=== PATIENT | male | born 1950 | race Caucasian/White ===

== ENCOUNTER 2017-07-21 15:18 | Emergency (ER) | payer MEDICARE, MEDICAID ==
[2017-07-21] MEDS ORDERED: SILVER SULFADIAZINE CREAM 25 GM TUBE TOP STA (17:32)
[2017-07-21] MEDS ORDERED: oxyCODONE/ACET 5/325 Prepack 4 PO STA (17:32)
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
[2017-07-21 18:03] VITALS: BP 140/84
== END 2017-07-21 18:02 | disposition home or self-care (01) ==
LOC: ED 15:18
DX: T23.261A Burn of second degree of back of right hand, initial encounter (principal); T31.0 Burns involving less than 10% of body surface; X03.8XXA Other exposure to controlled fire, not in building or structure, initial encounter; W40.1XXA Explosion of explosive gases, initial encounter; Z96.649 Presence of unspecified artificial hip joint
CPT/HCPCS: 99282; 99283; A9270

== ENCOUNTER 2017-07-30 14:08 | Emergency (ER) | payer MEDICARE, MEDICAID ==
--- NOTE | 2017-07-30 14:41 | ED Physician Documentation ---
PD HPI MALE - Stated complaint Stated Complaint: MALE - Chief complaint Chief Complaint: General - History obtained from History obtained from: Patient - History of Present Illness Timing - onset: Today Timing - details: Abrupt onset, Still present, Waxing and waning Associated symptoms: No: Dysuria, Urinary frequency, Genital sore / lesion, Back pain Review of Systems Constitutional: denies: Fever, Chills Nose: denies: Rhinorrhea / runny nose, Congestion Throat: denies: Sore throat Cardiac: denies: Chest pain / pressure, Palpitations Respiratory: denies: Dyspnea, Cough GI: denies: Nausea, Vomiting Skin: denies: Rash, Lesions Musculoskeletal: denies: Neck pain, Back pain Neurologic: denies: Generalized weakness, Focal weakness, Numbness, Near syncope , Headache PD PAST MEDICAL HISTORY - Past Medical History Cardiovascular: None Respiratory: None Endocrine/Autoimmune: None GI: Colon polyps, Hepatitis : Nocturia HEENT: None Psych: None Musculoskeletal: Osteoarthritis Derm: None - Past Surgical History Past Surgical History: Yes General: Appendectomy, Colonoscopy Ortho: Hip replacement - Present Medications Home Medications: Ambulatory Orders Medication Instructions Recorded Confirmed Oxycodone HCl/Acetaminophen 1 each PO Q6HR PRN #12 tablet 07/21/17 [Percocet 7.5-325 mg Tablet] Tamsulosin [Flomax] 0.4 mg PO DAILY #20 capsule 07/30/17 - Allergies Allergies/Adverse Reactions: Allergies Allergy/AdvReac Type Severity Reaction Status Date / Time No Known Drug Allergies Allergy Verified 07/30/17 14:23 - Social History Does the pt smoke?: No Smoking Status: Never smoker Does the pt drink ETOH?: Yes Does the pt have substance abuse?: No - Immunizations Immunizations are current?: No Immunizations: TDAP >10years/unknown - POLST Patient has POLST: Yes PD ED PE NORMAL - Vitals Vital signs reviewed: Yes - General General: Alert and oriented X 3, No acute distress, Well developed/nourished - HEENT HEENT: Atraumatic, Ears normal - Neck Neck: Supple, no meningeal sign, No adenopathy - Cardiac Cardiac: RRR, No murmur - Respiratory Respiratory: Clear bilaterally - Abdomen Abdomen: Normal bowel sounds, Soft, Non tender, Non distended - Back Back: No CVA TTP - Derm Derm: Normal color, Warm and dry, No rash - Extremities Extremities: No deformity, No tenderness to palpate, Normal ROM s pain, No edema , No calf tenderness / cord - Neuro Neuro: Alert and oriented X 3, No motor deficit, Normal speech Results - Vitals Vitals: Oxygen O2 Source Room air - Labs Labs: Laboratory Tests 07/30/17 14:45 Urine Color YELLOW Urine Clarity CLEAR Urine pH 5.0 Ur Specific [place] 1.015 Urine Protein NEGATIVE Urine Glucose (UA) NEGATIVE Urine Ketones NEGATIVE Urine Occult Blood SMALL H Urine Nitrite NEGATIVE Urine Bilirubin NEGATIVE Urine Urobilinogen 0.2 (NORMAL) Ur Leukocyte Esterase NEGATIVE Urine RBC 0-5 Urine WBC 0-3 Ur Squamous Epith Cells NONE SEEN Urine Bacteria None Seen Ur Microscopic Review INDICATED Urine Culture Comments NOT INDICATED PD MEDICAL DECISION MAKING - ED course Complexity details: considered differential, d/w patient Departure - Departure Disposition: 01 Home, Self Care Clinical Impression: Acute urinary retention Condition: Stable Record reviewed to determine appropriate education?: Yes Instructions: ED Catheter Care Mcbride, ED Retention Urinary Male Follow-Up: Keyona Nova ARNP [Primary Care Provider] - Prescriptions: Tamsulosin [Flomax] 0.4 mg PO DAILY #20 capsule Comments: Leave the Mcbride catheter in for now. Start tamsulosin daily for the next 2-3 weeks. Recheck with your primary care or here in the ER in 3 or 4 days and we can try removing the catheter and see if you are able to urinate normally after that. No signs of infection in the urine. Discharge Date/Time: 07/30/17 15:41
[2017-07-30 15:00] LABS: BILIRUBIN,URINE NEGATIVE (NEGATIVE); GLUCOSE, URINE (UA) NEGATIVE (NEGATIVE); KETONES,URINE (UA) NEGATIVE (NEGATIVE); LEUKOCYTE ESTERASE, URINE NEGATIVE (NEGATIVE); NITRITE,URINE NEGATIVE (NEGATIVE); OCCULT BLOOD,URINE SMALL (NEGATIVE); PROTEIN,URINE NEGATIVE (NEGATIVE); UROBILINOGEN,URINE 0.2 (NORMAL) E.U./dL (NORMAL)
[2017-07-30 15:01] LABS: CLARITY,URINE CLEAR (CLEAR)
[2017-07-30] MEDS ORDERED: TAMSULOSIN 0.4 MG CAPSULE PO STA (15:16)
[2017-07-30 15:23] LABS: BACTERIA,URINE None Seen /HPF (None Seen); RBC,URINE 0-5 /HPF (0-5); SQUAMOUS EPITHELIAL CELL,UR NONE SEEN (<= Few)
[2017-07-30 15:27] VITALS: BP 156/85
[2017-07-30] MEDS ORDERED: LIDOCAINE JELLY 2% 5 ML TUBE TOP STA (15:37)
== END 2017-07-30 15:41 | disposition home or self-care (01) ==
LOC: ED 14:08
DX: R33.9 Retention of urine, unspecified (principal)
CPT/HCPCS: 51702; 81001; 99283; A9270; J3490; 81003; 87086

== ENCOUNTER 2017-08-02 15:06 | Emergency (ER) | payer MEDICARE, MEDICAID ==
[2017-08-02 15:14] VITALS: BP 171/77
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
== END 2017-08-02 16:03 | disposition home or self-care (01) ==
LOC: ED 15:06
DX: R33.9 Retention of urine, unspecified (principal)
CPT/HCPCS: 99282

== ENCOUNTER 2017-08-30 09:48 | Outpatient (CLI) | payer MEDICARE, MEDICAID ==
[2017-08-30 17:35] LABS: BASOPHILS % (AUTO) 0.6 %; EOSINOPHILS # (AUTO) 0.1 10^3/uL (0.0-0.7); EOSINOPHILS % (AUTO) 1.3 %; LYMPHOCYTES # (AUTO) 1.1 10^3/uL (1.5-3.5); LYMPHOCYTES % (AUTO) 14.8 %; MEAN CORPUSCULAR HEMOGLOBIN 33.1 pg (27.0-31.0); MEAN CORPUSCULAR HGB CONC 32.9 g/dL (32.0-36.0); MEAN CORPUSCULAR VOLUME 100.8 fL (80.0-94.0); MEAN PLATELET VOLUME 8.8 fL (7.4-11.4); MONOCYTES # (AUTO) 0.8 10^3/uL (0.0-1.0); MONOCYTES % (AUTO) 10.2 %; NEUTROPHILS # (AUTO) 5.5 10^3/uL (1.5-6.6); NEUTROPHILS % (AUTO) 73.1 %; PLT - PLATELET COUNT 292 10^3/uL (130-450); RED BLOOD COUNT 4.24 10^6/uL (4.70-6.10); RED CELL DISTRIBUTION WIDTH 13.5 % (12.0-15.0); WHITE BLOOD COUNT 7.5 x10^3/uL (4.8-10.8)
[2017-08-30 18:22] LABS: ALBUMIN 3.7 g/dL (3.2-5.5); ALBUMIN/GLOBULIN RATIO 0.8 (1.0-2.2); BILIRUBIN,TOTAL 0.9 mg/dL (0.2-1.0); CALCIUM 9.2 mg/dL (8.5-10.3); CREATININE 1.1 mg/dL (0.6-1.2); TOTAL PROTEIN 8.1 g/dL (6.7-8.2); URIC ACID 6.3 mg/dL (2.6-7.2)
== END 2017-08-30 09:49 | disposition home or self-care (01) ==
LOC: LAB.F 09:48
PROVIDERS: ATTEND Nurse Practitioner Family
DX: I10 Essential (primary) hypertension (principal); A49.9 Bacterial infection, unspecified; B19.20 Unspecified viral hepatitis C without hepatic coma; M10.9 Gout, unspecified
CPT/HCPCS: 36415; 80053; 84550; 85025; 85651; 86140

== ENCOUNTER 2017-09-09 10:47 | Outpatient (CLI) | END 2017-09-09 10:48 | disposition home or self-care (01) ==

== ENCOUNTER 2018-01-13 16:39 | Emergency (ER) | payer MEDICARE, MEDICAID ==
[2018-01-13] MEDS ORDERED: LORazepam 2 MG/ML VIAL IVP STA (17:24)
--- NOTE | 2018-01-13 17:28 | ED Physician Documentation ---
PD HPI FOCAL NEURO - Stated complaint Stated Complaint: CANT SWOLLOW/FACE PX - Chief complaint Chief Complaint: Neuro - History obtained from History obtained from: Patient - History of Present Illness Timing - onset: Other (The last 2 weeks he has had a progressive illness that he feel like started in the left ear and has had progressive pain with chewing on the left, facial swelling under the left mandible, difficulty with swallowing and feeling like liquids need to go down the right side of his esophagus.) Review of Systems Ten Systems: 10 systems reviewed and negative Constitutional: denies: Fever, Chills Ears: reports: Ear pain Nose: denies: Rhinorrhea / runny nose, Congestion Throat: denies: Sore throat GI: denies: Nausea, Vomiting PD PAST MEDICAL HISTORY - Past Medical History Cardiovascular: None Respiratory: None Neuro: None Endocrine/Autoimmune: None GI: Colon polyps, Hepatitis : Nocturia HEENT: None Psych: None Musculoskeletal: Osteoarthritis Derm: None - Past Surgical History Past Surgical History: Yes General: Appendectomy, Colonoscopy Ortho: Hip replacement - Present Medications Home Medications: Ambulatory Orders Medication Instructions Recorded Confirmed Tamsulosin [Flomax] 0.4 mg PO DAILY #20 capsule 07/30/17 Diazepam [Valium] 2 mg PO TID PRN #10 tablet 01/13/18 Oxycodone HCl/Acetaminophen 1 each PO Q6H PRN #20 tablet 01/13/18 [Percocet 10-325 mg Tablet] - Allergies Allergies/Adverse Reactions: Allergies Allergy/AdvReac Type Severity Reaction Status Date / Time No Known Drug Allergies Allergy Verified 08/02/17 15:14 - Social History Does the pt smoke?: No Smoking Status: Never smoker Does the pt drink ETOH?: Yes Does the pt have substance abuse?: Yes Substance Use and Type: Marijuana - Family History Family history: reports: Non contributory - Immunizations Immunizations are current?: No Immunizations: TDAP >10years/unknown - POLST Patient has POLST: Yes PD ED PE NORMAL - Vitals Vital signs reviewed: Yes - General General: Alert and oriented X 3, No acute distress - HEENT HEENT: PERRL, EOMI, Ears normal, Other (There is a palpable firm mass in the left submandibular region that is quite extensive, he has mild pain with opening of the jaw but no trismus. He is edentulous with dentures in place. 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, Normal speech Eye Opening: Spontaneous Motor: Obeys Commands Verbal: Oriented GCS Score: 15 Results - Vitals Vitals: Vital Signs - 24 hr 01/13/18 16:41 Temperature 36.6 C Heart Rate 78 Respiratory 18 Rate Blood Pressure 147/79 H O2 Saturation 94 Oxygen O2 Source Room air - Labs Labs: Laboratory Tests 01/13/18 01/13/18 17:35 17:35 WBC 4.7 L RBC 3.73 L Hgb 13.2 L Hct 38.7 L MCV 103.5 H MCH 35.4 H MCHC 34.2 RDW 14.9 Plt Count 224 MPV 8.0 Neut # (Auto) 3.5 Lymph # (Auto) 0.7 L [place] # (Auto) 0.4 Eos # (Auto) 0.1 Baso # (Auto) 0.0 Absolute Nucleated RBC 0.00 Nucleated RBC % 0.0 Sodium 137 Potassium 4.0 Chloride 101 Carbon Dioxide 25 Anion Gap 11.0 BUN 21 H Creatinine 1.4 H Estimated GFR (MDRD) 50 L Glucose 109 H Calcium 9.2 Total Bilirubin 0.6 AST 22 ALT 12 Alkaline Phosphatase 40 L Total Protein 7.5 Albumin 4.0 Globulin 3.5 Albumin/Globulin Ratio 1.1 Lipase 33 - Rads (name of study) CT Head/neck with IV contrast Radiology: EMP read contemporaneously (1. Centered in the region of the left tongue base is a locally infiltrative at least 4 cm mass consistent with primary head and neck cancer. 2. Pathologically enlarged cervical adenopathy bilaterally consistent with regional lymph node tumor metastasis. 3. Nonspecific subcentimeter nodule in the left upper lung zone, follow-up with contrast- enhanced CT of the chest for further evaluation is suggested.) PD MEDICAL DECISION MAKING - ED course ED course: 67-year-old gentleman with progressive symptoms likely related to head and neck malignancy found on imaging. Case discussed by phone with Dr. Nascimento on-call for his clinic who will talk with his primary care physician tomorrow to help him arrange for expedited referrals for ENT as he will likely need a radical neck dissection. Departure - Departure Disposition: 01 Home, Self Care Clinical Impression: Tongue malignant neoplasm Condition: Good Record reviewed to determine appropriate education?: Yes Follow-Up: Keyona Nova ARNP [Primary Care Provider] - Tomorrow Prescriptions: Diazepam [Valium] 2 mg PO TID PRN #10 tablet PRN Reason: Anxiety Oxycodone HCl/Acetaminophen [Percocet 10-325 mg Tablet] 1 each PO Q6H PRN #20 tablet PRN Reason: Pain Comments: I spoke with the physician on-call for Keyona Nova, call her tomorrow, as discussed they will need to put an expedited referrals for head and neck surgery for evaluation and likely surgical procedure.
[2018-01-13 17:51] LABS: BASOPHILS % (AUTO) 0.7 %; EOSINOPHILS # (AUTO) 0.1 10^3/uL (0.0-0.7); EOSINOPHILS % (AUTO) 2.2 %; HGB - HEMOGLOBIN 13.2 g/dL (14.0-18.0); LYMPHOCYTES # (AUTO) 0.7 10^3/uL (1.5-3.5); LYMPHOCYTES % (AUTO) 14.3 %; MEAN CORPUSCULAR HEMOGLOBIN 35.4 pg (27.0-31.0); MEAN CORPUSCULAR HGB CONC 34.2 g/dL (32.0-36.0); MEAN CORPUSCULAR VOLUME 103.5 fL (80.0-94.0); MONOCYTES # (AUTO) 0.4 10^3/uL (0.0-1.0); MONOCYTES % (AUTO) 8.5 %; NEUTROPHILS # (AUTO) 3.5 10^3/uL (1.5-6.6); NEUTROPHILS % (AUTO) 74.3 %; PLT - PLATELET COUNT 224 10^3/uL (130-450); RED BLOOD COUNT 3.73 10^6/uL (4.70-6.10); RED CELL DISTRIBUTION WIDTH 14.9 % (12.0-15.0); WHITE BLOOD COUNT 4.7 x10^3/uL (4.8-10.8)
[2018-01-13] MEDS ORDERED: IOPAMIDOL-300 100 ML VIAL ONE (17:52)
[2018-01-13 18:01] LABS: ALBUMIN/GLOBULIN RATIO 1.1 (1.0-2.2); BILIRUBIN,TOTAL 0.6 mg/dL (0.2-1.0); CALCIUM 9.2 mg/dL (8.5-10.3); CREATININE 1.4 mg/dL (0.6-1.2); TOTAL PROTEIN 7.5 g/dL (6.7-8.2)
[2018-01-13] MEDS ORDERED: MORPHINE 2 MG/ML CARPUJECT IVP STA ×2 (18:10→19:26)
[2018-01-13] MEDS ORDERED: IOPAMIDOL-300 100 ML VIAL IVP ONE (18:30)
--- NOTE | 2018-01-13 19:07 | CT Report ---
Reason: L neuro sx, L neck mass Procedure Date: 01/13/2018 Accession Number: [id number] / [id number] Procedure: CT - Neck Soft Tissue W/ CPT Code: FULL RESULT: EXAM: CT SOFT TISSUE NECK WITH CONTRAST. EXAM DATE: 01/13/2018 06:23 PM. HISTORY: Neck mass. COMPARISONS: None. TECHNIQUE: Routine soft tissue neck CT protocol. Reconstructions: Coronal and sagittal. IV contrast: ISOVUE 300 80mL. In accordance with CT protocol optimization, one or more of the following dose reduction techniques were utilized for this exam: automated exposure control, adjustment of mA and/or KV based on patient size, or use of iterative reconstructive technique. FINDINGS: Approximately 4 cm enhancing expansile space occupying mass centered in the region of the left lateral tongue base. This lesion extends anteriorly and likely involves the oral tongue, extending toward the root of the tongue. Posteriorly and laterally to the left this lesion may extend into the adjacent left palatine tonsil. At least mild associated airway narrowing with mass extension inferiorly with partial left vallecula effacement. Multiple pathologically enlarged cervical lymph nodes in the left neck most evident at lymph node levels 2 and 3. An upper left level 3 node is 18 x 25 mm. Dominant left level 2 nodes are 17 x 36 and 21 x 13 mm. Pathologically enlarged lymph nodes at level 2 in the right neck are also present, for example measuring 21 x 17 mm and 15 x 17 mm. Nonspecific nodule in the left posterior upper lung zone up to 6-7 mm. Reference image 121 of series 4. Unremarkable appearance of the major salivary glands and thyroid gland. Prominent chronic multilevel hypertrophic degenerative cervical spinal spondylosis. Atherosclerotic calcifications associated with an indeterminate degree of luminal stenosis at the cervical carotid bifurcations. IMPRESSION: 1. Centered in the region of the left tongue base is a locally infiltrative at least 4 cm mass consistent with primary head and neck cancer. 2. Pathologically enlarged cervical adenopathy bilaterally consistent with regional lymph node tumor metastasis. 3. Nonspecific subcentimeter nodule in the left upper lung zone, follow-up with contrast-enhanced CT of the chest for further evaluation is suggested. RADIA
--- NOTE | 2018-01-13 19:11 | CT Report ---
Reason: LEFT NEURO SYMPTOMS, LEFT NECK MASS Procedure Date: 01/13/2018 Accession Number: [id number] / [id number] Procedure: CT - Head W/WO CPT Code: FULL RESULT: EXAM: CT HEAD EXAM DATE: 01/13/2018 06:24 PM. CLINICAL HISTORY: Left neck mass. Neurologic symptoms are also reported. COMPARISON: No prior CT. Brain MRI correlation 05/10/2014. TECHNIQUE: Multiaxial CT images were obtained from the foramen magnum to the vertex. Reformats: Sagittal and coronal. IV contrast: Without and with 80 mL Isovue-300. In accordance with CT protocol optimization, one or more of the following dose reduction techniques were utilized for this exam: automated exposure control, adjustment of mA and/or KV based on patient size, or use of iterative reconstructive technique. FINDINGS: Mild generalized cerebral volume loss. No evidence for acute abnormality such as stroke, hemorrhage or hydrocephalus. Amorphous white matter hypoattenuation may be from chronic microangiopathy. No evidence for intracranial enhancing or space-occupying mass. No acute-appearing sinus or mastoid disease. Grossly intact calvarium. IMPRESSION: No CT evidence for acute intracranial abnormality or enhancing intracranial mass. These findings do not preclude the possibility of small or acute ischemic infarct for which a brain MRI would be more sensitive. RADIA
[2018-01-13 19:52] VITALS: BP 156/88
[2018-01-13] MEDS ORDERED: diazePAM 5 MG TABLET PO STA (19:56)
[2018-01-13] MEDS ORDERED: oxyCODONE/ACET 5/325 Prepack 4 PO STA (19:56)
== END 2018-01-13 20:07 | disposition home or self-care (01) ==
LOC: ED 16:39
DX: C01 Malignant neoplasm of base of tongue (principal); K75.9 Inflammatory liver disease, unspecified
CPT/HCPCS: 36415; 70470; 70491; 80053; 83690; 85025; 96374; 96375; 96376; 99283; 99284; A9270; J2060; Q9967

== ENCOUNTER 2018-01-14 09:55 | Outpatient (CLI) | payer MEDICARE, MEDICAID | END 2018-01-14 09:56 | disposition home or self-care (01) | LOC: RT.S 09:55 | PROVIDERS: ATTEND Nurse Practitioner Family | DX: I49.9 Cardiac arrhythmia, unspecified (principal) | CPT/HCPCS: 93005 ==

== ENCOUNTER 2018-02-10 20:40 | Outpatient (CLI) | payer MEDICARE | END 2018-02-10 20:41 | disposition EMS.NT | LOC: EMS 20:40 | PROVIDERS: ATTEND Surgery | DX: M79.672 Pain in left foot (principal); M79.671 Pain in right foot ==

== ENCOUNTER 2018-02-27 22:09 | Inpatient (IN) | payer MEDICARE ==
--- NOTE | 2018-02-27 22:37 | ED Physician Documentation ---
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 He went to [facility] and then [place] yesterday and was being prepared for chemotherapy but had urinary retention with 1100 mL in the bladder per the on bladder scan so he was deferred over to the emergency department at [place] yesterday for a Mcbride catheter. Today he has had very little output from the Mcbride catheter and has had some leakage from around the head of the penis. He is not really in any pain per se.) Review of Systems Ten Systems: 10 systems reviewed and negative Constitutional: denies: Fever, Chills Cardiac: denies: Chest pain / pressure, Palpitations Respiratory: denies: Dyspnea, Cough GI: denies: Abdominal Pain, Nausea, Vomiting PD PAST MEDICAL HISTORY - Past Medical History Cardiovascular: None Respiratory: None Neuro: None Endocrine/Autoimmune: None GI: Colon polyps, Hepatitis : Nocturia HEENT: None Psych: None Musculoskeletal: Osteoarthritis Derm: None - Past Surgical History Past Surgical History: Yes General: Appendectomy, Colonoscopy Ortho: Hip replacement - Present Medications Home Medications: Ambulatory Orders Medication Instructions Recorded Confirmed RX: Tamsulosin [Flomax] 0.4 mg PO DAILY #20 capsule 07/30/17 Diazepam [Valium] 2 mg PO TID PRN #20 tablet 01/13/18 Oxycodone HCl/Acetaminophen 1 each PO Q6H PRN #20 tablet 01/13/18 [Percocet 10-325 mg Tablet] - Allergies Allergies/Adverse Reactions: Allergies Allergy/AdvReac Type Severity Reaction Status Date / Time No Known Drug Allergies Allergy Verified 02/27/18 22:17 - Social History Does the pt smoke?: No Smoking Status: Never smoker Does the pt drink ETOH?: Yes Does the pt have substance abuse?: Yes - Family History Family history: reports: Non contributory - Immunizations Immunizations are current?: No Immunizations: TDAP >10years/unknown - POLST Patient has POLST: Yes PD ED PE NORMAL - Vitals Vital signs reviewed: Yes - General General: Alert and oriented X 3, No acute distress - HEENT HEENT: PERRL, EOMI - Neck Neck: Supple, no meningeal sign, No bony TTP - Cardiac Cardiac: RRR, No murmur - Respiratory Respiratory: No respiratory distress, Clear bilaterally - Abdomen Abdomen: Soft, Non tender - Male Male : Other (There is a Mcbride catheter in place, there is some inflammation around the head of the penis but it is not too bad. There is not much urine in the bag, minute may be 10-20 mL. The says that is pretty much all that has been and they are all day. During examination I flushed the catheter with sterile saline, the saline came back but there was not any more urine output. Bedside ultrasound demonstrates Mcbride catheter balloon in the bladder but an otherwise complete decompressed bladder.) - Extremities Extremities: No edema, No calf tenderness / cord - Neuro Neuro: Alert and oriented X 3, Normal speech Results - Vitals Vitals: Vital Signs - 24 hr 02/27/18 22:10 Temperature 36.6 C Heart Rate 112 H Respiratory 18 Rate Blood Pressure 93/61 O2 Saturation 94 Oxygen O2 Source Room air - Labs Labs: Laboratory Tests 02/27/18 02/27/18 22:45 22:45 WBC 9.2 RBC 3.76 L Hgb 13.0 L Hct 37.9 L MCV 100.8 H MCH 34.4 H MCHC 34.2 RDW 13.6 Plt Count 309 MPV 8.6 Neut # (Auto) 6.8 H Lymph # (Auto) 1.4 L [place] # (Auto) 0.7 Eos # (Auto) 0.2 Baso # (Auto) 0.1 Absolute Nucleated RBC 0.00 Nucleated RBC % 0.0 Sodium 133 L Potassium 4.2 Chloride 94 L Carbon Dioxide 28 Anion Gap 11.0 BUN 36 H Creatinine 2.3 H Estimated GFR (MDRD) 28 L Glucose 123 H Calcium 9.3 Total Bilirubin 0.2 AST 24 ALT 15 Alkaline Phosphatase 46 Total Protein 7.5 Albumin 3.7 Globulin 3.8 Albumin/Globulin Ratio 1.0 Lipase 29 PD MEDICAL DECISION MAKING - ED course ED course: This is a 67-year-old gentleman with recent diagnosis of head and neck primary cancer who presents with diminished Mcbride catheter output after having a Mcbride catheter placed yesterday. I irrigated at the bedside and that did not seem to change anything and bedside ultrasound demonstrates a decompressed bladder with the Mcbride catheter in it. At that point labs were drawn and shows acute renal injury, probably due to postobstructive uropathy. His port was accessed by the nurse to start double IV fluids and I spoke with Dr. Cunningham for admission at 11:15 PM who does plan to consult nephrology, Departure - Departure Disposition: 66 [facility] DC/Xfer Clinical Impression: Acute urinary retention, Acute renal failure Condition: Stable
[2018-02-27 22:52] LABS: BASOPHILS # (AUTO) 0.1 10^3/uL (0.0-0.1); BASOPHILS % (AUTO) 0.7 %; EOSINOPHILS # (AUTO) 0.2 10^3/uL (0.0-0.7); EOSINOPHILS % (AUTO) 1.8 %; LYMPHOCYTES # (AUTO) 1.4 10^3/uL (1.5-3.5); LYMPHOCYTES % (AUTO) 15.5 %; MEAN CORPUSCULAR HEMOGLOBIN 34.4 pg (27.0-31.0); MEAN CORPUSCULAR HGB CONC 34.2 g/dL (32.0-36.0); MEAN CORPUSCULAR VOLUME 100.8 fL (80.0-94.0); MEAN PLATELET VOLUME 8.6 fL (7.4-11.4); MONOCYTES # (AUTO) 0.7 10^3/uL (0.0-1.0); NEUTROPHILS # (AUTO) 6.8 10^3/uL (1.5-6.6); PLT - PLATELET COUNT 309 10^3/uL (130-450); RED BLOOD COUNT 3.76 10^6/uL (4.70-6.10); RED CELL DISTRIBUTION WIDTH 13.6 % (12.0-15.0); WHITE BLOOD COUNT 9.2 x10^3/uL (4.8-10.8)
[2018-02-27] MEDS ORDERED: oxyCODONE 5 MG TABLET PO STA (23:00)
[2018-02-27 23:04] LABS: ALBUMIN 3.7 g/dL (3.2-5.5); BILIRUBIN,TOTAL 0.2 mg/dL (0.2-1.0); CALCIUM 9.3 mg/dL (8.5-10.3); CREATININE 2.3 mg/dL (0.6-1.2); TOTAL PROTEIN 7.5 g/dL (6.7-8.2)
[2018-02-27] MEDS ORDERED: SODIUM CHLORIDE 0.9% 1,000 ML IV ONE (23:11)
[2018-02-28] MEDS ORDERED: ONDANSETRON 4 MG/2 ML VIAL IVP PRN (00:59)
[2018-02-28] MEDS: SODIUM CHLORIDE FLUSH 0.9% 10 ML SYRINGE IVP SCH ×3 (02:01→17:12)
[2018-02-28] MEDS: MORPHINE 2 MG/ML CARPUJECT IVP PRN (02:22)
[2018-02-28] MEDS: METOPROLOL TARTRATE 25 MG TABLET PO SCH ×3 (02:23→22:08)
[2018-02-28] MEDS: diazePAM 5 MG TABLET PO PRN (02:25)
--- NOTE | 2018-02-28 02:25 | HISTORY & PHYSICAL EXAMINATION ---
DATE OF SERVICE: 02/28/2018 Physician: Birgit Cunningham MD CHIEF COMPLAINT: No urine output. HISTORY OF PRESENT ILLNESS: Patient is a 67-year-old white male with multiple past medical problems. His history is pertinent for recent diagnosis of primary head and neck cancer. He was seen in our ER on 01/13/2018. He was evaluated by Dr. Parker. Underwent CT scan of the head and neck, which was a contrast study. It showed advanced head and neck malignancy starting at the base of the tongue with extensive cervical lymphadenopathy and also spread to the upper lobes of the lungs. Arrangements were made for outpatient ENT followup. Patient underwent biopsy and subsequently was followed in the [facility]. He was diagnosed with stage IV disease. I do not have further information regarding the histologic type. He was told that he would not be a candidate for surgery and chemotherapy was advised. He received a right upper chest port and was supposed to start chemotherapy on 02/26/2018. He went to [facility] to get chemotherapy treatment; however, he was noted with urinary retention. Reportedly, there was postvoid residual of about a liter in his bladder. Therefore, he received a Mcbride catheter and the chemotherapy was aborted. It was felt that he needed to have urine output and a stable situation prior to starting chemotherapy. He was sent home with a Mcbride catheter and I do not have information about scheduled followup. The patient and the returned to the ER on the evening of 02/27/2018 reporting that there was no urine in the Mcbride bag. Although he has dysphagia, he can take liquids without any problem, and reportedly he was drinking a reasonable amount. Regardless, there was no output. The patient and the were also concerned that there was some whitish sediment around his penis and there was some urine leak possibly. When he arrived to the ER, he had no urine in the leg bag. The ER physician, Dr. Parker, evaluated the catheter. Ultrasound showed placement of the catheter in the bladder, decompressed bladder, with no urine in it. It was felt that there was no problem with the catheter placement; rather, the patient was making no urine. On further interview, the patient reported that after he had contrast CT in our ER on 01/13/2018, he had a PET scan in the [facility], but no other imaging study. He denied taking nonsteroidal anti-inflammatories. Regarding his medications, he was on losartan up to December 2017. At that time, he was diagnosed with atrial fibrillation. Losartan was stopped and he was started on metoprolol. Together with the metoprolol, he also was started on Xarelto. He reported no bleeding complication. Regarding other medications, I refer the reader to the below listed outpatient medications. Regarding other symptoms, the patient reported history of benign prostatic hypertrophy, for which he takes Flomax; but in the past, he did not have trouble with his urine flow. Today his only problem was no urine output. Other than that, he denied all complaints including abdominal pain, shortness of breath, chest pain, lower extremity swelling. He did report history of dysphagia and odynophagia. For that, he takes dietary supplements and east soft diet. His mentioned that he lost about 15 pounds during the past month. He also had some kind of history of occasional foot swelling which was felt to be secondary to gout, but subsequently was ruled out for gout. During the past several years, his feet swell about four or five times. This is not an active problem. REVIEW OF SYMPTOMS: Please see pertinent positives and pertinent negatives listed above at history of present illness. I completed 12-system review, which was otherwise negative. All other systems were negative. PAST MEDICAL HISTORY 1. Hypertension. 2. Paroxysmal atrial fibrillation. 3. Benign prostatic hypertrophy. 4. History of arthritis, questionable cellulitis of the lower extremity. 5. Depression/anxiety. 6. Recently diagnosed head and neck malignancy. OUTPATIENT MEDICATIONS: Losartan was stopped in December 2017. Since then, the patient had been on: 1. Metoprolol. 2. Xarelto. 3. Trazodone. 4. Flomax. 5. Bupropion. 6. Valium. 7. Percocet. SOCIAL HISTORY and functional status: Patient smokes a few cigarettes per day. Occasionally, he uses a cane to ambulate, not all the time. He drinks beer, but not excessively. He lives with his ; he has been for 35 years. His is supportive and accompanied him to the ER. He can perform activities of daily living. His states that he is the "strong one in the family", he is a provider to her and has been in all their life. They both have difficulty coping with the advanced disease the patient is diagnosed for. FAMILY HISTORY: Positive for cerebrovascular accident in the father at age 70, in addition prostate cancer as well. However, regardless, the father lived up to age 100. CODE STATUS: FULL CODE. The patient would accept aggressive intervention and resuscitation in case of emergency. He is hopeful that he would survive cancer and he would have favorable response to chemotherapy. His oncologist told him that there was a chance for remission. PHYSICAL EXAMINATION VITAL SIGNS: Temperature 36.6 Celsius, heart rate between 80 and 110, blood pressure 110/93, respiratory rate 16, oxygen saturation 92% on room air. GENERAL: The patient is a well-developed, chronically ill-appearing male, who is not in acute distress. MUSCULOSKELETAL: With large head and neck mass, mostly involving the left side of the neck and the face. HEENT: Erythema of the oral mucosa, also dryness of the oral mucosa, but no ulcers. No thrush. CARDIOVASCULAR: S1, S2. Regular rate and rhythm. No pathologic murmur. Well perfused periphery, peripheral pulses on all four extremities palpable. RESPIRATORY: Clear to auscultation without wheezes or crackles. No airway obstruction. Reasonably good airway protection. ABDOMEN: Soft, benign, nontender. Bowel tones present. LYMPHATIC: No lymphedema. NEUROLOGIC: Alert, oriented, nonfocal. PSYCHIATRIC: Cooperative, pleasant to talk to. EMERGENCY ROOM WORKUP: White blood cell count normal, hemoglobin 13.0, platelet count 309. Sodium 133, potassium 4.2, carbon dioxide 28, anion gap 11, BUN 36, creatinine 2.3. Notably, creatinine on 01/13/2018 was 1.4; prior to that, creatinine baseline was 1. Albumin 3.7. Liver function tests unremarkable. Blood glucose 123. ASSESSMENT AND PLAN/ACTIVE ISSUES/DIAGNOSES 1. Acute renal failure. This could be postobstructive nephropathy. Patient had no urine output, had urinary retention, after which he received a Mcbride catheter, which drained about a liter; however, subsequently after the patient returned home, regardless of reasonably good fluid intake, he had no urine output. This would be somewhat unusual course for post-obstructive nephropathy considering that with postobstructive nephropathy after the obstruction resolves such as having a Mcbride catheter, we would expect increased urine output and renal failure from the increased urine output rather than having no urine output. Therefore, this is a somewhat unusual course and I suspect that other etiology might contribute, such as post-contrast nephropathy, possible complication with the patient's underlying malignancy, possibly spread in the abdomen or affecting other organs. The renal failure is most likely multifactorial. 2. History of benign prostatic hypertrophy, which could contribute to obstruction prior to Mcbride catheter placement. 3. Advanced stage IV head and neck malignancy, was supposed to start chemotherapy in the [facility] system just prior to current admission. 4. Dysphagia/odynophagia secondary to oropharyngeal malignancy. Taking soft diet, appears with open airway. 5. Malnutrition/weight loss secondary to dysphagia in the setting of advanced cancer. 6. Paroxysmal atrial fibrillation, rate controlled with metoprolol, anticoagulated on Xarelto. 7. Pain secondary to advanced malignancy, on chronic opiate. 8. FULL CODE. In summary, patient is a 67-year-old male who is getting admitted with acute renal failure. His recent history is significant for postobstructive nephropathy, for which he received a Mcbride catheter. His course was somewhat unusual, not having urine output. In the ER, he was started on IV fluid and had some urine output, but not much. After having a liter of fluid he had, perhaps, 100 out. His renal failure is likely multifactorial. Other issue here is that he should have close oncology followup as he is supposed to start chemotherapy as soon as possible. Considering all of this, I contacted [facility] and discussed the case with the covering development manager, Dr. Jaquan Soriano. Dr. Soriano stated that it would be appropriate to transfer this patient to [facility] if his renal function did not improve on overnight IV hydration. The case is open for transfer. Therefore, we are admitting this patient here to [facility], hydrating him overnight, monitoring his kidney function; and if he does not have improvement, then tomorrow Dr. Soriano would accept him for transfer. PLAN AND ORDERS 1. Patient is getting admitted as inpatient. He fulfills inpatient criteria by creatinine doubling, having acute renal failure. We are going to hydrate overnight, monitor urine output ,I's and O's. I also ordered retroperitoneal ultrasound, added PSA, INR and urine protein creatinine ratio to the workup. We will not do any further workup as further plan might depend on nephrology opinion. 2. We will add nutritional supplements, continue with dysphagia diet. Reconcile outpatient medications. We will continue Xarelto after we check INR. However, I would continue in lower dose considering renal failure. We will continue metoprolol for rate control of atrial fibrillation and we will continue psychoactive medications. We will continue opiate for pain control. 3. The plan was discussed with the patient and with his . Time spent in the care of this patient was 80 minutes, which included coordination of his care with [facility]. ATTESTATION: I certify that a reasonable expectation for this patient is to remain hospitalized for at least 48 hours and he does meet inpatient criteria. We expect that he gets discharged or transferred to another facility within 96 hours. TD: 02/28/2018 01:58 MTDEla
[2018-02-28] MEDS ORDERED: SODIUM CHLORIDE FLUSH 0.9% 10 ML SYRINGE IVP PRN (02:34)
[2018-02-28] MEDS: SODIUM CHLORIDE 0.9% 1,000 ML IV SCH ×2 (03:36→14:11)
[2018-02-28 06:44] LABS: CALCIUM 8.7 mg/dL (8.5-10.3); INR 1.3 (0.8-1.2); PT - PROTHROMBIN TIME 14.1 secs (9.9-12.6)
--- NOTE | 2018-02-28 06:46 | Ultrasound Report ---
Reason: acute renal failure Procedure Date: 02/28/2018 Accession Number: [id number] / [id number] Procedure: US - Retroperitoneal CPT Code: FULL RESULT: EXAM: RENAL ULTRASOUND EXAM DATE: 02/28/2018 06:04 AM. CLINICAL HISTORY: Acute renal failure. COMPARISON: None. TECHNIQUE: Real-time scanning was performed with static images obtained. FINDINGS: Right Kidney: 10.0 x 5.6 x 4.6 cm. Normal echotexture with no stones, contour-deforming masses, or katelyn hydronephrosis. Extrarenal pelvis noted. Lower pole cyst measuring 1.0 x 1.4 x 1.3 cm. Left Kidney: 11.4 x 5.0 x 5.8 cm. Normal echotexture with no stones, contour-deforming masses, or hydronephrosis. Lower pole cyst measuring 1.7 x 1.5 x 1.5 cm. Bladder: Bilateral jets not seen. The urinary bladder was empty with catheter in place. Other: None. IMPRESSION: 1. No hydronephrosis seen bilaterally. 2. Empty urinary bladder with catheter in place. Ureteral jets could not be assessed. [facility]
[2018-02-28 08:01] LABS: PSA FREE 1.14 ng/mL (0.16-2.81)
[2018-02-28 08:02] LABS: PSA TOTAL 7.69 ng/mL (0.000-2.000)
[2018-02-28] MEDS: buPROPion XL 150 MG TABLET PO SCH (08:37)
[2018-02-28] MEDS: POLYETHYLENE GLYCOL 3350 17 GM PACKET PO SCH (08:40)
[2018-02-28] MEDS: NICOTINE 14 MG PATCH TOP SCH (08:43)
[2018-02-28] MEDS ORDERED: FAMOTIDINE 20 MG/50 ML 50 ML IV SCH (09:00)
[2018-02-28 09:03] LABS: BILIRUBIN,URINE NEGATIVE (NEGATIVE); GLUCOSE, URINE (UA) NEGATIVE (NEGATIVE); KETONES,URINE (UA) NEGATIVE (NEGATIVE); LEUKOCYTE ESTERASE, URINE TRACE (NEGATIVE); NITRITE,URINE NEGATIVE (NEGATIVE); OCCULT BLOOD,URINE LARGE (NEGATIVE); PH,URINE 5.5 PH (5.0-7.5); PROTEIN,URINE NEGATIVE (NEGATIVE); UROBILINOGEN,URINE 0.2 (NORMAL) E.U./dL (NORMAL)
[2018-02-28 09:21] LABS: CLARITY,URINE CLEAR (CLEAR)
[2018-02-28 09:22] LABS: BACTERIA,URINE Rare /HPF (None Seen); SQUAMOUS EPITHELIAL CELL,UR RARE Squamous (<= Few)
[2018-02-28] MEDS: oxyCODONE 5 MG TABLET PO PRN ×2 (09:42→17:47)
[2018-02-28] MEDS ORDERED: SODIUM CHLORIDE 0.9% 500 ML IV ONE (13:14)
--- NOTE | 2018-02-28 15:36 | PROVIDER PROGRESS NOTE ---
Subjective - Prog Note Date Prog Note Date: 02/28/18 Prog Note Time: 15:35 - Subjective Subjective: He has been here a little over 12 hours now. He has gotten IV fluids and he has been making urine. However he is sleepy, lethargic. is getting more more anxious at his apparent deterioration. She is getting more anxious about the fact that he is not gotten chemo treatment yet. He was initially evaluated in December and has been steadily losing ground. He really is unable to swallow or eat very much because of the mass along the left side of his tongue. We think he is lost from 213 pounds down to his current weight. That would be about 20 pounds. She did ask if we could call [facility]. She really wanted him transferred to higher level of care on the basis of trying to push forward his chemotherapy treatment. She also was worried about his kidneys. Thought that may be a nephrology consult was in order. I did speak to Dr. ALEXANDER Soriano. He is in the [facility] clinic today. Dr. Soriano and I both feel that the patient is malnourished and deh ydrated. Also has urinary retention from prostate on top of it. We think that with hydration, keeping the Mcbride in, his creatinine function should return to normal. It is already improving today. Renal ultrasound shows no obstruction. Nevertheless, I did contact [facility] and explained that the family was requesting transfer on the basis of wanting chemotherapy pushed more quickly but [facility] has no beds. She then wanted us to transfer him to [facility] because all of their children live near that hospital. I called [facility], and they have declined to take the patient. I have explained that to the . Current Medications - Current Medications Current Medications: Active Medications Bupropion HCl (Wellbutrin Xl) 150 mg PO DAILY [facility] Last Admin: 02/28/18 08:37 Dose: 150 mg Diazepam (Valium) 5 mg PO DAILY PRN PRN Reason: Anxiety Last Admin: 02/28/18 02:25 Dose: 5 mg Heparin Sodium (Beef Lung) () 30 - 50 unit IVP PRN PRN PRN Reason: Port Protocol (<24 hours) Sodium Chloride (Normal Saline 0.9%) 1,000 mls @ 100 mls/hr IV .Q10H [facility] Last Admin: 02/28/18 14:11 Dose: 100 mls/hr Famotidine (Pepcid 20 Mg/50 Ml) 50 mls @ 100 mls/hr IV DAILY [facility] Metoprolol Tartrate (Lopressor) 25 mg PO BID [facility] Last Admin: 02/28/18 08:37 Dose: 25 mg Morphine Sulfate (Morphine (Carpuject)) 3 mg IVP Q2HR PRN PRN Reason: PAIN Last Admin: 02/28/18 02:22 Dose: 3 mg Nicotine (Nicoderm) 1 patch TOP DAILY [facility] Last Admin: 02/28/18 08:43 Dose: 1 patch Ondansetron HCl (Zofran Inj) 4 mg IVP Q6HR PRN PRN Reason: Nausea / Vomiting Oxycodone HCl (Roxicodone) 10 mg PO Q4HR PRN PRN Reason: Pain 8 to 10 Last Admin: 02/28/18 09:42 Dose: 10 mg Polyethylene Glycol (Miralax) 17 gm PO DAILY [facility] Last Admin: 02/28/18 08:40 Dose: 17 gm Sodium Chloride (Normal Saline Flush 0.9%) 10 ml IVP PRN PRN PRN Reason: NEEDED PER PROVIDER ORDERS Sodium Chloride (Normal Saline Flush 0.9%) 10 ml IVP 0100,0900,1700 [facility] Last Admin: 02/28/18 09:21 Dose: Not Given Sodium Chloride (Normal Saline Flush 0.9%) 20 ml IVP PRN PRN PRN Reason: After Blood Draw Trazodone HCl (Desyrel) 50 mg PO QPM [facility] Indomethacin 50 mg PO TID PRN 02/28/18 Metoprolol Tartrate 100 mg PO DAILY 02/28/18 Nicotine 14 mg Patch [Nicoderm] 14 mg TOP Q24H 02/28/18 Ondansetron HCl [Zofran] 8 mg PO Q8H PRN 02/28/18 Prochlorperazine Maleate [Compazine] 10 mg PO Q6H PRN 02/28/18 Rivaroxaban [Xarelto] 20 mg PO 1700 02/28/18 Trazodone HCl 200 mg PO QPM 02/28/18 buPROPion [Wellbutrin Sr] 150 mg PO DAILY 02/28/18 diazePAM [Diazepam] 10 mg PO Q6H PRN 02/28/18 oxyCODONE [Roxicodone] 60 mg PO Q4H PRN 02/28/18 Objective - Vital Signs/Intake & Output Reviewed Vital Signs: Yes Vital Signs: Vital Signs x48h Temp Pulse Resp BP BP Pulse Ox 02/28/18 08:37 107/78 02/28/18 07:57 36.2 C L 92 18 103/66 93 Intake & Output: Intake & Output 02/25/18 02/26/18 02/27/18 02/28/18 23:59 23:59 23:59 23:59 Intake Total 3630.000 Output Total 1100 Balance 2530.000 - Objective General Appearance: positive: No acute distress, Lethargic (He awakens to my voice, but he really has been sleeping most of the day.) Eyes Bilateral: positive: PERRL, EOMI ENT: positive: Dry mucous membranes Neck: positive: No JVD. negative: Stiff neck, Carotid bruit Respiratory: positive: Chest non-tender, Breath sounds nml. negative: Wheezes, Rales, Rhonchi Cardiovascular: positive: Irregularly irregular. negative: Gallop/S4, Friction rub Abdomen: positive: Non-tender, No organomegaly, Nml bowel sounds, No distention Skin: positive: Warm, Dry Extremities: positive: Full ROM, No pedal edema Neurologic/Psychiatric: positive: Oriented x3, CN's nml (2-12), Motor nml, Depressed mood/affect - Lab Results Fish Bones: 02/27/18 22:45 02/28/18 06:30 Other Labs: Lab Results x24hrs 02/28/18 02/28/18 02/28/18 Range/Units 08:35 08:35 06:30 WBC (4.8-10.8) x10^3/uL RBC (4.70-6.10) 10^6/uL Hgb (14.0-18.0) g/dL Hct (42.0-52.0) % MCV (80.0-94.0) fL MCH (27.0-31.0) pg MCHC (32.0-36.0) g/dL RDW (12.0-15.0) % Plt Count (130-450) 10^3/uL MPV (7.4-11.4) fL Neut # (Auto) (1.5-6.6) 10^3/uL Lymph # (Auto) (1.5-3.5) 10^3/uL Dale # (Auto) (0.0-1.0) 10^3/uL Eos # (Auto) (0.0-0.7) 10^3/uL Baso # (Auto) (0.0-0.1) 10^3/uL Absolute Nucleated RBC x10^3/uL Nucleated RBC % /100WBC PT (9.9-12.6) secs INR (0.8-1.2) Sodium (135-145) mmol/L Potassium (3.5-5.0) mmol/L Chloride (101-111) mmol/L Carbon Dioxide (21-32) mmol/L Anion Gap (6-13) BUN (6-20) mg/dL Creatinine (0.6-1.2) mg/dL Estimated GFR (MDRD) (>89) Glucose (70-100) mg/dL Calcium (8.5-10.3) mg/dL Total Bilirubin (0.2-1.0) mg/dL AST (10-42) IU/L ALT (10-60) IU/L Alkaline Phosphatase (42-121) IU/L Total Protein (6.7-8.2) g/dL Albumin (3.2-5.5) g/dL Globulin (2.1-4.2) g/dL Albumin/Globulin Ratio (1.0-2.2) Lipase (22-51) U/L Prostate Specific Ag 7.690 H (0.000-2.000) ng/mL Free PSA 1.140 (0.16-2.81) ng/mL % Free PSA Calc 15 L (25-100) % Urine Color YELLOW Urine Clarity CLEAR (CLEAR) Urine pH 5.5 (5.0-7.5) PH Ur Specific [place] 1.020 (1.002-1.030) Urine Protein NEGATIVE (NEGATIVE) mg/dL Urine Glucose (UA) NEGATIVE (NEGATIVE) mg/dL Urine Ketones NEGATIVE (NEGATIVE) mg/dL Urine Occult Blood LARGE H (NEGATIVE) Urine Nitrite NEGATIVE (NEGATIVE) Urine Bilirubin NEGATIVE (NEGATIVE) Urine Urobilinogen 0.2 (NORMAL) (NORMAL) E.U./dL Ur Leukocyte Esterase TRACE H (NEGATIVE) Urine RBC 11-25 H (0-5) /HPF Urine WBC 4-5 (0-3) /HPF Ur Squamous Epith Cells RARE Squamous (<= Few) Urine Bacteria Rare (None Seen) /HPF Urine Culture Comments INDICATED Urine Creatinine 84.0 mg/dL Urine Microalbumin 10.0 (0-300.0) mg/dL Microalb/Creat Ratio 119.0 H (<30.0) ug/mg 02/28/18 02/28/18 02/27/18 Range/Units 06:30 06:30 22:45 WBC (4.8-10.8) x10^3/uL RBC (4.70-6.10) 10^6/uL Hgb (14.0-18.0) g/dL Hct (42.0-52.0) % MCV (80.0-94.0) fL MCH (27.0-31.0) pg MCHC (32.0-36.0) g/dL RDW (12.0-15.0) % Plt Count (130-450) 10^3/uL MPV (7.4-11.4) fL Neut # (Auto) (1.5-6.6) 10^3/uL Lymph # (Auto) (1.5-3.5) 10^3/uL Dale # (Auto) (0.0-1.0) 10^3/uL Eos # (Auto) (0.0-0.7) 10^3/uL Baso # (Auto) (0.0-0.1) 10^3/uL Absolute Nucleated RBC x10^3/uL Nucleated RBC % /100WBC PT 14.1 H (9.9-12.6) secs INR 1.3 H (0.8-1.2) Sodium 133 L 133 L (135-145) mmol/L Potassium 4.2 4.2 (3.5-5.0) mmol/L Chloride 99 L 94 L (101-111) mmol/L Carbon Dioxide 29 28 (21-32) mmol/L Anion Gap 5.0 L 11.0 (6-13) BUN 33 H 36 H (6-20) mg/dL Creatinine 2.0 H 2.3 H (0.6-1.2) mg/dL Estimated GFR (MDRD) 33 L 28 L (>89) Glucose 111 H 123 H (70-100) mg/dL Calcium 8.7 9.3 (8.5-10.3) mg/dL Total Bilirubin 0.2 (0.2-1.0) mg/dL AST 24 (10-42) IU/L ALT 15 (10-60) IU/L Alkaline Phosphatase 46 (42-121) IU/L Total Protein 7.5 (6.7-8.2) g/dL Albumin 3.7 (3.2-5.5) g/dL Globulin 3.8 (2.1-4.2) g/dL Albumin/Globulin Ratio 1.0 (1.0-2.2) Lipase 29 (22-51) U/L Prostate Specific Ag (0.000-2.000) ng/mL Free PSA (0.16-2.81) ng/mL % Free PSA Calc (25-100) % Urine Color Urine Clarity (CLEAR) Urine pH (5.0-7.5) PH Ur Specific [place] (1.002-1.030) Urine Protein (NEGATIVE) mg/dL Urine Glucose (UA) (NEGATIVE) mg/dL Urine Ketones (NEGATIVE) mg/dL Urine Occult Blood (NEGATIVE) Urine Nitrite (NEGATIVE) Urine Bilirubin (NEGATIVE) Urine Urobilinogen (NORMAL) E.U./dL Ur Leukocyte Esterase (NEGATIVE) Urine RBC (0-5) /HPF Urine WBC (0-3) /HPF Ur Squamous Epith Cells (<= Few) Urine Bacteria (None Seen) /HPF Urine Culture Comments Urine Creatinine mg/dL Urine Microalbumin (0-300.0) mg/dL Microalb/Creat Ratio (<30.0) ug/mg 12/13/18 Range/Units 22:45 WBC 9.2 (4.8-10.8) x10^3/uL RBC 3.76 L (4.70-6.10) 10^6/uL Hgb 13.0 L (14.0-18.0) g/dL Hct 37.9 L (42.0-52.0) % MCV 100.8 H (80.0-94.0) fL MCH 34.4 H (27.0-31.0) pg MCHC 34.2 (32.0-36.0) g/dL RDW 13.6 (12.0-15.0) % Plt Count 309 (130-450) 10^3/uL MPV 8.6 (7.4-11.4) fL Neut # (Auto) 6.8 H (1.5-6.6) 10^3/uL Lymph # (Auto) 1.4 L (1.5-3.5) 10^3/uL Dale # (Auto) 0.7 (0.0-1.0) 10^3/uL Eos # (Auto) 0.2 (0.0-0.7) 10^3/uL Baso # (Auto) 0.1 (0.0-0.1) 10^3/uL Absolute Nucleated RBC 0.00 x10^3/uL Nucleated RBC % 0.0 /100WBC PT (9.9-12.6) secs INR (0.8-1.2) Sodium (135-145) mmol/L Potassium (3.5-5.0) mmol/L Chloride (101-111) mmol/L Carbon Dioxide (21-32) mmol/L Anion Gap (6-13) BUN (6-20) mg/dL Creatinine (0.6-1.2) mg/dL Estimated GFR (MDRD) (>89) Glucose (70-100) mg/dL Calcium (8.5-10.3) mg/dL Total Bilirubin (0.2-1.0) mg/dL AST (10-42) IU/L ALT (10-60) IU/L Alkaline Phosphatase (42-121) IU/L Total Protein (6.7-8.2) g/dL Albumin (3.2-5.5) g/dL Globulin (2.1-4.2) g/dL Albumin/Globulin Ratio (1.0-2.2) Lipase (22-51) U/L Prostate Specific Ag (0.000-2.000) ng/mL Free PSA (0.16-2.81) ng/mL % Free PSA Calc (25-100) % Urine Color Urine Clarity (CLEAR) Urine pH (5.0-7.5) PH Ur Specific [place] (1.002-1.030) Urine Protein (NEGATIVE) mg/dL Urine Glucose (UA) (NEGATIVE) mg/dL Urine Ketones (NEGATIVE) mg/dL Urine Occult Blood (NEGATIVE) Urine Nitrite (NEGATIVE) Urine Bilirubin (NEGATIVE) Urine Urobilinogen (NORMAL) E.U./dL Ur Leukocyte Esterase (NEGATIVE) Urine RBC (0-5) /HPF Urine WBC (0-3) /HPF Ur Squamous Epith Cells (<= Few) Urine Bacteria (None Seen) /HPF Urine Culture Comments Urine Creatinine mg/dL Urine Microalbumin (0-300.0) mg/dL Microalb/Creat Ratio (<30.0) ug/mg ABX Reporting Has patient been on IV antibiotics over the past 48 hours?: No Assessment/Plan - Problem List (1) Acute renal failure Impression: This patient's baseline renal function is been normal in the past. Abrupt rise to 2.3 over the last few weeks. I suspect that lack of eating and drinking plus urinary retention from problem #2 is the reason he has acute renal failure. Plan: Continue IV fluids. He may need to have increased rate since his urinary output is dropping this afternoon. Recheck BMP in the morning. is reassured by myself, after curbside consultation with nephrology, that his creatinine should respond to simple IV fluids. Once his creatinine is normal he should be able to start chemotherapy. Hopefully that will be in the next few days. Qualifiers: Acute renal failure type: unspecified Qualified Code(s): N17.9 - Acute kidney failure, unspecified (2) BPH w urinary obs/LUTS Impression: Mcbride in place. I am not can remove it for a few days to make sure her creatini ne comes down. He is not take taking his Flomax. That was prescribed back in July 2017. Will resume here. (3) Dysphagia, oral phase Impression: due to malignancy And accompanied by a 20 pound weight loss. says that he is really not eating very much. Nutrition services recommends a PEG. She is anticipating that his dysphasia and anorexia will get worse if she starts treatment. Plan: General surgery consult. I would like to hydrate this patient and get his creatinine back down to baseline. Then have gen surg put in the PEG tube (4) Chronic atrial fibrillation Impression: rate is controlled. off Xarelto on heparin prn. will make sure stays off in preparation for PEG
[2018-02-28] MEDS: traZODone 50 MG TABLET PO SCH (22:09)
[2018-03-01] MEDS: SODIUM CHLORIDE 0.9% 1,000 ML IV SCH ×3 (00:59→19:57)
[2018-03-01] MEDS: oxyCODONE 5 MG TABLET PO PRN ×5 (01:10→20:56)
[2018-03-01] MEDS: diazePAM 5 MG TABLET PO PRN ×2 (01:18→09:47)
[2018-03-01] MEDS: SODIUM CHLORIDE FLUSH 0.9% 10 ML SYRINGE IVP SCH ×3 (01:18→16:31)
[2018-03-01 07:11] LABS: CALCIUM 8.5 mg/dL (8.5-10.3); CREATININE 1.4 mg/dL (0.6-1.2)
[2018-03-01] MEDS ORDERED: ENOXAPARIN 80 MG/0.8 ML SYRINGE SUBQ ONE (09:00)
[2018-03-01] MEDS: buPROPion XL 150 MG TABLET PO SCH (09:03)
[2018-03-01] MEDS: DOCUSATE SODIUM 250 MG CAPSULE PO SCH (09:04)
[2018-03-01] MEDS: SENNA 8.6 MG TABLET PO SCH (09:04)
[2018-03-01] MEDS: TAMSULOSIN 0.4 MG CAPSULE PO SCH (09:05)
[2018-03-01] MEDS: METOPROLOL TARTRATE 25 MG TABLET PO SCH ×2 (09:05→20:56)
[2018-03-01] MEDS: FAMOTIDINE 20 MG/50 ML 50 ML IV SCH (09:08)
[2018-03-01] MEDS: NICOTINE 14 MG PATCH TOP SCH (09:13)
[2018-03-01] MEDS: POLYETHYLENE GLYCOL 3350 17 GM PACKET PO SCH (09:14)
[2018-03-01] MEDS: MORPHINE 2 MG/ML CARPUJECT IVP PRN ×2 (09:36→18:43)
--- NOTE | 2018-03-01 10:14 | PROVIDER PROGRESS NOTE ---
Subjective - Prog Note Date Prog Note Date: 03/01/18 - Subjective Pt reports feeling: Improved Subjective: pt report to eat some of his breakfast. pt also report what kind pain medications he took at home. He denies fever, chill, chest pain, SOB Current Medications - Current Medications Current Medications: Active Medications Bupropion HCl (Wellbutrin Xl) 150 mg PO DAILY [facility] Last Admin: 03/01/18 09:03 Dose: 150 mg Diazepam (Valium) 10 mg PO DAILY PRN PRN Reason: Anxiety Last Admin: 03/01/18 09:47 Dose: 10 mg Docusate Sodium (Colace 250mg Capsule) 250 - 500 mg PO DAILY [facility] Last Admin: 03/01/18 09:04 Dose: 250 mg Sodium Chloride (Normal Saline 0.9%) 1,000 mls @ 100 mls/hr IV .Q10H [facility] Last Admin: 03/01/18 10:06 Dose: 100 mls/hr Famotidine (Pepcid 20 Mg/50 Ml) 50 mls @ 100 mls/hr IV DAILY [facility] Last Infusion: 03/01/18 10:11 Dose: Infused Metoprolol Tartrate (Lopressor) 25 mg PO BID [facility] Last Admin: 03/01/18 09:05 Dose: 25 mg Morphine Sulfate (Morphine (Carpuject)) 3 mg IVP Q2HR PRN PRN Reason: PAIN Last Admin: 03/01/18 09:36 Dose: 3 mg Nicotine (Nicoderm) 1 patch TOP DAILY [facility] Last Admin: 03/01/18 09:13 Dose: 1 patch Ondansetron HCl (Zofran Inj) 4 mg IVP Q6HR PRN PRN Reason: Nausea / Vomiting Oxycodone HCl (Roxicodone) 30 mg PO Q4HR PRN PRN Reason: PAIN Last Admin: 03/01/18 09:45 Dose: 20 mg Polyethylene Glycol (Miralax) 17 gm PO DAILY [facility] Last Admin: 03/01/18 09:14 Dose: Not Given Senna (Senokot) 8.6 - 17.2 mg PO DAILY [facility] Last Admin: 03/01/18 09:04 Dose: 8.6 mg Sodium Chloride (Normal Saline Flush 0.9%) 10 ml IVP PRN PRN PRN Reason: NEEDED PER PROVIDER ORDERS Sodium Chloride (Normal Saline Flush 0.9%) 10 ml IVP 0100,0900,1700 [facility] Last Admin: 03/01/18 07:49 Dose: Not Given Sodium Chloride (Normal Saline Flush 0.9%) 20 ml IVP PRN PRN PRN Reason: After Blood Draw Tamsulosin HCl (Flomax) 0.4 mg PO DAILY [facility] Last Admin: 03/01/18 09:05 Dose: 0.4 mg Trazodone HCl (Desyrel) 50 mg PO QPM [facility] Last Admin: 02/28/18 22:09 Dose: 50 mg Indomethacin 50 mg PO TID PRN 02/28/18 Metoprolol Tartrate 100 mg PO DAILY 02/28/18 Nicotine 14 mg Patch [Nicoderm] 14 mg TOP Q24H 02/28/18 Ondansetron HCl [Zofran] 8 mg PO Q8H PRN 02/28/18 Prochlorperazine Maleate [Compazine] 10 mg PO Q6H PRN 02/28/18 Rivaroxaban [Xarelto] 20 mg PO 1700 02/28/18 Trazodone HCl 200 mg PO QPM 02/28/18 buPROPion [Wellbutrin Sr] 150 mg PO DAILY 02/28/18 diazePAM [Diazepam] 10 mg PO Q6H PRN 02/28/18 oxyCODONE [Roxicodone] 60 mg PO Q4H PRN 02/28/18 Objective - Vital Signs/Intake & Output Reviewed Vital Signs: Yes Vital Signs: Vital Signs x48h Temp Pulse Resp BP Pulse Ox 03/01/18 07:40 36.6 C 84 16 130/56 L 93 Intake & Output: Intake & Output 02/26/18 02/27/18 02/28/18 03/01/18 23:59 23:59 23:59 23:59 Intake Total 4330.000 2381.667 Output Total 1600 1175 Balance 2730.000 1206.667 - Objective General Appearance: positive: No acute distress, Alert. negative: Lethargic Eyes Bilateral: positive: Normal inspection, PERRL, No lid inflammation, Conjunctivae nml ENT: positive: No signs of dehydration. negative: Purulent nasal drainage, Pharyngeal erythema, Dry mucous membranes Neck: positive: No JVD. negative: Thyromegaly, Lymphadenopathy (L), Stiff neck, Swelling/bruising, Tracheal deviation Cardiovascular: positive: Regular rate & rhythm, No murmur, No gallop. negative: Irregularly irregular, Extrasystoles, Tachycardia, Bradycardia, JVD present, Systolic murmur, Diastolic murmur Peripheral Pulses: 2+ Radial (R), 2+ Radial (L), 2+ Dorsalis pedis (R), 2+ Dorsalis pedis (L) Abdomen: positive: Non-tender, No organomegaly, Nml bowel sounds, No distention. negative: Tenderness, Guarding, Rebound Back: positive: Nml inspection. negative: CVA tenderness (R), CVA tenderness (L) Skin: positive: Color nml, No rash, Warm, Dry. negative: Cyanosis, Diaphoresis, Pallor Extremities: positive: Non-tender, Full ROM, Nml appearance. negative: Calf tenderness, Joint swelling, Isra's sign/cords Neurologic/Psychiatric: positive: Sensation nml, Mood/affect nml. negative: Weakness, Sensory loss, Facial droop, Slurred/abnml speech, Depressed mood/affec t - Lab Results Fish Bones: 02/27/18 22:45 03/01/18 06:57 Other Labs: Lab Results x24hrs 03/01/18 Range/Units 06:57 Sodium 137 (135-145) mmol/L Potassium 4.5 (3.5-5.0) mmol/L Chloride 105 (101-111) mmol/L Carbon Dioxide 28 (21-32) mmol/L Anion Gap 4.0 L (6-13) BUN 22 H (6-20) mg/dL Creatinine 1.4 H (0.6-1.2) mg/dL Estimated GFR (MDRD) 50 L (>89) Glucose 96 (70-100) mg/dL Calcium 8.5 (8.5-10.3) mg/dL ABX Reporting Has patient been on IV antibiotics over the past 48 hours?: No Sepsis Event Note (H) - Evaluation Current Stage of Sepsis: Ruled out Assessment/Plan - Problem List (1) Acute renal failure Impression: 03/01, improved. today his creatinine is 1.4, from 2.3 at admission. continue hydration, with IVF continue lab monitor (2) BPH w urinary obs/LUTS Impression: 03/01 Mcbride is still on, start Flomax continue I&O monitor. Pt had a good urine output 1600ml on yesterday. Mcbride in place. I am not can remove it for a few days to make sure her creatinine comes down. He is not take taking his Flomax. That was prescribed back in July 2017. Will resume here. (3) Dysphagia, oral phase Impression: 03/01 says that he is really not eating very much. due to malignancy on compression. report pt had a 20 pound weight loss, and dehydration consult with surgeon, plan to have PEG/EGD on tomorrow continue IVF, pain control, and support. (4) Chronic atrial fibrillation Impression: HR is controlled Dr. Jin gave one dosage of Lovenox 80mg once resume Xarelto soon after PEG, will discuss with surgeon for prevention of bleeding (5) advanced head and neck malignancy to upper lobes of the lung discuss with pt and his . will continue support. advise pt followup his oncologist as out-pt discuss with pt and his for pain control, continue pain control medication for pt Qualifiers: Acute renal failure type: unspecified Qualified Code(s): N17.9 - Acute kidney failure, unspecified
--- NOTE | 2018-03-01 17:36 | CONSULTATION NOTE ---
Referring Provider Name of Referring Provider:: Dr. Isamar Jin Consult Date: 02/28/18 Chief Complaint - Chief Complaint Chief Complaint: Malnutrition, poor po intake, Stage IV H&N cancer with chemotx planned History of Present Illness - Admitted From Admitted From:: [facility] - History Obtained From Records Reviewed: Yes History obtained from: Chart, Dr. Jin, patient Exam Limitations: None - History of Present Illness HPI Comment/Other: 67 year old male, still smoker, with newly diagnosed head & neck cancer (tongue, Stage IV) with palliative chemotherapy planned. With the tumor present on his tongue the patient has had some po intake but has lost a significant amount of weight. A concern has been voiced as to how he is going to be able to maintain his po intake when chemotherapy is instituted and I have been asked to place a feeding tube. There is no history of abdominal surgery that would preclude the placement of a PEG or open G-tube for that matter. The patient and his have indicated that they thought a gastrostomy tube would be a good idea. History - Past Medical History Cardiovascular: reports: None Respiratory: reports: None Neuro: reports: None Endocrine/Autoimmune: reports: None GI: reports: Colon polyps, Hepatitis : reports: Nocturia HEENT: reports: Other Psych: reports: Depression Musculoskeletal: reports: Osteoarthritis Derm: reports: None MRSA Hx?: No Other Past Medical History: Throat/ear Ca. - Past Surgical History General: reports: Appendectomy, Colonoscopy Ortho: reports: Hip replacement - POLST Patient has POLST: Yes Meds/Allgy - Home Medications Home Medications: Ambulatory Orders Medication Instructions Recorded Confirmed RX: Tamsulosin [Flomax] 0.4 mg PO DAILY #20 capsule 07/30/17 02/28/18 Indomethacin 50 mg PO TID PRN 02/28/18 02/28/18 Metoprolol Tartrate 100 mg PO DAILY 02/28/18 02/28/18 Nicotine 14 mg Patch [Nicoderm] 14 mg TOP Q24H 02/28/18 02/28/18 Ondansetron HCl [Zofran] 8 mg PO Q8H PRN 02/28/18 02/28/18 Prochlorperazine Maleate 10 mg PO Q6H PRN 02/28/18 02/28/18 [Compazine] RX: Trazodone HCl 200 mg PO QPM 02/28/18 02/28/18 RX: buPROPion [Wellbutrin Sr] 150 mg PO DAILY 02/28/18 02/28/18 RX: oxyCODONE [Roxicodone] 60 mg PO Q4H PRN 02/28/18 02/28/18 Rivaroxaban [Xarelto] 20 mg PO 1700 02/28/18 02/28/18 diazePAM [Diazepam] 10 mg PO Q6H PRN 02/28/18 02/28/18 - Allergies Allergies/Adverse Reactions: Allergies Allergy/AdvReac Type Severity Reaction Status Date / Time No Known Drug Allergies Allergy Verified 02/27/18 22:17 Review of Systems - Constitutional Constitutional: reports: Poor appetite, Weight loss - Eyes Eyes: denies: Pain - Ears, Nose & Throat Ears, Nose & Throat: denies: Ear pain - Cardiovascular Cariovascular: reports: Irregular heart rate. denies: Chest pain - Gastrointestinal Gastrointestinal: denies: Abdominal pain, Abdominal distention - Genitourinary Genitourinary: reports: Frequency - Integumentary Integumentary: denies: Rash Exam - Vital Signs Reviewed Vital Signs: Yes Vital Signs: Vital Signs x48h Temp Pulse Resp BP Pulse Ox 03/01/18 15:35 36.9 C 77 18 101/71 94 Conclusion/Plan - Diagnosis Diagnosis: Poor po intake. Weight loss. Stage IV H&N cancer. Planned chemotherapy - Plan Plan: Esophagogastroduodenoscopy and placement of percutaneous endoscopic gastrostomy tube with possible biopsies and/or polypectomies, possible open gastrostomy tube placement. Indications, procedure, alternatives (such as barium studies and even no procedure at all) and risks including but not limited to perforation requiring operative repair, bleeding with its risks, and were fully explained to the patient and his . Conscious sedation was discussed at length with the patient and his as were its risks including but not limited to loss of airway, aspiration, respiratory depression, and not enough relief of pain and anxiety and he indicated that he wished to have conscious sedation for his procedure. I explained that his posterior oropharynx would also be anesthetized for the procedure. I explained that MAC anesthesia is associated with a higher incidence of intestinal perforation. Review of his history does not reveal any significant systemic disease that would contraindicate use of conscious sedation or MAC anesthesia. I explained that if he had to transition to an open gastrostomy tube placement that general anesthesia would be required. All questions were fully answered. Verbal and written consent was obtained. The patient in preparation for his esophagogastroduodenoscopy will be n.p.o. 45 minutes of [id number] time spent with the patient, the majority of which was spent in discussion, coordination of care, and completion of the requisite paperwork Dragon disclaimer: This document was created in part using voice recognition technology. Because of the inherent limitations of the system ([employer]'s [employer] user manual states that the licensee understands that speech recognition is a statistical process and that recognition errors are inherent in the process), occasional same sounding word substitutions and grammatical errors do occur and persist despite proofreading. Please read this document for context. - Lab Results Lab results reviewed: Yes Good Bones: 03/02/18 04:40 03/02/18 04:40
[2018-03-01] MEDS: traZODone 50 MG TABLET PO SCH (20:56)
[2018-03-02] MEDS: SODIUM CHLORIDE FLUSH 0.9% 10 ML SYRINGE IVP SCH ×3 (00:05→17:55)
[2018-03-02 05:06] LABS: BASOPHILS % (AUTO) 0.7 %; EOSINOPHILS # (AUTO) 0.6 10^3/uL (0.0-0.7); EOSINOPHILS % (AUTO) 10.6 %; HGB - HEMOGLOBIN 11.9 g/dL (14.0-18.0); LYMPHOCYTES # (AUTO) 1.2 10^3/uL (1.5-3.5); MEAN CORPUSCULAR HEMOGLOBIN 33.5 pg (27.0-31.0); MEAN CORPUSCULAR HGB CONC 32.6 g/dL (32.0-36.0); MEAN CORPUSCULAR VOLUME 102.6 fL (80.0-94.0); MEAN PLATELET VOLUME 8.7 fL (7.4-11.4); MONOCYTES # (AUTO) 0.6 10^3/uL (0.0-1.0); MONOCYTES % (AUTO) 10.5 %; NEUTROPHILS # (AUTO) 3.2 10^3/uL (1.5-6.6); NEUTROPHILS % (AUTO) 57.2 %; PLT - PLATELET COUNT 259 10^3/uL (130-450); RED BLOOD COUNT 3.57 10^6/uL (4.70-6.10); RED CELL DISTRIBUTION WIDTH 13.7 % (12.0-15.0); WHITE BLOOD COUNT 5.7 x10^3/uL (4.8-10.8)
[2018-03-02 05:13] LABS: ALBUMIN 2.8 g/dL (3.2-5.5); ALBUMIN/GLOBULIN RATIO 0.9 (1.0-2.2); BILIRUBIN,TOTAL 0.4 mg/dL (0.2-1.0); CALCIUM 8.6 mg/dL (8.5-10.3); CREATININE 1.1 mg/dL (0.6-1.2); MAGNESIUM 1.7 mg/dL (1.7-2.8); TOTAL PROTEIN 5.8 g/dL (6.7-8.2)
[2018-03-02] MEDS: oxyCODONE 5 MG TABLET PO PRN ×3 (05:48→20:12)
[2018-03-02] MEDS: SODIUM CHLORIDE 0.9% 1,000 ML IV SCH ×3 (05:52→23:34)
[2018-03-02] MEDS ORDERED: SODIUM CHLORIDE 0.9% MINIBAG 100 ML IV ONE (08:07)
[2018-03-02] MEDS: buPROPion XL 150 MG TABLET PO SCH (08:21)
[2018-03-02] MEDS: TAMSULOSIN 0.4 MG CAPSULE PO SCH (08:22)
[2018-03-02] MEDS: METOPROLOL TARTRATE 25 MG TABLET PO SCH ×2 (08:22→20:56)
[2018-03-02] MEDS: MORPHINE 2 MG/ML CARPUJECT IVP PRN ×3 (08:29→13:41)
[2018-03-02] MEDS ORDERED: LIDO GARGLE 30 ML BOTTLE ONE (08:42)
--- NOTE | 2018-03-02 08:43 | ANESTHESIA ---
Pre-Anesthesia VS, & Labs - Diagnosis Diagnosis Poor po intake Weight loss Stage IV H&N cancer Planned chemotherapy - Procedure EGD, peg tube placement Vital Signs: Temp Pulse Resp BP Pulse Ox 36.9 C 90 18 133/90 H 92 03/02/18 07:42 03/02/18 07:42 03/02/18 07:42 03/02/18 07:42 03/02/18 07:42 Height 6 ft 1 in Weight (kg) 86 kg Body Mass Index 25.0 - NPO >8 hours - Lab Results Current Lab Results: Laboratory Tests 03/02/18 04:40: Sodium 139, Potassium 4.5, Chloride 106, Carbon Dioxide 29, Anion Gap 4.0 L, BUN 16, Creatinine 1.1, Estimated GFR (MDRD) 66 L, Glucose 103 H, Calcium 8.6, Magnesium 1.7, Total Bilirubin 0.4, AST 17, ALT 12, Alkaline Phosphatase 34 L, Total Protein 5.8 L, Albumin 2.8 L, Globulin 3.0, Albumin/Globulin Ratio 0.9 L 03/02/18 04:40: WBC 5.7, RBC 3.57 L, Hgb 11.9 L, Hct 36.6 L, MCV 102.6 H, MCH 33.5 H, MCHC 32.6, RDW 13.7, Plt Count 259, MPV 8.7, Neut # (Auto) 3.2, Lymph # (Auto) 1.[address] L, [place] # (Auto) 0.6, Eos # (Auto) 0.6, Baso # (Auto) 0.0, Absolute Nucleated RBC 0.00, Nucleated RBC % 0.0 03/01/18 06:57: Sodium 137, Potassium 4.5, Chloride 105, Carbon Dioxide 28, Anion Gap 4.0 L, BUN 22 H, Creatinine 1.4 H, Estimated GFR (MDRD) 50 L, Glucose 96, Calcium 8.5 02/28/18 06:30: Prostate Specific Ag 7.690 H, Free PSA 1.140, % Free PSA Calc 15 L 02/28/18 06:30: Sodium 133 L, Potassium 4.2, Chloride 99 L, Carbon Dioxide 29, Anion Gap 5.0 L, BUN 33 H, Creatinine 2.0 H, Estimated GFR (MDRD) 33 L, Glucose 111 H, Calcium 8.7 02/28/18 06:30: PT 14.1 H, INR 1.3 H 02/27/18 22:45: Sodium 133 L, Potassium 4.2, Chloride 94 L, Carbon Dioxide 28, Anion Gap 11.0, BUN 36 H, Creatinine 2.3 H, Estimated GFR (MDRD) 28 L, Glucose 123 H, Calcium 9.3, Total Bilirubin 0.2, AST 24, ALT 15, Alkaline Phosphatase 46, Total Protein 7.5, Albumin 3.7, Globulin 3.8, Albumin/Globulin Ratio 1.0, Lipase 29 02/27/18 22:45: WBC 9.2, RBC 3.76 L, Hgb 13.0 L, Hct 37.9 L, MCV 100.8 H, MCH 34.4 H, MCHC 34.2, RDW 13.6, Plt Count 309, MPV 8.6, Neut # (Auto) 6.8 H, Lymph # (Auto) 1.[address] L, [place] # (Auto) 0.7, Eos # (Auto) 0.2, Baso # (Auto) 0.1, Absolute Nucleated RBC 0.00, Nucleated RBC % 0.0 Fish Bones: 03/02/18 04:40 03/02/18 04:40 Home Medications and Allergies Home Medications: Ambulatory Orders Indomethacin 50 mg PO TID PRN 02/28/18 Metoprolol Tartrate 100 mg PO DAILY 02/28/18 Nicotine 14 mg Patch [Nicoderm] 14 mg TOP Q24H 02/28/18 Ondansetron HCl [Zofran] 8 mg PO Q8H PRN 02/28/18 Prochlorperazine Maleate [Compazine] 10 mg PO Q6H PRN 02/28/18 Rivaroxaban [Xarelto] 20 mg PO 1700 02/28/18 Trazodone HCl 200 mg PO QPM 02/28/18 buPROPion [Wellbutrin Sr] 150 mg PO DAILY 02/28/18 diazePAM [Diazepam] 10 mg PO Q6H PRN 02/28/18 oxyCODONE [Roxicodone] 60 mg PO Q4H PRN 02/28/18 Active Medications Bupropion HCl (Wellbutrin Xl) 150 mg PO DAILY [facility] Last Admin: 03/01/18 09:03 Dose: 150 mg Diazepam (Valium) 10 mg PO DAILY PRN PRN Reason: Anxiety Last Admin: 03/01/18 09:47 Dose: 10 mg Docusate Sodium (Colace 250mg Capsule) 250 - 500 mg PO DAILY [facility] Last Admin: 03/01/18 09:04 Dose: 250 mg Famotidine (Pepcid 20 Mg/50 Ml) 50 mls @ 100 mls/hr IV DAILY [facility] Last Infusion: 03/01/18 10:11 Dose: Infused Cefazolin Sodium 2 gm/ Sodium (Chloride) 100 mls @ 200 mls/hr IV ONCE [facility] Stop: 03/02/18 09:14 Sodium Chloride (Normal Saline 0.9%) 1,000 mls @ 83.3 mls/hr IV .Q12H1M [facility] Metoprolol Tartrate (Lopressor) 25 mg PO BID [facility] Last Admin: 03/01/18 20:56 Dose: 25 mg Morphine Sulfate (Morphine (Carpuject)) 3 mg IVP Q2HR PRN PRN Reason: PAIN Last Admin: 03/01/18 18:43 Dose: 3 mg Nicotine (Nicoderm) 1 patch TOP DAILY [facility] Last Admin: 03/01/18 09:13 Dose: 1 patch Ondansetron HCl (Zofran Inj) 4 mg IVP Q6HR PRN PRN Reason: Nausea / Vomiting Oxycodone HCl (Roxicodone) 30 mg PO Q4HR PRN PRN Reason: PAIN Last Admin: 03/02/18 05:48 Dose: 30 mg Polyethylene Glycol (Miralax) 17 gm PO DAILY [facility] Last Admin: 03/01/18 09:14 Dose: Not Given Senna (Senokot) 8.6 - 17.2 mg PO DAILY [facility] Last Admin: 03/01/18 09:04 Dose: 8.6 mg Sodium Chloride (Normal Saline Flush 0.9%) 10 ml IVP PRN PRN PRN Reason: NEEDED PER PROVIDER ORDERS Sodium Chloride (Normal Saline Flush 0.9%) 10 ml IVP 0100,0900,1700 [facility] Last Admin: 03/02/18 00:05 Dose: Not Given Sodium Chloride (Normal Saline Flush 0.9%) 20 ml IVP PRN PRN PRN Reason: After Blood Draw Tamsulosin HCl (Flomax) 0.4 mg PO DAILY [facility] Last Admin: 03/01/18 09:05 Dose: 0.4 mg Trazodone HCl (Desyrel) 50 mg PO QPM [facility] Last Admin: 03/01/18 20:56 Dose: 50 mg Indomethacin 50 mg PO TID PRN 02/28/18 Metoprolol Tartrate 100 mg PO DAILY 02/28/18 Nicotine 14 mg Patch [Nicoderm] 14 mg TOP Q24H 02/28/18 Ondansetron HCl [Zofran] 8 mg PO Q8H PRN 02/28/18 Prochlorperazine Maleate [Compazine] 10 mg PO Q6H PRN 02/28/18 Rivaroxaban [Xarelto] 20 mg PO 1700 02/28/18 Trazodone HCl 200 mg PO QPM 02/28/18 buPROPion [Wellbutrin Sr] 150 mg PO DAILY 02/28/18 diazePAM [Diazepam] 10 mg PO Q6H PRN 02/28/18 oxyCODONE [Roxicodone] 60 mg PO Q4H PRN 02/28/18 Allergies/Adverse Reactions: Allergies Allergy/AdvReac Type Severity Reaction Status Date / Time No Known Drug Allergies Allergy Verified 02/27/18 22:17 Anes History & Medical History - Anesthetic History Anesthesia Complications: reports: No previous complications - Medical History Cardiovascular: reports: None, Hypertension, Atrial fibrillation Pulmonary: reports: None Gastrointestinal: reports: Colon polyps, Hepatitis Urinary: reports: Nocturia Neuro: reports: None Musculoskeletal: reports: Osteoarthritis Endocrine/Autoimmune: reports: None Blood Disorders: reports: None Skin: reports: None Smoking Status: Current every day smoker Other Past Medical History: Throat/ear Ca. - Surgical History General: Appendectomy, Colonoscopy Orthopedic: Hip replacement Exam General: Alert Dental: Dentures full Upper, Dentures full Lower Mouth Opening: Greater than 4 Fingerbreadths Neck Mobility: Normal Mallampati classification: II Thyromental Distance: greater than 6 cm Respiratory: Lungs clear, Normal breath sounds Cardiovascular: Regular rate, Normal S1, Normal S2, No murmurs Mental/Cognitive Status: Alert/Oriented X3 Plan Anesthesia Type: MAC Consent for Procedure(s) Verified and Reviewed: Yes Code Status: Attempt Resuscitation ASA classification: 3-Severe systemic disease Is this case an emergency?: Yes (urgent as no means of nutrition)
[2018-03-02] MEDS ORDERED: ceFAZolin 2 GM in SODIUM CHLORIDE 0.9% MINIBAG 100 ML IV SCH (08:45)
[2018-03-02] MEDS ORDERED: LIDO GARGLE 30 ML BOTTLE PO ONE (09:37)
[2018-03-02] MEDS ORDERED: SODIUM CHLORIDE 0.9% 1,000 ML IV ONE (09:38)
[2018-03-02] MEDS ORDERED: ACETAMINOPHEN 1,000 MG/100 ML 100 ML IV ONE (10:20)
[2018-03-02] MEDS ORDERED: fentaNYL 100 MCG/2 ML VIAL ONE (10:20)
[2018-03-02] MEDS: FAMOTIDINE 20 MG/50 ML 50 ML IV SCH (11:03)
[2018-03-02] MEDS: DOCUSATE SODIUM 250 MG CAPSULE PO SCH ×2 (11:05→21:24)
[2018-03-02] MEDS: POLYETHYLENE GLYCOL 3350 17 GM PACKET PO SCH (11:05)
[2018-03-02] MEDS: NICOTINE 14 MG PATCH TOP SCH (11:05)
[2018-03-02] MEDS: SENNA 8.6 MG TABLET PO SCH ×2 (11:05→21:24)
--- NOTE | 2018-03-02 11:18 | MISCELLANEOUS PROVIDER NOTE ---
Miscellaneous Provider Note - - Note: Due to a hospital regulation I must update the H&P prior to the procedure - despite the fact that the patient was seen less than 24 hours ago. There are NO substantive changes to the history or examination.
[2018-03-02] MEDS: diazePAM 5 MG TABLET PO PRN (13:44)
--- NOTE | 2018-03-02 14:38 | PROVIDER PROGRESS NOTE ---
Subjective - Prog Note Date Prog Note Date: 03/02/18 - Subjective Pt reports feeling: No change Subjective: pt report no good sleep on last night, but his pain is better controlled. he recognize he will have feeding tube today. Current Medications - Current Medications Current Medications: Active Medications Bupropion HCl (Wellbutrin Xl) 150 mg PO DAILY [facility] Last Admin: 03/02/18 08:21 Dose: 150 mg Diazepam (Valium) 10 mg PO DAILY PRN PRN Reason: Anxiety Last Admin: 03/02/18 13:44 Dose: 10 mg Docusate Sodium (Colace 250mg Capsule) 250 - 500 mg PO DAILY [facility] Last Admin: 03/02/18 11:05 Dose: Not Given Famotidine (Pepcid 20 Mg/50 Ml) 50 mls @ 100 mls/hr IV DAILY [facility] Last Infusion: 03/02/18 11:36 Dose: Infused Sodium Chloride (Normal Saline 0.9%) 1,000 mls @ 83.3 mls/hr IV .Q12H1M [facility] Last Admin: 03/02/18 08:38 Dose: 83.3 mls/hr Metoprolol Tartrate (Lopressor) 25 mg PO BID [facility] Last Admin: 03/02/18 08:22 Dose: 25 mg Morphine Sulfate (Morphine (Carpuject)) 3 mg IVP Q2HR PRN PRN Reason: PAIN Last Admin: 03/02/18 13:41 Dose: 3 mg Nicotine (Nicoderm) 1 patch TOP DAILY [facility] Last Admin: 03/02/18 11:05 Dose: 1 patch Ondansetron HCl (Zofran Inj) 4 mg IVP Q6HR PRN PRN Reason: Nausea / Vomiting Oxycodone HCl (Roxicodone) 30 mg PO Q4HR PRN PRN Reason: PAIN Last Admin: 03/02/18 10:51 Dose: 30 mg Polyethylene Glycol (Miralax) 17 gm PO DAILY [facility] Last Admin: 03/02/18 11:05 Dose: Not Given Senna (Senokot) 8.6 - 17.2 mg PO DAILY [facility] Last Admin: 03/02/18 11:05 Dose: Not Given Sodium Chloride (Normal Saline Flush 0.9%) 10 ml IVP PRN PRN PRN Reason: NEEDED PER PROVIDER ORDERS Sodium Chloride (Normal Saline Flush 0.9%) 10 ml IVP 0100,0900,1700 [facility] Last Admin: 03/02/18 14:29 Dose: Not Given Sodium Chloride (Normal Saline Flush 0.9%) 20 ml IVP PRN PRN PRN Reason: After Blood Draw Tamsulosin HCl (Flomax) 0.4 mg PO DAILY [facility] Last Admin: 03/02/18 08:22 Dose: 0.4 mg Trazodone HCl (Desyrel) 50 mg PO QPM [facility] Last Admin: 03/01/18 20:56 Dose: 50 mg Indomethacin 50 mg PO TID PRN 02/28/18 Metoprolol Tartrate 100 mg PO DAILY 02/28/18 Nicotine 14 mg Patch [Nicoderm] 14 mg TOP Q24H 02/28/18 Ondansetron HCl [Zofran] 8 mg PO Q8H PRN 02/28/18 Prochlorperazine Maleate [Compazine] 10 mg PO Q6H PRN 02/28/18 Rivaroxaban [Xarelto] 20 mg PO 1700 02/28/18 Trazodone HCl 200 mg PO QPM 02/28/18 buPROPion [Wellbutrin Sr] 150 mg PO DAILY 02/28/18 diazePAM [Diazepam] 10 mg PO Q6H PRN 02/28/18 oxyCODONE [Roxicodone] 60 mg PO Q4H PRN 02/28/18 Objective - Vital Signs/Intake & Output Reviewed Vital Signs: Yes Vital Signs: Vital Signs x48h Temp Pulse Pulse Resp BP BP Pulse Ox 03/02/18 11:11 37.0 C 78 19 134/78 H 94 03/02/18 10:40 66 16 132/76 H 94 03/02/18 10:32 36.4 C L 50 L 16 1258/69 H 94 03/02/18 10:21 36.4 C L 95 14 124/87 H 95 03/02/18 10:16 36.4 C L 79 14 127/80 96 03/02/18 10:11 36.4 C L 94 14 113/88 H 91 L 03/02/18 10:06 36.4 C L 79 14 119/69 96 03/02/18 10:01 36.5 C 83 12 124/71 94 03/02/18 09:56 36.5 C 81 12 124/71 95 12/16/18 08:22 133/90 H 03/02/18 07:42 36.9 C 90 18 133/90 H 92 Intake & Output: Intake & Output 02/27/18 02/28/18 03/01/18 03/02/18 23:59 23:59 23:59 23:59 Intake Total 4330.000 3952.667 1641.667 Output Total 1600 2100 1800 Balance 2730.000 1852.667 -158.333 - Objective General Appearance: positive: No acute distress, Alert. negative: Lethargic Eyes Bilateral: positive: Normal inspection, PERRL, No lid inflammation, Conjunctivae nml ENT: positive: No signs of dehydration. negative: Purulent nasal drainage, Pharyngeal erythema, Dry mucous membranes Neck: positive: Trachea midline, Lymphadenopathy (L). negative: Nml inspection, Stiff neck, Tracheal deviation Respiratory: positive: Chest non-tender, No respiratory distress, Breath sounds nml. negative: Wheezes, Rales, Rhonchi Cardiovascular: positive: Regular rate & rhythm, No murmur, No gallop. negative: Irregularly irregular, Extrasystoles, Tachycardia, Bradycardia, JVD present, Systolic murmur, Diastolic murmur Peripheral Pulses: 2+ Radial (R), 2+ Radial (L), 2+ Dorsalis pedis (R), 2+ Dorsalis pedis (L) Abdomen: positive: Non-tender, No organomegaly, Nml bowel sounds, No distention. negative: Tenderness, Guarding, Rebound Back: positive: Nml inspection. negative: CVA tenderness (R), CVA tenderness ( L) Skin: positive: Color nml, No rash, Warm, Dry. negative: Cyanosis, Diaphoresis, Pallor Extremities: positive: Non-tender, Nml appearance. negative: Calf tenderness, Isra's sign/cords Neurologic/Psychiatric: positive: Sensation nml. negative: Weakness, Sensory loss, Facial droop, Slurred/abnml speech, Depressed mood/affect - Lab Results Fish Bones: 03/02/18 04:40 03/02/18 04:40 Other Labs: Lab Results x24hrs 03/02/18 03/02/18 Range/Units 04:40 04:40 WBC 5.7 (4.8-10.8) x10^3/uL RBC 3.57 L (4.70-6.10) 10^6/uL Hgb 11.9 L (14.0-18.0) g/dL Hct 36.6 L (42.0-52.0) % MCV 102.6 H (80.0-94.0) fL MCH 33.5 H (27.0-31.0) pg MCHC 32.6 (32.0-36.0) g/dL RDW 13.7 (12.0-15.0) % Plt Count 259 (130-450) 10^3/uL MPV 8.7 (7.4-11.4) fL Neut # (Auto) 3.2 (1.5-6.6) 10^3/uL Lymph # (Auto) 1.2 L (1.5-3.5) 10^3/uL [place] # (Auto) 0.6 (0.0-1.0) 10^3/uL Eos # (Auto) 0.6 (0.0-0.7) 10^3/uL Baso # (Auto) 0.0 (0.0-0.1) 10^3/uL Absolute Nucleated RBC 0.00 x10^3/uL Nucleated RBC % 0.0 /100WBC Sodium 139 (135-145) mmol/L Potassium 4.5 (3.5-5.0) mmol/L Chloride 106 (101-111) mmol/L Carbon Dioxide 29 (21-32) mmol/L Anion Gap 4.0 L (6-13) BUN 16 (6-20) mg/dL Creatinine 1.1 (0.6-1.2) mg/dL Estimated GFR (MDRD) 66 L (>89) Glucose 103 H (70-100) mg/dL Calcium 8.6 (8.5-10.3) mg/dL Magnesium 1.7 (1.7-2.8) mg/dL Total Bilirubin 0.4 (0.2-1.0) mg/dL AST 17 (10-42) IU/L ALT 12 (10-60) IU/L Alkaline Phosphatase 34 L (42-121) IU/L Total Protein 5.8 L (6.7-8.2) g/dL Albumin 2.8 L (3.2-5.5) g/dL Globulin 3.0 (2.1-4.2) g/dL Albumin/Globulin Ratio 0.9 L (1.0-2.2) ABX Reporting Has patient been on IV antibiotics over the past 48 hours?: No Sepsis Event Note (H) - Evaluation Current Stage of Sepsis: Ruled out Assessment/Plan - Problem List (1) Acute renal failure Impression: 03/02 resolved, as pt's baseline reduced his IVF to 83.3cc/h, precaution fluid overload 03/01, improved. today his creatinine is 1.4, from 2.3 at admission. continue hydration, with IVF continue lab monitor (2) BPH w urinary obs/LUTS Impression: 03/02 pt had Mcbride for his urinary retention which was done by his oncologist, discussed with pt and pt's , will keep his Mcbride until pt will be seen his oncologist on 03/05/18. continue Flomax 03/01 Mcbried is still on, start Flomax continue I&O monitor. Pt had a good urine output 1600ml on yesterday. Mcbride in place. I am not can remove it for a few days to make sure her creatinine comes down. He is not take taking his Flomax. That was prescribed back in July 2017. Will resume here. (3) Dysphagia, oral phase Impression: 03/02, pt will have feed tube today, will followup surgeon's recommendation to start tube feeding consult with insurance agency owner. 03/01 says that he is really not eating very much. due to malignancy on compression. report pt had a 20 pound weight loss, and dehydration consult with surgeon, plan to have PEG/EGD on tomorrow continue IVF, pain control, and support. (4) Chronic atrial fibrillation Impression: 03/02 HR is controlled Xarelto will resume on tomorrow morning HR is controlled Dr. 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 will continue support. advise pt followup his oncologist as out-pt discuss with pt and his for pain control, continue pain control medication for pt Qualifiers: Acute renal failure type: unspecified Qualified Code(s): N17.9 - Acute kidney failure, unspecified
[2018-03-02] MEDS: RIVAROXABAN 10 MG TABLET PO SCH (17:55)
[2018-03-02] MEDS ORDERED: levoFLOXacin 500 MG/100 ML 500 MG/100 ML BAG IV SCH (19:00)
[2018-03-02] MEDS: ACETAMINOPHEN 1,000 MG/100 ML 100 ML IV SCH (19:08)
--- NOTE | 2018-03-02 20:27 | XRAY Report ---
Reason: 39 temp, post op peg Procedure Date: 03/02/2018 Accession Number: [id number] / [id number] Procedure: XR - Chest 1 View X-Ray CPT Code: 93664 FULL RESULT: EXAM: CHEST RADIOGRAPHY EXAM DATE: 03/02/2018 06:58 PM. CLINICAL HISTORY: Fever, patient status post gastrostomy tube placement COMPARISON: Chest x-ray 08/27/2012. TECHNIQUE: 1 view. FINDINGS: Lungs/Pleura: Trace left pleural effusion with bilateral interstitial and minimal alveolar opacities. Mediastinum: Normal heart size with right internal jugular line extending to the cavoatrial junction. Other: None. IMPRESSION: 1. Bilateral interstitial and minimal alveolar opacities suspicious for pneumonia in this clinical setting. Differential diagnosis would include pulmonary edema. 2. Trace left pleural effusion. RADIA
[2018-03-02] MEDS: traZODone 50 MG TABLET PO SCH (20:57)
[2018-03-02 22:48] LABS: BILIRUBIN,URINE NEGATIVE (NEGATIVE); GLUCOSE, URINE (UA) NEGATIVE (NEGATIVE); KETONES,URINE (UA) NEGATIVE (NEGATIVE); LEUKOCYTE ESTERASE, URINE TRACE (NEGATIVE); NITRITE,URINE NEGATIVE (NEGATIVE); OCCULT BLOOD,URINE SMALL (NEGATIVE); PROTEIN,URINE NEGATIVE (NEGATIVE); UROBILINOGEN,URINE 0.2 (NORMAL) E.U./dL (NORMAL)
[2018-03-02 22:59] LABS: BACTERIA,URINE None Seen /HPF (None Seen); CLARITY,URINE CLEAR (CLEAR); RBC,URINE 0-5 /HPF (0-5); SQUAMOUS EPITHELIAL CELL,UR NONE SEEN (<= Few)
[2018-03-03] MEDS: SODIUM CHLORIDE FLUSH 0.9% 10 ML SYRINGE IVP SCH ×3 (04:31→13:42)
[2018-03-03 05:10] LABS: BASOPHILS % (AUTO) 0.5 %; EOSINOPHILS # (AUTO) 0.5 10^3/uL (0.0-0.7); EOSINOPHILS % (AUTO) 8.1 %; LYMPHOCYTES # (AUTO) 0.9 10^3/uL (1.5-3.5); LYMPHOCYTES % (AUTO) 14.5 %; MEAN CORPUSCULAR HEMOGLOBIN 33.3 pg (27.0-31.0); MEAN CORPUSCULAR HGB CONC 32.4 g/dL (32.0-36.0); MEAN CORPUSCULAR VOLUME 102.5 fL (80.0-94.0); MEAN PLATELET VOLUME 8.7 fL (7.4-11.4); MONOCYTES # (AUTO) 0.6 10^3/uL (0.0-1.0); MONOCYTES % (AUTO) 10.1 %; NEUTROPHILS % (AUTO) 66.8 %; PLT - PLATELET COUNT 261 10^3/uL (130-450); RED BLOOD COUNT 3.61 10^6/uL (4.70-6.10); RED CELL DISTRIBUTION WIDTH 13.3 % (12.0-15.0)
[2018-03-03 05:21] LABS: ALBUMIN 2.5 g/dL (3.2-5.5); ALBUMIN/GLOBULIN RATIO 0.7 (1.0-2.2); BILIRUBIN,TOTAL 0.5 mg/dL (0.2-1.0); CALCIUM 8.3 mg/dL (8.5-10.3); CREATININE 1.2 mg/dL (0.6-1.2); TOTAL PROTEIN 5.9 g/dL (6.7-8.2)
[2018-03-03] MEDS: ACETAMINOPHEN 1,000 MG/100 ML 100 ML IV SCH ×2 (05:47→06:49)
[2018-03-03] MEDS: POLYETHYLENE GLYCOL 3350 17 GM PACKET PO SCH (08:32)
[2018-03-03] MEDS: oxyCODONE 5 MG TABLET PO PRN ×3 (08:33→19:22)
[2018-03-03] MEDS: DOCUSATE SODIUM 250 MG CAPSULE PO SCH (08:34)
[2018-03-03] MEDS: TAMSULOSIN 0.4 MG CAPSULE PO SCH (08:34)
[2018-03-03] MEDS: METOPROLOL TARTRATE 25 MG TABLET PO SCH ×2 (08:35→21:34)
[2018-03-03] MEDS: NICOTINE 14 MG PATCH TOP SCH (08:35)
[2018-03-03] MEDS: buPROPion XL 150 MG TABLET PO SCH (08:45)
[2018-03-03] MEDS: SODIUM CHLORIDE FLUSH 0.9% 10 ML SYRINGE IVP PRN (11:12)
[2018-03-03] MEDS ORDERED: levoFLOXacin 500 MG/100 ML 500 MG/100 ML BAG IV SCH (13:30)
--- NOTE | 2018-03-03 13:50 | PROVIDER PROGRESS NOTE ---
Subjective - Prog Note Date Prog Note Date: 03/03/18 - Subjective Pt reports feeling: Improved Subjective: pt report he did not have fever today morning. He denies chest pain, shortness of breath. pt had twice spikes of fever on last night. Blood culture is pending. pt can not be d/c today until at least we have pt's blood culture preliminary result. I tried twice to talk with pt's , but she was on sleep and did not response to my questions. Current Medications - Current Medications Current Medications: Active Medications Bupropion HCl (Wellbutrin Xl) 150 mg PO DAILY [facility] Last Admin: 03/03/18 08:45 Dose: 150 mg Diazepam (Valium) 10 mg PO DAILY PRN PRN Reason: Anxiety Last Admin: 03/02/18 13:44 Dose: 10 mg Docusate Sodium (Colace 250mg Capsule) 250 - 500 mg PO DAILY [facility] Last Admin: 03/03/18 08:34 Dose: 250 mg Heparin Sodium (Beef Lung) () 30 - 50 unit IVP PRN PRN PRN Reason: Central Line Protocol (<24 hr) Levofloxacin (Levaquin 500 Mg/100 Ml) 500 mg in 100 mls @ 100 mls/hr IV Q24H [facility] Last Admin: 03/03/18 13:42 Dose: 100 mls/hr Metoprolol Tartrate (Lopressor) 25 mg PO BID [facility] Last Admin: 03/03/18 08:35 Dose: 25 mg Morphine Sulfate (Morphine (Carpuject)) 3 mg IVP Q2HR PRN PRN Reason: PAIN Last Admin: 03/02/18 13:41 Dose: 3 mg Nicotine (Nicoderm) 1 patch TOP DAILY [facility] Last Admin: 03/03/18 08:35 Dose: 1 patch Ondansetron HCl (Zofran Inj) 4 mg IVP Q6HR PRN PRN Reason: Nausea / Vomiting Oxycodone HCl (Roxicodone) 30 mg PO Q4HR PRN PRN Reason: PAIN Last Admin: 03/03/18 12:55 Dose: 30 mg Polyethylene Glycol (Miralax) 17 gm PO DAILY [facility] Last Admin: 03/03/18 08:32 Dose: 17 gm Rivaroxaban (Xarelto) 20 mg PO 1700 [facility] Last Admin: 03/02/18 17:55 Dose: 20 mg Senna (Senokot) 8.6 - 17.2 mg PO DAILY [facility] Last Admin: 03/02/18 21:24 Dose: 17.2 mg Sodium Chloride (Normal Saline Flush 0.9%) 10 ml IVP PRN PRN PRN Reason: NEEDED PER PROVIDER ORDERS Last Admin: 03/03/18 11:12 Dose: 10 ml Sodium Chloride (Normal Saline Flush 0.9%) 10 ml IVP 0100,0900,1700 [facility] Last Admin: 03/03/18 13:42 Dose: 10 ml Sodium Chloride (Normal Saline Flush 0.9%) 20 ml IVP PRN PRN PRN Reason: After Blood Draw Tamsulosin HCl (Flomax) 0.4 mg PO DAILY [facility] Last Admin: 03/03/18 08:34 Dose: 0.4 mg Trazodone HCl (Desyrel) 50 mg PO QPM [facility] Last Admin: 03/02/18 20:57 Dose: 50 mg Indomethacin 50 mg PO TID PRN 02/28/18 Metoprolol Tartrate 100 mg PO DAILY 02/28/18 Nicotine 14 mg Patch [Nicoderm] 14 mg TOP Q24H 02/28/18 Ondansetron HCl [Zofran] 8 mg PO Q8H PRN 02/28/18 Prochlorperazine Maleate [Compazine] 10 mg PO Q6H PRN 02/28/18 Rivaroxaban [Xarelto] 20 mg PO 1700 02/28/18 Trazodone HCl 200 mg PO QPM 02/28/18 buPROPion [Wellbutrin Sr] 150 mg PO DAILY 02/28/18 diazePAM [Diazepam] 10 mg PO Q6H PRN 02/28/18 oxyCODONE [Roxicodone] 60 mg PO Q4H PRN 02/28/18 Objective - Vital Signs/Intake & Output Reviewed Vital Signs: Yes Vital Signs: Vital Signs x48h Temp Pulse Resp BP Pulse Ox 03/03/18 07:01 36.8 C 91 18 151/95 H 92 Intake & Output: Intake & Output 02/28/18 03/01/18 03/02/18 03/03/18 23:59 23:59 23:59 23:59 Intake Total 4330.000 3952.667 3061.667 1940 Output Total 1600 2100 2950 2075 Balance 2730.000 1852.667 111.667 -135 - Objective General Appearance: positive: No acute distress, Alert. negative: Lethargic Eyes Bilateral: positive: Normal inspection, PERRL, No lid inflammation, Conjunctivae nml ENT: positive: No signs of dehydration. negative: Purulent nasal drainage, Dry mucous membranes Neck: positive: No JVD, Trachea midline, Thyromegaly, Lymphadenopathy (L). negative: Lymphadenopathy (R), Stiff neck, Swelling/bruising, Tracheal deviation Respiratory: positive: Chest non-tender, No respiratory distress, Breath sounds nml. negative: Wheezes, Rales, Rhonchi Cardiovascular: positive: Regular rate & rhythm, No murmur, No gallop. negative: Irregularly irregular, Extrasystoles, Tachycardia, Bradycardia, JVD present, Systolic murmur, Diastolic murmur Peripheral Pulses: 2+ Radial (R), 2+ Radial (L), 2+ Dorsalis pedis (R), 2+ Dorsalis pedis (L) Abdomen: positive: Non-tender, No organomegaly, Nml bowel sounds, No distention. negative: Tenderness, Guarding, Rebound Back: positive: Nml inspection. negative: CVA tenderness (R), CVA tenderness (L) Skin: positive: Color nml, No rash, Warm, Dry. negative: Cyanosis, Diaphoresis, Pallor Extremities: positive: Non-tender, Full ROM, Nml appearance. negative: Calf tenderness, Joint swelling, Isra's sign/cords Neurologic/Psychiatric: positive: Sensation nml, Mood/affect nml. negative: Sensory loss, Facial droop, Slurred/abnml speech, Depressed mood/affect - Lab Results Fish Bones: 03/03/18 04:40 03/03/18 04:40 Other Labs: Lab Results x24hrs 03/03/18 03/03/18 03/02/18 Range/Units 04:40 04:40 22:35 WBC 6.0 (4.8-10.8) x10^3/uL RBC 3.61 L (4.70-6.10) 10^6/uL Hgb 12.0 L (14.0-18.0) g/dL Hct 37.0 L (42.0-52.0) % MCV 102.5 H (80.0-94.0) fL MCH 33.3 H (27.0-31.0) pg MCHC 32.4 (32.0-36.0) g/dL RDW 13.3 (12.0-15.0) % Plt Count 261 (130-450) 10^3/uL MPV 8.7 (7.4-11.4) fL Neut # (Auto) 4.0 (1.5-6.6) 10^3/uL Lymph # (Auto) 0.9 L (1.5-3.5) 10^3/uL [place] # (Auto) 0.6 (0.0-1.0) 10^3/uL Eos # (Auto) 0.5 (0.0-0.7) 10^3/uL Baso # (Auto) 0.0 (0.0-0.1) 10^3/uL Absolute Nucleated RBC 0.00 x10^3/uL Nucleated RBC % 0.0 /100WBC Sodium 138 (135-145) mmol/L Potassium 4.4 (3.5-5.0) mmol/L Chloride 104 (101-111) mmol/L Carbon Dioxide 29 (21-32) mmol/L Anion Gap 5.0 L (6-13) BUN 15 (6-20) mg/dL Creatinine 1.2 (0.6-1.2) mg/dL Estimated GFR (MDRD) 60 L (>89) Glucose 107 H (70-100) mg/dL Calcium 8.3 L (8.5-10.3) mg/dL Total Bilirubin 0.5 (0.2-1.0) mg/dL AST 22 (10-42) IU/L ALT 13 (10-60) IU/L Alkaline Phosphatase 42 (42-121) IU/L Total Protein 5.9 L (6.7-8.2) g/dL Albumin 2.5 L (3.2-5.5) g/dL Globulin 3.4 (2.1-4.2) g/dL Albumin/Globulin Ratio 0.7 L (1.0-2.2) Urine Color YELLOW Urine Clarity CLEAR (CLEAR) Urine pH 5.0 (5.0-7.5) PH Ur Specific [place] <=1.005 (1.002-1.030) Urine Protein NEGATIVE (NEGATIVE) mg/dL Urine Glucose (UA) NEGATIVE (NEGATIVE) mg/dL Urine Ketones NEGATIVE (NEGATIVE) mg/dL Urine Occult Blood SMALL H (NEGATIVE) Urine Nitrite NEGATIVE (NEGATIVE) Urine Bilirubin NEGATIVE (NEGATIVE) Urine Urobilinogen 0.2 (NORMAL) (NORMAL) E.U./dL Ur Leukocyte Esterase TRACE H (NEGATIVE) Urine RBC 0-5 (0-5) /HPF Urine WBC 0-3 (0-3) /HPF Ur Squamous Epith Cells NONE SEEN (<= Few) Urine Bacteria None Seen (None Seen) /HPF Urine Culture Comments INDICATED ABX Reporting Has patient been on IV antibiotics over the past 48 hours?: Yes Sepsis Event Note (H) - Evaluation Current Stage of Sepsis: Sepsis Possible source of Sepsis: positive: Pulmonary, Genitourinary - Sepsis Criteria Sepsis Criteria: Recorded Temperature greater than 38.3C or Less than 36C, Recorded Respiratory Rate greater than 20 Assessment/Plan - Problem List (1) Acute renal failure Impression: (1) Acute renal failure Impression: 03/03 stable, continue gently hydration with IVF of NS at 75cc/h 03/02 resolved, as pt's baseline reduced his IVF to 83.3cc/h, precaution fluid overload 03/01, improved. today his creatinine is 1.4, from 2.3 at admission. continue hydration, with IVF continue lab monitor (2) BPH w urinary obs/LUTS Impression: stable, continue Mcbride, and Mcbride care 03/02 pt had Mcbride for his urinary retention which was done by his oncologist, discussed with pt and pt's , will keep his Mcbride until pt will be seen his oncologist on 03/05/18. continue Flomax 03/01 Mcbride is still on, start Flomax continue I&O monitor. Pt had a good urine output 1600ml on yesterday. Mcbride in place. I am not can remove it for a few days to make sure her creatinine comes down. He is not take taking his Flomax. That was prescribed back in July 2017. Will resume here. (3) Dysphagia, oral phase Impression: 03/03. consult with salon supervisor, will followup Since pt still can eat, PEG tube can be PRN, and compensate for his nutrition deficiency, special when pt is on his palliative chemotherapy or radiotherapy. I tried twice to discuss with pt's but she could not response to my questions. It seems she is not on sleeping. I do not know there is any reasons why she did not response to my questions, I just do not know. 03/02, pt will have feed tube today, will followup surgeon's recommendation to start tube feeding consult with salon supervisor. 03/01 says that he is really not eating very much. due to malignancy on compression. report pt had a 20 pound weight loss, and dehydration consult with surgeon, plan to have PEG/EGD on tomorrow continue IVF, pain control, and support. (4) Chronic atrial fibrillation Impression: 03/03 HR is stable, continue home Xarelto 03/02 HR is controlled Xarelto will resume on tomorrow morning HR is controlled Dr. 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 03/02 pt's report pt will have oncologist appointment on 03/05/18, continue support discuss with pt and his . will continue support. advise pt followup his oncologist as out-pt discuss with pt and his for pain control, continue pain control medication for pt (6) fever pt presented twice spike of fever. No fever today. continue antibiotics blood culture is pending continue gently IVF, precaution of fluid overload, pulmonary edema Qualifiers: Acute renal failure type: unspecified Qualified Code(s): N17.9 - Acute kidney failure, unspecified
[2018-03-03] MEDS: SODIUM CHLORIDE 0.9% 1,000 ML IV SCH (14:28)
--- NOTE | 2018-03-03 15:49 | PROVIDER PROGRESS NOTE ---
Subjective - General Admit Date: 02/28/18 Procedure Date: 03/02/18 Post Op Days: 1 Procedure Performed: PEG - Review of Systems Wound/Incisions: positive: Healing well General: positive: No symptoms HEENT: positive: No symptoms Pulmonary: positive: No symptoms Cardiovascular: positive: No symptoms Gastrointestinal: positive: No symptoms Genitourinary: positive: No symptoms Musculoskeletal: positive: No symptoms Skin: positive: No symptoms Psychiatric: positive: No symptoms (Forgetful.) Objective - Patient Data Reviewed Vital Signs: Yes Vital Signs: Vital Signs x48h Temp Pulse Resp BP Pulse Ox 03/03/18 15:27 36.8 C 57 L 18 128/65 92 Weight: Weight 03/01/18 03/02/18 03/03/18 23:59 23:59 23:59 Weight (kg) 95.5 kg Intake & Output: Intake and Output Totals x24h 03/01/18 03/02/18 03/03/18 23:59 23:59 23:59 Intake Total 3952.667 3061.667 2350 Output Total 2100 2950 2260 Balance 1852.667 111.667 90 - Lab Results Lab Results: 03/03/18 04:40 03/03/18 04:40 Other Lab Results: Lab Results x24hrs 03/03/18 03/03/18 03/02/18 Range/Units 04:40 04:40 22:35 WBC 6.0 (4.8-10.8) x10^3/uL RBC 3.61 L (4.70-6.10) 10^6/uL Hgb 12.0 L (14.0-18.0) g/dL Hct 37.0 L (42.0-52.0) % MCV 102.5 H (80.0-94.0) fL MCH 33.3 H (27.0-31.0) pg MCHC 32.4 (32.0-36.0) g/dL RDW 13.3 (12.0-15.0) % Plt Count 261 (130-450) 10^3/uL MPV 8.7 (7.4-11.4) fL Neut # (Auto) 4.0 (1.5-6.6) 10^3/uL Lymph # (Auto) 0.9 L (1.5-3.5) 10^3/uL [place] # (Auto) 0.6 (0.0-1.0) 10^3/uL Eos # (Auto) 0.5 (0.0-0.7) 10^3/uL Baso # (Auto) 0.0 (0.0-0.1) 10^3/uL Absolute Nucleated RBC 0.00 x10^3/uL Nucleated RBC % 0.0 /100WBC Sodium 138 (135-145) mmol/L Potassium 4.4 (3.5-5.0) mmol/L Chloride 104 (101-111) mmol/L Carbon Dioxide 29 (21-32) mmol/L Anion Gap 5.0 L (6-13) BUN 15 (6-20) mg/dL Creatinine 1.2 (0.6-1.2) mg/dL Estimated GFR (MDRD) 60 L (>89) Glucose 107 H (70-100) mg/dL Calcium 8.3 L (8.5-10.3) mg/dL Total Bilirubin 0.5 (0.2-1.0) mg/dL AST 22 (10-42) IU/L ALT 13 (10-60) IU/L Alkaline Phosphatase 42 (42-121) IU/L Total Protein 5.9 L (6.7-8.2) g/dL Albumin 2.5 L (3.2-5.5) g/dL Globulin 3.4 (2.1-4.2) g/dL Albumin/Globulin Ratio 0.7 L (1.0-2.2) Urine Color YELLOW Urine Clarity CLEAR (CLEAR) Urine pH 5.0 (5.0-7.5) PH Ur Specific [place] <=1.005 (1.002-1.030) Urine Protein NEGATIVE (NEGATIVE) mg/dL Urine Glucose (UA) NEGATIVE (NEGATIVE) mg/dL Urine Ketones NEGATIVE (NEGATIVE) mg/dL Urine Occult Blood SMALL H (NEGATIVE) Urine Nitrite NEGATIVE (NEGATIVE) Urine Bilirubin NEGATIVE (NEGATIVE) Urine Urobilinogen 0.2 (NORMAL) (NORMAL) E.U./dL Ur Leukocyte Esterase TRACE H (NEGATIVE) Urine RBC 0-5 (0-5) /HPF Urine WBC 0-3 (0-3) /HPF Ur Squamous Epith Cells NONE SEEN (<= Few) Urine Bacteria None Seen (None Seen) /HPF Urine Culture Comments INDICATED - Current Medications Current Medications: Current Medications Generic Name Dose Route Start Last Admin Trade Name Freq PRN Reason Stop Dose Admin Bupropion HCl 150 mg 02/28/18 09:00 03/03/18 08:45 Wellbutrin Xl PO 150 mg DAILY [facility] Administration Diazepam 10 mg 03/01/18 09:16 03/02/18 13:44 Valium PO 10 mg DAILY PRN Administration Anxiety Docusate Sodium 250 - 500 mg 03/01/18 09:00 03/03/18 08:34 Colace 250mg Capsule PO 250 mg DAILY [facility] Administration Levofloxacin 500 mg in 100 mls @ 100 mls/hr 03/03/18 13:30 03/03/18 14:45 Levaquin 500 Mg/100 Ml IV Infused Q24H [facility] Infusion Sodium Chloride 1,000 mls @ 75 mls/hr 03/03/18 15:00 03/03/18 14:28 Normal Saline 0.9% IV 75 mls/hr .[id number] [facility] Administration Metoprolol Tartrate 25 mg 02/28/18 02:00 03/03/18 08:35 Lopressor PO 25 mg BID [facility] Administration Morphine Sulfate 3 mg 02/28/18 00:59 03/02/18 13:41 Morphine (Carpuject) IVP 3 mg Q2HR PRN Administration PAIN Nicotine 1 patch 02/28/18 08:00 03/03/18 08:35 Nicoderm TOP 1 patch DAILY [facility] Administration Oxycodone HCl 30 mg 03/01/18 09:15 03/03/18 12:55 Roxicodone PO 30 mg Q4HR PRN Administration PAIN Polyethylene Glycol 17 gm 02/28/18 09:00 03/03/18 08:32 Miralax PO 17 gm DAILY [facility] Administration Rivaroxaban 20 mg 03/02/18 17:00 03/02/18 17:55 Xarelto PO 20 mg 1700 [facility] Administration Senna 8.6 - 17.2 mg 03/01/18 09:00 03/02/18 21:24 Senokot PO 17.2 mg DAILY [facility] Administration Sodium Chloride 10 ml 02/28/18 00:59 03/03/18 11:12 Normal Saline Flush 0.9% IVP 10 ml PRN PRN Administration NEEDED PER PROVIDER ORDERS Sodium Chloride 10 ml 02/28/18 01:00 03/03/18 13:42 Normal Saline Flush 0.9% IVP 10 ml 0100,0900,1700 [facility] Administration Tamsulosin HCl 0.4 mg 03/01/18 09:00 03/03/18 08:34 Flomax PO 0.4 mg DAILY [facility] Administration Trazodone HCl 50 mg 02/28/18 21:00 03/02/18 20:57 Desyrel PO 50 mg QPM [facility] Administration - Physical Exam Wound/Incisions: positive: Healing well General Appearance: positive: No acute distress Eyes Bilateral: positive: Normal inspection ENT: positive: No signs of dehydration Neck: positive: Nml inspection Respiratory: positive: Chest non-tender Cardiovascular: positive: Regular rate & rhythm Abdomen: positive: Non-tender, Nml bowel sounds Impression/Plan - Problem List Problem List: D1 s/p PEG placement - okay to use as needed. Teaching to be continued to ensure family/ are facile. MAKE SURE to flush each time with warm water to prevent occlusion. Will sign off care. Please contact me with any further questions or concerns.
[2018-03-03] MEDS: RIVAROXABAN 10 MG TABLET PO SCH (17:51)
[2018-03-03] MEDS: MORPHINE 2 MG/ML CARPUJECT IVP PRN (18:09)
[2018-03-03] MEDS: traZODone 50 MG TABLET PO SCH (21:34)
[2018-03-04] MEDS: MORPHINE 2 MG/ML CARPUJECT IVP PRN (01:35)
[2018-03-04] MEDS: SODIUM CHLORIDE 0.9% 1,000 ML IV SCH (03:49)
[2018-03-04] MEDS: SODIUM CHLORIDE FLUSH 0.9% 10 ML SYRINGE IVP SCH ×2 (05:47→07:38)
[2018-03-04] MEDS: oxyCODONE 5 MG TABLET PO PRN (05:58)
[2018-03-04 06:11] LABS: BASOPHILS # (AUTO) 0.2 10^3/uL (0.0-0.1); BASOPHILS % (AUTO) 3.3 %; EOSINOPHILS # (AUTO) 0.6 10^3/uL (0.0-0.7); EOSINOPHILS % (AUTO) 12.4 %; HGB - HEMOGLOBIN 10.4 g/dL (14.0-18.0); LYMPHOCYTES # (AUTO) 0.9 10^3/uL (1.5-3.5); LYMPHOCYTES % (AUTO) 19.4 %; MEAN CORPUSCULAR HEMOGLOBIN 33.8 pg (27.0-31.0); MEAN CORPUSCULAR HGB CONC 33.6 g/dL (32.0-36.0); MEAN CORPUSCULAR VOLUME 100.5 fL (80.0-94.0); MEAN PLATELET VOLUME 8.5 fL (7.4-11.4); MONOCYTES # (AUTO) 0.6 10^3/uL (0.0-1.0); MONOCYTES % (AUTO) 12.4 %; NEUTROPHILS # (AUTO) 2.5 10^3/uL (1.5-6.6); NEUTROPHILS % (AUTO) 52.5 %; PLT - PLATELET COUNT 241 10^3/uL (130-450); RED BLOOD COUNT 3.09 10^6/uL (4.70-6.10); RED CELL DISTRIBUTION WIDTH 13.7 % (12.0-15.0); WHITE BLOOD COUNT 4.8 x10^3/uL (4.8-10.8)
[2018-03-04 06:24] LABS: ALBUMIN 2.8 g/dL (3.2-5.5); ALBUMIN/GLOBULIN RATIO 0.9 (1.0-2.2); BILIRUBIN,TOTAL 0.4 mg/dL (0.2-1.0); CALCIUM 8.5 mg/dL (8.5-10.3)
[2018-03-04 06:25] LABS: MAGNESIUM 1.6 mg/dL (1.7-2.8); PHOSPHORUS 3.5 mg/dL (2.5-4.6)
[2018-03-04 07:49] VITALS: BP 126/65
[2018-03-04] MEDS: SENNA 8.6 MG TABLET PO SCH (08:18)
[2018-03-04] MEDS: METOPROLOL TARTRATE 25 MG TABLET PO SCH (08:18)
[2018-03-04] MEDS: DOCUSATE SODIUM 250 MG CAPSULE PO SCH (08:18)
[2018-03-04] MEDS: TAMSULOSIN 0.4 MG CAPSULE PO SCH (08:19)
[2018-03-04] MEDS: buPROPion XL 150 MG TABLET PO SCH (08:19)
[2018-03-04] MEDS: NICOTINE 14 MG PATCH TOP SCH (08:19)
[2018-03-04] MEDS: POLYETHYLENE GLYCOL 3350 17 GM PACKET PO SCH (08:19)
--- NOTE | 2018-03-04 09:07 | DISCHARGE SUMMARY ---
"Discharge Summary Admit Date: 02/28/18 Discharge Date: 03/04/18 Discharging Provider: TATE Tamez Primary Care Provider: Corie Esparza Code Status: Attempt Resuscitation Condition at Discharge: Good Discharge Disposition: [facility] Service - DIAGNOSES Admission Diagnoses: Acute kidney failure, unspecified (N17.9) Anuria and oliguria (R34) Malignant neoplasm of head, face and neck (C76.0) Abnormal weight loss (R63.4) Discharge Diagnoses with Status of Each Condition: ARF (acute renal failure) (N17.9) resolved. Weight loss (R63.4) chronic, appetite slowly improved during this stay. S/P percutaneous endoscopic gastrostomy (PEG) tube placement (Z93.1) new on this admission placed by general surgery, no signs of infection. Nursing provided tube teaching. Anuresis (R34) stable. Head and neck malignancy (C76.0) chronic, upcoming chemo/radiation plans. Afib (I48.91) chronic, metoprolol reduced and changed to long acting. Dysphagia (R13.10) chronic, new PEG placed. Fever (R50.9) improved, continue oral antibiotics at home. - HPI History of Present Illness: Vinny Sadler is an 67-year old male with a past medical history of hypertension, atrial fibrillation on Xarelto, BPH on Flomax, arthritis, gout, cellulitis, depression, anxiety, recent head and neck malignancy, dysphagia, odynophagia, recent weight loss, and tobacco dependence. He and his ciro conrad to the ED on 02/27/18 with reports of no urine output in his richardson that was placed on 02/26/18 for acute urinary retention. He reported that he felt as thought he was drinking an adequate amount of fluids, despite his underlying dysphagia caused by his cancer. He was noted to have a whitish colored discharge that has been collecting around where the richardson tube goes into the meatus with possible urine leakage. An ultrasound showed a decompressed bladder with proper richardson placement. On 01/13/18 the patient underwent a contrast CT and a recent PET scan through [place]. On exam the patient denied all complaints including abdominal pain, shortness of breath, chest pain, or lower extremity swelling. He will be admitted for inpatient care to treat NÉSTOR with concerns for no urine output, and this renal failure is likely multi-factorial. Also of note that is worrisome is the patient's recent weight loss and nutritional status. - CONSULTS | PROCEDURES Consultations: General surgery-Dr. Murphy - HOSPITAL COURSE Hospital Course: The patient was found to be dehydrated and after recieveing adequate IV fluids, he began making urine and his labs improved. His NÉSTOR was resolved upon discharge. He was somewhat debilitated physically, so home PT/OT and intermediate services were ordered for returning home. After a nutritional consult and a swallowing evaluation, it was decided that given the known upcoming treatment for his head and neck cancer, a PEG tube would be most beneficial to supplement his diet during this time. A general surgery consult was made and Dr. Murphy placed a PEG with no known post-op complications at the time of discharge. He was medically stable at the time of discharge and returned home with his . - ALLERGIES Allergies/Adverse Reactions: Allergies Allergy/AdvReac Type Severity Reaction Status Date / Time No Known Drug Allergies Allergy Verified 02/27/18 22:17 - MEDICATIONS Home Medications: Ambulatory Orders Medication Instructions Recorded Confirmed Tamsulosin [Flomax] 0.4 mg PO DAILY #20 capsule 07/30/17 02/28/18 Indomethacin 50 mg PO TID PRN 02/28/18 02/28/18 Ondansetron HCl [Zofran] 8 mg PO Q8H PRN 02/28/18 02/28/18 Prochlorperazine Maleate 10 mg PO Q6H PRN 02/28/18 02/28/18 [Compazine] Rivaroxaban [Xarelto] 20 mg PO 1700 02/28/18 02/28/18 Trazodone HCl 200 mg PO QPM 02/28/18 02/28/18 buPROPion [Wellbutrin Sr] 150 mg PO DAILY 02/28/18 02/28/18 diazePAM [Diazepam] 10 mg PO Q6H PRN 02/28/18 02/28/18 oxyCODONE [Roxicodone] 60 mg PO Q4H PRN 02/28/18 02/28/18 Metoprolol Succinate 12.5 mg PO BID #15 tab.er.24h 03/04/18 Nicotine 7 mg Patch [Nicoderm] 1 each TOP Q24H #7 patch 03/04/18 Saccharomyces Boulardii [Florastor] 250 mg PO BID #60 capsule 03/04/18 levoFLOXacin [Levaquin] 250 mg PO DAILY #6 tablet 03/04/18 - PHYSICAL EXAM AT DISCHARGE General Appearance: positive: No acute distress, Alert Eyes Bilateral: positive: PERRL ENT: positive: Pharynx nml, No signs of dehydration Neck: positive: Thyroid nml, No JVD, Trachea midline Respiratory: positive: Chest non-tender, No respiratory distress, Breath sounds nml Cardiovascular: positive: Regular rate & rhythm, No gallop, Bradycardia Peripheral Pulses: positive: 2+ Abdomen: positive: Non-tender, Nml bowel sounds, Other (PEG site is CDI with a dressing.) Skin: positive: No rash, Warm, Dry, Pallor Extremities: positive: Non-tender, Full ROM, Pedal edema Neurologic/Psychiatric: positive: Oriented x3, CN's nml (2-12), Motor nml, Sensation nml, Weakness, Sensory loss, Depressed mood/affect Reflexes: Bicep (R): 2+, Bicep (L): 2+ - LABS Result Diagrams: 03/04/18 05:45 03/04/18 05:45 - DIAGNOSTIC IMAGING Diagnostic Imaging Results: Final report reviewed Diagnostic Imaging Results Comments: EXAM: RENAL ULTRASOUND EXAM DATE: 02/28/2018 06:04 AM. IMPRESSION: 1. No hydronephrosis seen bilaterally. 2. Empty urinary bladder with catheter in place. Ureteral jets could not be assessed. EXAM: CHEST RADIOGRAPHY EXAM DATE: 03/02/2018 06:58 PM. IMPRESSION: 1. Bilateral interstitial and minimal alveolar opacities suspicious for pneumonia in this clinical setting. Differential diagnosis would include pulmonary edema. 2. Trace left pleural effusion. - SEPSIS Current Stage of Sepsis: Ruled out Possible source of Sepsis: Pulmonary, Genitourinary - FOLLOW UP Follow Up: Disposition: Home with Home health services; PT/OT/intermediate for new PEG. Prescriptions: levoFLOXacin [Levaquin] 250 mg PO DAILY #6 tablet Metoprolol Succinate 12.5 mg PO BID #15 tab.er.24h Nicotine 7 mg Patch [Nicoderm] 1 each TOP Q24H #7 patch Saccharomyces Boulardii [Florastor] 250 mg PO BID #60 capsule Diet: Regular Instruction Topics: Feeding Tube PEG Additional Instructions or Follow Up instructions: You were admitted with a fever and impaired kidney function, which has gradually improved and is now resolved. General surgery- Dr. Murphy placed a PEG tube for the upcoming future in [place] for you to prepare for further treatment of your cancer. Information on your new tube has been provided and the nurse will show you how to use your new tube for canned feedings and water flushes that you will perform at home. You had a fever so we started antibiotics, which you should continue for the next 6 days. All cultures have been negative so far. Please take a yogurt pill (probiotic) for the next month to keep your GI tract healthy. During your stay with us, your heart rate was very low, so the dose and type of metoprolol was changed to take just 12.5mg twice daily, which has been sent to the pharmacy. Please continue as planned with your oncology plans. Please leave your richardson catheter in place and your PCP may suggest a urology follow up. You are also taking Flomax for this. Please see your PCP within on week. - TIME SPENT Time Spent in Discharge (Minutes): 60"
[2018-03-04] MEDS: SODIUM CHLORIDE FLUSH 0.9% 10 ML SYRINGE IVP PRN (11:38)
[2018-03-04] MEDS ORDERED: PROCHLORPERAZINE MALEATE 10 MG PO PRN (14:14)
[2018-03-04] MEDS ORDERED: INDOMETHACIN 50 MG PO PRN (14:14)
[2018-03-04] MEDS ORDERED: DIAZEPAM 10 MG PO PRN (14:14)
[2018-03-04] MEDS ORDERED: ONDANSETRON HCL 8 MG PO PRN (14:14)
[2018-03-04] MEDS ORDERED: oxyCODONE 30 MG TABLET PO PRN (14:14)
[2018-03-04] MEDS ORDERED: TRAZODONE HCL 200 MG PO SCH (21:00)
[2018-03-05] MEDS ORDERED: buPROPion SR 150 MG TABLET PO SCH (09:00)
[2018-03-05] MEDS ORDERED: TAMSULOSIN 0.4 MG CAPSULE PO SCH (09:00)
[2020-02-29] MEDS ORDERED: PROPOFOL 200 MG/20 ML VIAL IVP ONE (10:00)
[2020-02-29] MEDS ORDERED: LIDOCAINE-MPF 2% 5 ML VIAL IM ONE (10:00)
[2020-02-29] MEDS ORDERED: ETOMIDATE 20 MG/10ML VIAL IV ONE (10:00)
== END 2018-03-04 11:51 | disposition home health service (06) | DRG 683 ==
LOC: ED 22:09 → MS2 02-28 01:00
PROVIDERS: ADMIT Nurse Practitioner; ATTEND Internal Medicine
PROC: 0DH63UZ Insertion of Feeding Device into Stomach, Percutaneous Approach (ICD-10-PCS; principal; 2018-03-02 09:00)
DX: R33.9 Retention of urine, unspecified (principal); N17.9 Acute kidney failure, unspecified; C10.9 Malignant neoplasm of oropharynx, unspecified; N13.8 Other obstructive and reflux uropathy; N40.1 Benign prostatic hyperplasia with lower urinary tract symptoms; R33.8 Other retention of urine; I48.2 Chronic atrial fibrillation; Z79.01 Long term (current) use of anticoagulants; F17.210 Nicotine dependence, cigarettes, uncomplicated; R13.10 Dysphagia, unspecified; G89.3 Neoplasm related pain (acute) (chronic); C76.0 Malignant neoplasm of head, face and neck; Z79.891 Long term (current) use of opiate analgesic; E86.0 Dehydration; R34 Anuria and oliguria; R63.4 Abnormal weight loss; R50.9 Fever, unspecified
CPT/HCPCS: 36415; 71045; 76770; 80048; 80053; 81001; 82043; 82570; 83690; 83735; 84100; 84134; 84153; 84154; 85025; 85610; 87040; 87086; 99283; 99284

== ENCOUNTER 2018-03-12 13:16 | Outpatient (CLI) | payer MEDICARE, MEDICAID ==
[2018-03-12 17:43] LABS: BASOPHILS % (AUTO) 1.3 %; EOSINOPHILS # (AUTO) 0.4 10^3/uL (0.0-0.7); EOSINOPHILS % (AUTO) 11.9 %; HGB - HEMOGLOBIN 12.1 g/dL (14.0-18.0); LYMPHOCYTES # (AUTO) 0.7 10^3/uL (1.5-3.5); LYMPHOCYTES % (AUTO) 21.1 %; MEAN CORPUSCULAR HGB CONC 33.2 g/dL (32.0-36.0); MEAN CORPUSCULAR VOLUME 99.5 fL (80.0-94.0); MONOCYTES # (AUTO) 0.1 10^3/uL (0.0-1.0); MONOCYTES % (AUTO) 2.6 %; NEUTROPHILS # (AUTO) 2.2 10^3/uL (1.5-6.6); NEUTROPHILS % (AUTO) 63.1 %; PLT - PLATELET COUNT 317 10^3/uL (130-450); RED BLOOD COUNT 3.66 10^6/uL (4.70-6.10); RED CELL DISTRIBUTION WIDTH 13.6 % (12.0-15.0); WHITE BLOOD COUNT 3.5 x10^3/uL (4.8-10.8)
== END 2018-03-12 13:17 | disposition home or self-care (01) ==
LOC: LAB.F 13:16
PROVIDERS: ATTEND Internal Medicine Medical Oncology
DX: C01 Malignant neoplasm of base of tongue (principal)
CPT/HCPCS: 36415; 85025

== ENCOUNTER 2018-03-17 09:47 | Outpatient (CLI) | payer MEDICARE, MEDICAID | END 2018-03-17 09:48 | disposition short-term general hospital (02) | LOC: EMS 09:47 | PROVIDERS: ATTEND Surgery | DX: K92.0 Hematemesis (principal) | CPT/HCPCS: A0425; A0427 ==

== ENCOUNTER 2018-03-25 11:10 | Outpatient (CLI) | payer MEDICARE, MEDICAID ==
[2018-03-25 18:02] LABS: ALBUMIN 3.3 g/dL (3.2-5.5); ALBUMIN/GLOBULIN RATIO 1.1 (1.0-2.2); BILIRUBIN,TOTAL 0.4 mg/dL (0.2-1.0); CALCIUM 8.4 mg/dL (8.5-10.3); TOTAL PROTEIN 6.4 g/dL (6.7-8.2)
[2018-03-25 18:11] LABS: BASOPHILS % (AUTO) 0.3 %; EOSINOPHILS % (AUTO) 0.6 %; HGB - HEMOGLOBIN 9.5 g/dL (14.0-18.0); LYMPHOCYTES % (AUTO) 10.9 %; MEAN CORPUSCULAR HEMOGLOBIN 32.2 pg (27.0-31.0); MEAN CORPUSCULAR HGB CONC 33.7 g/dL (32.0-36.0); MEAN CORPUSCULAR VOLUME 95.4 fL (80.0-94.0); MEAN PLATELET VOLUME 8.3 fL (7.4-11.4); MONOCYTES % (AUTO) 4.7 %; NEUTROPHILS % (AUTO) 83.5 %; PLT - PLATELET COUNT 162 10^3/uL (130-450); RED BLOOD COUNT 2.96 10^6/uL (4.70-6.10); RED CELL DISTRIBUTION WIDTH 17.2 % (12.0-15.0); WHITE BLOOD COUNT 9.3 x10^3/uL (4.8-10.8)
[2018-03-25 18:13] LABS: ABNORMAL LYMPHS % (MANUAL) 0 %
[2018-03-25 18:35] LABS: BAND NEUTROPHILS % (MANUAL) 16 %; DIFFERENTIAL COMMENT MANUAL DIFFERENTIAL; LYMPHOCYTES # (MANUAL) 0.8 10^3/uL (1.5-3.5); LYMPHOCYTES % (MANUAL) 9 %; NEUTROPHILS # (MANUAL) 7.4 10^3/uL (1.5-6.6); NEUTROPHILS % (MANUAL) 64 %; PLATELET ESTIMATE, MANUAL NORMAL (130-450,000) (NORMAL); PLATELET MORPHOLOGY NORMAL APPEARANCE (NORMAL); RBC MORPHOLOGY (MULTIPLE) 2+ ANISOCYTOSIS (NORMAL)
== END 2018-03-25 11:11 | disposition home or self-care (01) ==
LOC: LAB.F 11:10
PROVIDERS: ATTEND Nurse Practitioner
DX: C01 Malignant neoplasm of base of tongue (principal)
CPT/HCPCS: 36415; 80053; 85025

== ENCOUNTER 2018-04-05 06:35 | Outpatient (CLI) | payer MEDICARE, MEDICAID | END 2018-04-05 06:36 | disposition short-term general hospital (02) | LOC: EMS 06:35 | PROVIDERS: ATTEND Surgery | DX: R53.1 Weakness (principal) | CPT/HCPCS: A0425; A0427 ==

== ENCOUNTER 2018-04-23 11:42 | Outpatient (CLI) | payer MEDICARE, MEDICAID ==
[2018-04-23 18:01] LABS: BASOPHILS # (AUTO) 0.1 10^3/uL (0.0-0.1); BASOPHILS % (AUTO) 1.3 %; EOSINOPHILS # (AUTO) 0.1 10^3/uL (0.0-0.7); EOSINOPHILS % (AUTO) 2.5 %; HGB - HEMOGLOBIN 9.3 g/dL (14.0-18.0); LYMPHOCYTES # (AUTO) 0.9 10^3/uL (1.5-3.5); LYMPHOCYTES % (AUTO) 22.1 %; MEAN CORPUSCULAR HEMOGLOBIN 30.8 pg (27.0-31.0); MEAN CORPUSCULAR HGB CONC 32.6 g/dL (32.0-36.0); MEAN CORPUSCULAR VOLUME 94.7 fL (80.0-94.0); MEAN PLATELET VOLUME 8.2 fL (7.4-11.4); MONOCYTES # (AUTO) 0.5 10^3/uL (0.0-1.0); MONOCYTES % (AUTO) 13.1 %; NEUTROPHILS # (AUTO) 2.4 10^3/uL (1.5-6.6); PLT - PLATELET COUNT 406 10^3/uL (130-450); RED BLOOD COUNT 3.02 10^6/uL (4.70-6.10); RED CELL DISTRIBUTION WIDTH 18.2 % (12.0-15.0); WHITE BLOOD COUNT 3.9 x10^3/uL (4.8-10.8)
[2018-04-23 18:02] LABS: ALBUMIN 3.4 g/dL (3.2-5.5); ALBUMIN/GLOBULIN RATIO 0.7 (1.0-2.2); BILIRUBIN,TOTAL 0.7 mg/dL (0.2-1.0); CALCIUM 9.2 mg/dL (8.5-10.3); CREATININE 1.7 mg/dL (0.6-1.2)
== END 2018-04-23 11:43 | disposition home or self-care (01) ==
LOC: LAB.F 11:42
PROVIDERS: ATTEND Nurse Practitioner
DX: C01 Malignant neoplasm of base of tongue (principal)
CPT/HCPCS: 36415; 80053; 85025

== ENCOUNTER 2018-05-05 11:37 | Outpatient (CLI) | payer MEDICARE, MEDICAID ==
[2018-05-05] MEDS ORDERED: IOVERSOL 320 50 ML VIAL ONE (11:53)
[2018-05-05] MEDS ORDERED: IOVERSOL 320 100 ML VIAL IVP ONE ×2 (11:53→15:21)
--- NOTE | 2018-05-05 15:52 | CT Report ---
Reason: MALIGNANT NEOPLASM IOF BASE OF TONGUE Procedure Date: 05/05/2018 Accession Number: [id number] / [id number] Procedure: CT - SOFT TISSUE NECK W CPT Code: FULL RESULT: EXAM: CT SOFT TISSUE NECK WITH CONTRAST. EXAM DATE: 05/05/2018 01:12 PM. HISTORY: History of malignant neoplasm of the tongue. COMPARISONS: 01/13/2018. TECHNIQUE: Routine soft tissue neck CT protocol. Reconstructions: Coronal and sagittal. IV contrast: Optiray 90 mL. In accordance with CT protocol optimization, one or more of the following dose reduction techniques were utilized for this exam: automated exposure control, adjustment of mA and/or KV based on patient size, or use of iterative reconstructive technique. FINDINGS: Marked interval regression of large expansile mass of the left tongue. There is some residual distortion of tongue anatomy with effacement of normal fat planes, and some residual soft tissue fullness that may represent tumor treatment change, residual disease or both. A residual discretely marginated enhancing tumor mass which can be accurately measured is not currently evident. Improved bilateral cervical lymphadenopathy. A pair of adjacent right level-2 nodes that were previously 17 and 15 mm are now 9 and 12 mm respectively using the same method of measurement. Dominant node in the left neck at the level of the carotid bifurcation, previously 16 mm is now 13 mm. One of the largest nodes in the left suprahyoid neck is now 19 x 28 mm on image 56 of series 2, previously 18 x 25 mm at a similar level, using a similar method of measurement, stable to slightly larger. Stable appearance of the thyroid gland and major salivary glands. No acute sinus or mastoid opacity. No evidence for acute infection or abscess. IMPRESSION: 1. Marked interval regression of expansile mass of the left tongue, consistent with favorable tumor treatment response. 2. Persistent but mostly improved bilateral cervical lymphadenopathy. 3. Persistent and stable to slightly larger lymph node or lymph node confluence on the left at level 2. RADIA
--- NOTE | 2018-05-06 11:18 | CT Report ---
Reason: MALIGNANT NEOPLASM IOF BASE OF TONGUE Procedure Date: 05/05/2018 Accession Number: [id number] / [id number] Procedure: CT - Abdomen/Pelvis W CPT Code: FULL RESULT: EXAM: CT CHEST, ABDOMEN AND PELVIS EXAM DATE: 05/05/2018 01:12 PM. CLINICAL HISTORY: MALIGNANT NEOPLASM OF BASE OF TONGUE. COMPARISONS: None. TECHNIQUE: Routine helical CT imaging was performed through the chest, abdomen, and pelvis. IV contrast: 90 cc Optiray 320. Enteric contrast: Yes. Reconstructions: Coronal and sagittal. In accordance with CT protocol optimization, one or more of the following dose reduction techniques were utilized for this exam: automated exposure control, adjustment of mA and/or KV based on patient size, or use of iterative reconstructive technique. FINDINGS: Examination is performed in conjunction with CT of the neck, which is reported separately. Lungs/Pleura: There is patchy opacity in the posterior basilar segment of the left lower lobe (series 3, image 58). The appearance is suggestive of either atelectasis or mild infiltrate. A small 11 mm focus of groundglass opacity is present in the right middle lobe (series 3, image 47). This may also be infectious or inflammatory in nature. A 6 mm nodule along the left major fissure (series 3, image 40) may represent intrapulmonary lymph node. A 2 mm nodule in the posterior basilar segment of the right lower lobe (series 3, image 43) and a 7 mm nodule also in the posterior basilar segment of the right lower lobe (series 3, image 51) are indeterminate. There is suggestion of mild pleural thickening or small effusion along the medial base of the right hemithorax (series 5, image 49). No left pleural effusion demonstrated. Mediastinum: Heart size is within normal limits. There is multivessel coronary artery calcification. No pericardial effusion. There is an enlarged right paratracheal lymph node measuring 1.6 x 1.4 cm (series 2, image 31). Right hilar node is also enlarged, measuring 2.0 x 1.5 cm (series 2, image 36). History of mediastinal node is also enlarged, measuring 1.6 x 1.4 cm (series 2, image 57). The thoracic aorta demonstrates mild atherosclerotic calcification but is normal in caliber. No filling defects are demonstrated in the opacified central pulmonary arteries. Chest Wall: There are subcentimeter hypoattenuating nodules in the thyroid, which are probably too small to follow. A right chest wall port is present. No axillary or supraclavicular adenopathy. Liver: There are subcentimeter hypoattenuating foci in segments 4A, 2, and 5 (series 3, images 11, 14, and 38), which are too small to characterize. Gallbladder/Bile Ducts: Unremarkable. Spleen: Within normal limits. Pancreas: Main pancreatic duct is mildly dilated in the head and body measuring approximately 5 mm (series 5, images 21 and 26). Pancreas is otherwise unremarkable. Adrenal Glands: There is slight thickening of the right adrenal gland (series 3, image 16). Indeterminate left adrenal nodule present measuring 1.7 x 1.3 cm (series 3, image 21). Kidneys: A fluid attenuation structure in the lower pole of the left kidney is most suggestive of a cyst (series 3, image 38). A 1.6 cm lesion with low-intermediate attenuation in the lower pole of the right kidney (series 3, image 36) is indeterminate. No hydronephrosis. Peritoneal Cavity/Bowel: Gastrostomy tube is present and appears appropriately positioned. Appendix is surgically absent. There is diverticulosis of the sigmoid colon without evidence for acute diverticulitis. No evidence of bowel obstruction or inflammation. Pelvic Organs: Views are partially obscured by beam hardening artifact from left hip prosthesis. Urinary bladder demonstrates mild concentric wall thickening. No pelvic adenopathy or free fluid. There are bilateral fat-containing inguinal hernias. Prostate is enlarged measuring approximately 5.3 x 4.4 cm in the axial plane (series 3, image 77). Vasculature: There is moderate atherosclerotic calcification of the abdominal aorta and iliac arteries. No abdominal aortic aneurysm. Bones: No suspicious osseous lesion. Multilevel degenerative changes are present in the spine. Left hip prosthesis is partially visualized. Other: No retroperitoneal adenopathy. IMPRESSION: 1. Mediastinal and right hilar adenopathy, concerning for cathy metastases given adenopathy in the neck. 2. Subcentimeter right lower lobe pulmonary nodules are indeterminate. Attention is recommended on follow-up examinations. PET/CT could be considered; however, these nodules may be below the resolution of PET. 3. Small focus of groundglass opacity in the right middle lobe may be infectious or inflammatory in nature. Appearance is not typical for metastasis. However, attention is recommended on follow-up examinations. 4. Left adrenal nodule and slight thickening of the right adrenal gland are indeterminate for metastases. Consider adrenal CT or PET/CT for further evaluation. 5. Right renal lesion may represent a cyst but cannot be definitively characterized as such. Metastasis from head and neck cancer is unlikely. However, further characterization with renal ultrasound is suggested. 6. Mild dilation of the main pancreatic duct in the head and body without focal pancreatic lesion. This is suspected to represent senescent change. However, attention is recommended on follow-up examinations. 7. Mild concentric wall thickening of the urinary bladder, greater than expected for the degree of distention. Consider correlation with urinalysis to exclude cystitis. RADIA
== END 2018-05-05 11:38 | disposition home or self-care (01) ==
LOC: DI 11:37
PROVIDERS: ATTEND Internal Medicine Medical Oncology
DX: C01 Malignant neoplasm of base of tongue (principal); R59.0 Localized enlarged lymph nodes; R91.8 Other nonspecific abnormal finding of lung field; E27.9 Disorder of adrenal gland, unspecified; N28.9 Disorder of kidney and ureter, unspecified; K86.89 Other specified diseases of pancreas; N32.89 Other specified disorders of bladder
CPT/HCPCS: 70491; 71260; 74177; Q9967

== ENCOUNTER 2018-05-21 09:52 | Outpatient (CLI) | payer MEDICARE, MEDICAID ==
[2018-05-21 17:53] LABS: BASOPHILS % (AUTO) 0.9 %; EOSINOPHILS # (AUTO) 0.1 10^3/uL (0.0-0.7); EOSINOPHILS % (AUTO) 2.5 %; HGB - HEMOGLOBIN 8.3 g/dL (14.0-18.0); LYMPHOCYTES # (AUTO) 0.6 10^3/uL (1.5-3.5); LYMPHOCYTES % (AUTO) 23.9 %; MEAN CORPUSCULAR HEMOGLOBIN 32.2 pg (27.0-31.0); MEAN CORPUSCULAR HGB CONC 33.5 g/dL (32.0-36.0); MEAN CORPUSCULAR VOLUME 96.3 fL (80.0-94.0); MONOCYTES # (AUTO) 0.2 10^3/uL (0.0-1.0); NEUTROPHILS # (AUTO) 1.6 10^3/uL (1.5-6.6); NEUTROPHILS % (AUTO) 65.7 %; PLT - PLATELET COUNT 154 10^3/uL (130-450); RED BLOOD COUNT 2.57 10^6/uL (4.70-6.10); RED CELL DISTRIBUTION WIDTH 21.3 % (12.0-15.0); WHITE BLOOD COUNT 2.5 x10^3/uL (4.8-10.8)
[2018-05-21 18:38] LABS: ALBUMIN 3.7 g/dL (3.2-5.5); ALBUMIN/GLOBULIN RATIO 0.8 (1.0-2.2); BILIRUBIN,TOTAL 0.5 mg/dL (0.2-1.0); CALCIUM 9.4 mg/dL (8.5-10.3); CREATININE 1.3 mg/dL (0.6-1.2); TOTAL PROTEIN 8.4 g/dL (6.7-8.2)
== END 2018-05-21 09:53 | disposition home or self-care (01) ==
LOC: LAB.F 09:52
PROVIDERS: ATTEND Internal Medicine Hematology & Oncology
DX: C01 Malignant neoplasm of base of tongue (principal)
CPT/HCPCS: 36415; 80053; 85025

== ENCOUNTER 2018-05-29 00:50 | Outpatient (CLI) | payer MEDICARE, MEDICAID | END 2018-05-29 00:51 | disposition short-term general hospital (02) | LOC: EMS 00:50 | PROVIDERS: ATTEND Surgery | DX: R41.82 Altered mental status, unspecified (principal); R50.9 Fever, unspecified; R53.1 Weakness; R32 Unspecified urinary incontinence; W19.XXXA Unspecified fall, initial encounter; Y92.008 Other place in unspecified non-institutional (private) residence as the place of occurrence of the external cause | CPT/HCPCS: A0425; A0427 ==

== ENCOUNTER 2018-06-16 12:08 | Outpatient (CLI) | payer MEDICARE, MEDICAID ==
[2018-06-16 18:42] LABS: ALBUMIN 3.5 g/dL (3.2-5.5); ALBUMIN/GLOBULIN RATIO 0.7 (1.0-2.2); BILIRUBIN,TOTAL 0.3 mg/dL (0.2-1.0); CALCIUM 9.5 mg/dL (8.5-10.3); CREATININE 1.7 mg/dL (0.6-1.2); TOTAL PROTEIN 8.2 g/dL (6.7-8.2)
[2018-06-16 19:23] LABS: BASOPHILS # (AUTO) 0.1 10^3/uL (0.0-0.1); BASOPHILS % (AUTO) 1.2 %; EOSINOPHILS # (AUTO) 0.2 10^3/uL (0.0-0.7); EOSINOPHILS % (AUTO) 3.2 %; HGB - HEMOGLOBIN 9.1 g/dL (14.0-18.0); LYMPHOCYTES # (AUTO) 0.8 10^3/uL (1.5-3.5); MEAN CORPUSCULAR HEMOGLOBIN 32.5 pg (27.0-31.0); MEAN CORPUSCULAR HGB CONC 33.1 g/dL (32.0-36.0); MEAN CORPUSCULAR VOLUME 98.1 fL (80.0-94.0); MEAN PLATELET VOLUME 8.9 fL (7.4-11.4); MONOCYTES # (AUTO) 0.7 10^3/uL (0.0-1.0); MONOCYTES % (AUTO) 12.4 %; NEUTROPHILS # (AUTO) 3.7 10^3/uL (1.5-6.6); NEUTROPHILS % (AUTO) 69.2 %; PLT - PLATELET COUNT 336 10^3/uL (130-450); RED CELL DISTRIBUTION WIDTH 20.3 % (12.0-15.0); WHITE BLOOD COUNT 5.4 x10^3/uL (4.8-10.8)
[2018-06-16 20:39] LABS: PLATELET ESTIMATE, MANUAL NORMAL (130-450,000) (NORMAL)
[2018-06-16 21:04] LABS: PLATELET MORPHOLOGY NORMAL APP (NORMAL)
== END 2018-06-16 12:09 | disposition home or self-care (01) ==
LOC: LAB.F 12:08
PROVIDERS: ATTEND Internal Medicine Medical Oncology
DX: C01 Malignant neoplasm of base of tongue (principal)
CPT/HCPCS: 36415; 80053; 85025

== ENCOUNTER 2018-06-26 14:46 | Outpatient (CLI) | payer MEDICARE, MEDICAID | END 2018-06-26 14:47 | disposition critical access hospital (66) | LOC: EMS 14:46 | PROVIDERS: ATTEND Surgery | DX: R50.9 Fever, unspecified (principal); C44.90 Unspecified malignant neoplasm of skin, unspecified; C78.00 Secondary malignant neoplasm of unspecified lung; C79.00 Secondary malignant neoplasm of unspecified kidney and renal pelvis; Z79.899 Other long term (current) drug therapy | CPT/HCPCS: A0425; A0429 ==

== ENCOUNTER 2018-06-26 15:09 | Inpatient (IN) | payer MEDICARE, MEDICAID ==
--- NOTE | 2018-06-26 15:21 | ED Physician Documentation ---
PD HPI FEVER - Stated complaint Stated Complaint: FEVER - History obtained from History obtained from: Patient, EMS - History of Present Illness Timing - onset: Today (Patient is somewhat altered so much of the history is from the paramedics. The is coming but she is not here on arrival. 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 He has had a fever up to 102. He denies cough or discomfort but feels dizzy.) Review of Systems Unable to obtain: Confused PD PAST MEDICAL HISTORY - Past Medical History Cardiovascular: Hypertension, Atrial fibrillation Respiratory: None Neuro: None Endocrine/Autoimmune: None GI: Colon polyps, Hepatitis : Nocturia HEENT: Other Psych: Depression, Anxiety Musculoskeletal: Osteoarthritis Derm: None - Past Surgical History Past Surgical History: Yes General: Appendectomy, Colonoscopy Ortho: Hip replacement - Present Medications Home Medications: Ambulatory Orders Medication Instructions Recorded Confirmed Trazodone HCl 100 mg PO QPM 02/28/18 06/23/18 buPROPion [Wellbutrin Sr] 150 mg PO DAILY 02/28/18 06/23/18 oxyCODONE [Roxicodone] 30 mg PO Q4H PRN 02/28/18 06/23/18 Doxazosin [Cardura] 1 mg GT DAILY 06/23/18 06/23/18 Finasteride 5 mg GT DAILY 06/23/18 06/23/18 Metoprolol Tartrate 12.5 mg GT BID 06/23/18 06/23/18 Diazepam [Valium] 10 mg 06/26/18 Nystatin Diphenhydramine Antac 0 mg 06/26/18 - Allergies Allergies/Adverse Reactions: Allergies Allergy/AdvReac Type Severity Reaction Status Date / Time No Known Drug Allergies Allergy Verified 06/23/18 13:44 - Social History Does the pt smoke?: No Smoking Status: Current every day smoker Does the pt drink ETOH?: Yes Does the pt have substance abuse?: Yes - Immunizations Immunizations are current?: No Immunizations: TDAP >10years/unknown - POLST Patient has POLST: Yes PD ED PE NORMAL - Vitals Vital signs reviewed: Yes (Tachycardic and hypoxic) - General General: Other (He is alert and cooperative but confused.) - HEENT HEENT: Other (Dry mucous membranes with slight thrush) - Neck Neck: Supple, no meningeal sign, No bony TTP - Cardiac Cardiac: Other (Tachycardic but regular without murmur) - Respiratory Respiratory: Other (Nonlabored with loud rhonchi at the right base) - Abdomen Abdomen: Soft, Non tender - Back Back: No CVA TTP, No spinal TTP - Derm Derm: Normal color, Warm and dry - Extremities Extremities: No edema, No calf tenderness / cord - Neuro Neuro: code clerk 2-12 intact Eye Opening: Spontaneous Motor: Obeys Commands Verbal: Confused GCS Score: 14 Results - Vitals Vitals: Vital Signs - 24 hr 06/26/18 15:08 Temperature 37.8 C H Heart Rate 110 H Respiratory 20 Rate Blood Pressure 111/62 O2 Saturation 78 L Oxygen O2 Source Room air Oxygen Flow Rate 6 - EKG (time done) 1606 Rate: Rate (enter#) (93) Rhythm: NSR [place]: Normal Intervals: Normal [place] QRS: Normal, Low voltage Ischemia: Normal ST segments Computer interpretation: Agree with computer - Labs Labs: Laboratory Tests 06/26/18 06/26/18 06/26/18 15:35 15:35 15:35 WBC 7.0 RBC 2.67 L Hgb 8.7 L Hct 25.5 L MCV 95.5 H MCH 32.4 H MCHC 33.9 RDW 18.3 H Plt Count 306 MPV 7.6 Neut # (Auto) 6.6 Lymph # (Auto) 0.2 L [place] # (Auto) 0.1 Eos # (Auto) 0.1 Baso # (Auto) 0.0 Absolute Nucleated RBC 0.00 Nucleated RBC % 0.0 Sodium 133 L Potassium 4.9 Chloride 96 L Carbon Dioxide 29 Anion Gap 8.0 BUN 49 H Creatinine 1.5 H Estimated GFR (MDRD) 46 L Glucose 109 H Lactic Acid 1.4 Calcium 8.8 Total Bilirubin 0.2 AST 24 ALT 16 Alkaline Phosphatase 46 Total Protein 7.8 Albumin 3.4 Globulin 4.4 H Albumin/Globulin Ratio 0.8 L Lipase 22 - Rads (name of study) 1v chest Radiology: EMP read contemporaneously (Bibasilar infiltrates) PD MEDICAL DECISION MAKING - ED course Complexity details: d/w family ( arrived shortly thereafter. He started having Rigors this morning and then a fever of 102.5. He was hospitalized and released about 3 weeks ago for pneumonia at [facility].) ED course: 68-year-old gentleman with history of head neck cancer undergoing chemotherapy presents with acute alteration in mental status, fever and hypoxemia. His x-ray and exam are consistent with pneumonia which is treated as a hospital-acquired pneumonia given recent admission with cefepime, Levaquin and vancomycin after blood cultures. Spoke with Dr. Mendoza for admission at 4:50 PM. Departure - Departure Disposition: 66 [facility] DC/Xfer Clinical Impression: Pneumonia Condition: Serious
[2018-06-26 15:53] LABS: BASOPHILS % (AUTO) 0.3 %; EOSINOPHILS # (AUTO) 0.1 10^3/uL (0.0-0.7); HGB - HEMOGLOBIN 8.7 g/dL (14.0-18.0); LYMPHOCYTES # (AUTO) 0.2 10^3/uL (1.5-3.5); LYMPHOCYTES % (AUTO) 2.5 %; MEAN CORPUSCULAR HEMOGLOBIN 32.4 pg (27.0-31.0); MEAN CORPUSCULAR HGB CONC 33.9 g/dL (32.0-36.0); MEAN CORPUSCULAR VOLUME 95.5 fL (80.0-94.0); MEAN PLATELET VOLUME 7.6 fL (7.4-11.4); MONOCYTES # (AUTO) 0.1 10^3/uL (0.0-1.0); MONOCYTES % (AUTO) 2.1 %; NEUTROPHILS # (AUTO) 6.6 10^3/uL (1.5-6.6); NEUTROPHILS % (AUTO) 94.1 %; PLT - PLATELET COUNT 306 10^3/uL (130-450); RED BLOOD COUNT 2.67 10^6/uL (4.70-6.10); RED CELL DISTRIBUTION WIDTH 18.3 % (12.0-15.0)
[2018-06-26 16:03] LABS: ALBUMIN 3.4 g/dL (3.2-5.5); ALBUMIN/GLOBULIN RATIO 0.8 (1.0-2.2); BILIRUBIN,TOTAL 0.2 mg/dL (0.2-1.0); CALCIUM 8.8 mg/dL (8.5-10.3); CREATININE 1.5 mg/dL (0.6-1.2); TOTAL PROTEIN 7.8 g/dL (6.7-8.2)
--- NOTE | 2018-06-26 16:40 | XRAY Report ---
Reason: fever, clinical R basilar PNA Procedure Date: 06/26/2018 Accession Number: [id number] / [id number] Procedure: XR - Chest 1 View X-Ray CPT Code: 43473 FULL RESULT: EXAM: CHEST RADIOGRAPHY EXAM DATE: 06/26/2018 04:20 PM. CLINICAL HISTORY: Fever, clinical R basilar PNA. COMPARISON: CHEST 1 VIEW 03/02/2018 6:47 PM. TECHNIQUE: 1 view. FINDINGS: Lungs/Pleura: There is new bilateral basilar airspace disease obscuring contour of right and left hemidiaphragm. Lung volumes are stable. Negative for pneumothorax. Mediastinum: Heart size is normal. There is a right-sided Port-A-Cath with tip at the low SVC level. Other: None. IMPRESSION: New bibasilar alveolar airspace disease consistent with bibasilar pneumonia, dependent edema, and/or aspiration. RADIA
[2018-06-26] MEDS ORDERED: VANCOMYCIN INJ 2 GM in SODIUM CHLORIDE 0.9% 500 ML IV STA (16:43)
[2018-06-26] MEDS ORDERED: CEFEPIME 2 GM in SODIUM CHLORIDE 0.9% MINIBAG 100 ML IV STA (16:43)
[2018-06-26] MEDS ORDERED: levoFLOXacin 750 MG/150 ML 750 MG/150 ML BAG IV STA (16:43)
[2018-06-26] MEDS ORDERED: MORPHINE 10 MG/ML VIAL IVP STA (17:00)
[2018-06-26] MEDS ORDERED: ACETAMINOPHEN 160 MG/5 ML SUSP UDC GT STA (17:13)
[2018-06-26] MEDS ORDERED: ACETAMINOPHEN 325 MG TABLET PO PRN (17:15)
--- NOTE | 2018-06-26 17:56 | HISTORY & PHYSICAL EXAMINATION ---
Chief Complaint - Chief Complaint Chief Complaint: fever, chills, increased confusion Respiratory Admission HPI - Admitted From Admitted from: ED - History Obtained From Records Reviewed: RN notes reviewed, Old records reviewed History obtained from: Patient, Family Exam limitations: Clinical condition - History of Present Illness Severity at the worst: reports: Severe Context of Onset: reports: Exertion Worsened by: reports: Exertion Associated symptoms: reports: Nausea, Feeling faint / dizzy, General weakness HPI Comment/Other: Vinny Sadler is an ill appearing 68-year old cachetic male with a past medical history of hypertension, atrial fibrillation, BPH, nocturia, osteoarthritis, gout, cellulitis, depression, anxiety, oropharyngeal cancer, current chemotherapy patient, colon polyps, dysphagia, odynophagia, status post PEG placement in February 2018, protein calorie malnutrition, medical noncompliance, hepatitis, alcohol use, and tobacco dependence. The patient arrived to the ED via EMS for altered mental status, fevers, rigors and weakness. The patient was reported to have just had a round of chemo yesterday, then developed a fever today of 102.5 F orally and rigors per . Oxygen saturation was only 78% on room air upon arrival, so the patient was placed on O2 NC @ 3l- O2 sat 82%, increased to 5L NC- 91-92%. He was just hospitalized and released about 3 weeks ago for pneumonia at [facility] in [place]. A chest x-ray showed bibasilar infiltrates, likely aspiration. His admits that re cently his oncologist encouraged him to try "eggs and toast", so he has been drinking hard Rarden lemonade and other thin liquids. She did not notice him coughing excessively afterwards. Labs showed a normal WBC count of 7, anemia with an H/H of 8.7/25.5, a normal platelet count of 306, a low sodium of 133, a K+ of 4.9, chloride of 96, a BUN of 49, a creatinine of 1.5, GFR of 46, glucose of 109, lactic acid of 1.4, bilirubin of 0.2, with no other abnormalities. He was initially given cefepime, Levaquin and vancomycin and blood cultures are pending. On my exam the patient is disorientated, minimally responsive, wearing 6L nasal cannula (does not wear home oxygen), and appears slightly unco mfortable. He will be admitted for treatment of pneumonia. PMH/PSH - Past Medical History Cardiovascular: positive: Hypertension, High cholesterol, Coronary artery disease, Atrial fibrillation, Murmur, Arrhythmia Respiratory: positive: COPD, Emphysema, Pneumonia, Shortness of breath Neuro: positive: Dementia, Headaches, Peripheral neuropathy, Tremors Endocrine/Autoimmune: positive: None GI: positive: GERD, Colon polyps, Hepatitis (hep c- treated), Other (status post PEG placement) : positive: Benign prostate hypertrophy, Retention, Nocturia HEENT: positive: Chronic vision loss, Chronic sinusitis, Chronic hearing loss, Other Psych: positive: Depression, Anxiety Musculoskeletal: positive: Osteoarthritis, Fatigue Derm: positive: None MRSA Hx?: No - Past Surgical History General: positive: Appendectomy, Gastric surgery, Colonoscopy, Other (PEG placement 02/2018) Ortho: positive: Hip replacement Derm: positive: Skin cancer surgery Social & Family Hx - Living Situation Living Arrangement: At home Living Situation: With spouse/s.o. - Social History Does the pt smoke?: Yes Smoking Status: Current every day smoker Does the pt drink ETOH?: Yes ETOH Use: Other (wine coolers, Rarden hard lemonade) Does the pt have substance abuse?: Yes Substance Use and Type: Marijuana - POLST Patient has POLST: Yes POLST Status: Full Code - Family History Family History: Mother: , Father: Family History Comment/Other: Patient did not know his parents Meds/Allgy - Home Medications Home Medications: Ambulatory Orders Medication Instructions Recorded Confirmed Trazodone HCl 300 mg GT QPM 02/28/18 06/27/18 buPROPion [Wellbutrin Sr] 150 mg PO DAILY 02/28/18 06/27/18 oxyCODONE [Roxicodone] 60 mg GT Q4H PRN 02/28/18 06/27/18 Doxazosin [Cardura] 1 mg GT QPM 06/23/18 06/27/18 Finasteride 5 mg GT DAILY 06/23/18 06/27/18 Diazepam [Valium] 10 mg GT Q6H PRN 06/26/18 06/27/18 Nystatin Diphenhydramine Antac 0 mg 06/26/18 [id number] [Fentanyl 50mcg patch] 1 patch TD Q3D 06/27/18 06/27/18 - Allergies Allergies/Adverse Reactions: Allergies Allergy/AdvReac Type Severity Reaction Status Date / Time No Known Drug Allergies Allergy Verified 06/23/18 13:44 Review of Systems - Constitutional Constitutional: reports: Fatigue, Fever, Chills, Weakness, Weight loss - Eyes Eyes: reports: Vision loss, Corrective lenses - Ears, Nose & Throat Ears, Nose & Throat: reports: Hearing loss, Postnasal drainage, Hoarseness - Cardiovascular Cariovascular: reports: Lightheadedness, Exertional dyspnea, Decr. exercise tolerance - Respiratory Respiratory: reports: Cough, Sputum production, SOB at rest, SOB with exertion - Gastrointestinal Gastrointestinal: reports: Nausea, Reflux/heartburn - Genitourinary Genitourinary: reports: Dysuria, Urgency, Nocturia - Musculoskeletal Musculoskeletal: reports: Back pain, Stiffness, Limited range of motion, Muscle weakness, Joint swelling - Integumentary Integumentary: reports: Dryness, Pigment changes - Neurological Neurological: reports: General weakness, Focal weakness, Dizziness, Numbness, Memory problems, Pre-existing deficit, Abnormal gait, Incoordination, Slurred speech - Psychiatric Psychiatric: reports: Depression, Anxiety - Hematologic/Lymphatic Hematologic/Lymphatic: reports: Anemia, Recurrent infections - All Other Systems All Other Systems: reports: Reviewed and negative Prior Level of Functionality: Uses a walker at home, no recent falls Exam - Vital Signs Reviewed Vital Signs: Yes Vital Signs: Vital Signs x48h Temp Pulse Resp BP Pulse Ox 06/26/18 15:08 37.8 C H 110 H 20 111/62 78 L - Physical Exam General Appearance: positive: Alert, Moderate distress Eyes Bilateral: positive: No lid inflammation ENT: positive: Pharyngeal erythema, Oral lesions, Dry mucous membranes Neck: positive: No JVD, Lymphadenopathy (R), Lymphadenopathy (L), Stiff neck Respiratory: positive: Chest non-tender, Rhonchi Cardiovascular: positive: No gallop, Irregularly irregular, Systolic murmur, Decreased pulse(s) Peripheral Pulses: positive: 1+ Abdomen: positive: Nml bowel sounds, Guarding, Other (PEG in place mid-line, no drainage noted) Back: positive: Nml inspection Skin: positive: No rash, Warm, Dry, Cyanosis, Pallor Extremities: positive: No pedal edema, Joint swelling Neurologic/Psychiatric: positive: Disoriented to place, Disoriented to time, Weakness, Sensory loss, Slurred/abnml speech, Depressed mood/affect, Other (baseline dementia) Reflexes: Bicep (R): 3+, Bicep (L): 3+ Results - Lab Results Lab results reviewed: Yes Fish Bones: 06/28/18 05:50 06/28/18 05:50 Other Lab Results: Lab Results x24hrs 06/26/18 06/26/18 06/26/18 Range/Units 15:35 15:35 15:35 WBC 7.0 (4.8-10.8) x10^3/uL RBC 2.67 L (4.70-6.10) 10^6/uL Hgb 8.7 L (14.0-18.0) g/dL Hct 25.5 L (42.0-52.0) % MCV 95.5 H (80.0-94.0) fL MCH 32.4 H (27.0-31.0) pg MCHC 33.9 (32.0-36.0) g/dL RDW 18.3 H (12.0-15.0) % Plt Count 306 (130-450) 10^3/uL MPV 7.6 (7.4-11.4) fL Neut # (Auto) 6.6 (1.5-6.6) 10^3/uL Lymph # (Auto) 0.2 L (1.5-3.5) 10^3/uL [place] # (Auto) 0.1 (0.0-1.0) 10^3/uL Eos # (Auto) 0.1 (0.0-0.7) 10^3/uL Baso # (Auto) 0.0 (0.0-0.1) 10^3/uL Absolute Nucleated RBC 0.00 x10^3/uL Nucleated RBC % 0.0 /100WBC Sodium 133 L (135-145) mmol/L Potassium 4.9 (3.5-5.0) mmol/L Chloride 96 L (101-111) mmol/L Carbon Dioxide 29 (21-32) mmol/L Anion Gap 8.0 (6-13) BUN 49 H (6-20) mg/dL Creatinine 1.5 H (0.6-1.2) mg/dL Estimated GFR (MDRD) 46 L (>89) Glucose 109 H (70-100) mg/dL Lactic Acid 1.4 (0.5-2.2) mmol/L Calcium 8.8 (8.5-10.3) mg/dL Total Bilirubin 0.2 (0.2-1.0) mg/dL AST 24 (10-42) IU/L ALT 16 (10-60) IU/L Alkaline Phosphatase 46 (42-121) IU/L Total Protein 7.8 (6.7-8.2) g/dL Albumin 3.4 (3.2-5.5) g/dL Globulin 4.4 H (2.1-4.2) g/dL Albumin/Globulin Ratio 0.8 L (1.0-2.2) Lipase 22 (22-51) U/L - Diagnostic Imaging Results Diagnostic Imaging Results: positive: Final report reviewed Diagnostic Imaging Results Comments: bilateral aspiration PNA Sepsis Event Note (H) - Evaluation Current Stage of Sepsis: Sepsis Possible source of Sepsis: positive: Pulmonary - Sepsis Criteria Sepsis Criteria: Recorded Heart Rate greater than 90 bpm, Respiratory: Increasing oxygen requirements, SOCK LINING STITCHER: altered consciousness (unrelated to primary neuro pathology), SBP drop more than 40mHg Impression/Plan - Problem List Problem List: Aspiration pneumonia Oropharengeal cancer Acute metabolic encephalopathy Hypoxia Tobacco dependence BPH Protein calorie malnutrition Plan: Start Unasyn, continue vanco - treat pain - Respiratory cares with nebulizers, oxygen - monitor on telemetry - monitor mental status - Await medication reconciliation for oxycodone doses as they are very high - Consider swallowing evaluation after acute illness - Tube feedings via PEG/nutritional consult - Low dose nicotine patch - Bladder scans Core Measures - Anticipated LOS I expect patient to be DC'd or transferred within 96 hours.: Yes - DVT/VTE - Prophylaxis VTE/DVT Device ordered at admit?: Yes VTE/DVT Prophylaxis med ordered at admit?: Yes - Stroke - Rehab Assessment Rehab services assessment to be ordered?: Yes - AMI - Statin at Admit Aspirin Prescribed on Admit: Yes
[2018-06-26] MEDS ORDERED: VANCOMYCIN PER PHARMACY 100 GM in SODIUM CHLORIDE 0.9% 250 ML IV SCH (18:00)
[2018-06-26] MEDS: SODIUM CHLORIDE 0.9% 1,000 ML IV SCH (19:55)
[2018-06-26] MEDS: oxyCODONE 5 MG TABLET PO PRN (20:04)
[2018-06-26] MEDS: MORPHINE 2 MG/ML SYRINGE IVP PRN (20:04)
[2018-06-26] MEDS: NICOTINE 7 MG PATCH TOP SCH (20:28)
[2018-06-26] MEDS ORDERED: IPRATROPIUM/ALBUTEROL 3 ML NEB INH PRN (23:11)
[2018-06-26] MEDS: AMPICILLIN/SULBACTAM 3 GM in SODIUM CHLORIDE 0.9% MINIBAG 100 ML IV SCH (23:28)
[2018-06-27] MEDS: SODIUM CHLORIDE FLUSH 0.9% 10 ML SYRINGE IVP SCH ×3 (00:22→17:25)
[2018-06-27] MEDS: oxyCODONE 5 MG TABLET PO PRN ×2 (00:50→05:24)
[2018-06-27] MEDS: MORPHINE 2 MG/ML SYRINGE IVP PRN ×4 (00:53→08:24)
[2018-06-27] MEDS: AMPICILLIN/SULBACTAM 3 GM in SODIUM CHLORIDE 0.9% MINIBAG 100 ML IV SCH ×4 (01:21→19:30)
[2018-06-27] MEDS: SODIUM CHLORIDE 0.9% 1,000 ML IV SCH ×3 (05:26→18:23)
[2018-06-27] MEDS: VANCOMYCIN INJ 0.75 GM in SODIUM CHLORIDE 0.9% 250 ML IV SCH ×2 (05:28→18:23)
[2018-06-27 06:15] LABS: HGB - HEMOGLOBIN 7.4 g/dL (14.0-18.0); MEAN CORPUSCULAR HEMOGLOBIN 32.4 pg (27.0-31.0); MEAN CORPUSCULAR HGB CONC 32.7 g/dL (32.0-36.0); MEAN PLATELET VOLUME 8.1 fL (7.4-11.4); RED BLOOD COUNT 2.3 10^6/uL (4.70-6.10); RED CELL DISTRIBUTION WIDTH 19.2 % (12.0-15.0); WHITE BLOOD COUNT 7.7 x10^3/uL (4.8-10.8)
[2018-06-27] MEDS: PANTOPRAZOLE 40 MG VIAL IVP SCH (06:23)
[2018-06-27 06:31] LABS: ALBUMIN 2.7 g/dL (3.2-5.5); ALBUMIN/GLOBULIN RATIO 0.7 (1.0-2.2); BILIRUBIN,TOTAL 0.6 mg/dL (0.2-1.0); CALCIUM 8.3 mg/dL (8.5-10.3); CREATININE 1.4 mg/dL (0.6-1.2); PHOSPHORUS 3.4 mg/dL (2.5-4.6); TOTAL PROTEIN 6.5 g/dL (6.7-8.2)
[2018-06-27] MEDS: NICOTINE 7 MG PATCH TOP SCH (08:05)
[2018-06-27] MEDS ORDERED: SODIUM CHLORIDE 0.9% MINIBAG 100 ML IV ONE (08:05)
[2018-06-27] MEDS: ENOXAPARIN 40 MG/0.4 ML SYRINGE SUBQ SCH (08:05)
[2018-06-27] MEDS: POLYETHYLENE GLYCOL 3350 17 GM PACKET PO SCH (08:11)
[2018-06-27] MEDS: SODIUM CHLORIDE FLUSH 0.9% 10 ML SYRINGE IVP PRN (08:24)
[2018-06-27] MEDS ORDERED: oxyCODONE 5 MG TABLET PO PRN (09:07)
[2018-06-27] MEDS: IPRATROPIUM/ALBUTEROL 3 ML NEB INH SCH ×3 (11:22→20:17)
[2018-06-27] MEDS ORDERED: oxyCODONE 30 MG TABLET GT PRN (12:28)
[2018-06-27] MEDS: diazePAM 5 MG TABLET PO PRN (12:50)
[2018-06-27] MEDS: buPROPion SR 150 MG TABLET PO SCH (12:51)
[2018-06-27] MEDS: oxyCODONE 30 MG TABLET GT PRN ×3 (16:08→22:42)
[2018-06-27] MEDS: MORPHINE 4 MG/ML VIAL IVP PRN ×2 (17:24→21:25)
--- NOTE | 2018-06-27 22:18 | PROVIDER PROGRESS NOTE ---
Subjective - Prog Note Date Prog Note Date: 06/27/18 Prog Note Time: 12:00 - Subjective Pt reports feeling: Improved Subjective: Vinny complains about his usual doses of narcotics are not enough. His is also in the room and has several questions. He denies chest pain, nausea, vomiting, a rash, or worsening cough. Current Medications - Current Medications Current Medications: Active Medications: Acetaminophen (Tylenol) 650 mg PO Q4HR PRN Albuterol/Ipratropium (Duoneb) 3 ml INH Q4HR PRN Albuterol/Ipratropium (Duoneb) 3 ml INH RTTID [facility] Bupropion HCl (Wellbutrin Sr) 150 mg PO DAILY [facility] Diazepam (Valium) 10 mg PO Q6H PRN Doxazosin Mesylate (Cardura) 1 mg PO QPM [facility] Enoxaparin Sodium (Lovenox) 40 mg SUBQ DAILY [facility] Fentanyl (Duragesic) 1 patch TOP Q3D [facility] Finasteride (Proscar) 5 mg GT DAILY [facility] Sodium Chloride (Normal Saline 0.9%) 1,000 mls @ 125 mls/hr IV .Q8H [facility] Vancomycin HCl 0.75 gm/ Sodium (Chloride) 250 mls @ 250 mls/hr IV Q12H [facility] Ampicillin Sodium/Sulbactam (Sodium 3 gm/ Sodium Chloride) 100 mls @ 200 mls/hr IV Q6H [facility] Morphine Sulfate (Morphine) 4 mg IVP Q2H PRN Nicotine (Nicoderm) 1 patch TOP DAILY [facility] Oxycodone HCl (Roxicodone) 30 mg GT Q3H PRN Pantoprazole Sodium (Protonix) 40 mg IVP QDAC [facility] Polyethylene Glycol (Miralax) 17 gm PO DAILY [facility] Temazepam (Restoril) 15 mg PO QPM PRN Trazodone HCl (Desyrel) 300 mg PO QPM [facility] HOME meds: Trazodone HCl 300 mg GT QPM 02/28/18 buPROPion [Wellbutrin Sr] 150 mg PO DAILY 02/28/18 oxyCODONE [Roxicodone] 60 mg GT Q4H PRN 02/28/18 Doxazosin [Cardura] 1 mg GT QPM 06/23/18 Finasteride 5 mg GT DAILY 06/23/18 Diazepam [Valium] 10 mg GT Q6H PRN 06/26/18 Nystatin Diphenhydramine Antac 0 mg 06/26/18 fentaNYL [Fentanyl 50mcg patch] 1 patch TD Q3D 06/27/18 Objective - Vital Signs/Intake & Output Reviewed Vital Signs: Yes Vital Signs: Vital Signs x48h Temp Pulse Pulse Resp BP Pulse Ox 06/27/18 20:18 69 18 06/27/18 20:07 36.4 C L 71 16 117/62 93 06/27/18 16:18 80 20 06/27/18 15:46 36.6 C 72 16 125/49 L 92 Intake & Output: Intake & Output 06/24/18 06/25/18 06/26/18 06/27/18 23:59 23:59 23:59 23:59 Intake Total 2962.495 5853.333 Output Total 350 2645 Balance 8928.090 9300.333 - Objective General Appearance: positive: No acute distress, Alert, Lethargic Eyes Bilateral: positive: PERRL Eyes: OU Conjunctivae pale ENT: positive: ENT inspection nml, Oral lesions (poor general oral health), Dry mucous membranes Neck: positive: No JVD, Trachea midline, Lymphadenopathy (R), Lymphadenopathy (L), Stiff neck Respiratory: positive: Chest non-tender, Wheezes, Rhonchi Cardiovascular: positive: Irregularly irregular, Tachycardia, Systolic murmur, Decreased pulse(s) Peripheral Pulses: 1+ Radial (R), 1+ Radial (L) Abdomen: positive: Non-tender, Nml bowel sounds, Other ( PEG tube in place) Back: positive: Nml inspection Skin: positive: No rash, Warm, Dry, Pallor Extremities: positive: Non-tender, No pedal edema, Joint swelling Neurologic/Psychiatric: positive: Disoriented to time, Weakness, Sensory loss, Slurred/abnml speech, Depressed mood/affect Reflexes: Bicep (R): 2+, Bicep (L): 2+ - Lab Results Fish Bones: 06/28/18 05:50 06/28/18 05:50 Other Labs: Lab Results x24hrs 06/27/18 06/27/18 Range/Units 05:05 05:05 WBC 7.7 (4.8-10.8) x10^3/uL RBC 2.30 L (4.70-6.10) 10^6/uL Hgb 7.4 L (14.0-18.0) g/dL Hct 22.8 L (42.0-52.0) % MCV 99.0 H (80.0-94.0) fL MCH 32.4 H (27.0-31.0) pg MCHC 32.7 (32.0-36.0) g/dL RDW 19.2 H (12.0-15.0) % Plt Count 256 (130-450) 10^3/uL MPV 8.1 (7.4-11.4) fL Sodium 134 L (135-145) mmol/L Potassium 5.3 H (3.5-5.0) mmol/L Chloride 100 L (101-111) mmol/L Carbon Dioxide 28 (21-32) mmol/L Anion Gap 6.0 (6-13) BUN 46 H (6-20) mg/dL Creatinine 1.4 H (0.6-1.2) mg/dL Estimated GFR (MDRD) 50 L (>89) Glucose 99 (70-100) mg/dL Calcium 8.3 L (8.5-10.3) mg/dL Phosphorus 3.4 (2.5-4.6) mg/dL Magnesium 2.0 (1.7-2.8) mg/dL Total Bilirubin 0.6 (0.2-1.0) mg/dL AST 18 (10-42) IU/L ALT 12 (10-60) IU/L Alkaline Phosphatase 36 L (42-121) IU/L Total Protein 6.5 L (6.7-8.2) g/dL Albumin 2.7 L (3.2-5.5) g/dL Globulin 3.8 (2.1-4.2) g/dL Albumin/Globulin Ratio 0.7 L (1.0-2.2) Prealbumin 18 (18-45) mg/dL ABX Reporting Has patient been on IV antibiotics over the past 48 hours?: Yes Sepsis Event Note (H) - Evaluation Current Stage of Sepsis: Sepsis Possible source of Sepsis: positive: Pulmonary - Sepsis Criteria Sepsis Criteria: Recorded Heart Rate greater than 90 bpm, Respiratory: Increasing oxygen requirements, [employer] ADDED ASSESSOR: altered consciousness (unrelated to primary neuro pathology) Assessment/Plan - Problem List (1) Aspiration pneumonia Impression: - Imaging confirms this as bibasilar infiltrates are noted - Continue Unasyn/vanco - IV fluids - Respiratory care - Stills requires high flow nasal cannula 4-5Ls - speaks of her drinking thin liquids lately Plan: Swallow evaluation has been ordered, NPO, continue IV antibiotics (2) Acute respiratory failure with hypoxemia Impression: - No home oxygen use - Still requires 4-5L per nasal cannula - Aspiration pneumonia is the most likely cause Plan: Continue to treat illness, continue respiratory care (3) COPD with emphysema Impression: - Life long smoking - Chart review shows mets to the lungs - No home oxygen - Ventolin HFA is his only home inhaler, I suspect due to continued inhalant use (tobacco and marijuana) Plan: Continue respiratory cares, oxygen, nebulizers and steroids if no improvement by tomorrow (4) Oropharyngeal cancer Impression: - PEG was placed in February 2018 for upcoming cancer treatments - impaired swallowing as a consequence - The requests a DME home suction machine Plan: NPO, frequent oral cares, suction at the bedside (5) Acute renal failure Impression: - Baseline creatine of 1.2 - 1.4 Plan: Avoid nephrotoxins, IV fluids, monitor I/Os Qualifiers: Acute renal failure type: unspecified Qualified Code(s): N17.9 - Acute kidney failure, unspecified (6) Chronic atrial fibrillation Impression: - Not on anticoagulation, rate controlled with metoprolol Plan: Telemetry, continue meds, treat acute illness (7) Chronic pain syndrome Impression: - High dose oxycodone 60 Q4H at home - requests a lower dose while in the hospital due to oversedation - Also gets a fentanyl patch 50 mcg Plan: Oxy 30mg Q3H, fentanyl patch and IV morphine for breakthrough pain
[2018-06-27] MEDS: traZODone 50 MG TABLET PO SCH (22:41)
[2018-06-27] MEDS: DOXAZOSIN 1 MG TABLET PO SCH (22:42)
[2018-06-27] MEDS: TEMAZEPAM 15 MG CAPSULE PO PRN (22:42)
[2018-06-28] MEDS: diazePAM 5 MG TABLET PO PRN ×3 (00:07→14:39)
[2018-06-28] MEDS: MORPHINE 4 MG/ML VIAL IVP PRN ×2 (00:15→14:37)
[2018-06-28] MEDS: SODIUM CHLORIDE 0.9% 1,000 ML IV SCH ×2 (00:23→12:24)
[2018-06-28] MEDS: SODIUM CHLORIDE FLUSH 0.9% 10 ML SYRINGE IVP SCH ×3 (01:08→16:57)
[2018-06-28] MEDS: oxyCODONE 30 MG TABLET GT PRN ×6 (02:05→20:14)
[2018-06-28] MEDS: AMPICILLIN/SULBACTAM 3 GM in SODIUM CHLORIDE 0.9% MINIBAG 100 ML IV SCH ×4 (02:05→19:59)
[2018-06-28] MEDS ORDERED: SODIUM CHLORIDE 0.9% MINIBAG 100 ML IV ONE (02:06)
[2018-06-28] MEDS: PANTOPRAZOLE 40 MG VIAL IVP SCH (06:10)
[2018-06-28] MEDS: VANCOMYCIN INJ 0.75 GM in SODIUM CHLORIDE 0.9% 250 ML IV SCH ×2 (06:10→18:04)
[2018-06-28] MEDS: SODIUM CHLORIDE FLUSH 0.9% 10 ML SYRINGE IVP PRN (06:13)
[2018-06-28 06:52] LABS: HGB - HEMOGLOBIN 8.4 g/dL (14.0-18.0); MEAN CORPUSCULAR HEMOGLOBIN 32.7 pg (27.0-31.0); MEAN CORPUSCULAR HGB CONC 33.1 g/dL (32.0-36.0); MEAN CORPUSCULAR VOLUME 98.6 fL (80.0-94.0); RED BLOOD COUNT 2.56 10^6/uL (4.70-6.10); RED CELL DISTRIBUTION WIDTH 18.8 % (12.0-15.0); WHITE BLOOD COUNT 3.3 x10^3/uL (4.8-10.8)
[2018-06-28 07:06] LABS: ALBUMIN 2.9 g/dL (3.2-5.5); ALBUMIN/GLOBULIN RATIO 0.7 (1.0-2.2); BILIRUBIN,TOTAL 0.6 mg/dL (0.2-1.0); CALCIUM 8.7 mg/dL (8.5-10.3); CREATININE 1.1 mg/dL (0.6-1.2); MAGNESIUM 1.8 mg/dL (1.7-2.8); PHOSPHORUS 3.3 mg/dL (2.5-4.6); TOTAL PROTEIN 7.3 g/dL (6.7-8.2)
--- NOTE | 2018-06-28 08:27 | PROVIDER PROGRESS NOTE ---
Subjective - Prog Note Date Prog Note Date: 06/28/18 Prog Note Time: 08:24 - Subjective Pt reports feeling: Improved Subjective: Vinny questions why he is not taking his usual oxycodone of 60mg like at home and states that his pain is not quite controlled. He denies chest pain, nausea, vomiting, rashes, dizziness, and worsening shortness of breath. Current Medications - Current Medications Current Medications: Active Medications: Acetaminophen (Tylenol) 650 mg PO Q4HR PRN Albuterol/Ipratropium (Duoneb) 3 ml INH Q4HR PRN Albuterol/Ipratropium (Duoneb) 3 ml INH RTTID [facility] Bupropion HCl (Wellbutrin Sr) 150 mg PO DAILY [facility] Diazepam (Valium) 10 mg PO Q6H PRN Doxazosin Mesylate (Cardura) 1 mg PO QPM [facility] Enoxaparin Sodium (Lovenox) 40 mg SUBQ DAILY [facility] Fentanyl (Duragesic) 1 patch TOP Q3D [facility] Finasteride (Proscar) 5 mg GT DAILY [facility] Sodium Chloride (Normal Saline 0.9%) 1,000 mls @ 50 mls/hr IV .Q8H [facility] Vancomycin HCl 0.75 gm/ Sodium (Chloride) 250 mls @ 250 mls/hr IV Q12H [facility] Ampicillin Sodium/Sulbactam (Sodium 3 gm/ Sodium Chloride) 100 mls @ 200 mls/hr IV Q6H [facility] Dilaudid IV 1mg Q2H, PRN Nicotine (Nicoderm) 1 patch TOP DAILY [facility] Oxycodone HCl (Roxicodone) 30 mg GT Q3H PRN Pantoprazole Sodium (Protonix) 40 mg IVP QDAC [facility] Polyethylene Glycol (Miralax) 17 gm PO DAILY [facility] Temazepam (Restoril) 15 mg PO QPM PRN Trazodone HCl (Desyrel) 300 mg PO QPM [facility] HOME meds: Trazodone HCl 300 mg GT QPM 02/28/18 buPROPion [Wellbutrin Sr] 150 mg PO DAILY 02/28/18 oxyCODONE [Roxicodone] 60 mg GT Q4H PRN 02/28/18 Doxazosin [Cardura] 1 mg GT QPM 06/23/18 Finasteride 5 mg GT DAILY 06/23/18 Diazepam [Valium] 10 mg GT Q6H PRN 06/26/18 Nystatin Diphenhydramine Antac 0 mg 06/26/18 fentaNYL [Fentanyl 50mcg patch] 1 patch TD Q3D 06/27/18 Objective - Vital Signs/Intake & Output Reviewed Vital Signs: Yes Vital Signs: Vital Signs x48h Temp Pulse Resp BP Pulse Ox 06/28/18 06:45 36.6 C 114 H 19 115/83 H 95 Intake & Output: Intake & Output 06/25/18 06/26/18 06/27/18 06/28/18 23:59 23:59 23:59 23:59 Intake Total 3631.121 3903.333 1989.584 Output Total 350 3245 725 Balance 3751.713 8777.333 1264.584 - Objective General Appearance: positive: No acute distress, Alert, Lethargic Eyes Bilateral: positive: Normal inspection Eyes: OU Conjunctivae pale ENT: positive: ENT inspection nml, Pharynx nml, No signs of dehydration Neck: positive: Nml inspection, Stiff neck Respiratory: positive: Chest non-tender, Rhonchi Cardiovascular: positive: No gallop, Irregularly irregular, Systolic murmur, Decreased pulse(s) Peripheral Pulses: 1+ Radial (R), 1+ Radial (L) Abdomen: positive: Non-tender, Nml bowel sounds, Other (PEG in place) Back: positive: Nml inspection Skin: positive: No rash, Warm, Dry, Pallor Extremities: positive: Non-tender, No pedal edema Neurologic/Psychiatric: positive: CN's nml (2-12), Motor nml, Sensation nml, Disoriented to time, Weakness, Depressed mood/affect Reflexes: Bicep (R): 3+, Bicep (L): 3+ - Lab Results Fish Bones: 06/29/18 05:28 06/29/18 05:28 Other Labs: Lab Results x24hrs 06/28/18 06/28/18 Range/Units 05:50 05:50 WBC 3.3 L (4.8-10.8) x10^3/uL RBC 2.56 L (4.70-6.10) 10^6/uL Hgb 8.4 L (14.0-18.0) g/dL Hct 25.3 L (42.0-52.0) % MCV 98.6 H (80.0-94.0) fL MCH 32.7 H (27.0-31.0) pg MCHC 33.1 (32.0-36.0) g/dL RDW 18.8 H (12.0-15.0) % Plt Count 248 (130-450) 10^3/uL MPV 8.0 (7.4-11.4) fL Sodium 136 (135-145) mmol/L Potassium 4.6 (3.5-5.0) mmol/L Chloride 104 (101-111) mmol/L Carbon Dioxide 25 (21-32) mmol/L Anion Gap 7.0 (6-13) BUN 30 H (6-20) mg/dL Creatinine 1.1 (0.6-1.2) mg/dL Estimated GFR (MDRD) 66 L (>89) Glucose 102 H (70-100) mg/dL Calcium 8.7 (8.5-10.3) mg/dL Phosphorus 3.3 (2.5-4.6) mg/dL Magnesium 1.8 (1.7-2.8) mg/dL Total Bilirubin 0.6 (0.2-1.0) mg/dL AST 23 (10-42) IU/L ALT 14 (10-60) IU/L Alkaline Phosphatase 38 L (42-121) IU/L Total Protein 7.3 (6.7-8.2) g/dL Albumin 2.9 L (3.2-5.5) g/dL Globulin 4.4 H (2.1-4.2) g/dL Albumin/Globulin Ratio 0.7 L (1.0-2.2) Prealbumin 19 (18-45) mg/dL ABX Reporting Has patient been on IV antibiotics over the past 48 hours?: Yes Sepsis Event Note (H) - Evaluation Current Stage of Sepsis: Ruled out Possible source of Sepsis: positive: Pulmonary - Sepsis Criteria Sepsis Criteria: Respiratory: Increasing oxygen requirements Assessment/Plan - Problem List (1) Aspiration pneumonia Impression: - Imaging confirms this as bibasilar infiltrates are noted - Continue Unasyn/vanco - IV fluids- reduced rate - Respiratory care - Stills requires nasal cannula 2-3Ls - speaks of her drinking thin liquids lately Plan: Swallow evaluation has been ordered, NPO, continue IV antibiotics (2) Acute respiratory failure with hypoxemia Impression: - No home oxygen use - Still requires 2-3L per nasal cannula - Failed walking oxygen study today with PT with becoming more hypoxic- O2 was down to 80% with ambulation on 2L - Denies coughing - Aspiration pneumonia is the most likely cause Plan: Continue to treat illness, continue respiratory care (3) COPD with emphysema Impression: - Life long smoking - Chart review shows mets to the lungs - No home oxygen - Ventolin HFA is his only home inhaler, I suspect due to continued inhalant use (tobacco and marijuana) - Adding IV solu-medrol today as he is still requiring oxygen Plan: Continue respiratory cares, oxygen, nebulizers and steroids if no improvement by tomorrow (4) Oropharyngeal cancer Impression: PEG was placed in February 2018 for upcoming cancer treatments - impaired swallowing as a consequence - Despite medical advice against oral intake, the patient continues to eat and drink at home - The requests a DME home suction machine, so this was attempted to be ordered, but case management was unsure how this would be ordered Plan: NPO, frequent oral cares, suction at the bedside (5) Acute renal failure Impression: - Baseline creatine of 1.2 - 1.1 today with a GFR of 66 - IV fluids reduced - Continues with scheduled water flushes of 400 QID per PEG Plan: Avoid nephrotoxins, IV fluids, monitor I/Os Qualifiers: Acute renal failure type: unspecified Qualified Code(s): N17.9 - Acute kidney failure, unspecified (6) Chronic atrial fibrillation Impression: - Not on anticoagulation, since acute bleeding around his throat cancer sites - Status post Xarelto, now stopped - rate controlled with metoprolol per PEG Plan: Continue meds, treat acute illness (7) Chronic pain syndrome Impression: - High dose oxycodone 60 Q4H at home - requests a lower dose while in the hospital due to oversedation and the medical is in agreement with this given his acute respiratory failure from aspiration pneumonia - Continues on oxy per PEG 30mg Q3H, and IV morphine was changed to IV dilaudid today - Also gets a fentanyl patch 50 mcg, but refused an increased as he enjoys the "high feeling" that he gets from the oxy Plan: Oxy 30mg Q3H, fentanyl patch and IV dilaudid for breakthrough pain (8) Staphylococcus epidermidis bacteremia Impression: - Notes reviewed from [facility] on 05/15/2018 - 06/19 bottles positive for staph epidermidis blood culture results from 03/26 - Urine cx grew staph epidermidis as well - TTE was negative for endocarditis - Status post 2 weeks of home infusions (vancomycin & Cefepime) per ID - No growth from this set of BC upon this admission - Afebrile Plan: Continue treatment for suspected aspiration pneumonia (9) Macrocytic anemia Impression: - Status post blood transfusions at [facility] after bleeding from cancer sites - No longer an anticoagulation candidate - H/H today is stable at 8.4/25.3 - MCV high at 98.6 Plan: Transfuse if hemoglobin becomes less than 7, monitor for acute bleeding (10) BPH (benign prostatic hyperplasia) Impression: - Long history of urinary retention - No catheter required on this admission Plan: Bladder scans ordered, may need straight cath if he has high residuals
[2018-06-28] MEDS ORDERED: fentaNYL 50 MCG PATCH TOP SCH (09:00)
[2018-06-28] MEDS: FINASTERIDE 5 MG TABLET GT SCH (09:14)
[2018-06-28] MEDS: ENOXAPARIN 40 MG/0.4 ML SYRINGE SUBQ SCH (09:14)
[2018-06-28] MEDS: buPROPion SR 150 MG TABLET PO SCH (09:14)
[2018-06-28] MEDS: NICOTINE 7 MG PATCH TOP SCH (09:14)
[2018-06-28] MEDS: POLYETHYLENE GLYCOL 3350 17 GM PACKET PO SCH (09:14)
[2018-06-28] MEDS: IPRATROPIUM/ALBUTEROL 3 ML NEB INH SCH ×3 (10:14→19:07)
[2018-06-28] MEDS ORDERED: LACTULOSE 10 GM /15 ML UDC PO ONE (14:06)
[2018-06-28] MEDS ORDERED: LACTULOSE 10 GM /15 ML UDC PO SCH ×2 (16:00→17:00)
[2018-06-28] MEDS: HYDROmorphone 1 MG/ML CARPUJECT IVP PRN (17:37)
[2018-06-28 17:54] LABS: VANCOMYCIN,TROUGH 21.4 ug/mL (10.0-20.0)
[2018-06-28] MEDS: DOXAZOSIN 1 MG TABLET PO SCH (21:17)
[2018-06-28] MEDS: TEMAZEPAM 15 MG CAPSULE PO PRN (21:19)
[2018-06-28] MEDS: traZODone 50 MG TABLET PO SCH (21:19)
[2018-06-29] MEDS ORDERED: VANCOMYCIN INJ 1 GM in SODIUM CHLORIDE 0.9% 250 ML IV SCH ×2
[2018-06-29] MEDS: HYDROmorphone 1 MG/ML CARPUJECT IVP PRN ×4 (01:34→18:49)
[2018-06-29] MEDS: SODIUM CHLORIDE FLUSH 0.9% 10 ML SYRINGE IVP PRN ×5 (01:35→18:50)
[2018-06-29] MEDS: SODIUM CHLORIDE FLUSH 0.9% 10 ML SYRINGE IVP SCH ×6 (01:35→23:58)
[2018-06-29] MEDS: AMPICILLIN/SULBACTAM 3 GM in SODIUM CHLORIDE 0.9% MINIBAG 100 ML IV SCH ×4 (02:32→20:15)
[2018-06-29 05:52] LABS: HGB - HEMOGLOBIN 7.6 g/dL (14.0-18.0); MEAN CORPUSCULAR HEMOGLOBIN 33.4 pg (27.0-31.0); MEAN CORPUSCULAR HGB CONC 34.1 g/dL (32.0-36.0); MEAN CORPUSCULAR VOLUME 98.1 fL (80.0-94.0); MEAN PLATELET VOLUME 7.9 fL (7.4-11.4); RED BLOOD COUNT 2.26 10^6/uL (4.70-6.10); RED CELL DISTRIBUTION WIDTH 18.6 % (12.0-15.0); WHITE BLOOD COUNT 2.2 x10^3/uL (4.8-10.8)
[2018-06-29 06:11] LABS: ALBUMIN 2.7 g/dL (3.2-5.5); ALBUMIN/GLOBULIN RATIO 0.7 (1.0-2.2); BILIRUBIN,TOTAL 0.5 mg/dL (0.2-1.0); CALCIUM 8.6 mg/dL (8.5-10.3); CREATININE 0.9 mg/dL (0.6-1.2); MAGNESIUM 1.7 mg/dL (1.7-2.8); PHOSPHORUS 3.3 mg/dL (2.5-4.6); TOTAL PROTEIN 6.6 g/dL (6.7-8.2)
[2018-06-29] MEDS: PANTOPRAZOLE 40 MG VIAL IVP SCH (07:03)
[2018-06-29] MEDS: FINASTERIDE 5 MG TABLET GT SCH (08:48)
[2018-06-29] MEDS: buPROPion SR 150 MG TABLET PO SCH (08:48)
[2018-06-29] MEDS: POLYETHYLENE GLYCOL 3350 17 GM PACKET PO SCH (08:48)
[2018-06-29] MEDS: ENOXAPARIN 40 MG/0.4 ML SYRINGE SUBQ SCH (08:49)
[2018-06-29] MEDS: SODIUM CHLORIDE 0.9% 1,000 ML IV SCH (08:52)
[2018-06-29] MEDS: NICOTINE 7 MG PATCH TOP SCH (09:09)
[2018-06-29] MEDS: IPRATROPIUM/ALBUTEROL 3 ML NEB INH SCH ×3 (09:36→20:52)
[2018-06-29] MEDS ORDERED: POLYETHYLENE GLYCOL 3350 17 GM PACKET FT SCH (10:59)
[2018-06-29] MEDS ORDERED: DOXAZOSIN 1 MG TABLET FT SCH (11:04)
[2018-06-29] MEDS: oxyCODONE 30 MG TABLET GT PRN ×2 (11:21→16:34)
[2018-06-29] MEDS: LACTULOSE 10 GM /15 ML UDC FT SCH (14:44)
[2018-06-29] MEDS: traZODone 50 MG TABLET PO SCH (20:40)
--- NOTE | 2018-06-29 21:40 | PROVIDER PROGRESS NOTE ---
Subjective - Prog Note Date Prog Note Date: 06/29/18 Prog Note Time: 08:30 - Subjective Pt reports feeling: Improved Subjective: Vinny complains of ongoing pain although thinks that the dilaudid was a favorable change to his morphine which is being used to make up for his lower dosed oxy while in the hospital. He denies chest pain, nausea, vomiting, a rash, diarrhea, or new shortness of breath. Current Medications - Current Medications Current Medications: Active Medications: Acetaminophen (Tylenol) 650 mg PO Q4HR PRN PRN Reason: Pain 1 to 4 Albuterol/Ipratropium (Duoneb) 3 ml INH Q4HR PRN PRN Reason: Wheezing Albuterol/Ipratropium (Duoneb) 3 ml INH RTTID [facility] Last Admin: 06/29/18 20:52 Dose: 3 ml Bupropion HCl (Wellbutrin Sr) 150 mg PO DAILY [facility] Last Admin: 06/29/18 08:48 Dose: 150 mg Diazepam (Valium) 10 mg PO Q6H PRN PRN Reason: Anxiety Last Admin: 06/28/18 14:39 Dose: 10 mg Doxazosin Mesylate (Cardura) 1 mg FT QPM [facility] Last Admin: 06/29/18 20:40 Dose: 1 mg Enoxaparin Sodium (Lovenox) 40 mg SUBQ DAILY [facility] Last Admin: 06/29/18 08:49 Dose: 40 mg Fentanyl (Duragesic) 1 patch TOP Q3D [facility] Last Admin: 06/28/18 09:12 Dose: 1 patch Finasteride (Proscar) 5 mg GT DAILY [facility] Last Admin: 06/29/18 08:48 Dose: 5 mg Hydromorphone HCl (Dilaudid Inj Carp) 1 mg IVP Q2HR PRN PRN Reason: PAIN Last Admin: 06/29/18 18:49 Dose: 1 mg Ampicillin Sodium/Sulbactam (Sodium 3 gm/ Sodium Chloride) 100 mls @ 200 mls/hr IV Q6H [facility] Last Infusion: 06/29/18 20:45 Dose: Infused Lactulose (Enulose) 20 gm FT DAILY [facility] Last Admin: 06/29/18 14:44 Dose: 20 gm Nicotine (Nicoderm) 1 patch TOP DAILY [facility] Last Admin: 06/29/18 09:09 Dose: 1 patch Oxycodone HCl (Roxicodone) 30 mg GT Q3H PRN PRN Reason: Throat Cancer Pain Last Admin: 06/29/18 16:34 Dose: 30 mg Pantoprazole Sodium (Protonix) 40 mg IVP QDAC [facility] Last Admin: 06/29/18 07:03 Dose: 40 mg Polyethylene Glycol (Miralax) 17 gm FT DAILY [facility] Sodium Chloride (Normal Saline Flush 0.9%) 10 ml IVP PRN PRN PRN Reason: NEEDED PER PROVIDER ORDERS Last Admin: 06/29/18 18:50 Dose: 10 ml Sodium Chloride (Normal Saline Flush 0.9%) 10 ml IVP 0100,0900,1700 [facility] Last Admin: 06/29/18 16:34 Dose: 10 ml Temazepam (Restoril) 15 mg PO QPM PRN PRN Reason: Insomnia Last Admin: 06/28/18 21:19 Dose: 15 mg Trazodone HCl (Desyrel) 300 mg PO QPM [facility] Last Admin: 06/29/18 20:40 Dose: 300 mg HOME meds: Trazodone HCl 300 mg GT QPM 02/28/18 buPROPion [Wellbutrin Sr] 150 mg PO DAILY 02/28/18 oxyCODONE [Roxicodone] 60 mg GT Q4H PRN 02/28/18 Doxazosin [Cardura] 1 mg GT QPM 06/23/18 Finasteride 5 mg GT DAILY 06/23/18 Diazepam [Valium] 10 mg GT Q6H PRN 06/26/18 Nystatin Diphenhydramine Antac 0 mg 06/26/18 fentaNYL [Fentanyl 50mcg patch] 1 patch TD Q3D 06/27/18 Objective - Vital Signs/Intake & Output Reviewed Vital Signs: Yes Vital Signs: Vital Signs x48h Temp Pulse Pulse Resp BP Pulse Ox 06/29/18 20:50 78 18 06/29/18 15:42 36.7 C 76 18 144/72 H 95 06/29/18 14:54 77 22 Intake & Output: Intake & Output 06/26/18 06/27/18 06/28/18 06/29/18 23:59 23:59 23:59 23:59 Intake Total 1194.510 6124.333 4942.087 6436.5 Output Total 350 3245 3705 3150 Balance 7839.797 9477.333 0277.087 3286.5 - Objective General Appearance: positive: No acute distress, Lethargic Eyes Bilateral: positive: PERRL Eyes: OU Conjunctivae pale ENT: positive: Pharynx nml, Dry mucous membranes Neck: positive: Thyroid nml, No JVD, Lymphadenopathy (R), Lymphadenopathy (L), Stiff neck Respiratory: positive: Chest non-tender, No respiratory distress, Rhonchi Cardiovascular: positive: No gallop, Irregularly irregular, Systolic murmur, Decreased pulse(s) Peripheral Pulses: 1+ Radial (R), 1+ Radial (L) Abdomen: positive: Non-tender, Nml bowel sounds, Other (PEG in place) Back: positive: Nml inspection Skin: positive: No rash, Warm, Dry, Pallor Extremities: positive: Non-tender, Full ROM, Nml appearance, No pedal edema Neurologic/Psychiatric: positive: Oriented x3, CN's nml (2-12), Motor nml, Sensation nml, Slurred/abnml speech (related to being NPO), Depressed mood/affect Reflexes: Bicep (R): 3+, Bicep (L): 3+ - Lab Results Fish Bones: 06/29/18 05:28 06/29/18 05:28 Other Labs: Lab Results x24hrs 06/29/18 06/29/18 Range/Units 05:28 05:28 WBC 2.2 L (4.8-10.8) x10^3/uL RBC 2.26 L (4.70-6.10) 10^6/uL Hgb 7.6 L (14.0-18.0) g/dL Hct 22.2 L (42.0-52.0) % MCV 98.1 H (80.0-94.0) fL MCH 33.4 H (27.0-31.0) pg MCHC 34.1 (32.0-36.0) g/dL RDW 18.6 H (12.0-15.0) % Plt Count 235 (130-450) 10^3/uL MPV 7.9 (7.4-11.4) fL Sodium 134 L (135-145) mmol/L Potassium 4.5 (3.5-5.0) mmol/L Chloride 101 (101-111) mmol/L Carbon Dioxide 26 (21-32) mmol/L Anion Gap 7.0 (6-13) BUN 20 (6-20) mg/dL Creatinine 0.9 (0.6-1.2) mg/dL Estimated GFR (MDRD) 83 L (>89) Glucose 105 H (70-100) mg/dL Calcium 8.6 (8.5-10.3) mg/dL Phosphorus 3.3 (2.5-4.6) mg/dL Magnesium 1.7 (1.7-2.8) mg/dL Total Bilirubin 0.5 (0.2-1.0) mg/dL AST 19 (10-42) IU/L ALT 13 (10-60) IU/L Alkaline Phosphatase 33 L (42-121) IU/L Total Protein 6.6 L (6.7-8.2) g/dL Albumin 2.7 L (3.2-5.5) g/dL Globulin 3.9 (2.1-4.2) g/dL Albumin/Globulin Ratio 0.7 L (1.0-2.2) Prealbumin 18 (18-45) mg/dL ABX Reporting Has patient been on IV antibiotics over the past 48 hours?: Yes Sepsis Event Note (H) - Evaluation Current Stage of Sepsis: Ruled out Possible source of Sepsis: positive: Pulmonary - Sepsis Criteria Sepsis Criteria: Respiratory: Increasing oxygen requirements Assessment/Plan - Problem List (1) Aspiration pneumonia Impression: - Imaging confirms this as bibasilar infiltrates are noted - Continue Unasyn - IV fluids- reduced rate - Respiratory care - Stills requires nasal cannula 2-3Ls - speaks of her drinking thin liquids lately Plan: Swallow evaluation has been ordered, NPO, continue IV antibiotics (2) Acute respiratory failure with hypoxemia Impression: - No home oxygen use - Still requires 2-3L per nasal cannula - Failed walking oxygen study today with PT with becoming more hypoxic- O2 was down to 80% with ambulation on 2L - Denies coughing - Aspiration pneumonia is the most likely cause Plan: Continue to treat illness, continue respiratory care (3) COPD with emphysema Impression: - Life long smoking, who continues to smoke both cigarettes and marijuana at home - Chart review shows mets to the lungs - No home oxygen - Ventolin HFA is his only home inhaler, I suspect due to continued inhalant use (tobacco and marijuana) - Added IV solu-medrol as he was still requiring oxygen Plan: Continue respiratory cares, oxygen, nebulizers and steroids, home walking oxygen test prior to discharge (4) Oropharyngeal cancer Impression: - PEG was placed in February 2018 for upcoming cancer treatments - impaired swallowing as a consequence - Despite medical advice against oral intake, the patient continues to eat and drink at home - The requests a DME home suction machine, so this was attempted to be orde red, but case management was unsure how this would be ordered Plan: NPO, frequent oral cares, suction at the bedside and swallow test on Saturday (5) Acute renal failure Impression: - Baseline creatine of 1.2 - 1.1 today with a GFR of 66 - IV fluids reduced - Continues with scheduled water flushes of 400 QID per PEG - Vanco stopped today Plan: Avoid nephrotoxins, IV fluids, monitor I/Os Qualifiers: Acute renal failure type: unspecified Qualified Code(s): N17.9 - Acute kidney failure, unspecified (6) Chronic atrial fibrillation Impression: - Not on anticoagulation, since acute bleeding around his throat cancer sites - Status post Xarelto, now stopped - rate controlled with metoprolol per PEG Plan: Continue meds, treat acute illness (7) Chronic pain syndrome Impression: - High dose oxycodone 60 Q4H at home - requests a lower dose while in the hospital due to oversedation and the medical is in agreement with this given his acute respiratory failure from aspiration pneumonia - Continues on oxy per PEG 30mg Q3H, and IV morphine was changed to IV dilaudid - Also gets a fentanyl patch 50 mcg, but refused an increased as he enjoys the "high feeling" that he gets from the oxy Plan: Oxy 30mg Q3H, fentanyl patch and IV dilaudid for breakthrough pain (8) Staphylococcus epidermidis bacteremia Impression: - Notes reviewed from [facility] on 05/15/2018 - 06/19 bottles positive for staph epidermidis blood culture results from 03/26 - Urine cx grew staph epidermidis as well - TTE was negative for endocarditis - Status post 2 weeks of home infusions (vancomycin & Cefepime) per ID - No growth from this set of BC upon this admission - Afebrile Plan: Continue treatment for suspected aspiration pneumonia (9) Macrocytic anemia Impression: - Status post blood transfusions at [facility] after bleeding from cancer sites - No longer an anticoagulation candidate - H/H today is stable at 7.6/22.2 - MCV high at 98.6 Plan: Transfuse if hemoglobin becomes less than 7, monitor for acute bleeding (10) BPH (benign prostatic hyperplasia) Impression: - Long history of urinary retention - No catheter required on this admission - No documented amounts despite provider order Plan: Bladder scans ordered, may need straight cath if he has high residuals
[2018-06-29] MEDS: diazePAM 5 MG TABLET PO PRN (22:28)
[2018-06-30] MEDS: AMPICILLIN/SULBACTAM 3 GM in SODIUM CHLORIDE 0.9% MINIBAG 100 ML IV SCH ×3 (01:59→13:29)
[2018-06-30] MEDS: SODIUM CHLORIDE FLUSH 0.9% 10 ML SYRINGE IVP PRN ×5 (02:02→13:21)
[2018-06-30] MEDS: oxyCODONE 30 MG TABLET GT PRN ×4 (05:17→16:51)
[2018-06-30 06:32] LABS: ALBUMIN 2.7 g/dL (3.2-5.5); ALBUMIN/GLOBULIN RATIO 0.8 (1.0-2.2); BILIRUBIN,TOTAL 0.5 mg/dL (0.2-1.0); CALCIUM 8.7 mg/dL (8.5-10.3); CREATININE 0.9 mg/dL (0.6-1.2); MAGNESIUM 1.6 mg/dL (1.7-2.8); PHOSPHORUS 3.6 mg/dL (2.5-4.6); TOTAL PROTEIN 6.3 g/dL (6.7-8.2)
[2018-06-30] MEDS: PANTOPRAZOLE 40 MG VIAL IVP SCH (06:48)
[2018-06-30] MEDS: FINASTERIDE 5 MG TABLET GT SCH (08:21)
[2018-06-30] MEDS: NICOTINE 7 MG PATCH TOP SCH (08:21)
[2018-06-30] MEDS: buPROPion SR 150 MG TABLET PO SCH (08:21)
[2018-06-30] MEDS: ENOXAPARIN 40 MG/0.4 ML SYRINGE SUBQ SCH (08:23)
[2018-06-30] MEDS: LACTULOSE 10 GM /15 ML UDC FT SCH (08:23)
[2018-06-30] MEDS: HYDROmorphone 1 MG/ML CARPUJECT IVP PRN ×2 (08:24→11:46)
[2018-06-30] MEDS: SODIUM CHLORIDE FLUSH 0.9% 10 ML SYRINGE IVP SCH ×3 (08:24→17:36)
[2018-06-30] MEDS: IPRATROPIUM/ALBUTEROL 3 ML NEB INH SCH ×2 (08:58→14:02)
[2018-06-30 09:16] VITALS: BP 108/64
[2018-06-30] MEDS ORDERED: MAGNESIUM OXIDE 400 MG TABLET PO SCH (16:00)
--- NOTE | 2018-06-30 16:51 | Discharge Plan ---
Discharge Plan Disposition: Home Health Service Condition: Good Prescriptions: Clindamycin HCl [Clindamycin 300MG CAP] 300 mg PO QID #40 capsule Saccharomyces Boulardii [Florastor] 250 mg PO BID #60 capsule Activity Restrictions: Activity as Tolerated Shower Restrictions: No Instruction Topics: Clindamycin capsules, Saccharomyces boulardii Florastor oral dosage forms Additional Instructions or Follow Up instructions: You were admitted and treated for aspiration pneumonia. A sputum culture was obtained but inconclusive for any certain pathogen. Please continue all of your antibiotics for the next 10 days and a probiotic. A walking oxygen test was performed and it is not recommended that you have home oxygen. I have ordered home speech therapies, since your swallow is very weak today according to our speech therapist. I have ordered a home suction machine through our oxygen supply company, but this is still being arranged. I have not changed any of your usual home pain mediations. Please see your PCP within one week and Oncology is planning on you to keep your original appointment for this week. Follow-Up Care: Home Health - No Smoking: If you smoke, Please STOP! Call for help.
[2018-06-30 17:36] LABS: HGB - HEMOGLOBIN 7.7 g/dL (14.0-18.0); MEAN CORPUSCULAR HEMOGLOBIN 32.2 pg (27.0-31.0); MEAN CORPUSCULAR HGB CONC 32.8 g/dL (32.0-36.0); MEAN CORPUSCULAR VOLUME 98.2 fL (80.0-94.0); MEAN PLATELET VOLUME 7.3 fL (7.4-11.4); RED BLOOD COUNT 2.41 10^6/uL (4.70-6.10); RED CELL DISTRIBUTION WIDTH 18.5 % (12.0-15.0)
[2018-06-30 17:38] LABS: WHITE BLOOD COUNT 1.9 x10^3/uL (4.8-10.8)
--- NOTE | 2018-06-30 17:42 | DISCHARGE SUMMARY ---
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) Metabolic encephalopathy (G93.41) Hypoxemia (R09.02) Nicotine dependence, unspecified, uncomplicated (F17.200) BPH (benign prostatic hyperplasia) (N40.0) Unspecified protein-calorie malnutrition (E46) Discharge Diagnoses with Status of Each Condition: Aspiration pneumonia (J69.0) new on this admission, needs ongoing ST with home health, continue on PO antibiotics sent to the pharmacy 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) chronic, has a PEG, stable Acute respiratory failure with hypoxemia (J96.01) Resolved, passed a walking oxygen test 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, patient continues to smoke at home Acute renal failure (N17.9) resolved Chronic atrial fibrillation (I48.2) chronic, stable Chronic pain syndrome (G89.4) chronic, stable Staphylococcus epidermidis bacteremia (R78.81) chronic, stable Macrocytic anemia (D53.9) chronic, stable BPH (benign prostatic hyperplasia) (N40.0) chronic, stable Dysphagia (R13.10) chronic, stable - HPI History of Present Illness: Vinny Sadler is an ill appearing 68-year old cachetic male with a past medical history of hypertension, atrial fibrillation, BPH, nocturia, osteoarthritis, gout, cellulitis, depression, anxiety, oropharyngeal cancer, current chemotherapy patient, colon polyps, dysphagia, odynophagia, status post PEG placement in February 2018, protein calorie malnutrition, medical noncompliance, hepatitis, alcohol use, and tobacco dependence. The patient arrived to the ED via EMS for altered mental status, fevers, rigors and weakness. The patient was reported to have just had a round of chemo yesterday, then developed a fever today of 102.5 F orally and rigors per . Oxygen saturation was only 78% on room air upon arrival, so the patient was placed on O2 NC @ 3l- O2 sat 82%, increased to 5L NC- 91-92%. He was just hospitalized and released about 3 weeks ago for pneumonia at [facility] in [place]. A chest x-ray showed bibasilar infiltrates, likely aspiration. His admits that recently his oncologist encouraged him to try "eggs and toast", so he has been drinking hard [place] lemonade and other thin liquids. She did not notice him coughing excessively afterwards. Labs showed a normal WBC count of 7, anemia with an H/H of 8.7/25.5, a normal platelet count of 306, a low sodium of 133, a K+ of 4.9, chloride of 96, a BUN of 49, a creatinine of 1.5, GFR of 46, glucose of 109, lactic acid of 1.4, bilirubin of 0.2, with no other abnormalities. He was initially given cefepime, Levaquin and vancomycin and blood cultures are pending. On my exam the patient is disorientated, minimally responsive, wearing 6L nasal cannula (does not wear home oxygen), and appears slightly uncomfortable. He will be admitted for treatment of pneumonia. - HOSPITAL COURSE Hospital Course: The patient was treated for his aspiration pneumonia of which he confessed to drinking and eating prior to admission; using IV unasyn/vanco. A sputum sample showed no pathogens. He was kept NPO and underwent a swallow study who recommended to stay NPO until seen at home by outpatient ST. The patient passed a walking oxygen test, so oxygen was needed for home use. There were no medication changes made and only the antibiotic and a probiotic sent to the pharmacy. The patient was ambulatory and medically stable to for discharge. His PEG tube was in good condition and used for meds and ongoing tube feedings. - ALLERGIES Allergies/Adverse Reactions: Allergies Allergy/AdvReac Type Severity Reaction Status Date / Time No Known Drug Allergies Allergy Verified 06/23/18 13:44 - MEDICATIONS Home Medications: Ambulatory Orders Medication Instructions Recorded Confirmed Trazodone HCl 300 mg GT QPM 02/28/18 06/27/18 buPROPion [Wellbutrin Sr] 150 mg PO DAILY 02/28/18 06/27/18 oxyCODONE [Roxicodone] 60 mg GT Q4H PRN 02/28/18 06/27/18 Doxazosin [Cardura] 1 mg GT QPM 06/23/18 06/27/18 Finasteride 5 mg GT DAILY 06/23/18 06/27/18 Diazepam [Valium] 10 mg GT Q6H PRN 06/26/18 06/27/18 Nystatin Diphenhydramine Antac 0 mg 06/26/18 fentaNYL [Fentanyl 50mcg patch] 1 patch TD Q3D 06/27/18 06/27/18 Clindamycin HCl [Clindamycin 300MG 300 mg PO QID #40 capsule 06/30/18 CAP] Saccharomyces Boulardii [Florastor] 250 mg PO BID #60 capsule 06/30/18 - PHYSICAL EXAM AT DISCHARGE General Appearance: positive: No acute distress, Alert Eyes Bilateral: positive: Normal inspection, PERRL ENT: positive: ENT inspection nml, Pharynx nml, No signs of dehydration Neck: positive: Nml inspection, Thyroid nml, No JVD, Trachea midline Respiratory: positive: Chest non-tender, No respiratory distress, Other (bilateral ) Cardiovascular: positive: No gallop, Irregularly irregular, Systolic murmur, Decreased pulse(s) Peripheral Pulses: positive: 1+ Abdomen: positive: Non-tender, Nml bowel sounds, Other (PEG in place) Back: positive: Nml inspection Skin: positive: No rash, Warm, Dry, Pallor Extremities: positive: Non-tender, Full ROM, Nml appearance, No pedal edema Neurologic/Psychiatric: positive: Oriented x3, CN's nml (2-12), Motor nml, Sensation nml, Depressed mood/affect, Other (chronic short term memory loss) Reflexes: Bicep (R): 3+, Bicep (L): 3+ - LABS Result Diagrams: 06/30/18 17:15 06/30/18 05:38 - DIAGNOSTIC IMAGING Diagnostic Imaging Results: Final report reviewed Diagnostic Imaging Results Comments: EXAM: CHEST RADIOGRAPHY EXAM DATE: 06/26/2018 04:20 PM IMPRESSION: New bibasilar alveolar airspace disease consistent with bibasilar pneumonia, dependent edema, and/or aspiration. - SEPSIS Current Stage of Sepsis: Ruled out Possible source of Sepsis: Pulmonary Sepsis Criteria: Respiratory: Increasing oxygen requirements - FOLLOW UP Follow Up: Disposition: 06 Home Health Service Condition: Good Prescriptions: Clindamycin HCl [Clindamycin 300MG CAP] 300 mg PO QID #40 capsule Saccharomyces Boulardii [Florastor] 250 mg PO BID #60 capsule Activity Restrictions: Activity as Tolerated Shower Restrictions: No Instruction Topics: Clindamycin capsules, Saccharomyces boulardii Florastor oral dosage forms Additional Instructions or Follow Up instructions: You were admitted and treated for aspiration pneumonia. A sputum culture was obtained but inconclusive for any certain pathogen. Please continue all of your antibiotics for the next 10 days and a probiotic. A walking oxygen test was performed and it is not recommended that you have home oxygen. I have ordered home speech therapies, since your swallow is very weak today according to our speech therapist. I have ordered a home suction machine through our oxygen supply company, but this is still being arranged. I have not changed any of your usual home pain mediations. Please see your PCP within one week and Oncology is planning on you to keep your original appointment for this week. - TIME SPENT Time Spent in Discharge (Minutes): 45
== END 2018-06-30 17:45 | disposition home health service (06) | DRG 177 ==
LOC: EDUNIT# → ED 15:09 → MS2 17:15
PROVIDERS: ADMIT Nurse Practitioner; ATTEND Nurse Practitioner
DX: J18.9 Pneumonia, unspecified organism (principal); Y95 Nosocomial condition; R09.02 Hypoxemia; J69.0 Pneumonitis due to inhalation of food and vomit; J96.01 Acute respiratory failure with hypoxia; G93.41 Metabolic encephalopathy; I48.91 Unspecified atrial fibrillation; N17.9 Acute kidney failure, unspecified; K75.9 Inflammatory liver disease, unspecified; R78.81 Bacteremia; E46 Unspecified protein-calorie malnutrition; R64 Cachexia; C10.9 Malignant neoplasm of oropharynx, unspecified; Z90.49 Acquired absence of other specified parts of digestive tract; Z96.649 Presence of unspecified artificial hip joint; Z92.21 Personal history of antineoplastic chemotherapy; R41.82 Altered mental status, unspecified; I10 Essential (primary) hypertension; Z86.010 Personal history of colon polyps; F32.9 Major depressive disorder, single episode, unspecified; F41.9 Anxiety disorder, unspecified; M19.90 Unspecified osteoarthritis, unspecified site; F17.200 Nicotine dependence, unspecified, uncomplicated; Z93.1 Gastrostomy status; J43.9 Emphysema, unspecified; I48.2 Chronic atrial fibrillation; G89.4 Chronic pain syndrome; N40.1 Benign prostatic hyperplasia with lower urinary tract symptoms; R33.8 Other retention of urine; R35.1 Nocturia; R13.10 Dysphagia, unspecified; M10.9 Gout, unspecified; Z68.28 Body mass index [BMI] 28.0-28.9, adult; G62.9 Polyneuropathy, unspecified; R25.1 Tremor, unspecified; K21.9 Gastro-esophageal reflux disease without esophagitis; H54.7 Unspecified visual loss; H91.90 Unspecified hearing loss, unspecified ear; J32.9 Chronic sinusitis, unspecified; I25.10 Atherosclerotic heart disease of native coronary artery without angina pectoris; R01.1 Cardiac murmur, unspecified; E78.00 Pure hypercholesterolemia, unspecified; F12.10 Cannabis abuse, uncomplicated; D53.9 Nutritional anemia, unspecified
CPT/HCPCS: 36415; 71045; 80053; 80202; 83605; 83690; 83735; 84100; 84134; 85025; 85027; 87040; 87070; 87205; 92610; 93005; 94640; 94761; 97161; 97530; 99284; A9270; J1170; J1650; J2270; J3370

== ENCOUNTER 2018-07-15 22:45 | Outpatient (CLI) | payer MEDICARE, MEDICAID | END 2018-07-15 22:46 | disposition EMS.NT | LOC: EMS 22:45 | PROVIDERS: ATTEND Surgery | DX: Z03.89 Encounter for observation for other suspected diseases and conditions ruled out (principal) ==

== ENCOUNTER 2018-07-19 08:15 | Outpatient (CLI) | payer MEDICARE, MEDICAID | END 2018-07-19 08:16 | disposition short-term general hospital (02) | LOC: EMS 08:15 | PROVIDERS: ATTEND Surgery | DX: R53.1 Weakness (principal); R41.82 Altered mental status, unspecified; R32 Unspecified urinary incontinence; R50.9 Fever, unspecified | CPT/HCPCS: A0425; A0427 ==

== ENCOUNTER 2018-07-23 10:45 | Outpatient (CLI) | payer MEDICARE, MEDICAID ==
--- NOTE | 2018-07-23 19:27 | CONSULTATION NOTE ---
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 Patient was initially diagnosed in 01/2018, his original PET CT scan staging showed a large mass on the left side of the oral cavity 5.8 x 4.6 cm. Patient was receiving pal liative carboplatinum/Taxol every 3 weeks initiated on 02/2018, with last on . Because of the complexity of his care, he is moving his therapy up to the [facility] clinic, to be followed by Dr. Yang. He is to initiate weekly Taxol 3 weeks on 1 week off and continued carboplatinum. He will be restaged after 2 cycles.Unfortunately patient has had significant hospitalizations for chemo- induced infections due to pancytopenia, including his most recent from 07/19 to 07/22 with UTI, dehydration, and sepsis. Patient as a result of his tumor, does have dysphagia, odynophagia, recurrent aspiration pneumonia, and receives PEG tube feedings. His care needs have been increasing significantly with complex medication regimen, tube feedings, has significant BPH and needing intermittent catheterizations, and high symptom burden. is feeling quite overwhelmed, this is also complicated by patient's inappropriate use of his opiates and benzodiazepines. Patient is also being supported by home health, patient with fluctuating mental status, declining functional status, increasing care needs, and high symptom burden. Palliative care has been trying to initiate consult for several weeks now, today's visit is to evaluate current situation and develop rapport. It is somewhat chaotic as patient has just returned home from hospitalization, there is been discussion as far as placement of patient, given his poor participation in his care and overuse of medications. is feeling overwhelmed and unable to continue at the level of an intensity required if he does not "step it up". Medical/Surgical History - Past Medical History Cardiovascular: reports: Hypertension, High cholesterol, Coronary artery disease, Atrial fibrillation, Murmur, Arrhythmia Respiratory: reports: COPD, Emphysema, Pneumonia, Shortness of breath Neuro: Dementia, Headaches, Peripheral neuropathy, Tremors Endocrine/Autoimmune: reports: None GI: reports: GERD, Colon polyps, Hepatitis, Other : reports: Benign prostate hypertrophy, Retention, Renal insuffiency, Nocturia HEENT: reports: Chronic vision loss, Chronic sinusitis, Chronic hearing loss, Other Psych: reports: Depression, Anxiety Musculoskeletal: reports: Osteoarthritis, Fatigue Derm: reports: None MRSA Hx?: No - Past Surgical History General: reports: Appendectomy, Gastric surgery, Colonoscopy, Other Ortho: reports: Hip replacement Derm: reports: Skin cancer surgery - Substance History Use: Uses substance without health or social issues: Tobacco (reports has quit about 4 months ago), Alcohol (still drinking small amounts; his ETOH Abused), Cannabis (using), Cocaine (hx of use over 9 years ago) Social History - Living Situation Living arrangement: At home Living Situation: With spouse/s.o. Support System: He and have been 35 years, they do have 4 children, unfortunately do live on the other side and are not available to assist with care. They have been on [facility] for about 9 years. 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 Multiple financial stressors, is getting overwhelmed with patient's increased care needs, she is trying to still continue to work intermittently. Family History - Family History Family History: Mother: Alive and Well (she is 90), Father: , Cancer (at age 100) Medications/Allergies - Medications Home Medications: Ambulatory Orders Medication Instructions Recorded Confirmed Trazodone HCl 100 mg GT QPM 02/28/18 07/24/18 buPROPion [Wellbutrin Sr] 150 mg PO DAILY 02/28/18 07/24/18 Doxazosin [Cardura] 1 mg GT QPM 06/23/18 07/24/18 Finasteride 5 mg GT DAILY 06/23/18 07/24/18 fentaNYL [Fentanyl 50mcg patch] 50 mcg TD Q3D 06/27/18 07/24/18 Saccharomyces Boulardii [Florastor] 250 mg PO BID #60 capsule 06/30/18 07/24/18 Albuterol Sulfate [Proair 1 - 2 puffs INH Q4HR PRN 07/24/18 07/24/18 Respiclick] Cefdinir 300 mg PO BID MDD 3 days 07/24/18 07/24/18 Lidocaine/Prilocaine 1 applic TOP PRN PRN 07/24/18 07/24/18 [Lidocaine-Prilocaine Cream] Metoprolol Succinate 25 mg PO BID 07/24/18 07/24/18 Naloxone HCl [Narcan] 1 spray JESSICA DAILY PRN 07/24/18 07/24/18 Nystatin 5 ml PO QID 07/24/18 07/24/18 Ondansetron Odt [Zofran Odt] 1 - 2 tab PO Q8HR PRN 07/24/18 07/24/18 hydrOXYzine PAMOATE [Vistaril] 25 mg GT Q6HR PRN 07/24/18 07/24/18 - Allergies Allergies/Adverse Reactions: Allergies Allergy/AdvReac Type Severity Reaction Status Date / Time No Known Drug Allergies Allergy Verified 06/23/18 13:44 Review of Systems - Constitutional Constitutional: reports: Fatigue, Weight loss. denies: Fever, Chills - Ears, Nose & Throat Ears, Nose & Throat: reports: Hearing loss, Dry mouth, Other (oral candidiasis) - Cardiovascular Cardiovascular: reports: Exertional dyspnea, Decr. exercise tolerance - Respiratory Respiratory: reports: Cough, SOB with exertion. denies: SOB at rest - Gastrointestinal Gastrointestinal: reports: Other (on PEG feedings; new formula; Patient being seen by speech therapy as he has severe changes to his pharyngeal structure and function, he is currently mostly n.p.o. other than ice water/ice chips. He needs a suction machine for management of secretions to decrease his aspiration risk.). denies: Constipation, Diarrhea, Nausea, Reflux/heartburn - Genitourinary Genitourinary: reports: Frequency, Urgency, Other (retention r/t BPH; opioid use) - Musculoskeletal Musculoskeletal: reports: Back pain, Stiffness, Limited range of motion, Muscle weakness - Integumentary Integumentary: reports: Dryness, Other (PEG exit site) - Neurological Neurological: reports: General weakness, Memory problems - Psychiatric Psychiatric: reports: Depression, Anxiety - Hematologic/Lymphatic Hematologic/Lymphatic: reports: Anemia, Recurrent infections (hospitalizations for pneumonia/UTI) - All Other Systems All Other Systems: reports: Other (patient poor historian with recall; supplemented by ) Physical Exam - Vital Signs Temperature: 97.2 C Pulse Rate: 68 Respiratory Rate: 18 O2 Saturation: 95 (ra @ rest) Blood Pressure: 122/62 - Physical Exam General Appearance: positive: No acute distress, Alert Eyes Bilateral: positive: Normal inspection ENT: positive: Other (significant amount of white coating on tongue;) Neck: positive: Other (fullness on neck) Cardiovascular: positive: Regular rate & rhythm Respiratory: positive: No respiratory distress, Diminished in bases, Other (Has been initiated on nebulizers, this was over a week ago post last hospitalization secondary pneumonia, underlying emphysema, and long-standing COPD. Given patient's structure and baseline lung function, this would be appropriate to help maximize management of his cough and secretions.). negative: Wheezes, Rales, Rhonchi Abdomen: positive: Non-tender, Soft, Nml bowel sounds, Hepatomegaly Skin: positive: Other (exit site of PEG) Extremities: positive: No pedal edema Neurologic/Psychiatric: positive: Mood/affect nml, Disoriented to time, Weakness, Slurred/abnml speech, Flat affect Palliative Care - POLST Patient has POLST: No POLST Status: Full Code Pain: Comment (Patient rates his pain is severe, and back left oral pharyngeal area, has been on base fentanyl 50 mcg patch, has been using 60 mg of oxycodone. Concern regarding patient's and appropriate use, patient has a long history of substance abuse issues, does admit using for coping. Because of his encephalopathy on last admit, has been instructed to use 5 to 15 mg, no more often than 3 hours. He reports his last about 2 hours, but is much more clear, alert, and coherent which pleases his . He is also been instructed to stop all benzodiazepines, he has no longer any alprazolam in his "stash", instructed to DC the Valium, does have a new prescription for hydroxyzine, suspect this is going to be somewhat ineffective. Instructed again not to use unless escalating.) Tiredness/Fatigue: Moderate (4-6) Drowsiness/Sedation: Moderate (4-6) Nausea: None Depression: Moderate (4-6) Anxiety: Moderate (4-6) Dyspnea: Moderate (4-6) Sleep: Variable sleep pattern Constipation: No Performance Status: Patient has had fluctuating functional status, often dependent on patient's level of awareness. Patient does tend to be quite sedentary, though is ambulatory in the home, today is chosen to participate in his care. Does have poor activity tolerance, has had muscle wasting and loss as well as inactivity. - Palliative Care Discussion: This is my first meeting with Lizet and Horace, with his last hospitalization, Lizet has essentially told him he she can no longer take care of him. That she wants to be his , not his nurse and is feeling quite overwhelmed. They did speak with staff at [facility], starting to explore placement options and completing paperwork for [place] application. The children are supporting Lizet, but patient is quite resistant. In the context of this, his goal is to be independent in his care, participate more and actively managing his tube feeding, medications, and cathing. This is unclear if this is going to be a realistic plan, but we did discuss in the context of advanced care planning. If patient continues with inappropriate use of opioids/benzodiazepines, more likely to continue to aspirate, have more complications if not awake and aware, and though he is fearful of dying of his cancer, the things that are within his control are more likely to impact his prognosis. Lizet at this point in time, verbalizes she is willing to give him a chance, but admits patient has long-term addictive personality, and this is how he has coped. He has been up to this point in time communicated to caregiver/institutions he wants to be "a full code". Provided forms and conversation tools, requested they initiate conversation, and we will complete and explore at her next visit. Impression and Recommendations - Palliative Care Impression: This is a 68-year-old gentleman with stage IV squamous cell carcinoma of the left tongue, with extensive metastatic cathy mets, and currently with dysphagia and odynophagia. Patient is tube feeding dependent, has significant pain related to tumor invasion, is complicated by patient's underlying substance abuse disorder. Patient recently with hospitalization due to sepsis attributed to UTI. Patient continues have difficulty with recurrent hospitalizations has a result of his multiple health problems, including side effects of chemotherapy and pancytopenia. Palliative care initiating consult today, to evaluate for pain and symptom management and ongoing support. Recommendations/Counseling Done: 1. Pain of neoplastic origin. Currently on fentanyl 50 mcg patch, has been on this for an extended period time with no titration. Patient has been using 60 mg of oxycodone through G-tube every 3 hours, with concern for inappropriate use. Was decreased at hospitalization to 5 to 15 mg, has been using 15 mg reports it only last for about 2 hours, is scheduled at most for 3. We discussed in the context of titrating up her fentanyl to 75 mcg,. Patient is just transition to this new plan, we discussed the need to balance sedation with pain relief, patient's goals are to participate in care, will need to be more alert and engaged, patient's been instructed to not use his benzodiazepines, if pain management and adequate at the 15 mg, will titrate up the fentanyl versus increase the oxycodone. Both and patient verbalized understanding, and agreement with current plan. Patient wanted to wait before increasing fentanyl and see how he does over the next few days. 2. Anxiety. Patient was discharged with hydroxyzine, would suggest this is not going to be of much benefit, requested only use for rescue if needed. To not use Valium as sedating. Patient on bupropion, will continue to assess. Patient admits to feeling overwhelmed with cancer diagnosis, poor coping in the past, and willing to explore other options of support at future visits. 3. 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 Patient to see oncologist this , will await treatment plan to initiate second visit. We will plan to see at [facility] on a regular basis to manage symptoms. Patient does seem to be aware this is palliative in intent, but will further explore patient's understanding and future. 4. Advanced care planning. Initiated setting of rapport with palliative care provider, introduction of advanced care planning documents and initiate conversation regarding goals. At this point in time patient's goals are to participate more care, remain more alert take the burden off of Lizet, is quite motivated to not be placed but aware this would mean his participation more fully. Patient is all supported by home health, did follow-up with Loretta regarding nebulizer, information provided back to PCP for diagnosis to finish prescription. Also Rx sent to [facility] for suction machine. [id number] for patient requiring suction machine secondary to Cancer of the tongue; unable to manage or swallow secretions safely and consistently. Face To face for nebulizer. Patient does require nebulizer for initiation nebulized medication of albuterol to manage post pneumonia, emphysema, and COPD. Time Spent: 75 minutes for greater than 50% of this done in counseling, regarding pain and symptom management, opioid safety, appropriate titration of pain meds, anticipatory guidance, and initiation of advanced care planning conversation. Palliative care providing support for pain and symptom management and establish of rapport. Will see patient next week depending on when we starts chemotherapy.
== END 2018-07-23 10:46 | disposition home or self-care (01) ==
LOC: PC 10:45
PROVIDERS: ATTEND Nurse Practitioner Adult Health
DX: Z51.5 Encounter for palliative care (principal); G89.3 Neoplasm related pain (acute) (chronic); C02.9 Malignant neoplasm of tongue, unspecified; C77.8 Secondary and unspecified malignant neoplasm of lymph nodes of multiple regions; C78.02 Secondary malignant neoplasm of left lung; C78.01 Secondary malignant neoplasm of right lung; F41.9 Anxiety disorder, unspecified; D61.810 Antineoplastic chemotherapy induced pancytopenia; T45.1X5A Adverse effect of antineoplastic and immunosuppressive drugs, initial encounter; N40.1 Benign prostatic hyperplasia with lower urinary tract symptoms; R33.8 Other retention of urine; R35.1 Nocturia; I10 Essential (primary) hypertension; F10.10 Alcohol abuse, uncomplicated; B37.0 Candidal stomatitis; J43.9 Emphysema, unspecified; Z93.1 Gastrostomy status; Z79.899 Other long term (current) drug therapy; Z87.891 Personal history of nicotine dependence; Z87.01 Personal history of pneumonia (recurrent)
CPT/HCPCS: 99345

== ENCOUNTER 2018-07-25 08:00 | Outpatient (CLI) | payer MEDICARE, MEDICAID ==
[2018-07-25 17:32] LABS: ALBUMIN 3.6 g/dL (3.2-5.5); ALBUMIN/GLOBULIN RATIO 0.8 (1.0-2.2); BILIRUBIN,TOTAL 0.3 mg/dL (0.2-1.0); CALCIUM 9.3 mg/dL (8.5-10.3); CREATININE 1.3 mg/dL (0.6-1.2); TOTAL PROTEIN 8.1 g/dL (6.7-8.2)
[2018-07-25 17:53] LABS: BASOPHILS % (AUTO) 1.1 %; EOSINOPHILS % (AUTO) 1.4 %; HGB - HEMOGLOBIN 7.7 g/dL (14.0-18.0); MEAN CORPUSCULAR HEMOGLOBIN 32.3 pg (27.0-31.0); MEAN CORPUSCULAR HGB CONC 33.7 g/dL (32.0-36.0); MEAN CORPUSCULAR VOLUME 95.6 fL (80.0-94.0); MEAN PLATELET VOLUME 7.2 fL (7.4-11.4); MONOCYTES % (AUTO) 15.3 %; NEUTROPHILS % (AUTO) 44.2 %; PLT - PLATELET COUNT 366 10^3/uL (130-450); RED BLOOD COUNT 2.37 10^6/uL (4.70-6.10); RED CELL DISTRIBUTION WIDTH 19.1 % (12.0-15.0); WHITE BLOOD COUNT 2.2 x10^3/uL (4.8-10.8)
[2018-07-25 18:21] LABS: ABNORMAL LYMPHS % (MANUAL) 0 %; BAND NEUTROPHILS % (MANUAL) 0 %
[2018-07-25 19:29] LABS: BASOPHILS % (MANUAL) 2 %; LYMPHOCYTES # (MANUAL) 0.7 10^3/uL (1.5-3.5); LYMPHOCYTES % (MANUAL) 31 %; MONOCYTES # (MANUAL) 0.4 10^3/uL (0.0-1.0); NEUTROPHILS % (MANUAL) 47 %
[2018-07-25 19:30] LABS: RBC MORPHOLOGY (MULTIPLE) 2+ ANISOCYTOSIS (NORMAL)
[2018-07-25 19:31] LABS: DIFFERENTIAL COMMENT MANUAL DIFFERENTIAL; PLATELET ESTIMATE, MANUAL NORMAL (130-450,000) (NORMAL); PLATELET MORPHOLOGY NORMAL APPEARANCE (NORMAL)
== END 2018-07-25 23:59 | disposition home or self-care (01) ==
LOC: LAB.F 08:00
PROVIDERS: ATTEND Internal Medicine Medical Oncology
DX: C01 Malignant neoplasm of base of tongue (principal)
CPT/HCPCS: 36415; 80053; 85025

== ENCOUNTER 2018-08-04 12:18 | Outpatient (CLI) | payer MEDICARE, MEDICAID ==
--- NOTE | 2018-08-04 16:45 | CONSULTATION NOTE ---
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 Patient was initially diagnosed in 01/2018. Has been receiving palliative carboplatinum/Taxol every 3 weeks, initiated on 02/2018. Because of the complexity of his care, he is [place] [facility] [place], followed by Dr. Yang. Patient is currently started on weekly Taxol 06/18/2018 secondary to ongoing bone marrow suppression and frequent hospitalizations. He has had 2 aspiration pneumonias with hospitalizations with most recent one resulting in overmedication, UTI, dehydration, and sepsis. Patient does as a result of his tumor have dysphagia, odynophagia, continued high risk for recurrent aspiration, and receives ongoing G-tube feedings. Today presents with ongoing feelings of fullness in his left neck, palpable tumor, increased swelling and pressure, and increased symptoms related to his ability to speak or swallow. He does report the suction machine has been of help, this finally was obtained and he is using it on a regular basis. He is doing his own tube feedings independently, this is assisted as far as the stress on his . His understanding is he is to have a restaging scan the beginning of August. His labs are improved today, though he still remains anemic and with decreased WBCs. Patient does have significant pain, reports pressure and increased discomfort in the right of his neck, is most significant severity of pain is 6-7 out of 10, describes it as actually radiating through his head and to the top. Describes this as a pounding sensation, is only slightly mitigated by PRN dosing of his oxycodone. He was instructed to use only 15 mg of oxycodone every 3 hours for breakthrough pain, he reports sometimes this lasts and other times it runs out at 2 hours. He is on fentanyl 50 mcg patch baseline, the agreement was if his pain was poorly controlled we would increase his fentanyl not his oxycodone. He was also to stop all benzodiazepines, in review of prescription monitoring system, he did bead picker 120 tabs of diazepam 10 mg tablets. And follow-up with the pharmacy this is picked up by his . Patient swears he has not received any of this. Patient is clear, is making good eye contact today, does not seem to be altered and is able to participate in the conversation. His is not here, his transportation was his friend. Patient reports he continues to have anxiety, he is "coping". Has agreed to meet with the social media content manager regarding his anxiety, discussed his bupropion, he is crushing sustained release. In response to his question, this is not recommended. Ordered short acting bupropion 75 mg twice daily to [facility]. Social History - Living Situation Living arrangement: At home Living Situation: With spouse/s.o. Support System: His continues to be overwhelmed by his care needs. She is not here today. He reports she is doing somewhat better and he is trying to be more independent. When asked how his kids are doing, reports are quite supportive, everyone is hoping for the best. He does have friends, who are helping with transportation. Medications/Allergies - Medications Home Medications: Ambulatory Orders Medication Instructions Recorded Confirmed Trazodone HCl 100 mg GT QPM 02/28/18 08/04/18 Doxazosin [Cardura] 1 mg GT QPM 06/23/18 08/04/18 Finasteride 5 mg GT DAILY 06/23/18 08/04/18 fentaNYL [Fentanyl 50mcg patch] 75 mcg TD Q3D 06/27/18 08/04/18 Saccharomyces Boulardii [Florastor] 250 mg PO BID #60 capsule 06/30/18 08/04/18 Albuterol Sulfate [Proair 1 - 2 puffs INH Q4HR PRN 07/24/18 08/04/18 Respiclick] Metoprolol Succinate 25 mg PO BID 07/24/18 08/04/18 Naloxone HCl [Narcan] 1 spray JESSICA DAILY PRN 07/24/18 08/04/18 Nystatin 5 ml PO QID 07/24/18 08/04/18 Ipratropium/Albuterol [Duoneb] 1 amp INH Q4HR PRN 08/04/18 08/04/18 Oxycodone HCl 10 - 20 mg GT Q3HR PRN MDD 120 mg 08/04/18 08/04/18 buPROPion HCl [Bupropion HCl] 75 mg GT BID 08/04/18 08/04/18 - Allergies Allergies/Adverse Reactions: Allergies Allergy/AdvReac Type Severity Reaction Status Date / Time No Known Drug Allergies Allergy Verified 07/28/18 15:44 Review of Systems - Constitutional Constitutional: reports: Fatigue. denies: Fever, Chills, Malaise - Ears, Nose & Throat Ears, Nose & Throat: reports: Dry mouth - Cardiovascular Cardiovascular: reports: Decr. exercise tolerance - Respiratory Respiratory: reports: Wheezing (has used neb intermittently with good relief), SOB with exertion. denies: SOB at rest - Gastrointestinal Gastrointestinal: reports: Other (using suction for oral secretions; much easier to manage; on feedings using ice chips; getting at least 2 liters water per report; as well as 4 boxes feeding and "smoothies"). denies: Constipation, Nausea - Genitourinary Genitourinary: reports: Other (reports has not needed to catheterized) - Musculoskeletal Musculoskeletal: reports: Stiffness, Muscle weakness, Other (poor activity tolerance) - Integumentary Integumentary: reports: Dryness - Neurological Neurological: reports: General weakness, Slurred speech (mechanical related to tongue) - Psychiatric Psychiatric: reports: Anxiety (understands not going to get benzo's; feels working with attitude and to meet with IT BUSINESS ANALYST) - Endocrine Endocrine: reports: Intolerance to cold - Hematologic/Lymphatic Hematologic/Lymphatic: reports: Anemia, Recurrent infections - All Other Systems All Other Systems: reports: Reviewed and negative Physical Exam - Physical Exam General Appearance: positive: No acute distress Eyes Bilateral: positive: Normal inspection ENT: positive: Other (Patient with yellow-tinged coating on tongue, no buccal lesions, is using nystatin.; Patient does complain of more fullness and difficulty managing his tongue.) Neck: positive: Trachea midline, Other (palpable swelling and lympadema right side; moveable tender size of almond node under right mandiable;) Cardiovascular: positive: Regular rate & rhythm Respiratory: positive: Diminished in bases (right greater than left). negative: Wheezes, Rales, Rhonchi Abdomen: positive: Soft, Nml bowel sounds Skin: positive: Other (GTube with some drainage at exit site) Extremities: positive: No pedal edema Neurologic/Psychiatric: positive: Oriented x3, Mood/affect nml, Slurred/abnml speech (difficult related to tongue cancer) Palliative Care - POLST Patient has POLST: No POLST Status: Full Code Pain: Pain worsening, Location (see HPI) Tiredness/Fatigue: Moderate (4-6) Drowsiness/Sedation: Mild (1-3) Nausea: None Depression: None Anxiety: None Dyspnea: Mild (1-3) Anorexia: Severe (7-10) Sleep: Variable sleep pattern (does awaken with head pain) Constipation: Yes, Opoid induced, Managed Feelings of wellbeing/Perceived Quality of Life: Good, Worsening Performance Status: Patient is trying be more active, ambulating short distances does have poor activity tolerance related to his anemia. Is able to attend to his own ADLs. Does miss driving, but has been instructed given his current use of opioids and declining health not to - Palliative Care Discussion: Patient is somewhat anxious regarding increased swelling and nodule on the right, related to his disease. He wants to keep a positive attitude, wants to last at least another 2 to 3 years until they have new treatments that can "cure him". Patient quite distrustful of palliative care given his experience at [place]. Agreed with let him leave the conversation regarding goals of care, his current goals are to continue with treatment, improve his quality of life, and "beat this thing". We will continue to build rapport as well as manage his symptoms, his wanted to discuss advanced directives, she is not here at this visit will wait until can do concurrent visit at least for D POA. Encouraged patient to express concerns. 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 Patient is tube feeding dependent, is able to take ice chips and water. Patient has escalating pain, has had his meds recently decreased related to concerns with his most recent hospitalization. Patient has had recurrent hospitalization as a result of multiple health problems including pancytopenia of his chemotherapy. Palliative care to provide support for pain and symptom management and anticipatory guidance Recommendations/Counseling Done: 1. Pain of neoplastic origin. Patient is using 105 to 120 mg total in 24 hours of oxycodone for breakthrough pain. Pain is still fairly moderate to severe, is aware we are not going to increase his oxycodone, did increase his fentanyl from 50 mcg to 75 mcg patch. Counseling provided regarding rationale, safety issues, and goal to decrease his oxycodone use. He recently received a prescription for 10 mg tabs, it is difficult to split. Did agree as long as he stayed within the 120 mg in 24 hours he could use 10 to 20 mg depending on how uncomfortable he was but not to go over the allotted maximum. He verbalized understanding. Rx provided for fentanyl 75 mcg patch. Telephone call to primary care provider who is out ill, fax sent regarding need to stay with him parameters of prescribing, patient is not to be using any benzodiazepines. Prescription monitoring system does show diazepam 120 mg tabs picked up, patient swears he has not been taking any, verified did pick it up on 07/31 notified PCP no further prescriptions. Patient has been instructed to dispose of prescription. Consult with Dr. Yang related to head pain, patient had a CT scan done at [place] that did not show any mass-effect. Discussed whether concern for metastatic disease to the brain, MRI of the brain indicated, did not think so just more aggressive pain management. Did discuss with him concerns regarding pain medication use. 2. Dysphagia. Patient having increased difficulty with secretions, reports feeling tongue is worse. Telephone call to [facility], has not done a follow-up yet as far as home visit. He would like an update on his program, she will do a re-eval, suction machine is finally showed up. He is finding it much more helpful, and is clearing his secretions with it several times a day. 3.Anxiety. Patient currently Wellbutrin, will order short acting, as it is not to be crushed. 75 mg twice daily sent to pharmacy after consult with pharmacy. Patient reports he is coping better, but has been overwhelmed with his cancer diagnosis, does have a history of substance abuse and poor coping in the past. Will be meeting with palliative care social media content manager. Can titrate up Wellbutrin in the future if needed. 4. Advanced care planning. Agreement have been to review this with his Lizet, she is not a visit today. Continue to discuss goals of care with patient, patient determined to focus on the positive. Did allow himself to voice some concerns, and hopes for the future. Palliative care continue to develop rapport, will follow-up at next week. Time Spent: 50 minutes with greater than 50% of this done in counseling and coordination of care with oncologist home health and clinical staff. Prescriptions written for fentanyl 75 mcg patch #10 patches and Rx faxed for bupropion 75 mg twice daily. Medication list reconciled.Education provided on opioid safety,. Use and principles for long-acting and short acting.
== END 2018-08-04 12:19 | disposition home or self-care (01) ==
LOC: PC 12:18
PROVIDERS: ATTEND Nurse Practitioner Adult Health
DX: Z51.5 Encounter for palliative care (principal); G89.3 Neoplasm related pain (acute) (chronic); R13.10 Dysphagia, unspecified; F41.9 Anxiety disorder, unspecified; C02.9 Malignant neoplasm of tongue, unspecified; C78.02 Secondary malignant neoplasm of left lung; C78.01 Secondary malignant neoplasm of right lung; C77.0 Secondary and unspecified malignant neoplasm of lymph nodes of head, face and neck; K59.03 Drug induced constipation; T40.2X5A Adverse effect of other opioids, initial encounter; Z79.891 Long term (current) use of opiate analgesic; Z79.899 Other long term (current) drug therapy; Z93.1 Gastrostomy status
CPT/HCPCS: 99215

== ENCOUNTER 2018-08-25 12:20 | Outpatient (CLI) | payer MEDICARE, MEDICAID ==
--- NOTE | 2018-08-25 18:11 | CONSULTATION NOTE ---
Palliative Care Follow Up - Referral Referring Provider: Corie YBARRA Time of Visit: [id number] Referral setting: [facility] [place] Referral Reason: Pain of neoplastic origin/Tongue Cancer - Information Sources Records reviewed: Previous records reviewed History/Review of Systems obtained from: Patient Exam limitations: No limitations - History of Present Illness Update Brief HPI Update: This is a 68-year-old gentleman with a metastatic squamous cell carcinoma of the tongue, with extensive mets to bilateral neck nodes, bilateral lungs, and right paratracheal and bilateral hilar adenopathy. Patient had restaging scans, which shows progression of disease. He will be starting nivolumab, next week. Patient does have severe dysphagia, odynophagia, remains at high risk for aspiration. Is increased swelling in his mouth and left side of neck, is causing increased pressure and pain as well as diminishing his ability to speak. He does use the oral suction at home, to manage his secretions. He is swallowing some fluids such as water, and beer. He is supported by his tube feedings, he is managing these independently. Patient presents with challenges regarding his pain management. Patient has a long history of substance abuse disorder, and continues to maximize his use of oxycodone 15 mg every 3 hours. His does monitor and distribute this, patient feels his pain is poorly controlled on his current fentanyl 75 mcg patch, in the 120 mg of oxycodone/24 hours. He describes it as persistent, though does fluctuate some through the day with activity, speaking, is less at night. His goal, despite multiple conversations, is to be totally pain-free. He also presents quite tearful, and distressed with the recent news of his progression of disease. His and son, are not present for visit. Social History - Living Situation Living arrangement: At home Living Situation: With spouse/s.o., With family Support System: Patient lives at home with his Lizet, continues to be overwhelmed by patient's care needs. His son is moved in, and hopes to provide increased support. He has many friends and family are constantly visiting. Patient's is due to leave for out of town. Medications/Allergies - Medications Home Medications: Ambulatory Orders Medication Instructions Recorded Confirmed Trazodone HCl 100 mg GT QPM 02/28/08/25/18 Doxazosin [Cardura] 1 mg GT QPM 06/23/18 08/25/18 Finasteride 5 mg GT DAILY 06/23/18 08/25/18 fentaNYL [Fentanyl 50mcg patch] 100 mcg TD Q3D 06/27/18 08/25/18 Saccharomyces Boulardii [Florastor] 250 mg PO BID #60 capsule 06/30/18 08/25/18 Albuterol Sulfate [Proair 1 - 2 puffs INH Q4HR PRN 07/24/18 08/25/18 Respiclick] Metoprolol Succinate 25 mg PO BID 07/24/18 08/25/18 Naloxone HCl [Narcan] 1 spray JESSICA DAILY PRN 07/24/18 08/25/18 Nystatin 5 ml PO QID 07/24/18 08/25/18 Ipratropium/Albuterol [Duoneb] 1 amp INH Q4HR PRN 08/04/18 08/25/18 Oxycodone HCl 10 - 20 mg GT Q3HR PRN MDD 160 mg 08/04/18 08/25/18 buPROPion HCl [Bupropion HCl] 75 mg GT BID 08/04/18 08/25/18 - Allergies Allergies/Adverse Reactions: Allergies Allergy/AdvReac Type Severity Reaction Status Date / Time No Known Drug Allergies Allergy Verified 08/25/18 11:42 Review of Systems - Constitutional Constitutional: reports: Fatigue, Weight stable (182.6). denies: Fever, Chills - Ears, Nose & Throat Ears, Nose & Throat: reports: Hearing loss, Hearing aids, Other (persistant oral candidiasis) - Cardiovascular Cardiovascular: reports: Decr. exercise tolerance - Respiratory Respiratory: reports: SOB with exertion. denies: Cough, SOB at rest - Gastrointestinal Gastrointestinal: denies: Constipation, Nausea, Reflux/heartburn - Genitourinary Genitourinary: reports: Other (report voiding without difficulty; has not been straight cathing) - Musculoskeletal Musculoskeletal: reports: Stiffness, Muscle weakness, Joint pain - Integumentary Integumentary: reports: Dryness - Neurological Neurological: reports: General weakness, Headache (persistant) - Psychiatric Psychiatric: reports: Depression, Anxiety - Hematologic/Lymphatic Hematologic/Lymphatic: reports: Anemia - All Other Systems All Other Systems: reports: Reviewed and negative Physical Exam - Vital Signs Temperature: 36.6 C Pulse Rate: 55 Respiratory Rate: 18 O2 Saturation: 99 Blood Pressure: 136/67 - Physical Exam General Appearance: positive: Mild distress Eyes Bilateral: positive: Normal inspection ENT: positive: Other (white coating persists on tongue; increase difficulaty with opening mouth; no noted choking with secretions; increased difficulty with talking) Neck: positive: Other (increased swelling and nodes note in left neck; tender to palpation) Cardiovascular: positive: Regular rate & rhythm Respiratory: positive: No respiratory distress, Diminished in bases. negative: Wheezes, Rales, Rhonchi Skin: positive: Other (G tube exit site without s/s infection) Extremities: positive: No pedal edema Neurologic/Psychiatric: positive: Oriented x3, Weakness, Slurred/abnml speech, Depressed mood/affect Palliative Care - POLST Patient has POLST: No POLST Status: Full Code Pain: Pain worsening, Location (Patient reports persistent pain in the neck and tongue area; does get some relief with intermittent oxycodone dosing, does feel its across the back and front of his head. Is persistent. He continues on the fentanyl 75 mcg patch, did not notice much improvement with increase of baseline dosing, continues to use oxycodone as allowed, he does not have access to the medication. He does admit to being to use intermittent cannabis, as well as continue to drink beer on a daily basis. Patient is not using Valium, this is not been resolved suspect diversion but unable to verify.) Tiredness/Fatigue: Moderate (4-6) Drowsiness/Sedation: None Nausea: None Depression: Moderate (4-6) Anxiety: Severe (7-10) Dyspnea: Mild (1-3) Sleep: Variable sleep pattern Constipation: No Performance Status: Patient has had some functional decline, his gait is less steady, he is having some progressive weakness. Is still able to manage his own ADLs, and on tube feedings. - Palliative Care Discussion: She is somewhat devastated by the news of progressive disease, though of course he was prepared given the increased swelling in his neck, increased pain and difficulty talking. He is trying to remain hopeful, is moving on to the immunotherapy, he reports "Dr. Tadeo did not think it was that bad". Patient is very tearful through visit, does feel like he has support to be able to talk to. He is also being seen by the palliative care social worker psychiatric. Results - Lab Results Lab results reviewed: Yes Impression and Recommendations - Palliative Care Impression: This is a 68-year-old gentleman with metastatic tongue cancer stage IV, 2 nodes and lung. He has progressive disease, with increasing symptoms of dysphagia, odynophagia, and dysarthria. Patient presents with escalating pain, finding balance between appropriate medication and within his balance of substance abuse disorder. Palliative care to continue provide pain and symptom management, and anticipatory guidance. Recommendations/Counseling Done: 1. Pain of neoplastic origin. Patient continued reports his pain is moderate to severe, despite increase of fentanyl 50 mcg to 75 mcg patch. He is maximizing his use of 120 mg total of oxycodone for breakthrough pain. Patient continues with progressive disease, will go ahead and increase pain management by 25%. Patient given new prescription for fentanyl 100 mcg patch, with 20 mg of oxycodone every 3 hours for breakthrough pain, for maximum dosing of 16 tabs in 24 hours. Patient has been counseled about concurrent use of other substances, including alcohol. Patient is instructed not to be using benzodiazepines. Patient not a candidate for methadone at this point in time, as he is going to initiate immunotherapy. Prior authorization needed through his insurance, will be available in 24 to 72 hours. Patient verbalizes understanding, counseling provided regarding realistic parameters for expectation of pain management, given the extensive disease, will not be able to get a 0/over 10. Patient admits to poor tolerance of both anxiety and pain emotionally. 2. Dysphagia. Patient currently managing secretions with intermittent oral suctioning, he is still seeing speech therapy at home. He has not had any episodes of aspiration or choking per his report. 3. Anxiety. Patient currently continuing on wellbutrin on 75 mg twice daily. Patient continues to be overwhelmed, and now with progression of disease quite tearful through visit. Will meet with patient next week, may need to titrate up medication. Patient continues to meet with palliative care social worker psychiatric, patient able to identify persons of support, is feeling quite overwhelmed with his appointment. Will follow-up next week, after news is settled. 4. Advanced care plan planning. Given patient's high anxiety, and recent news, not appropriate to pursue. The agreement was though, to meet with his Lizet and complete documents. We will continue to work on this as patient's anxiety allows. Patient has continued to be consistent in his goals, which is aggressive therapy to manage disease, though aware treatment is palliative in nature, is hoping for extended period of life, has consistently wanted to be a FULL CODE. Time Spent: 45 minutes with greater than 50% of this done in counseling regarding pain management, safety regarding opioid use, psychosocial support given related to progressive disease and anxiety. Plan to follow-up at next week's appointment. CC: Home Health
== END 2018-08-25 12:21 | disposition home or self-care (01) ==
LOC: PC 12:20
PROVIDERS: ATTEND Nurse Practitioner Adult Health
DX: Z51.5 Encounter for palliative care (principal); G89.3 Neoplasm related pain (acute) (chronic); C02.9 Malignant neoplasm of tongue, unspecified; C78.00 Secondary malignant neoplasm of unspecified lung; C77.1 Secondary and unspecified malignant neoplasm of intrathoracic lymph nodes; R13.10 Dysphagia, unspecified; R47.1 Dysarthria and anarthria; F19.10 Other psychoactive substance abuse, uncomplicated; F32.9 Major depressive disorder, single episode, unspecified; F41.9 Anxiety disorder, unspecified; D64.9 Anemia, unspecified; R51 Headache; H91.90 Unspecified hearing loss, unspecified ear; Z93.1 Gastrostomy status; Z79.51 Long term (current) use of inhaled steroids
CPT/HCPCS: 99215

== ENCOUNTER 2018-09-15 | Outpatient (CLI) | payer MEDICARE, MEDICAID | END 2018-09-15 12:28 | disposition home or self-care (01) | DX: Z51.5 Encounter for palliative care (principal); C09.9 Malignant neoplasm of tonsil, unspecified; C77.0 Secondary and unspecified malignant neoplasm of lymph nodes of head, face and neck; C78.02 Secondary malignant neoplasm of left lung; C78.01 Secondary malignant neoplasm of right lung; R13.10 Dysphagia, unspecified; F41.9 Anxiety disorder, unspecified; F32.9 Major depressive disorder, single episode, unspecified; R63.4 Abnormal weight loss; R47.1 Dysarthria and anarthria; Z87.898 Personal history of other specified conditions; Z93.1 Gastrostomy status; Z79.899 Other long term (current) drug therapy; Z79.891 Long term (current) use of opiate analgesic | CPT/HCPCS: 99214 ==

== ENCOUNTER 2018-09-24 18:51 | Outpatient (CLI) | payer MEDICARE, MEDICAID | END 2018-09-24 18:52 | disposition critical access hospital (66) | LOC: EMS 18:51 | PROVIDERS: ATTEND Surgery | DX: R53.83 Other fatigue (principal); R46.89 Other symptoms and signs involving appearance and behavior; R50.9 Fever, unspecified | CPT/HCPCS: A0425; A0429 ==

== ENCOUNTER 2018-09-24 19:17 | Inpatient (IN) | payer MEDICARE, MEDICAID ==
[2018-09-24 19:49] LABS: BASOPHILS % (AUTO) 0.4 %; EOSINOPHILS % (AUTO) 0.4 %; HGB - HEMOGLOBIN 10.5 g/dL (14.0-18.0); LYMPHOCYTES # (AUTO) 0.5 10^3/uL (1.5-3.5); LYMPHOCYTES % (AUTO) 6.2 %; MEAN CORPUSCULAR HEMOGLOBIN 33.3 pg (27.0-31.0); MEAN PLATELET VOLUME 9.2 fL (7.4-11.4); MONOCYTES # (AUTO) 0.6 10^3/uL (0.0-1.0); MONOCYTES % (AUTO) 8.6 %; NEUTROPHILS # (AUTO) 6.2 10^3/uL (1.5-6.6); NEUTROPHILS % (AUTO) 84.1 %; PLT - PLATELET COUNT 208 10^3/uL (130-450); RED BLOOD COUNT 3.15 10^6/uL (4.70-6.10); RED CELL DISTRIBUTION WIDTH 15.2 % (12.0-15.0); WHITE BLOOD COUNT 7.4 x10^3/uL (4.8-10.8)
[2018-09-24 20:00] LABS: ALBUMIN 4.2 g/dL (3.2-5.5); ALBUMIN/GLOBULIN RATIO 0.9 (1.0-2.2); BILIRUBIN,TOTAL 0.3 mg/dL (0.2-1.0); CALCIUM 9.6 mg/dL (8.5-10.3); CREATININE 1.4 mg/dL (0.6-1.2); TOTAL PROTEIN 8.9 g/dL (6.7-8.2)
[2018-09-24 20:25] LABS: BILIRUBIN,URINE NEGATIVE (NEGATIVE); GLUCOSE, URINE (UA) NEGATIVE (NEGATIVE); KETONES,URINE (UA) NEGATIVE (NEGATIVE); LEUKOCYTE ESTERASE, URINE SMALL (NEGATIVE); NITRITE,URINE NEGATIVE (NEGATIVE); OCCULT BLOOD,URINE MODERATE (NEGATIVE); PH,URINE 7.5 PH (5.0-7.5); PROTEIN,URINE 100 mg/dL (NEGATIVE); UROBILINOGEN,URINE 0.2 (NORMAL) E.U./dL (NORMAL)
[2018-09-24 20:30] LABS: CLARITY,URINE HAZY (CLEAR)
[2018-09-24 20:36] LABS: WBC CLUMPS,URINE PRESENT
[2018-09-24 20:37] LABS: BACTERIA,URINE Few /HPF (None Seen); SQUAMOUS EPITHELIAL CELL,UR NONE SEEN (<= Few)
[2018-09-24 20:38] LABS: CASTS, URINE 0-2 Hyaline Casts /LPF
[2018-09-24] MEDS ORDERED: SODIUM CHLORIDE 0.9% 1,000 ML IV ONE (21:10)
[2018-09-24] MEDS ORDERED: ACETAMINOPHEN 160 MG/5 ML SUSP UDC PEG STA (21:11)
[2018-09-24] MEDS ORDERED: cefTRIAXone 2 GM in SODIUM CHLORIDE 0.9% MINIBAG 100 ML IV STA (21:12)
--- NOTE | 2018-09-24 21:15 | ED Physician Documentation ---
History of Present Illness - Stated complaint Stated Complaint: AMS - Chief complaint Chief Complaint: Fever - History of Present Illness Timing: Prior to arrival - Additonal information Additional information: His complains that he was just "not feeling well". She said he is been very weak and "not cognizant". She is been having difficulty urinating and they do occasionally cath him. Is just been dribbling over the past 2 days without the catheter and then noticed some blood in the urine when he urinated in the toilet tonight around 7 PM. 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 Patient has a G-tube due to aspiration pneumonia. He has been sleeping all day. He was admitted to [facility] with sepsis 2 months ago and developed renal failure. They did not check his temperature at home but he had a fever of 102 degrees in the ambulance. He said been mildly short of breath but no coughing. Denies dizziness or loss of consciousness. Review of Systems Unable to obtain: Confused (Patient is oriented to self and knows he is at a hospital but does not know the location of the hospital or the date.) Constitutional: reports: Fever Throat: reports: Other (Existing mass in the left neck that is from his throat cancer is very tender.) Cardiac: denies: Palpitations, Pedal edema Respiratory: reports: Cough GI: denies: Nausea, Vomiting, Diarrhea : reports: Unable to Void, Hematuria Musculoskeletal: reports: Neck pain Neurologic: reports: Generalized weakness. denies: Focal weakness PD PAST MEDICAL HISTORY - Past Medical History Cardiovascular: Hypertension, High cholesterol, Coronary artery disease, Atrial fibrillation, Murmur, Arrhythmia Respiratory: COPD, Emphysema, Pneumonia, Shortness of breath Neuro: Dementia, Headaches, Peripheral neuropathy, Tremors Endocrine/Autoimmune: None GI: GERD, Colon polyps, Hepatitis, Other : Benign prostate hypertrophy, Retention, Renal insuffiency, Nocturia HEENT: Chronic vision loss, Chronic sinusitis, Chronic hearing loss, Other Psych: Depression, Anxiety Musculoskeletal: Osteoarthritis, Fatigue Derm: None - Past Surgical History Past Surgical History: Yes General: Appendectomy, Gastric surgery, Colonoscopy, Other Ortho: Hip replacement Derm: Skin cancer surgery - Present Medications Home Medications: Ambulatory Orders Medication Instructions Recorded Confirmed RX: Trazodone HCl 100 mg GT QPM 02/28/18 09/15/18 RX: Doxazosin [Cardura] 1 mg GT QPM 06/23/18 09/15/18 RX: Finasteride 5 mg GT DAILY 06/23/18 09/15/18 RX: fentaNYL [Fentanyl 50mcg patch] 125 mcg TD Q3D 06/27/18 09/15/18 Naloxone HCl [Narcan] 1 spray JESSICA DAILY PRN 07/24/18 09/15/18 RX: Albuterol Sulfate [Proair 1 - 2 puffs INH Q4HR PRN 07/24/18 09/15/18 Respiclick] RX: Metoprolol Succinate 25 mg PO BID 07/24/18 09/15/18 RX: Nystatin 5 ml PO QID 07/24/18 09/15/18 Ipratropium/Albuterol [Duoneb] 1 amp INH Q4HR PRN 08/04/18 09/15/18 RX: Oxycodone HCl 20 mg GT Q3HR PRN MDD 160 mg 08/04/18 09/15/18 buPROPion HCl [Bupropion HCl] 75 mg GT BID 08/04/18 09/15/18 Polyethylene Glycol 3350 [Miralax] 17 mg GT BID 09/15/18 09/15/18 - Allergies Allergies/Adverse Reactions: Allergies Allergy/AdvReac Type Severity Reaction Status Date / Time No Known Drug Allergies Allergy Verified 09/24/18 19:29 - Social History Does the pt smoke?: No Smoking Status: Former smoker Does the pt drink ETOH?: Yes Does the pt have substance abuse?: Yes - Immunizations Immunizations are current?: No Immunizations: TDAP >10years/unknown - POLST Patient has POLST: No POLST Status: Full Code PD ED PE NORMAL - General General: Other (Alert only to his name But does not know the hospital he is at or the day. He is thin.) - HEENT HEENT: Atraumatic, Other (Mucous membranes are very dry.) - Neck Neck: Other (Large mass under the left submandibular region that is very tender. There is no erythema.) - Cardiac Cardiac: RRR - Respiratory Respiratory: No respiratory distress, Clear bilaterally - Abdomen Abdomen: Normal bowel sounds, Soft, Non tender, Non distended, Other (G-tube in the epigastric area. The site is clean and not draining.) - Rectal Rectal: Deferred - Derm Derm: Normal color, Warm and dry, No rash - Extremities Extremities: No deformity, No edema - Neuro Neuro: No motor deficit, No sensory deficit Eye Opening: Spontaneous Motor: Obeys Commands Verbal: Confused GCS Score: 14 - Psych Psych: Normal affect Results - Vitals Vitals: Vital Signs - 24 hr 09/24/18 09/24/18 09/24/18 19:24 19:44 21:33 Temperature 38.3 C H 101 C H 37.2 C Heart Rate 104 H 101 H 74 Respiratory 22 22 16 Rate Blood Pressure 102/75 114/84 H 104/69 O2 Saturation 95 92 95 Oxygen O2 Source Nasal cannula Oxygen Flow Rate 2 - Labs Labs: Laboratory Tests 09/24/18 09/24/18 09/24/18 19:39 19:39 19:39 WBC 7.4 RBC 3.15 L Hgb 10.5 L Hct 31.8 L MCV 101.0 H MCH 33.3 H MCHC 33.0 RDW 15.2 H Plt Count 208 MPV 9.2 Neut # (Auto) 6.2 Lymph # (Auto) 0.5 L [place] # (Auto) 0.6 Eos # (Auto) 0.0 Baso # (Auto) 0.0 Absolute Nucleated RBC 0.00 Nucleated RBC % 0.0 Sodium 134 L Potassium 5.4 H Chloride 97 L Carbon Dioxide 28 Anion Gap 9.0 BUN 44 H Creatinine 1.4 H Estimated GFR (MDRD) 50 L Glucose 139 H Lactic Acid 1.0 Calcium 9.6 Total Bilirubin 0.3 AST 19 ALT 14 Alkaline Phosphatase 58 Total Protein 8.9 H Albumin 4.2 Globulin 4.7 H Albumin/Globulin Ratio 0.9 L Lipase 27 Urine Color Urine Clarity Urine pH Ur Specific [place] Urine Protein Urine Glucose (UA) Urine Ketones Urine Occult Blood Urine Nitrite Urine Bilirubin Urine Urobilinogen Ur Leukocyte Esterase Urine RBC Urine WBC Urine WBC Clumps Ur Squamous Epith Cells Urine Bacteria Urine Casts Ur Microscopic Review Urine Culture Comments 09/24/18 20:10 WBC RBC Hgb Hct MCV MCH MCHC RDW Plt Count MPV Neut # (Auto) Lymph # (Auto) [place] # (Auto) Eos # (Auto) Baso # (Auto) Absolute Nucleated RBC Nucleated RBC % Sodium Potassium Chloride Carbon Dioxide Anion Gap BUN Creatinine Estimated GFR (MDRD) Glucose Lactic Acid Calcium Total Bilirubin AST ALT Alkaline Phosphatase Total Protein Albumin Globulin Albumin/Globulin Ratio Lipase Urine Color YELLOW Urine Clarity HAZY Urine pH 7.5 Ur Specific [place] 1.010 Urine Protein 100 H Urine Glucose (UA) NEGATIVE Urine Ketones NEGATIVE Urine Occult Blood MODERATE H Urine Nitrite NEGATIVE Urine Bilirubin NEGATIVE Urine Urobilinogen 0.2 (NORMAL) Ur Leukocyte Esterase SMALL H Urine RBC 6-10 H Urine WBC >25 H Urine WBC Clumps PRESENT Ur Squamous Epith Cells NONE SEEN Urine Bacteria Few Urine Casts 0-2 Hyaline Casts Ur Microscopic Review INDICATED Urine Culture Comments INDICATED PD MEDICAL DECISION MAKING - ED course Complexity details: d/w patient, d/w family, d/w store consultant ED course: This is an immunocompromise 68-year-old man with a urinary tract infection. His initial lactate is negative. His BUN and creatinine are elevated with mild elevation of his potassium at 5.4. Chest x-ray is clear. He was given a liter of fluids 1 g of Rocephin IV. Discussed with the hospitalist and he is going to be admitted. Departure - Departure Disposition: [facility] DC/Xfer Clinical Impression: Fever, Urinary tract infection, Weakness Condition: Good Discharge Date/Time: 09/24/18 23:34
--- NOTE | 2018-09-24 21:47 | XRAY Report ---
Reason: chest pain Procedure Date: 09/24/2018 Accession Number: [id number] / [id number] Procedure: XR - Chest 1 View X-Ray CPT Code: 09395 FULL RESULT: EXAM: CHEST RADIOGRAPHY EXAM DATE: 09/24/2018 09:23 PM. CLINICAL HISTORY: Chest pain. COMPARISON: CHEST 1 VIEW 06/26/2018 4:02 PM. TECHNIQUE: 1 view. FINDINGS: Lungs/Pleura: No focal opacities evident. No pleural effusion. No pneumothorax. Mediastinum: Within exam limitations, the cardiomediastinal contour is normal. Other: Right chest port again noted. IMPRESSION: Unremarkable single view chest. RADIA
[2018-09-24] MEDS ORDERED: SODIUM CHLORIDE FLUSH 0.9% 10 ML SYRINGE IVP PRN (22:39)
[2018-09-24] MEDS ORDERED: MORPHINE 2 MG/ML CARPUJECT IVP STA (23:09)
[2018-09-24] MEDS ORDERED: LACTATED RINGERS 1,000 ML IV ONE (23:23)
[2018-09-24] MEDS ORDERED: fentaNYL 25 MCG PATCH TOP SCH (23:45)
[2018-09-24] MEDS ORDERED: fentaNYL 100 MCG PATCH TOP SCH (23:45)
[2018-09-25] MEDS: SODIUM CHLORIDE FLUSH 0.9% 10 ML SYRINGE IVP SCH ×3 (00:18→17:43)
[2018-09-25] MEDS: oxyCODONE 5 MG TABLET GT PRN ×5 (00:39→18:25)
[2018-09-25] MEDS: LACTATED RINGERS 1,000 ML IV SCH ×3 (01:54→20:59)
--- NOTE | 2018-09-25 02:17 | HISTORY & PHYSICAL EXAMINATION ---
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 Most of the history is obtain from the spouse as the patient is altered. She reports the patient was in his usual state of health when he started to be come more confused and was not feeling well. She noticed his urine output was decreasing as well. She straight catheterized the patient and noticed his urine was dark. Today she noticed he became even more altered along with spiking a fever and so she called EMS. She tells me that he was started on Opdivo about month ago after he failed chemotherapy treatment for his malignancy. She tells me that he has improved since coming to the ER from a confusion point of view. He is now oriented to self, location, date. He tells me that he recalls being confused over the last day or so and that he had decreased urine output. In the emergency department, he was found to be febrile, tachycardic and borderline hypotensive. His urinalysis had pyuria and so he was given Ceftriaxone and a IV fluids. History - Past Medical History Cardiovascular: reports: Hypertension, High cholesterol, Coronary artery disease, Atrial fibrillation, Murmur, Arrhythmia Respiratory: reports: COPD, Emphysema, Pneumonia, Shortness of breath Neuro: reports: Dementia, Headaches, Peripheral neuropathy, Tremors Endocrine/Autoimmune: reports: None GI: reports: GERD, Colon polyps, Hepatitis, Other : reports: Benign prostate hypertrophy, Retention, Renal insuffiency, Nocturia HEENT: reports: Chronic vision loss, Chronic sinusitis, Chronic hearing loss, Other (Squamous cell cancer of the left tonsil) Psych: reports: Depression, Anxiety Musculoskeletal: reports: Osteoarthritis, Fatigue Derm: reports: None MRSA Hx?: No - Past Surgical History General: reports: Appendectomy, Colonoscopy, Other (PEG tube placement) Ortho: reports: Hip replacement Derm: reports: Skin cancer surgery - Family & Social History Family History: Mother: Alive and Well, Father: , Cancer Living arrangement: At home Living Situation: With spouse/s.o. - Substance History Use: Uses substance without health or social issues: Tobacco, Cannabis - POLST Patient has POLST: No POLST Status: Full Code Meds/Allgy - Home Medications Home Medications: Ambulatory Orders Medication Instructions Recorded Confirmed Trazodone HCl 100 mg GT QPM 02/28/18 09/15/18 Doxazosin [Cardura] 1 mg GT QPM 06/23/18 09/15/18 Finasteride 5 mg GT DAILY 06/23/18 09/15/18 fentaNYL [Fentanyl 50mcg patch] 125 mcg TD Q3D 06/27/18 09/15/18 Albuterol Sulfate [Proair 1 - 2 puffs INH Q4HR PRN 07/24/18 09/15/18 Respiclick] Metoprolol Succinate 25 mg PO BID 07/24/18 09/15/18 Naloxone HCl [Narcan] 1 spray JESSICA DAILY PRN 07/24/18 09/15/18 Nystatin 5 ml PO QID 07/24/18 09/15/18 Ipratropium/Albuterol [Duoneb] 1 amp INH Q4HR PRN 08/04/18 09/15/18 Oxycodone HCl 20 mg GT Q3HR PRN MDD 160 mg 08/04/18 09/15/18 buPROPion HCl [Bupropion HCl] 75 mg GT BID 08/04/18 09/15/18 Polyethylene Glycol 3350 [Miralax] 17 mg GT BID 09/15/18 09/15/18 - Allergies Allergies/Adverse Reactions: Allergies Allergy/AdvReac Type Severity Reaction Status Date / Time No Known Drug Allergies Allergy Verified 09/24/18 19:29 Review of Systems - Constitutional Constitutional: reports: Fatigue, Fever, Chills, Weakness, Poor appetite - Ears, Nose & Throat Ears, Nose & Throat: reports: Hearing loss, Sore throat, Other (Throat swelling) - Cardiovascular Cariovascular: denies: Chest pain, Edema - Respiratory Respiratory: denies: SOB at rest, SOB with exertion - Gastrointestinal Gastrointestinal: denies: Abdominal pain - Genitourinary Genitourinary: reports: Other (Urinary retention, decreased urine output). denies: Dysuria, Frequency, Incontinence - Neurological Neurological: reports: General weakness, Other (Confusion) - All Other Systems All Other Systems: reports: Reviewed and negative Exam - Vital Signs Reviewed Vital Signs: Yes Vital Signs: Vital Signs x48h Temp Pulse Pulse Resp BP BP Pulse Ox 09/24/18 23:45 36.9 C 62 107/53 L 96 09/24/18 23:35 36.7 C 62 16 110/54 L 96 09/24/18 23:16 74 18 104/60 95 09/24/18 22:43 71 16 98/64 98 09/24/18 21:33 37.2 C 74 16 104/69 95 09/24/18 19:44 101 C H 101 H 22 114/84 H 92 09/24/18 19:24 38.3 C H 104 H 22 102/75 95 - Physical Exam General Appearance: positive: No acute distress, Lethargic Eyes Bilateral: positive: Normal inspection ENT: positive: Dry mucous membranes, Other (Mass palpated overthe left side of the throat and mandible) Neck: positive: Lymphadenopathy (L). negative: Nml inspection Respiratory: positive: No respiratory distress, Breath sounds nml. negative: Wheezes, Rales, Rhonchi Cardiovascular: positive: Regular rate & rhythm, No murmur Abdomen: positive: Non-tender, No distention, Other (PEG tube in place) Skin: positive: Warm, Dry Extremities: positive: No pedal edema Neurologic/Psychiatric: positive: Disoriented to time. negative: Disoriented to person, Disoriented to place Sepsis Event Note (H) - Evaluation Current Stage of Sepsis: Sepsis Possible source of Sepsis: positive: Genitourinary - Sepsis Criteria Sepsis Criteria: Recorded Temperature greater than 38.3C or Less than 36C, [employer]: altered consciousness (unrelated to primary neuro pathology) Conclusion/Plan - Problem List (1) Encephalopathy Conclusion/Plan: This is likely secondary to his sepsis and urinary tract infection. Appears to be improving and is now oriented to self and location. Per spouse, he is not back to his baseline but has definitely improved. - Continue antibiotics to treat underlying sepsis - As he is improving from an encephalopathy point of view, I will continue his home pain regimen for his oropharyngeal cancer (2) Sepsis secondary to UTI Conclusion/Plan: He presented with encephalopathy, fevers and his urinalysis is significant for pyuria, small leukocyte esterase and few bacteria. I suspect this is the source of his infection as his x-ray is unremarkable and there are no other obvious sources of infection. He has also been receiving Opdivo for his malignancy - Will continue Ceftriaxone IV - IV hydration - Follow up blood and urine culture (3) Oropharyngeal cancer Conclusion/Plan: He has history of stave IV squamous cell carcinoma of the left tonsil with metastasis to the lung. He failed chemotherapy in the past with Carboplatin and Taxol. He is now Opdivo which was initiated one month ago and he follows with Dr. Yang. - Continue home pain regimen of Fentanyl patch 125mcg and Oxycodone 20mg every 3 hours PRN - I did discuss with the patient and his spouse regarding code status. As he was still altered, she told me that they have discussed this in the past and that he would want heroic measures. They continue to follow with Palliative on an outpatient basis. (4) Renal insufficiency Conclusion/Plan: He is at his baseline renal function with a creatinine of 1.4. There is mild hyperkalemia on his labs so there may possibly be a component of acute kidney injury although his creatinine is not elevated. - Continue IV hydration - Will recheck BMP, if potassium continues to rise then we will medically treat the hyperkalemia (5) BPH (benign prostatic hyperplasia) Conclusion/Plan: He is on doxazosin at home and has require intermittent self catheterization at times per the spouse - Will hold doxazosin in the setting of sepsis - Monitor urine ouput, will consider bladder scan and catheterization if oliguric (6) Atrial fibrillation Conclusion/Plan: He has a history of atrial fibrillation but is not on anticoagulation. He is on Metoprolol at home but is rate controlled at this time. - Hold Metoprolol in setting of sepsis - Monitor on telemetry (7) Essential hypertension Conclusion/Plan: He is on Metoprolol and Doxazosin at home. He is currently borderline hypotensive with systolics in the low 100's. - Hold home antihypertensives (8) Dysphagia Conclusion/Plan: He has dysphagia secondary to his oropharyngeal cancer. PEG tube has been in [facility] since late last year. - Nutrition consult for TF recs - Chloraseptic spray for sore throat - Lab Results Fish Bones: 09/24/18 19:39 09/24/18 19:39 Core Measures - Anticipated LOS I expect patient to be DC'd or transferred within 96 hours.: Yes - Issues Hospital Issues and Management Plan: Sepsis secondary to UTI requiring IV Abx and hydration in an immunocompromised patient - DVT/VTE - Prophylaxis VTE/DVT Device ordered at admit?: Yes VTE/DVT Prophylaxis med ordered at admit?: Yes
[2018-09-25] MEDS: PHENOL THROAT SPRAY 177 ML MM PRN (03:53)
[2018-09-25] MEDS: ACETAMINOPHEN 160 MG/5 ML SUSP UDC PEG PRN (03:54)
[2018-09-25 05:06] LABS: BASOPHILS % (AUTO) 0.1 %; EOSINOPHILS % (AUTO) 0.4 %; LYMPHOCYTES # (AUTO) 0.9 10^3/uL (1.5-3.5); LYMPHOCYTES % (AUTO) 10.4 %; MEAN CORPUSCULAR HEMOGLOBIN 33.5 pg (27.0-31.0); MEAN CORPUSCULAR HGB CONC 32.5 g/dL (32.0-36.0); MEAN PLATELET VOLUME 10.1 fL (7.4-11.4); MONOCYTES # (AUTO) 1.2 10^3/uL (0.0-1.0); MONOCYTES % (AUTO) 14.1 %; NEUTROPHILS # (AUTO) 6.3 10^3/uL (1.5-6.6); NEUTROPHILS % (AUTO) 74.5 %; PLT - PLATELET COUNT 189 10^3/uL (130-450); RED BLOOD COUNT 2.69 10^6/uL (4.70-6.10); RED CELL DISTRIBUTION WIDTH 15.2 % (12.0-15.0); WHITE BLOOD COUNT 8.4 x10^3/uL (4.8-10.8)
[2018-09-25 05:08] LABS: CALCIUM 9.1 mg/dL (8.5-10.3); CREATININE 1.3 mg/dL (0.6-1.2); MAGNESIUM 2.2 mg/dL (1.7-2.8); PHOSPHORUS 3.4 mg/dL (2.5-4.6)
--- NOTE | 2018-09-25 07:47 | PROVIDER PROGRESS NOTE ---
Subjective - Prog Note Date Prog Note Date: 09/25/18 Prog Note Time: 17:47 - Subjective Subjective: He feels better but he is just so tired, emotionally overwhelmed. Very anxious. He is in asking "am I get a make it". Hurts all over. Denies any abdominal pain, has urgency, frequency but no dysuria. Denies hematuria currently. No chest pain, no palpitations, mildly short of breath when he has to walk more than 6 or 7 steps to the bathroom. He is asking if he could just use a bedside urinal. Current Medications - Current Medications Current Medications: Active Medications Acetaminophen (Tylenol) 650 mg PEG Q6HR PRN PRN Reason: Pain or Fever > 38C (100.4F) Last Admin: 09/25/18 03:54 Dose: 650 mg Enoxaparin Sodium (Lovenox) 40 mg SUBQ DAILY [facility] Fentanyl (Duragesic) 1 patch TOP Q3D [facility] Last Admin: 09/25/18 00:27 Dose: Not Given Fentanyl (Duragesic) 1 patch TOP Q3D [facility] Last Admin: 09/25/18 00:27 Dose: Not Given Lactated Ringer's (Lr) 1,000 mls @ 100 mls/hr IV .Q10H [facility] Last Admin: 09/25/18 01:54 Dose: 100 mls/hr Ceftriaxone Sodium 1 gm/ (Sodium Chloride) 100 mls @ 200 mls/hr IV Q24H [facility] Oxycodone HCl (Roxicodone) 20 mg GT Q3HR PRN PRN Reason: PAIN Last Admin: 09/25/18 03:53 Dose: 20 mg Phenol/Menthol (Chloraseptic) 2 sprays MM Q4HR PRN PRN Reason: Mouth Sore Pain Last Admin: 09/25/18 03:53 Dose: 2 sprays Sodium Chloride (Normal Saline Flush 0.9%) 10 ml IVP PRN PRN PRN Reason: NEEDED PER PROVIDER ORDERS Sodium Chloride (Normal Saline Flush 0.9%) 10 ml IVP 0100,0900,1700 [facility] Last Admin: 09/25/18 00:18 Dose: 10 ml Trazodone HCl 100 mg GT QPM 02/28/18 Doxazosin [Cardura] 1 mg GT QPM 06/23/18 Finasteride 5 mg GT DAILY 06/23/18 fentaNYL [Fentanyl 50mcg patch] 125 mcg TD Q3D 06/27/18 Albuterol Sulfate [Proair Respiclick] 1 - 2 puffs INH Q4HR PRN 07/24/18 Metoprolol Succinate 25 mg PO BID 07/24/18 Naloxone HCl [Narcan] 1 spray JESSICA DAILY PRN 07/24/18 Nystatin 5 ml PO QID 07/24/18 Ipratropium/Albuterol [Duoneb] 1 amp INH Q4HR PRN 08/04/18 Oxycodone HCl 20 mg GT Q3HR PRN MDD 160 mg 08/04/18 buPROPion HCl [Bupropion HCl] 75 mg GT BID 08/04/18 Polyethylene Glycol 3350 [Miralax] 17 mg GT BID 09/15/18 Objective - Vital Signs/Intake & Output Reviewed Vital Signs: Yes Vital Signs: Vital Signs x48h Temp Pulse Resp BP Pulse Ox 09/25/18 07:38 36.9 C 63 16 140/63 H 94 09/25/18 06:15 37.3 C 09/25/18 05:05 38.3 C H 74 18 130/51 L 94 09/25/18 03:50 38.3 C H Intake & Output: Intake & Output 09/22/18 09/23/18 09/24/18 09/25/18 23:59 23:59 23:59 23:59 Intake Total 1100 2310 Output Total 525 Balance 1100 1785 - Objective General Appearance: positive: Alert, Mild distress, Anxious, Other (Looks like a very tired fatigued tall, lanky elderly man, unshaven, slightly slurred dysarthric speech and slightly deformed head and neck exam from his cancer surgery) Eyes Bilateral: positive: PERRL, EOMI ENT: positive: Dry mucous membranes Neck: positive: No JVD. negative: Stiff neck Respiratory: positive: No respiratory distress, Other (Tubular breath sounds loudest in the upper lung kee, probably radiated from his neck). negative: Chest non-tender, Wheezes, Rales, Rhonchi Cardiovascular: positive: Regular rate & rhythm, Systolic murmur. negative: Gallop/S4, Friction rub Abdomen: positive: Non-tender, No organomegaly, Nml bowel sounds, No distention Skin: positive: Warm, Dry, Pallor Extremities: positive: Non-tender, No pedal edema Neurologic/Psychiatric: positive: Oriented x3, CN's nml (2-12), Motor nml, Weakness, Slurred/abnml speech - Lab Results Fish Bones: 09/25/18 04:25 09/25/18 04:25 Other Labs: Lab Results x24hrs 09/25/18 09/25/18 09/24/18 Range/Units 04:25 04:25 20:10 WBC 8.4 (4.8-10.8) x10^3/uL RBC 2.69 L (4.70-6.10) 10^6/uL Hgb 9.0 L (14.0-18.0) g/dL Hct 27.7 L (42.0-52.0) % MCV 103.0 H (80.0-94.0) fL MCH 33.5 H (27.0-31.0) pg MCHC 32.5 (32.0-36.0) g/dL RDW 15.2 H (12.0-15.0) % Plt Count 189 (130-450) 10^3/uL MPV 10.1 (7.4-11.4) fL Neut # (Auto) 6.3 (1.5-6.6) 10^3/uL Lymph # (Auto) 0.9 L (1.5-3.5) 10^3/uL [place] # (Auto) 1.2 H (0.0-1.0) 10^3/uL Eos # (Auto) 0.0 (0.0-0.7) 10^3/uL Baso # (Auto) 0.0 (0.0-0.1) 10^3/uL Absolute Nucleated RBC 0.00 x10^3/uL Nucleated RBC % 0.0 /100WBC Sodium 138 (135-145) mmol/L Potassium 4.9 (3.5-5.0) mmol/L Chloride 98 L (101-111) mmol/L Carbon Dioxide 28 (21-32) mmol/L Anion Gap 12.0 (6-13) BUN 42 H (6-20) mg/dL Creatinine 1.3 H (0.6-1.2) mg/dL Estimated GFR (MDRD) 55 L (>89) Glucose 125 H (70-100) mg/dL Lactic Acid (0.5-2.2) mmol/L Calcium 9.1 (8.5-10.3) mg/dL Phosphorus 3.4 (2.5-4.6) mg/dL Magnesium 2.2 (1.7-2.8) mg/dL Total Bilirubin (0.2-1.0) mg/dL AST (10-42) IU/L ALT (10-60) IU/L Alkaline Phosphatase (42-121) IU/L Total Protein (6.7-8.2) g/dL Albumin (3.2-5.5) g/dL Globulin (2.1-4.2) g/dL Albumin/Globulin Ratio (1.0-2.2) Lipase (22-51) U/L Urine Color YELLOW Urine Clarity HAZY (CLEAR) Urine pH 7.5 (5.0-7.5) PH Ur Specific [place] 1.010 (1.002-1.030) Urine Protein 100 H (NEGATIVE) mg/dL Urine Glucose (UA) NEGATIVE (NEGATIVE) mg/dL Urine Ketones NEGATIVE (NEGATIVE) mg/dL Urine Occult Blood MODERATE H (NEGATIVE) Urine Nitrite NEGATIVE (NEGATIVE) Urine Bilirubin NEGATIVE (NEGATIVE) Urine Urobilinogen 0.2 (NORMAL) (NORMAL) E.U./dL Ur Leukocyte Esterase SMALL H (NEGATIVE) Urine RBC 6-10 H (0-5) /HPF Urine WBC >25 H (0-3) /HPF Urine WBC Clumps PRESENT Ur Squamous Epith Cells NONE SEEN (<= Few) Urine Bacteria Few (None Seen) /HPF Urine Casts 0-2 Hyaline Casts /LPF Ur Microscopic Review INDICATED Urine Culture Comments INDICATED 09/24/18 09/24/18 09/24/18 Range/Units 19:39 19:39 19:39 WBC 7.4 (4.8-10.8) x10^3/uL RBC 3.15 L (4.70-6.10) 10^6/uL Hgb 10.5 L (14.0-18.0) g/dL Hct 31.8 L (42.0-52.0) % MCV 101.0 H (80.0-94.0) fL MCH 33.3 H (27.0-31.0) pg MCHC 33.0 (32.0-36.0) g/dL RDW 15.2 H (12.0-15.0) % Plt Count 208 (130-450) 10^3/uL MPV 9.2 (7.4-11.4) fL Neut # (Auto) 6.2 (1.5-6.6) 10^3/uL Lymph # (Auto) 0.5 L (1.5-3.5) 10^3/uL [place] # (Auto) 0.6 (0.0-1.0) 10^3/uL Eos # (Auto) 0.0 (0.0-0.7) 10^3/uL Baso # (Auto) 0.0 (0.0-0.1) 10^3/uL Absolute Nucleated RBC 0.00 x10^3/uL Nucleated RBC % 0.0 /100WBC Sodium 134 L (135-145) mmol/L Potassium 5.4 H (3.5-5.0) mmol/L Chloride 97 L (101-111) mmol/L Carbon Dioxide 28 (21-32) mmol/L Anion Gap 9.0 (6-13) BUN 44 H (6-20) mg/dL Creatinine 1.4 H (0.6-1.2) mg/dL Estimated GFR (MDRD) 50 L (>89) Glucose 139 H (70-100) mg/dL Lactic Acid 1.0 (0.5-2.2) mmol/L Calcium 9.6 (8.5-10.3) mg/dL Phosphorus (2.5-4.6) mg/dL Magnesium (1.7-2.8) mg/dL Total Bilirubin 0.3 (0.2-1.0) mg/dL AST 19 (10-42) IU/L ALT 14 (10-60) IU/L Alkaline Phosphatase 58 (42-121) IU/L Total Protein 8.9 H (6.7-8.2) g/dL Albumin 4.2 (3.2-5.5) g/dL Globulin 4.7 H (2.1-4.2) g/dL Albumin/Globulin Ratio 0.9 L (1.0-2.2) Lipase 27 (22-51) U/L Urine Color Urine Clarity (CLEAR) Urine pH (5.0-7.5) PH Ur Specific [place] (1.002-1.030) Urine Protein (NEGATIVE) mg/dL Urine Glucose (UA) (NEGATIVE) mg/dL Urine Ketones (NEGATIVE) mg/dL Urine Occult Blood (NEGATIVE) Urine Nitrite (NEGATIVE) Urine Bilirubin (NEGATIVE) Urine Urobilinogen (NORMAL) E.U./dL Ur Leukocyte Esterase (NEGATIVE) Urine RBC (0-5) /HPF Urine WBC (0-3) /HPF Urine WBC Clumps Ur Squamous Epith Cells (<= Few) Urine Bacteria (None Seen) /HPF Urine Casts /LPF Ur Microscopic Review Urine Culture Comments ABX Reporting Has patient been on IV antibiotics over the past 48 hours?: Yes Sepsis Event Note (H) - Evaluation Current Stage of Sepsis: Sepsis Possible source of Sepsis: positive: Genitourinary - Sepsis Criteria Sepsis Criteria: Recorded Temperature greater than 38.3C or Less than 36C, CASTING CARRIER: altered consciousness (unrelated to primary neuro pathology) Assessment/Plan - Problem List (1) Encephalopathy Impression: This is likely secondary to his sepsis and urinary tract infection. Is improving and is now oriented to self and location by last night and why he is here today. Spouse has been here off and on all day. - Continue antibiotics to treat underlying sepsis - As he is improving from an encephalopathy point of view, I will continue his home pain regimen for his oropharyngeal cancer (2) Sepsis secondary to UTI Conclusion/Plan: He presented with encephalopathy, fevers and his urinalysis is significant for pyuria, small leukocyte esterase and few bacteria. I suspect this is the source of his infection as his x-ray is unremarkable and there are no other obvious sources of infection. 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 He failed chemotherapy in the past with Carboplatin and Taxol. He is now Opdivo which was initiated one month ago and he follows with Dr. Yang. - Continue home pain regimen of Fentanyl patch 125mcg and Oxycodone 20mg every 3 hours PRN - I did discuss with the patient and his spouse regarding code status. As he was still altered, she told me that they have discussed this in the past and that he would want heroic measures. They continue to follow with Palliative on an outpatient basis. MEENAKSHI Freier was by this am to check in with he and . (4) Renal insufficiency Conclusion/Plan: He is at his baseline renal function with a creatinine of 1.3-1.4. There was mild hyperkalemia on his labs adn gone by today so there may possibly be a component of acute kidney injury although his creatinine is not elevated. - Continue IV hydration - Check BMP daily (5) BPH (benign prostatic hyperplasia) Conclusion/Plan: He is on doxazosin at home and has require intermittent self catheterization at times per the spouse - Will hold doxazosin in the setting of sepsis - Monitor urine ouput, will consider bladder scan and catheterization if oliguric (6) Atrial fibrillation Conclusion/Plan: He has a history of atrial fibrillation but is not on anticoagulation. He is on Metoprolol at home but is rate controlled at this time. - Hold Metoprolol in setting of sepsis - Monitor on telemetry (7) Essential hypertension Conclusion/Plan: He is on Metoprolol and Doxazosin at home. He was borderline hypotensive with systolics in the low 100's on admission bc of sepsis but today he is 117=641 systolic. -Resume home antihypertensives tomorrow if BP continues to hold. (8) Dysphagia Conclusion/Plan: He has dysphagia secondary to his oropharyngeal cancer. PEG tube has been in place since late last year. - Nutrition consult for TF recs - Chloraseptic spray for sore throat
[2018-09-25] MEDS: ENOXAPARIN 40 MG/0.4 ML SYRINGE SUBQ SCH (09:07)
[2018-09-25] MEDS: CALCIUM CARBONATE CHEW 500 MG TABLET PO PRN (11:14)
[2018-09-25] MEDS: cefTRIAXone 1 GM in SODIUM CHLORIDE 0.9% MINIBAG 100 ML IV SCH (20:59)
[2018-09-25] MEDS ORDERED: IPRATROPIUM/ALBUTEROL 3 ML NEB INH PRN (22:51)
[2018-09-26] MEDS: SODIUM CHLORIDE FLUSH 0.9% 10 ML SYRINGE IVP SCH ×4 (01:27→23:47)
[2018-09-26] MEDS: oxyCODONE 5 MG TABLET GT PRN ×7 (01:49→22:39)
[2018-09-26 05:44] LABS: BASOPHILS % (AUTO) 0.4 %; EOSINOPHILS % (AUTO) 0.8 %; HGB - HEMOGLOBIN 8.6 g/dL (14.0-18.0); LYMPHOCYTES # (AUTO) 0.9 10^3/uL (1.5-3.5); LYMPHOCYTES % (AUTO) 18.7 %; MEAN CORPUSCULAR HEMOGLOBIN 33.3 pg (27.0-31.0); MEAN CORPUSCULAR VOLUME 104.3 fL (80.0-94.0); MEAN PLATELET VOLUME 10.4 fL (7.4-11.4); MONOCYTES # (AUTO) 0.7 10^3/uL (0.0-1.0); MONOCYTES % (AUTO) 14.7 %; NEUTROPHILS # (AUTO) 3.3 10^3/uL (1.5-6.6); NEUTROPHILS % (AUTO) 65.2 %; PLT - PLATELET COUNT 174 10^3/uL (130-450); RED BLOOD COUNT 2.58 10^6/uL (4.70-6.10)
[2018-09-26 05:55] LABS: CALCIUM 9.3 mg/dL (8.5-10.3); CREATININE 1.1 mg/dL (0.6-1.2); MAGNESIUM 1.9 mg/dL (1.7-2.8); PHOSPHORUS 3.1 mg/dL (2.5-4.6)
[2018-09-26] MEDS: ENOXAPARIN 40 MG/0.4 ML SYRINGE SUBQ SCH ×2 (07:43→09:24)
[2018-09-26] MEDS: LACTATED RINGERS 1,000 ML IV SCH (07:44)
[2018-09-26] MEDS: TAMSULOSIN 0.4 MG CAPSULE PO SCH ×2 (09:24→20:58)
[2018-09-26] MEDS ORDERED: fentaNYL 100 MCG PATCH TOP SCH (11:00)
[2018-09-26] MEDS ORDERED: fentaNYL 25 MCG PATCH TOP SCH (11:00)
--- NOTE | 2018-09-26 11:28 | PROVIDER PROGRESS NOTE ---
Subjective - Prog Note Date Prog Note Date: 09/26/18 Prog Note Time: 14:39 - Subjective Subjective: Complains of weakness, fatigue. Poor appetite. Anxious. Keeps and asking for reassurance that he is not dying. This afternoon he became suddenly clammy, rowley in color, diaphoretic, short of breath. Denied chest pain. He is not tachycardic, and his O2 sats are stable for him. Stat EKG shows him to have sinus rhythm with PACs. No acute ST-T wave changes. Minimally change from his EKG June 26, 2018 at 16.06 There is an additional problem of home life situation. His has been here at his bedside off and on. She spent the night the 10th. She did call me yesterday evening but came back at 3 in the morning. Speech was slurred, she was ataxic, smell of alcohol on her breath and body. She woke the patient up, was asking him if he was in pain, demanding that the nurses give her pain medicine even though she woke him up from a sound sleep. This morning, she did not realize nursing was in the room, and she approached her and asked him for 1 of his fentanyl patches. She then realized that the nurse was in the room and stated "that was a joke you know". In speaking to Deanne Davis, the patient gets benzodiazepines that he been scheduled for him in the past. He stoutly maintains that he does not take benzodiazepines but the prescriptions have been picked up by his . Current Medications - Current Medications Current Medications: Active Medications Acetaminophen (Tylenol) 650 mg PEG Q6HR PRN PRN Reason: Pain or Fever > 38C (100.4F) Last Admin: 09/25/18 03:54 Dose: 650 mg Albuterol/Ipratropium (Duoneb) 3 ml INH RTQID PRN PRN Reason: Shortness of Air/Wheezing Calcium Carbonate/Glycine (Tums) 500 mg PO TID PRN PRN Reason: INDIGESTION Last Admin: 09/25/18 11:14 Dose: 500 mg Enoxaparin Sodium (Lovenox) 40 mg SUBQ DAILY [facility] Last Admin: 09/26/18 09:24 Dose: 40 mg Fentanyl (Duragesic) 1 patch TOP Q72H [facility] Last Admin: 09/26/18 10:30 Dose: 1 patch Fentanyl (Duragesic) 1 patch TOP Q72H [facility] Last Admin: 09/26/18 10:29 Dose: 1 patch Lactated Ringer's (Lr) 1,000 mls @ 100 mls/hr IV .Q10H [facility] Last Admin: 09/26/18 07:44 Dose: 100 mls/hr Ceftriaxone Sodium 1 gm/ (Sodium Chloride) 100 mls @ 200 mls/hr IV Q24H [facility] Last Infusion: 09/25/18 21:30 Dose: Infused Oxycodone HCl (Roxicodone) 20 mg GT Q3HR PRN PRN Reason: PAIN Last Admin: 09/26/18 09:24 Dose: 20 mg Phenol/Menthol (Chloraseptic) 2 sprays MM Q4HR PRN PRN Reason: Mouth Sore Pain Last Admin: 09/25/18 03:53 Dose: 2 sprays Sodium Chloride (Normal Saline Flush 0.9%) 10 ml IVP PRN PRN PRN Reason: NEEDED PER PROVIDER ORDERS Sodium Chloride (Normal Saline Flush 0.9%) 10 ml IVP 0100,0900,1700 [facility] Last Admin: 09/26/18 07:44 Dose: Not Given Tamsulosin HCl (Flomax) 0.4 mg PO BID [facility] Last Admin: 09/26/18 09:24 Dose: 0.4 mg Trazodone HCl 300 mg GT QPM 02/28/18 Doxazosin [Cardura] 1 mg GT QPM 06/23/18 Finasteride 5 mg GT DAILY 06/23/18 fentaNYL [Fentanyl 50mcg patch] 125 mcg TD Q3D 06/27/18 Albuterol Sulfate [Proair Respiclick] 1 - 2 puffs INH Q4HR PRN 07/24/18 Naloxone HCl [Narcan] 1 spray JESSICA DAILY PRN 07/24/18 Nystatin 5 ml PO QID PRN 07/24/18 Ipratropium/Albuterol [Duoneb] 1 amp INH Q4HR PRN 08/04/18 Oxycodone HCl 60 mg GT Q4H PRN MDD 160 mg 08/04/18 buPROPion HCl [Bupropion HCl] 75 mg GT BID 08/04/18 Polyethylene Glycol 3350 [Miralax] 17 mg GT BID 09/15/18 Indomethacin 50 mg PO TID PRN 09/25/18 Metoprolol Succinate [Toprol Xl] 12.5 mg PO BID 09/25/18 Ondansetron [Ondansetron Odt] 4 - 8 mg PO Q8H PRN 09/25/18 Prochlorperazine [Compazine] 5 - 10 mg PO Q8H PRN 09/25/18 Saccharomyces Boulardii [Florastor] 250 mg PO DAILY 09/25/18 Tamsulosin [Flomax] 0.4 mg PO BID 09/25/18 Objective - Vital Signs/Intake & Output Reviewed Vital Signs: Yes Vital Signs: Vital Signs x48h Temp Pulse Resp BP Pulse Ox 09/26/18 08:30 36.4 C L 70 18 157/77 H 93 09/26/18 05:00 37.1 C 67 18 152/72 H 93 Intake & Output: Intake & Output 09/23/18 09/24/18 09/25/18 09/26/18 23:59 23:59 23:59 23:59 Intake Total 1100 5883.333 1596 Output Total 3375 2050 Balance 1100 2508.333 -454 - Objective General Appearance: positive: Alert, Mild distress, Anxious Eyes Bilateral: positive: PERRL ENT: positive: Pharynx nml Neck: positive: No JVD. negative: Stiff neck, Carotid bruit Respiratory: positive: Chest non-tender, Other (Increased respiratory rate but not tachypneic or struggling). negative: Wheezes, Rales, Rhonchi Cardiovascular: positive: Regular rate & rhythm, Systolic murmur. negative: Gallop/S4, Friction rub Abdomen: positive: Non-tender, No organomegaly, Nml bowel sounds, No distention Skin: positive: Warm, Dry, Other (he says he feels clammy but I don't feel the diaphoresis after exam of face, trunk, arms, legs) Extremities: positive: Non-tender Neurologic/Psychiatric: positive: Oriented x3, CN's nml (2-12), Motor nml, Weakness, Slurred/abnml speech (bc of distorted tongue anatomy) - Lab Results Fish Bones: 09/26/18 04:45 09/26/18 04:45 Other Labs: Lab Results x24hrs 09/26/18 09/26/18 Range/Units 04:45 04:45 WBC 5.0 (4.8-10.8) x10^3/uL RBC 2.58 L (4.70-6.10) 10^6/uL Hgb 8.6 L (14.0-18.0) g/dL Hct 26.9 L (42.0-52.0) % MCV 104.3 H (80.0-94.0) fL MCH 33.3 H (27.0-31.0) pg MCHC 32.0 (32.0-36.0) g/dL RDW 15.0 (12.0-15.0) % Plt Count 174 (130-450) 10^3/uL MPV 10.4 (7.4-11.4) fL Neut # (Auto) 3.3 (1.5-6.6) 10^3/uL Lymph # (Auto) 0.9 L (1.5-3.5) 10^3/uL [place] # (Auto) 0.7 (0.0-1.0) 10^3/uL Eos # (Auto) 0.0 (0.0-0.7) 10^3/uL Baso # (Auto) 0.0 (0.0-0.1) 10^3/uL Absolute Nucleated RBC 0.00 x10^3/uL Nucleated RBC % 0.0 /100WBC Sodium 140 (135-145) mmol/L Potassium 4.4 (3.5-5.0) mmol/L Chloride 102 (101-111) mmol/L Carbon Dioxide 26 (21-32) mmol/L Anion Gap 12.0 (6-13) BUN 31 H (6-20) mg/dL Creatinine 1.1 (0.6-1.2) mg/dL Estimated GFR (MDRD) 66 L (>89) Glucose 123 H (70-100) mg/dL Calcium 9.3 (8.5-10.3) mg/dL Phosphorus 3.1 (2.5-4.6) mg/dL Magnesium 1.9 (1.7-2.8) mg/dL ABX Reporting Has patient been on IV antibiotics over the past 48 hours?: Yes Sepsis Event Note (H) - Evaluation Current Stage of Sepsis: Ruled out Possible source of Sepsis: positive: Genitourinary - Sepsis Criteria Sepsis Criteria: Recorded Temperature greater than 38.3C or Less than 36C, DECKHAND ENGINEER: altered consciousness (unrelated to primary neuro pathology) Assessment/Plan - Problem List (1) Encephalopathy Impression: This is likely secondary to his sepsis and urinary tract infection. Is improving and is now oriented to self and location by last night and why he is here tod ay. He has become more and more aware since treatment for sepsis. I would say he is back to baseline. Just very weak and fatigued. - Continue antibiotics to treat underlying sepsis - As he is improving from an encephalopathy point of view, I will continue his home pain regimen for his oropharyngeal cancer (2) Sepsis secondary to UTI Conclusion/Plan: He presented with encephalopathy, fevers and his urinalysis is significant for pyuria, small leukocyte esterase and few bacteria. I suspect this is the source of his infection as his x-ray is unremarkable and there are no other obvious sources of infection. He has also been receiving Opdivo for his malignancy. Urine culture was positive for diphtheroids, probably skin kiel. Blood cultures are negative. No further work-up is going to be done on the urine specimen.He had a sudden change in status with subjective diaphoresis, not feeling well, and an EKG shows no acute ST-T wave changes. Troponins are negative. And a CT pulmonary angiogram looking for pulmonary embolism is negative. With this change in status, that was sudden, 20 minutes was spent at the bedside for direct patient care. 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 He failed chemotherapy in the past with Carboplatin and Taxol. He is now Opdivo which was initiated one month ago and he follows with Dr. Yang. - Continue home pain regimen of Fentanyl patch 125mcg and Oxycodone 20mg every 3 hours PRN - Admitting provider did discuss with the patient and his spouse regarding code status. As he was still altered, she told me that they have discussed this in the past and that he would want heroic measures. They continue to follow with Palliative on an outpatient basis. MEENAKSHI Freire was by 7/11 am to check in with he and . (4) Renal insufficiency Conclusion/Plan: He is at his baseline renal function with a creatinine of 1.3-1.4. There was mild hyperkalemia on his labs and gone by today so there may possibly be a component of acute kidney injury although his creatinine is not elevated. - Check BMP daily (5) BPH (benign prostatic hyperplasia) Conclusion/Plan: He is on doxazosin at home and has require intermittent self catheterization at times per the spouse - Will hold doxazosin in the setting of sepsis - Monitor urine ouput, will consider bladder scan and catheterization if oliguric (6) Atrial fibrillation Conclusion/Plan: He has a history of atrial fibrillation but is not on anticoagulation. He is on Metoprolol at home but is rate controlled at this time. - Hold Metoprolol in setting of sepsis - Monitor on telemetry (7) Essential hypertension Conclusion/Plan: He is on Metoprolol and Doxazosin at home. He was borderline hypotensive with systolics in the low 100's on admission bc of sepsis but today he is 130-140 systolic. -Resume home antihypertensives (8) Dysphagia Conclusion/Plan: He has dysphagia secondary to his oropharyngeal cancer. PEG tube has been in place since late last year. - Nutrition consult for TF recs - Chloraseptic spray for sore throat -Deanne Davis, palliative care, requested a swallow evaluation with modified barium. He failed his last trial in May of this year. Nevertheless the patient is continued to eat and drink at his discretion, specifically alcohol. He stoutly maintains that he is only drinking 1 beer a day. Nevertheless, we did order a modified barium swallow, and it cannot be done since radiology is not on the premises. (9) Mild malnutrition. Food intake of <50-75% of normal in the preceding week. weight loss less that 2% in last 3 months. Plan: continue tube feeds here and monitor fluid intake. (10) Home situation that puts him at risk Unfortunately, both he and his seem to be abusing alcohol. And his may be using his benzodiazepines and now there is possibility of her requesting his fentanyl patch. I discussed the case with Deanne Davis, palliative overnight caregiver. And I will let social work note.
[2018-09-26] MEDS: MORPHINE SOL 10 MG/0.5 ML SYRINGE PO PRN ×3 (11:35→21:30)
[2018-09-26] MEDS: ACETAMINOPHEN 160 MG/5 ML SUSP UDC PEG PRN (12:41)
[2018-09-26] MEDS ORDERED: IOVERSOL 320 100 ML VIAL IVP ONE ×2 (15:04→15:38)
--- NOTE | 2018-09-26 16:23 | CT Report ---
Reason: sudden short ness of breath Procedure Date: 09/26/2018 Accession Number: [id number] / [id number] Procedure: CT - ANGIO CHEST W/WO CPT Code: FULL RESULT: EXAM: CT ANGIOGRAM CHEST EXAM DATE: 09/26/2018 03:37 PM. CLINICAL HISTORY: Dyspnea. COMPARISON: CHEST W/O 08/18/2018 11:53 AM. TECHNIQUE: Routine helical imaging was performed through the chest in the pulmonary arterial phase. IV Contrast: OPTI 320 80ML. Reconstructions: Coronal 3-D MIP reconstructions.Sagittal and coronal. In accordance with CT protocol optimization, one or more of the following dose reduction techniques were utilized for this exam: automated exposure control, adjustment of mA and/or KV based on patient size, or use of iterative reconstructive technique. FINDINGS: Pulmonary Arteries: Diagnostic quality: Adequate through the segmental arteries. No evidence for acute or chronic pulmonary emboli. RV/LV is within normal limits. There is no interventricular septal bowing. There is no reflux of contrast material in the IVC. Lungs/Pleura: Previously characterized right base nodules are obscured on this study. There is bibasilar reticular density which may represent atelectasis. Interval decrease in thickening of the right pleural nodularity (image 56 series 5). No clearly new nodules are seen. There is no evidence of pleural effusion. No pneumothorax. Mediastinum: There is borderline cardiomegaly. There are no enlarged axillary or supraclavicular lymph nodes. No enlarged mediastinal lymph nodes. There are mildly enlarged hilar lymph nodes. Index examples include right hilar 1.8 x 1.0 cm image 75 and left anterior hilar 2.1 x 1.2 cm image 73. Thoracic Aorta: No clearly acute aortic abnormalities are seen. Upper Abdomen: Unremarkable. Other: None. IMPRESSION: 1. No evidence of acute pulmonary embolism. 2. There is no evidence of aortic dissection or aneurysm. 3. There is borderline cardiomegaly. There are coronary artery calcifications. 4. There is bibasilar reticular density. Differential considerations include atelectasis or possibly infiltrates. 5. There are mildly enlarged bilateral hilar lymph nodes. RADIA
[2018-09-26] MEDS: PHENOL THROAT SPRAY 177 ML MM PRN (16:45)
[2018-09-26] MEDS: NYSTATIN 500000 UNITS/5 ML UDC PO SCH (20:58)
[2018-09-26] MEDS: cefTRIAXone 1 GM in SODIUM CHLORIDE 0.9% MINIBAG 100 ML IV SCH (21:39)
[2018-09-27] MEDS: oxyCODONE 5 MG TABLET GT PRN ×3 (01:53→09:03)
[2018-09-27] MEDS: MORPHINE SOL 10 MG/0.5 ML SYRINGE PO PRN (03:08)
[2018-09-27 04:55] LABS: BASOPHILS % (AUTO) 0.2 %; EOSINOPHILS # (AUTO) 0.1 10^3/uL (0.0-0.7); EOSINOPHILS % (AUTO) 2.9 %; HGB - HEMOGLOBIN 8.6 g/dL (14.0-18.0); LYMPHOCYTES # (AUTO) 0.6 10^3/uL (1.5-3.5); MEAN CORPUSCULAR HEMOGLOBIN 32.1 pg (27.0-31.0); MEAN CORPUSCULAR HGB CONC 31.3 g/dL (32.0-36.0); MEAN CORPUSCULAR VOLUME 102.6 fL (80.0-94.0); MEAN PLATELET VOLUME 9.7 fL (7.4-11.4); MONOCYTES # (AUTO) 0.6 10^3/uL (0.0-1.0); MONOCYTES % (AUTO) 13.3 %; NEUTROPHILS # (AUTO) 2.9 10^3/uL (1.5-6.6); NEUTROPHILS % (AUTO) 68.4 %; PLT - PLATELET COUNT 173 10^3/uL (130-450); RED BLOOD COUNT 2.68 10^6/uL (4.70-6.10); RED CELL DISTRIBUTION WIDTH 14.7 % (12.0-15.0); WHITE BLOOD COUNT 4.2 x10^3/uL (4.8-10.8)
[2018-09-27 05:05] LABS: MAGNESIUM 1.8 mg/dL (1.7-2.8); PHOSPHORUS 4.5 mg/dL (2.5-4.6)
--- NOTE | 2018-09-27 08:12 | Discharge Plan ---
Discharge Plan Problem Reviewed?: Yes Disposition: Home, Self Care Condition: Good Prescriptions: Levofloxacin [Levaquin] 500 mg PO DAILY #4 tablet Tamsulosin [Flomax] 0.4 mg PO BID #60 capsule Activity Restrictions: Activity as Tolerated Shower Restrictions: No Driving Restrictions: Yes Assistance Devices: [facility] Concerns: You were brought to the hospital by your because you were "not feeling well" and were having less and less alertness. You are having more difficulty urinating and she was having to occasionally catheterize you. You had been dribbling urine, and then started develop bloody urine. Once you are brought to the emergency room found her to have a severe infection with a urinary tract infection. You have responded to IV antibiotics. Plan of Treatment: You have completed 4 days of IV antibiotics, and I will send you home with 4 more days of an antibiotic pill once a day. You also needed a Mcbride catheter while you were in the hospital because of multiple straight catheter as needed to empty your bladder. Please see your primary care provider in the next few days so that you can be referred to urology. You will need to keep the catheter in until then. Care Goals: 1. Finish antibiotics 2. Follow-up with urology regarding your prostate 3. See your primary care provider in the next week so that you can get scheduled regular Mcbride care Assessment: Patient and expressed understanding and agreed to follow-up measures No Smoking: If you smoke, Please STOP! Call for help. Follow-up with: Corie Esparza DNP [Primary Care Provider] -
[2018-09-27 08:18] VITALS: BP 149/76
[2018-09-27] MEDS: TAMSULOSIN 0.4 MG CAPSULE PO SCH (09:03)
[2018-09-27] MEDS: ENOXAPARIN 40 MG/0.4 ML SYRINGE SUBQ SCH (09:03)
[2018-09-27] MEDS: CALCIUM CARBONATE CHEW 500 MG TABLET PO PRN (09:03)
[2018-09-27] MEDS: ACETAMINOPHEN 160 MG/5 ML SUSP UDC PEG PRN (09:03)
[2018-09-27] MEDS: NYSTATIN 500000 UNITS/5 ML UDC PO SCH (09:03)
[2018-09-27] MEDS: SODIUM CHLORIDE FLUSH 0.9% 10 ML SYRINGE IVP SCH (09:04)
--- NOTE | 2018-09-27 23:47 | DISCHARGE SUMMARY ---
Physician: Isamar Jin MD DATE OF ADMISSION: 09/24/2018 DATE OF DISCHARGE: 09/27/2018 DISCHARGE DIAGNOSES 1. Metabolic encephalopathy secondary to #2. 2. Sepsis with urinary tract infection. 3. Oropharyngeal cancer, stage IV. 4. Acute kidney insufficiency, superimposed on chronic kidney disease, stage II. 5. Benign prostatic hypertrophy with lower urinary tract symptoms of obstruction and retention. 6. Chronic atrial fibrillation. 7. Essential hypertension. 8. Dysphagia, chronic. 9. Mild protein calorie malnutrition. 10. Home situation that puts him at risk. DISCHARGE MEDICATIONS 1. ProAir RespiClick 1-2 puffs every 6 hours as needed. 2. DuoNeb via nebulizer every 4 hours as needed. 3. Bupropion hydrochloride 75 mg b.i.d. 4. Doxazosin 1 mg q.p.m. 5. Fentanyl patch 125 mcg every 3 days. 6. Finasteride 5 mg daily. 7. Metoprolol XL 12.5 mg b.i.d. 8. Narcan spray sublingual to be used as needed. 9. Nystatin topical swish and spit 4 times a day. 10. Zofran ODT 4-8 mg every 8 hours as needed. 11. Oxycodone 60 mg every 4 hours as needed. 12. MiraLax 17 mg b.i.d. as needed. 13. Compazine 5-10 mg every 8 hours as needed. 14. Florastor 250 mg daily. 15. Trazodone 300 mg daily. 16. Levaquin 500 mg daily, #4. 17. Tamsulosin 0.4 mg p.o. b.i.d. PRINCIPAL PROCEDURES 1. Chest x-ray with unremarkable single view chest. 2. Chest thorax CT angiogram for PE without any evidence of PE, no aortic dissection or aneurysm, aram rderline cardiomegaly, basilar reticular density, mildly enlarged bilateral hilar lymph nodes. 3. Blood cultures negative after two days. 4. Urinary culture with gram positive diphtheroids, probable normal skin kiel. 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 His tory is obtained from his spouse, as the patient is altered. She states that he was in his usual sta te of health when he became more confused, not feeling well. Urine output was decreasing. She strai ght cath the patient and noticed that his urine was dark. They have had to straight cath him with in creasing frequency over the last few days because he has been unable to urinate on his own. That was the day before admission. On the day of admission, he became even more altered along with a spiking fever, so she called EMS. He is currently on Opdivo for his stage IV cancer. Since coming to the e mergency room, he has improved. He received Tylenol, morphine, wide open normal saline, and cefepime in the emergency room. On physical examination in the emergency room, he was alert to only his nam e, but did not know the hospital or what day it was. Very dry mucous membranes. A large mass under the left submandibular region that is tender without erythema. No respiratory distress, normal bowel sounds, and normal skin color that is warm and dry. No motor deficit or sensory deficit. He was ob eying commands. White cell count was 7.4, hemoglobin 10.5, hematocrit 31.8 and he is macrocytic at 101. BUN was 44, creatinine 1.4. Mildly hyponatremic at 134 and mildly hyperkalemic at 5.4. Chest x-ray without infi ltrate and urinalysis showed hematuria, pyuria, greater than 25 white cells. He did not have squamou s epithelial cells. Few bacteria. Because of his previous history of urinary retention and frequent straight cath, the patient was felt to have infection from a urinary tract infection. He was encephalopathic, not only because of infec tion, but mild dehydration seen on physical exam and kidney function, and effects of his narcotics. He quickly responded to IV fluids, and empiric IV antibiotic therapy. In the first 24 hours, he did spike a temperature, drop his pressure, and we felt that he had sepsis criteria met by UTI. By the econd day of admission, he was oriented to self, place and time and why he was here. On the day befo re discharge, he had a subjective sensation of sudden pallor, diaphoresis, and not feeling well. EKG was negative, troponin was negative, and CT pulmonary angiogram was negative for PE. His renal insu fficiency improved to the point that his creatinine was 1 on the day of discharge and GFR was 74. Th ere was a situation in the hospital that we are wondering if the patient is at risk at home. I share d our concerns with Deanne Davis, family nurse practitioner of his palliative care. The patient rece ived prescriptions for benzodiazepines for quite some time, but he maintained that he was not taking them. But his prescriptions were being picked up on a regular basis by his . During this stay, she was very anxious and very insistent that he get his pain medicines on a regular basis and that he achieve even IV morphine for breakthrough pain. The patient stated that his pain for the most part was controlled, but he has chronic neck pain from the tumor, and it radiates to the top of his head a nd the back of his head with a constant daily headache. But he is aware that no matter how much opia lynda he takes, the headache is never gone. It was at the 's insistence that we would give the pat ient morphine not his. She would spend every night with him. She is very devoted to him, states jemma t after 35 years of marriage, she cannot bear the idea of losing him. One night, she left at 1 a.m. Returned at 3 a.m. He was asleep, the room was dark. When she returned in the room, she went to az s bed, woke him up, took the covers off of him and insisted that he was in pain and demanded that the nurse please give him his pain medicine right now. The patient was confused, lethargic, from being woken up. The was ataxic, and smelled of alcohol. Suspicion was that she was inebriated. The next morning, she stated that she did that because she felt that his bed was wet and that he needed h is bed change. We have asked social work to possibly do an APS referral. We did attempt to do a modified barium swallow to see if his dysphagia had improved from the May swallow. The patient is drinking three beers a day at home per palliative care connector. But the patient says that he is only drinking one beer with orange juice, oranges. However, there is no radiology present on the premises for us to do a modified barium swallow and will have to be done in the outpatient setting. On the day before discharge, he continued to need frequent urinary catheter ization because of inability to urinate and a Mcbride was placed. We have explained to him that it gay l increase his risk of another infection. Please see his primary care provider in followup and have the primary care provider remove the Mcbride in two weeks or see Urology. He had been on Flomax 0.4 b. i.d. in the past, and it was on his current medication list, but he said he has not been taking it. I strongly urged him to resume his Flomax. Chronic atrial fibrillation was well controlled during hi s stay. No change in medications were made. Blood pressure was stable after the initial hypotensive episode with sepsis. Mild malnutrition was noted and nutrition services consulted. At discharge, the patient was 36.9, pu lse 62, blood pressure 149/76, respirations 18, and 94% on room air. He is 6 feet 1 inch tall and we ighs 84 kilograms. Head and neck shows the left submandibular mass. Tongue is partially resected and as such, he has a lisping slurred speech pattern. No facial asymmetry. Pupils reactive. Oral mucosa without signs of dehydration. Lungs are clear to auscultation and percussion. PMI is normally placed with a slow irr egular rate and rhythm. The abdomen is soft, nontender. There is no pedal edema. He is able to walk with a slightly wide-ba sed gait, occasionally uses the furniture to touch for balance. He is due to see Adair Yang MD, PHD, oncology, on 09/29/2018. TD: 09/27/2018 18:25
== END 2018-09-27 10:39 | disposition home health service (06) | DRG 871 ==
LOC: EDUNIT# → ED 19:17 → MS3 22:39
PROVIDERS: ADMIT Internal Medicine; ATTEND Specialist
DX: N39.0 Urinary tract infection, site not specified (principal); R31.0 Gross hematuria; R40.2412 Glasgow coma scale score 13-15, at arrival to emergency department; R79.89 Other specified abnormal findings of blood chemistry; C14.0 Malignant neoplasm of pharynx, unspecified; C78.02 Secondary malignant neoplasm of left lung; C78.01 Secondary malignant neoplasm of right lung; A41.9 Sepsis, unspecified organism; G93.41 Metabolic encephalopathy; R35.1 Nocturia; N13.8 Other obstructive and reflux uropathy; I10 Essential (primary) hypertension; E44.1 Mild protein-calorie malnutrition; E87.1 Hypo-osmolality and hyponatremia; C78.00 Secondary malignant neoplasm of unspecified lung; R65.20 Severe sepsis without septic shock; R31.29 Other microscopic hematuria; Z87.891 Personal history of nicotine dependence; E87.5 Hyperkalemia; E86.0 Dehydration; I95.9 Hypotension, unspecified; I13.10 Hypertensive heart and chronic kidney disease without heart failure, with stage 1 through stage 4 chronic kidney disease, or unspecified chronic kidney disease; N18.2 Chronic kidney disease, stage 2 (mild); N40.1 Benign prostatic hyperplasia with lower urinary tract symptoms; R33.8 Other retention of urine; T44.6X6A Underdosing of alpha-adrenoreceptor antagonists, initial encounter; Z91.128 Patient's intentional underdosing of medication regimen for other reason; Y92.009 Unspecified place in unspecified non-institutional (private) residence as the place of occurrence of the external cause; I48.2 Chronic atrial fibrillation; R13.12 Dysphagia, oropharyngeal phase; C09.9 Malignant neoplasm of tonsil, unspecified; G89.3 Neoplasm related pain (acute) (chronic); F32.9 Major depressive disorder, single episode, unspecified; F41.9 Anxiety disorder, unspecified; I25.10 Atherosclerotic heart disease of native coronary artery without angina pectoris; J43.9 Emphysema, unspecified; F03.90 Unspecified dementia, unspecified severity, without behavioral disturbance, psychotic disturbance, mood disturbance, and anxiety; Z51.5 Encounter for palliative care; Z60.8 Other problems related to social environment; Z68.24 Body mass index [BMI] 24.0-24.9, adult; Z93.1 Gastrostomy status; Z79.899 Other long term (current) drug therapy; Z87.01 Personal history of pneumonia (recurrent); Z72.0 Tobacco use; Z79.891 Long term (current) use of opiate analgesic; Z72.89 Other problems related to lifestyle
CPT/HCPCS: 36415; 71045; 71275; 80048; 80053; 81001; 83605; 83690; 83735; 84100; 84484; 85025; 87040; 87086; 93005; 94640; 96365; 99284; 99285; A9270; J1650; J7120; Q9967; 81003; 83615

== ENCOUNTER 2018-09-29 13:45 | Outpatient (CLI) | payer MEDICARE, MEDICAID ==
--- NOTE | 2018-09-29 16:06 | CONSULTATION NOTE ---
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 Patient has severe dysphagia And odynophagia with feeding tube. Patient has been on palliative chemotherapy, was having severe symptoms with pancytopenia and frequent hospitalizations, has moved on to second line therapy with nivolumab immunotherapy started on 09/01/2018. Patient was recently hospitalized 09/24/2018 to 09/27/2018. He presented with metabolic encephalopathy related to his sepsis and urinary tract infection. He did improve with fluid and antibiotics, but still continued with urinary tract symptoms of obstruction and retention. They did leave with a catheter in place, has been doing fairly well but still somewhat weakened from his hospitalization. Patient does have a previous history of urinary retention, and had been doing straight caths, but had been doing fairly well previous to this admit. He somewhere along the way had stopped his Flomax according to the documentation, and has been represcribed this. Patient quite pleased, his original flare and swelling in his left neck, has improved, is still quite hard and enlarged, but not as tender. He feels it is decreased in size, I would agree with him. He still remains on the fentanyl 125 mcg patch, he has run out of his oxycodone and fentanyl patches, this would be about the time for new prescription. He would like 20 mg tabs versus 10 mg as he does tend to take pills orally. He reports he does take them on a regular basis at least every 3 hours, despite increasing the fentanyl. He does feel like his pain is adequately controlled at this point in time, he continues with severe headache pains, these have no pattern or triggers. He does take Tylenol 2-4 times a day with only mild relief. These are sharp shooting in nature, but have not increased in intensity but are fairly severe. Patient presents today with increased symptoms of what he calls "arthritis flare". Reports this is happened to him previously. Usually starts in his right outer to knuckles of his hand, but reports he is having pain and swelling bilaterally in his feet as well as pain and increased discomfort in his left shoulder. It is unclear if the etiology is related to perhaps his Levaquin and or his immunotherapy. Patient is still currently on antibiotics, is still feeling somewhat weak, and concerned about rehospitalization. He would like to delay his Immunotherapy today, and hopes to be feeling better. We discussed given scheduling, would need to wait a full week, this is acceptable to him. Social History - Living Situation Living arrangement: At home Living Situation: With spouse/s.o., With family Support System: Patient is to his Lizet, he reports that she was in the hospital over the weekend for severe anxiety and stress. Reports she is not coping very well, and is worried about her. There was a incident at the hospital, he did not seem to recall this or understand what it might of been, we did review this. I did ask him if there is anything else we could do to support her. There is son is moved in recently, this is helped as well per his report. Medications/Allergies - Medications Home Medications: Ambulatory Orders Medication Instructions Recorded Confirmed Trazodone HCl 100 mg GT QPM 02/28/18 09/29/18 Finasteride 5 mg GT DAILY 06/23/18 09/29/18 fentaNYL [Fentanyl 50mcg patch] 125 mcg TD Q3D 06/27/18 09/29/18 Albuterol Sulfate [Proair 1 - 2 puffs INH Q4HR PRN 07/24/18 09/29/18 Respiclick] Naloxone HCl [Narcan] 1 spray JESSICA DAILY PRN 07/24/18 09/29/18 Nystatin 5 ml PO QID PRN 07/24/18 09/29/18 Ipratropium/Albuterol [Duoneb] 1 amp INH Q4HR PRN 08/04/18 09/29/18 Oxycodone HCl 20 mg GT Q3HR PRN MDD 160 mg 08/04/18 09/29/18 buPROPion HCl [Bupropion HCl] 75 mg GT BID 08/04/18 09/29/18 Polyethylene Glycol 3350 [Miralax] 17 mg GT BID 09/15/18 09/29/18 Metoprolol Succinate [Toprol Xl] 12.5 mg PO BID 09/25/18 09/29/18 Ondansetron [Ondansetron Odt] 4 - 8 mg PO Q8H PRN 09/25/18 09/29/18 Prochlorperazine [Compazine] 5 - 10 mg PO Q8H PRN 09/25/18 09/29/18 Saccharomyces Boulardii [Florastor] 250 mg PO DAILY 09/25/18 09/29/18 Levofloxacin [Levaquin] 500 mg PO DAILY #4 tablet MDD 10/0109/27/18 09/29/18 Tamsulosin [Flomax] 0.4 mg PO BID #60 capsule 09/27/18 09/29/18 Doxazosin Mesylate 1 mg GT DAILY 09/29/18 09/29/18 - Allergies Allergies/Adverse Reactions: Allergies Allergy/AdvReac Type Severity Reaction Status Date / Time No Known Drug Allergies Allergy Verified 09/24/18 19:29 Review of Systems - Constitutional Constitutional: reports: Fatigue (feeling still weak since hospitalization), Weakness - Ears, Nose & Throat Ears, Nose & Throat: reports: Dry mouth, Other (feels tumor has decreased in size) - Cardiovascular Cardiovascular: reports: Decr. exercise tolerance - Respiratory Respiratory: reports: SOB with exertion. denies: Cough, SOB at rest - Gastrointestinal Gastrointestinal: denies: Constipation (using Miralax with relief), Nausea - Genitourinary Genitourinary: reports: Other (new richardson catheter) - Musculoskeletal Musculoskeletal: reports: Muscle weakness, Joint pain (new right two joints of 4/5 th fingers; bilateral toes/feet; left shoulder) - Integumentary Integumentary: reports: Dryness - Neurological Neurological: reports: General weakness, Memory problems - Psychiatric Psychiatric: reports: Depression, Anxiety - Hematologic/Lymphatic Hematologic/Lymphatic: reports: Anemia (8.6), Recurrent infections (recent seps is with UTI) - All Other Systems All Other Systems: reports: Reviewed and negative Physical Exam - Vital Signs Temperature: 37.0 C Pulse Rate: 82 (sitting; 87 standing) Respiratory Rate: 18 Blood Pressure: 114/80 (sitting; 106/56 standing) - Physical Exam General Appearance: positive: No acute distress Eyes Bilateral: positive: Normal inspection ENT: positive: Other (white coating of tongue; improved from baseline;) Neck: positive: Other (large swelling of tumor on left; hard but less tender; less lymphadema surrounding) Cardiovascular: positive: Regular rate & rhythm Respiratory: positive: No respiratory distress, Breath sounds nml Abdomen: positive: Soft, Nml bowel sounds Skin: positive: Pallor, Dryness Extremities: positive: No pedal edema, Joint swelling (right hand with swelling/flare and swelling in 4/5 joint; bilateral feet pain; left shoulder tender and limited ROS) Neurologic/Psychiatric: positive: Oriented x3, Mood/affect nml, Weakness, Slurred/abnml speech Palliative Care - POLST Patient has POLST: No POLST Status: Full Code Pain: Pain improved, Severity (4/10) Tiredness/Fatigue: Mild (1-3) Drowsiness/Sedation: Mild (1-3) Nausea: None Depression: None Anxiety: Moderate (4-6) Dyspnea: Moderate (4-6) Anorexia: Moderate (4-6), Weight loss Sleep: Variable sleep pattern Constipation: Yes, Opoid induced, Managed Feelings of wellbeing/Perceived Quality of Life: Fair, Acceptable, Improved Performance Status: Patient with wide stance gait, tends to amble. Denies balance problems, but does not seem stable. He is fatigued from his hospitalization, does need standby assist for ADLs. Has been less active over the last couple weeks. - Palliative Care Discussion: Patient was quite disappointed that he ended up with a rehospitalization, his goals are to stay out of the hospital. He does want to focus on quality of life and extending quantity of life if possible. He is worried about his Lizet, as her anxiety has been escalating. He had been very anxious to restart immunotherapy, but would like a few more days till he is feeling somewhat better. We discussed scheduling as far as every 2 weeks, would make more sense to wait until Saturday. He was fine with this. Patient continues to try and remain hopeful, is feeling better now with the swelling is less, the head is less tender and his pain is better controlled. He was quite disappointed as far as having a Richardson catheter again, but does manage with leg bags. Patient's quite frustrated his primary care person left again, is needing urology follow- up will help facilitate, patient grateful Results - Lab Results Lab results reviewed: Yes Impression and Recommendations - Palliative Care Impression: This is a 68-year-old gentleman with metastatic stage IV left tonsillar cancer. With mets to the nodes and lung. He continues with fairly high symptom burden of dysphagia, odynophagia, and dysarthria. He has a recent hospitalization, much more pertinent and related to his symptoms of urinary retention. He currently presents with a Richardson catheter. Palliative care to continue to try and provide support for pain and symptom management and anticipatory guidance Recommendations/Counseling Done: 1. Pain of neoplastic origin. Patient continues to report his pain is moderate, but with improvement recently with tumor shrinkage and increase of fentanyl 125 mcg. Patient though does continue to take oxycodone 20 mg almost every 3 hours. Did prescribe oxycodone 20 mg tabs, patient likes to try and take orally and/or crushes more easily if one pill. Did to use all of his meds, except for 1 tablet of today. Provided prescription for 100 mcg patches, had used a 50 and 75 bridge to current prescription. Will need 25 mcg patch prescription prior to 09/15. Prescription also provided for 20 mg oxycodone tabs, #240 with instruction not to use more than 8 and a day. 2. Dysphagia. He is currently managing his secretions with intermittent oral suctioning, denies any choking, at risk for aspiration. He has not needed his nebulizer to help with secretions more than a few times a week. He continues to take water and strawberry milk on a regular basis, he is aware of the risk. Speech therapy asked for a modified barium swallow, they were unable to do it during hospitalization secondary to lack of availability of a radiologist this is still pending to be done. 3. Osteoarthritis/flare. It is unknown if the etiology is related to recent stressors, possibly Levaquin, and or his immunotherapy. Patient has had experience in the past usually last anywhere from 1 to 5 days, will evaluate next week, in the context of patient will be done with antibiotics, if clears most likely not related to his immunotherapy. 4. Stage IV squamous cell carcinoma left tonsil. Patient scheduled to receive Opdivo today, continues on antibiotic, still slightly weakened from his hospitalization, now presenting with flare of joint, arthritis unclear if this is a side effect or not. Consult with Dr. Merida. We will have him see Clarissa GARRISON with labs next week, and resume treatment if patient improved. 5. Anxiety. Patient is currently on Wellbutrin 75 mg twice a day. He understands he will not be receiving any benzodiazepines for his anxiety, though he continues to struggle with the seriousness of his illness. He has met with ongoing palliative care social work instructor and will continue that support can increase Wellbutrin if needed if next step of anxiety needing to be addressed. He reports some of his anxiety is related to his 's ongoing difficulty with her anxiety. 5.Urinary retention. Patient now with hospitalization related to this, will go ahead and make referral to local urologist. Patient does not have a PCP at this point in time, encouraged to make an appointment with the clinic to continue with continuity of care. 7. Advanced care planning. Patient continues to reiterate his goals to prolong his life and continue with treatment, who is able to acknowledge the seriousness of his illness. He very much wants to avoid hospitalizations, though we did discuss in the context this was an acute infection, was able to get out of there in a fairly rapid manner, does need further exploration and documentation of advanced care documents. We will continue to work towards this. Time Spent: 45 minutes with greater than 50% of this done in counseling regarding follow-up from hospital, goals of care, coordination of care with oncologist counseling regarding pain and symptom management and safety as well as anticipatory guidance.
== END 2018-09-29 13:46 | disposition home or self-care (01) ==
LOC: PC 13:45
PROVIDERS: ATTEND Nurse Practitioner Adult Health
DX: Z51.5 Encounter for palliative care (principal); G89.3 Neoplasm related pain (acute) (chronic); C02.4 Malignant neoplasm of lingual tonsil; C78.02 Secondary malignant neoplasm of left lung; C78.01 Secondary malignant neoplasm of right lung; C77.1 Secondary and unspecified malignant neoplasm of intrathoracic lymph nodes; R13.10 Dysphagia, unspecified; R51 Headache; M19.012 Primary osteoarthritis, left shoulder; M19.072 Primary osteoarthritis, left ankle and foot; M19.071 Primary osteoarthritis, right ankle and foot; F41.9 Anxiety disorder, unspecified; N39.0 Urinary tract infection, site not specified; R33.9 Retention of urine, unspecified; Z79.891 Long term (current) use of opiate analgesic; Z96.0 Presence of urogenital implants
CPT/HCPCS: 99215

== ENCOUNTER 2018-10-20 11:27 | Outpatient (CLI) | payer MEDICARE, MEDICAID ==
--- NOTE | 2018-10-20 18:15 | CONSULTATION NOTE ---
Palliative Care Follow Up - Referral Referring Provider: Corie YBARRA Time of Visit: 10/20/2018. 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 Patient has severe dysphagia and odynophagia with feeding tube. Patient has been on palliative chemotherapy, was having severe symptoms with pancytopenia and frequent hospitalizations, has moved on to second line therapy with nivolumab immunotherapy started on 09/01/2018, Today is Nivolumab cycle #4. Patient remains on 125mcg fentanyl patch as well as oxycodone 20mg every 3 hours, maximum 8 oxycodone doses per day. He reports this regimen is controlling his pain well. He denies any "arthritis flare" since the previouslky reported one of several weeks ago. He reports having had these episodes that he calls "arthritis flares," ie, pain, swelling in feet and sometimes shoulders, intermittently over the past 5 years. He reports being nervous and shaky today, "like when you don't eat" but denies that it is troubling him He says he is usually not this nervous or anxious. I did ask him about the Wellbutrin and if he wanted to considering increasing the dose. He declines at this time. He does report having low energy which is bothering him, and the oncology STRE[employer] SERVICER SUPERVISOR is starting him on dexamethasone today. Also there is concern about his level of hydration, the renal labs don't reflect what he is reporting as his fluid intake. He insists that he is correctly recording his fluid intakes. He agrees to continue to monitor and will bring it in to the [facility] [place] on his chemotherapy days. Patient requested refill of oxycodone, but the refill is not due until next week. STRE[employer] LIGHT SERVICER SUPERVISOR confirmed that Palliative Care will renew the script next week and drop it off at [facility] before Oct 30. Patient is here today without his , he was brought in by a friend. Social History - Living Situation Living arrangement: At home Living Situation: With spouse/s.o. Support System: 35 years to Lizet. They have about lived 9 years on [facility]. 4 children, none of whom live nearby who can help with care needs. Friends help him with transportation to medical appointments. Medications/Allergies - Medications Home Medications: Ambulatory Orders Medication Instructions Recorded Confirmed Trazodone HCl 100 mg GT QPM 02/28/18 10/20/18 Finasteride 5 mg GT DAILY 06/23/18 10/20/18 fentaNYL [Fentanyl 50mcg patch] 125 mcg TD Q3D 06/27/18 10/20/18 Albuterol Sulfate [Proair 1 - 2 puffs INH Q4HR PRN 07/24/18 10/20/18 Respiclick] Naloxone HCl [Narcan] 1 spray JESSICA DAILY PRN 07/24/18 10/20/18 Nystatin 5 ml PO QID PRN 07/24/18 10/20/18 Ipratropium/Albuterol [Duoneb] 1 amp INH Q4HR PRN 08/04/18 10/20/18 Oxycodone HCl 20 mg GT Q3HR PRN MDD 160 mg 08/04/18 10/20/18 buPROPion HCl [Bupropion HCl] 75 mg GT BID 08/04/18 10/20/18 Polyethylene Glycol 3350 [Miralax] 17 mg GT BID 09/15/18 10/20/18 Metoprolol Succinate [Toprol Xl] 12.5 mg PO BID 09/25/18 10/20/18 Ondansetron [Ondansetron Odt] 4 - 8 mg PO Q8H PRN 09/25/18 10/20/18 Prochlorperazine [Compazine] 5 - 10 mg PO Q8H PRN 09/25/18 10/20/18 Saccharomyces Boulardii [Florastor] 250 mg PO DAILY 09/25/18 10/20/18 Levofloxacin [Levaquin] 500 mg PO DAILY #4 tablet MDD 10/0109/27/18 10/20/18 Tamsulosin [Flomax] 0.4 mg PO BID #60 capsule 09/27/18 10/20/18 Doxazosin Mesylate 1 mg GT DAILY 09/29/18 10/20/18 - Allergies Allergies/Adverse Reactions: Allergies Allergy/AdvReac Type Severity Reaction Status Date / Time No Known Drug Allergies Allergy Verified 10/20/18 09:35 Review of Systems - Constitutional Constitutional: reports: Fatigue, Weakness, Weight loss (175 lbs. Lost 9 lbs in 2 weeks.) - Ears, Nose & Throat Ears, Nose & Throat: reports: Dry mouth, Other (Can't tell whether tumor has changed in size) - Cardiovascular Cardiovascular: reports: Decr. exercise tolerance - Respiratory Respiratory: reports: SOB with exertion. denies: Cough, SOB at rest - Gastrointestinal Gastrointestinal: denies: Constipation (Doesn't have much quantity of bowel movements, reports they occur about every other day), Nausea - Genitourinary Genitourinary: reports: Other (no longer on Mcbride catheter) - Musculoskeletal Musculoskeletal: reports: Muscle weakness, Other (Denies pain; well controlled with opioid regimen) - Integumentary Integumentary: reports: Dryness - Neurological Neurological: reports: General weakness, Memory problems - Psychiatric Psychiatric: reports: Anxiety (nervous today). denies: Depression ("doesn't dwell on the bad stuff") - Hematologic/Lymphatic Hematologic/Lymphatic: reports: Anemia, Recurrent infections (h/o UTI/sepsis) - All Other Systems All Other Systems: reports: Reviewed and negative Physical Exam - Vital Signs Temperature: 98.4 F Pulse Rate: 59 O2 Saturation: 96 (room air) Blood Pressure: 122/71 - Physical Exam General Appearance: positive: No acute distress, Alert Eyes Bilateral: positive: Normal inspection ENT: positive: No signs of dehydration Neck: positive: Other (L side firm tumors) Cardiovascular: positive: Regular rate & rhythm Respiratory: positive: No respiratory distress, Breath sounds nml Abdomen: positive: Soft, Nml bowel sounds Skin: positive: Pallor, Dryness Extremities: positive: No pedal edema, Other (no hair on lower extremities) Neurologic/Psychiatric: positive: Oriented x3, Mood/affect nml, Slurred/abnml speech Palliative Care - POLST Patient has POLST: No POLST Status: Full Code Pain: No pain, Pain improved Tiredness/Fatigue: Moderate (4-6) Drowsiness/Sedation: None Nausea: None Depression: None Anxiety: Moderate (4-6) Dyspnea: None, Comment (reports SOA occasionally) Anorexia: Weight loss Sleep: Variable sleep pattern Constipation: Yes, Opoid induced, Managed - Palliative Care Discussion: He can feel anxious about figuring out how to stay ahead of the cancer until there is a cure. He has heard from acquaintances that other people have been able to take immune therapy for years, and his hope is to live as long as possible. He does not want to think about other possibilities around advance care planning, does not want to dwell on it: "I don't think about that." Results - Lab Results Lab results reviewed: Yes Lab and Imaging Results: 10/20/18: Na 134 L K+ 4.4 Chl 96 L BUN 38 H Cr 1.3 H GFR 55 L Impression and Recommendations - Palliative Care Impression: 68-year-old man with metastatic stage IV left tonsillar cancer with mets to the nodes and lung. He reports good pain control with the current regimen, and is no longer on Mcbride catheter. He continues to lose weight, and kidney functionis worrisome. Palliative care to continue to try and provide support for pain and symptom management and anticipatory guidance. Recommendations/Counseling Done: Pain of neoplastic origin: Patient reports his pain regimen is working well, with 20mg oxycodone every 3 hours, and fentanyl 125mcg patch. Recently wrote prescription for 25mcg patches, to be added to his 100 mcg patches. His prescription refill for 20 mg oxycodone tabs, #240, is due next week; Palliative Care will write a refill prescription then, with instruction not to use more than 8 tablets per day. Weight loss: 9 lbs in the past two weeks, patient denies less intake via G- tube; may be related to tumor process. Furniture Rental Consultant was brought in today for consultation. Dysphagia: Patient is interested in swallow evaluation to see if he can restart PO intake. Unclear whether the modified barium swallow has been ordered, from the time of his hospitalization. He is monitoring his fluid intake and reports to [facility] [place], but renal function labs don't reflect the amount of fluids he reports. [facility] has requested he continue to keep close records for the next week. Anxiety: He denies anxiety, saying that he is feeling more nervous than usual today, around the cancer and how to keep "ahead of it." Patient continues on Wellbutrin 75 mg twice a day. He doesn't think it is very effective. Discussed doing a trial increase of the dosage, but he is reluctant and declined for now. Advance care planning. His goal remains prolongation of his life and continuing immunotherapy. He does not want to discuss advance care planning at this time; he is full code. Palliative care will continue to provide support and symptoms management. Time Spent: 40 minutes with more than 50% of this time spent on counseling, education and coordination of care.
== END 2018-10-20 11:28 | disposition home or self-care (01) ==
LOC: PC 11:27
PROVIDERS: ATTEND Nurse Practitioner
DX: Z51.5 Encounter for palliative care (principal); C09.9 Malignant neoplasm of tonsil, unspecified; C78.00 Secondary malignant neoplasm of unspecified lung; C77.9 Secondary and unspecified malignant neoplasm of lymph node, unspecified; G89.3 Neoplasm related pain (acute) (chronic); R13.10 Dysphagia, unspecified; R63.4 Abnormal weight loss; F41.9 Anxiety disorder, unspecified; Z93.1 Gastrostomy status; Z79.899 Other long term (current) drug therapy
CPT/HCPCS: 99215

== ENCOUNTER 2018-10-29 15:35 | Outpatient (CLI) | payer MEDICARE, MEDICAID ==
--- NOTE | 2018-10-29 23:36 | XRAY Report ---
Reason: PNEUMONIA J18.9 Procedure Date: 10/29/2018 Accession Number: [id number] / [id number] Procedure: XRS - Chest 2 View X-Ray CPT Code: 82311 FULL RESULT: EXAM: CHEST RADIOGRAPHY EXAM DATE: 10/29/2018 04:11 PM. CLINICAL HISTORY: PNEUMONIA J18. 9. COMPARISON: CHEST 1 VIEW 09/24/2018 9:11 PM CHEST W/O 08/18/2018 11:53 AM. TECHNIQUE: 2 views. FINDINGS: Lungs/Pleura: No consolidation, airspace disease, pleural effusion or pneumothorax. Mediastinum: Heart and mediastinal contours are unremarkable. Other: Right Port-A-Cath central line again noted. IMPRESSION: No acute cardiopulmonary disease seen. RADIA
== END 2018-10-29 15:36 | disposition home or self-care (01) ==
LOC: DI.S 15:35
PROVIDERS: ATTEND Family Medicine
DX: J18.9 Pneumonia, unspecified organism (principal)
CPT/HCPCS: 71046

== ENCOUNTER 2018-11-04 09:12 | Outpatient (CLI) | payer MEDICARE, MEDICAID ==
--- NOTE | 2018-11-05 10:16 | XRAY Report ---
Reason: TONGUE CANCER Procedure Date: 11/04/2018 Accession Number: [id number] / [id number] Procedure: FL - Modified Barium Swallow W/SP CPT Code: FULL RESULT: EXAM: MODIFIED BARIUM SWALLOW EXAM DATE: 11/04/2018 09:55 AM. CLINICAL HISTORY: TONGUE CANCER. COMPARISON: None. TECHNIQUE: Under the direction of speech pathology, patient swallowed various consistencies of barium under lateral fluoroscopic observation of the neck. Fluoroscopy Time: 2 minutes 58 seconds. Number of Images: 101. FINDINGS: Swallowing Mechanism: Delayed oral phase with otherwise normal swallowing reflex. Airway Protection: Normal epiglottic motion. No episodes of tracheal penetration or aspiration with honey or thicker consistencies of barium. Penetration to the vocal cords with cord coating with thin barium consistency, improved with chin tuck maneuver. Pharynx: Mild paresis with mild persistent retention of material in the vallecula and pyriform sinuses. Other: None. IMPRESSION: Mildly abnormal modified barium swallow as detailed. No penetration or aspiration with honey or thicker consistencies. Swallowing mechanics improved with chin tuck maneuver. RADIA
== END 2018-11-04 09:13 | disposition home or self-care (01) ==
LOC: DI 09:12
PROVIDERS: ATTEND Nurse Practitioner Adult Health
DX: C02.9 Malignant neoplasm of tongue, unspecified (principal)
CPT/HCPCS: 74230

== ENCOUNTER 2018-11-18 11:18 | Outpatient (CLI) | payer MEDICARE, MEDICAID ==
--- NOTE | 2018-11-18 11:59 | XRAY Report ---
Reason: PNEUMONIA Procedure Date: 11/18/2018 Accession Number: [id number] / [id number] Procedure: XR - Chest 2 View X-Ray CPT Code: 68614 FULL RESULT: EXAM: CHEST RADIOGRAPHY EXAM DATE: 11/18/2018 11:34 AM. CLINICAL HISTORY: Pneumonia. COMPARISON: CHEST 2 VIEW 10/29/2018 4:21 PM CHEST W/O 10/27/2018 12:10 PM. TECHNIQUE: 2 views. FINDINGS: Lungs/Pleura: Mild tree-in-bud interstitial pattern at the medial left lung base on recent CT is suggested on today's lateral view. The lungs elsewhere appear clear. Mediastinum: Heart and mediastinal contours are unremarkable. Other: Mild leftward thoracic scoliosis. Groshong port right chest with distal catheter tip at the SVC.. IMPRESSION: Stable mild infiltrate medial posterior left lung base. No new infiltrates identified. RADIA
== END 2018-11-18 11:19 | disposition home or self-care (01) ==
LOC: DI 11:18
PROVIDERS: ATTEND Family Medicine
DX: J18.9 Pneumonia, unspecified organism (principal)
CPT/HCPCS: 71046

== ENCOUNTER 2018-11-18 11:38 | Outpatient (CLI) | payer MEDICARE, MEDICAID ==
--- NOTE | 2018-11-18 21:40 | CONSULTATION NOTE ---
Palliative Care Follow Up - Referral Referring Provider: Vivi Henry MD (transitioned from Corie Zhu FAST FOOD TEAM MEMBER) Time of Visit: [id number] Referral setting: [facility] [place] Referral Reason: Pain of neoplastic origin/Stage IV Squamous Cell carcinoma of Left tonsil - Information Sources Records reviewed: Previous records reviewed History/Review of Systems obtained from: Patient Exam limitations: No limitations - History of Present Illness Update Brief HPI Update: This is a 68-year-old gentleman with squamous cell cancer stage IV of the left tonsil, with extensive mets to bilateral neck, bilateral lungs, and right paratracheal node/hilar adenopathy. Patient recently had a scan, with "good news". Scan showed resolution of lung lesion, decreasing neck node size, and good response to immunotherapy. He reports his pain has improved, though he did run out of his fentanyl 25 mcg patch, and has been using more of his oxycodone 20 mg tabs, and has just a few left with another week before refill due. Patient did have a swallow eval, with instructions to do a chin tuck maneuver, and has been eating. In fact he had a republican this weekend to celebrate his ability to eat again. He denies any choking, his weight is stable at 187, we discussed backing down on the tube feeding if he was able to increase his calories orally. He reports he has been using adequate water, and overall presents in a very good mood today. He has been using the dexamethasone 4 mg in the a.m., does not feel very hungry, but we did discuss if he is getting his calorie needs met with tube feeding he may not feel like eating food. This would be another reason to work on balancing out his tube feedings and his oral intake. Patient at this point in time would not be able to meet his caloric needs orally. Pain remains somewhat localized still to the neck area, some generalized musculoskeletal pain, denies any neuropathy. He continues with fatigue, though this is not worsening. Social History - Living Situation Living arrangement: At home Living Situation: With spouse/s.o. Support System: Patient lives at home with his , reports things are going okay, he does report some financial stressors but feels with the good news that everyone is doing better. Medications/Allergies - Medications Home Medications: Ambulatory Orders Medication Instructions Recorded Confirmed Trazodone HCl 100 mg GT QPM 02/28/18 11/18/18 Finasteride 5 mg GT DAILY 06/23/18 11/18/18 fentaNYL [Fentanyl 50mcg patch] 125 mcg TD Q3D 06/27/18 11/18/18 Albuterol Sulfate [Proair 1 - 2 puffs INH Q4HR PRN 07/24/18 11/18/18 Respiclick] Naloxone HCl [Narcan] 1 spray JESSICA DAILY PRN 07/24/18 11/18/18 Nystatin 5 ml PO QID PRN 07/24/18 11/18/18 Ipratropium/Albuterol [Duoneb] 1 amp INH Q4HR PRN 08/04/18 11/18/18 Oxycodone HCl 20 mg GT Q3HR PRN MDD 160 mg 08/04/18 11/18/18 buPROPion HCl [Bupropion HCl] 75 mg GT BID 08/04/18 11/18/18 Polyethylene Glycol 3350 [Miralax] 17 mg GT BID 09/15/18 11/18/18 Metoprolol Succinate [Toprol Xl] 12.5 mg PO BID 09/25/18 11/18/18 Ondansetron [Ondansetron Odt] 4 - 8 mg PO Q8H PRN 09/25/18 11/18/18 Prochlorperazine [Compazine] 5 - 10 mg PO Q8H PRN 09/25/18 11/18/18 Saccharomyces Boulardii [Florastor] 250 mg PO DAILY 09/25/18 11/18/18 Tamsulosin [Flomax] 0.4 mg PO BID #60 capsule 09/27/18 11/18/18 Doxazosin Mesylate 1 mg GT DAILY 09/29/18 11/18/18 dexAMETHasone [Decadron] 4 mg PO DAILY MDD for 4 weeks 11/18/18 11/18/18 - Allergies Allergies/Adverse Reactions: Allergies Allergy/AdvReac Type Severity Reaction Status Date / Time No Known Drug Allergies Allergy Verified 11/03/18 11:42 Review of Systems - Constitutional Constitutional: reports: Fatigue, Weight stable (187). denies: Fever - Ears, Nose & Throat Ears, Nose & Throat: reports: Other (continues to suction a few times a day; oral secretions/phelgm build up) - Cardiovascular Cardiovascular: reports: Decr. exercise tolerance. denies: Chest pain, Lightheadedness - Respiratory Respiratory: denies: Cough, Hemoptysis, SOB at rest - Gastrointestinal Gastrointestinal: reports: Early satiety. denies: Constipation (using the Miralax;), Nausea - Musculoskeletal Musculoskeletal: reports: Muscle weakness - Integumentary Integumentary: reports: Dryness - Neurological Neurological: reports: General weakness - Psychiatric Psychiatric: reports: Anxiety. denies: Depression - Hematologic/Lymphatic Hematologic/Lymphatic: reports: Anemia - All Other Systems All Other Systems: reports: Reviewed and negative Physical Exam - Physical Exam General Appearance: positive: No acute distress, Alert Eyes Bilateral: positive: Normal inspection ENT: positive: No signs of dehydration. negative: Pharyngeal erythema Neck: positive: No JVD, Trachea midline Cardiovascular: positive: Regular rate & rhythm Respiratory: positive: No respiratory distress, Breath sounds nml Abdomen: positive: Soft Skin: positive: Dryness Extremities: positive: No pedal edema Neurologic/Psychiatric: positive: Oriented x3, Mood/affect nml Palliative Care - POLST Patient has POLST: No POLST Status: Full Code Pain: Severity (3/10 Currently on 100 mcg patch, ran out 2 days ago on his 25. Has been using oxycodone up to 9 tabs a day, though has been instructed to use 8. Would like to continue with the 125 mcg patch, we did discuss given he has not had an acute exacerbation of his pain could consider titrating back. Patient will monitor, given patient has had tumor shrinkage, he is very fearful though of pain coming back.) Tiredness/Fatigue: Moderate (4-6) Nausea: None Depression: None Anxiety: Mild (1-3) Dyspnea: Moderate (4-6) Anorexia: Severe (7-10) Sleep: Sleeps well Constipation: Yes, Opoid induced, Intermittent constipation Feelings of wellbeing/Perceived Quality of Life: Good, Acceptable, Improved Performance Status: Patient still perceives he is quite fatigued, and has activity intolerance. But reports he is not doing anything that he does not want to. He is not intereste d in pursuing further physical therapy, he reports that is really not who he is. He would consider if he improves at some baseline to start golfing again, but is satisfied currently. He is able to attend to his ADLs and does oversee his own medications and tube feedings. - Palliative Care Discussion: Patient is quite pleased with the outcome of his immunotherapy, is feeling encouraged. He continues to want to focus on the positive, does not want to talk about any of those "getting your affairs in order." Patient ensued regarding around spirituality, but patient finds helpful and not helpful, this in the context of Lizet though if things were to change her decisions and would need to be made with it would be okay to reapproach this, he said this would be willing at that point in time. We did discuss if there is anything that needed to be dealt with if something happen like "get hit by a bus", reports he does not have any legal or financial means to actually worry about, and feels like family would step into support Lizet. We agreed to continue to discuss at level he was comfortable with, with the option if things seemed more urgent to reap proach advanced care planning. 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 He has had a positive response to nivolumab. He will continue to receive this every 2 weeks, he is maintaining and gaining weight. His pain is improved, and feels like overall things are going well. Palliative care to continue to provide support for pain and symptom management. Recommendations/Counseling Done: 1. Pain of neoplastic origin. Prescription given for fentanyl 25 mcg patch, and fentanyl 100 mcg, but refill not due for at least another 10 days. Discussion regarding his use of his oxycodone 20 mg tabs, will okay an early refill, but this will be the exception, patient has been instructed to stay within his 8 tabs per day, particularly given that his pain has lessened. Did encourage considering decreasing down to just 100 of the fentanyl, patient will evaluate over the next couple weeks. 2. Anorexia. Discussed with patient meeting caloric needs to tube feeding, patient is going to not feel very hungry. Encouraged to increase caloric intake slowly, as well as compliant with aspiration precautions. We discussed goal weight to be around 1 90-1 95. Patient to continue with hydration. 3. COPD. Patient continues to use nebulizer 1-2 times a day, is continuing to smoke on a daily basis, though is trying to cut back, this includes cannabis as well. We did discuss his high risk for pneumonia. Patient is quite anxious, reviewed signs and symptoms including fever, chills, generalized weakness, and altered mental status. 4. Anxiety. Patient continues to be quite anxious regarding addressing the seriousness of his illness. Discussion regarding spirituality, and other coping mechanisms and support things that have been of "silver linings" that have come with diagnosis. 5. Advanced care planning. Patient does not want to do advanced care planning documents, and create would continue to leave the conversation open if there were any changes in his health or further concerns. Patient understands the seriousness of his illness, but is hoping for the best and both increased quality of life as well as quantity. Time Spent: 45 minutes with greater than 50% of this done in counseling regarding pain and symptom management, and anticipatory guidance.
== END 2018-11-18 11:39 | disposition home or self-care (01) ==
LOC: PC 11:38
PROVIDERS: ATTEND Nurse Practitioner Adult Health
DX: Z51.5 Encounter for palliative care (principal); C02.9 Malignant neoplasm of tongue, unspecified; C77.8 Secondary and unspecified malignant neoplasm of lymph nodes of multiple regions; C78.00 Secondary malignant neoplasm of unspecified lung; G89.3 Neoplasm related pain (acute) (chronic); R63.0 Anorexia; J44.9 Chronic obstructive pulmonary disease, unspecified; F41.9 Anxiety disorder, unspecified; Z79.51 Long term (current) use of inhaled steroids; Z79.891 Long term (current) use of opiate analgesic
CPT/HCPCS: 99215

== ENCOUNTER 2018-12-15 10:20 | Outpatient (CLI) | payer MEDICARE, MEDICAID ==
--- NOTE | 2018-12-15 12:23 | CONSULTATION NOTE ---
Palliative Care Follow Up - Referral Referring Provider: Dr. 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 Patient has had a good response to his immunotherapy, he continues on the nivolumab since . His latest scans in 10/2018 showed resolution of his lung lesions, and decreasing neck node size. Patient's pain has improved, currently his decrease it down to fentanyl 100 mcg patch, he continues to use his maximum of his oxycodone of 20 mg every 3 hours for breakthrough pain up to 8 tabs in 24 hours. He has agreed to stay within that parameter, patient does have a history of substance abuse. He is using marijuana as well, and feels his pain is much better controlled. Patient's biggest complaint is he does not "feel hungry". In reviewing though his fluctuations in intake, he has no set schedule for his G-tube feedings, and does attempt to eat but after several bites has early satiety. They have no set mealtimes, and is quite disappointed he gets no pleasure out of eating. He does describe symptoms of anorexia and taste changes, he is having regular bowel movements, and no nausea. Is respiratory status stays stable, he continues to have accepts oral secretions, reports oral suctions about 5 times a day. He is using his nebulizer at least 2 times a day. He is drinking and staying hydrated. He is very excited, as he is getting ready to go on "a road trip to [facility]". He is awaiting to oyster picker his medications, and hand Lizet are taking off. Social History - Living Situation Living arrangement: At home Living Situation: With spouse/s.o. Support System: Patient complains of fatigue, not able to do his activities. He would like to be able to tolerate golfing, though he is definitely not interested in follow-up with physical therapy or improving his endurance. He is managing his own tube feedings, medications, and his care plan. Medications/Allergies - Medications Home Medications: Ambulatory Orders Medication Instructions Recorded Confirmed Trazodone HCl 100 mg GT QPM 02/28/18 12/16/18 Finasteride 5 mg GT DAILY 06/23/18 12/16/18 fentaNYL [Fentanyl 50mcg patch] 100 mcg TD Q3D 06/27/18 12/16/18 Albuterol Sulfate [Proair 1 - 2 puffs INH Q4HR PRN 07/24/18 12/16/18 Respiclick] Naloxone HCl [Narcan] 1 spray JESSICA PRN PRN 07/24/18 12/16/18 Nystatin 5 ml PO QID PRN 07/24/18 12/16/18 Ipratropium/Albuterol [Duoneb] 1 amp INH Q4HR PRN 08/04/18 12/16/18 Oxycodone HCl 20 mg GT Q3HR PRN MDD 160 mg 08/04/18 12/16/18 buPROPion HCl [Bupropion HCl] 75 mg GT BID 08/04/18 12/16/18 Metoprolol Succinate [Toprol Xl] 12.5 mg PO BID 09/25/18 12/16/18 Tamsulosin [Flomax] 0.4 mg PO BID #60 capsule 09/27/18 12/16/18 Doxazosin Mesylate 1 mg GT DAILY 09/29/18 12/16/18 - Allergies Allergies/Adverse Reactions: Allergies Allergy/AdvReac Type Severity Reaction Status Date / Time No Known Drug Allergies Allergy Verified 12/01/18 10:46 Review of Systems - Constitutional Constitutional: reports: Fatigue, Weakness, Poor appetite, Weight stable (183; goal is 180-185). denies: Fever, Chills - Eyes Eyes: reports: Vision loss - Ears, Nose & Throat Ears, Nose & Throat: reports: Hearing loss - Cardiovascular Cardiovascular: reports: Lightheadedness, Exertional dyspnea, Decr. exercise tolerance. denies: Orthopnea - Respiratory Respiratory: reports: Sputum production. denies: Wheezing - Gastrointestinal Gastrointestinal: reports: Bloating, Poor appetite, Early satiety. denies: Constipation, Nausea - Genitourinary Genitourinary: reports: Frequency, Other (patient with hx of retention; feels like he has been doing well; does have straight caths availabel if problematic) - Musculoskeletal Musculoskeletal: reports: Stiffness, Muscle weakness - Integumentary Integumentary: reports: Dryness - Neurological Neurological: reports: General weakness, Slurred speech (mechanical) - Psychiatric Psychiatric: reports: Depression, Anxiety - Endocrine Endocrine: denies: Hypothyroidism - Hematologic/Lymphatic Hematologic/Lymphatic: reports: Anemia (hgb 11). denies: Blood clots, Recurrent infections (last 09/2018) - All Other Systems All Other Systems: reports: Reviewed and negative Physical Exam - Physical Exam General Appearance: positive: No acute distress Eyes Bilateral: positive: Normal inspection ENT: positive: No signs of dehydration, Other (no s/s candidiases). negative: Pharyngeal erythema, Oral lesions Neck: positive: Trachea midline, Other (small tender node left mandible) Cardiovascular: positive: Regular rate & rhythm Respiratory: positive: No respiratory distress, Diminished in bases. negative: Wheezes, Rales, Rhonchi Abdomen: positive: Non-tender, Soft, Nml bowel sounds Skin: positive: Pallor, Dryness, Other (exit site of G tube with some crusting) Neurologic/Psychiatric: positive: Oriented x3, Mood/affect nml Palliative Care - POLST Patient has POLST: No POLST Status: Full Code Pain: Pain improved, Location (left neck area; still with intermittent sharp shooting headaches; come and go but intense) Tiredness/Fatigue: Moderate (4-6) Drowsiness/Sedation: Moderate (4-6) Nausea: Mild (1-3) Depression: Mild (1-3) Anxiety: Moderate (4-6) Dyspnea: Mild (1-3) Anorexia: Severe (7-10) Sleep: Variable sleep pattern Constipation: Yes, Opoid induced, Managed Feelings of wellbeing/Perceived Quality of Life: Excellent, Acceptable, Improved Performance Status: Patient continues to complain of fatigue, and activity intolerance. But in describing his activities he is able to ambulate around his home, manage household tasks, manage his ADLs. - Palliative Care Discussion: Patient continues to feel quite encouraged, that things are continuing to improve. He does get frustrated with his lack of appetite, and his fatigue. He reports his pain is well controlled. He is looking forward to his vacation with his and "road trip". Concerns or worries today, reports his anxiety and depression is well controlled. Left door open if wanted to further discuss any other concerns or worries, reports he wants to continue to focus on the positive and appreciative of support for his symptom management. Patient has not advanced directives by his choice. 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 He continues to have improved response of his tumor burden, to the nivolumab. He has not had any further weight loss, though does complain of anorexia and poor energy. His pain is currently controlled, and we were able to titrate back to 100 mcg of fentanyl. Palliative care to continue provide support for pain and symptom management and anticipatory guidance as allowed Recommendations/Counseling Done: 1. Pain of neoplastic origin. Patient has decreased to Fentanyl 100 mcg patch, reports he is out of the 25 mcg. He feels like he is tolerating this fine. He is using oxycodone 20 mg tabs, he did get an early really fill last time, agreed no further early refills, but is leaving on vacation so this was a 3-day early. Patient is currently pleased with his level of pain control, will continue to monitor. 2. Anorexia. Patient has not been able to increase his oral intake more than a few bites several times a day. Reviewed patient is using still tube feedings, does have some early satiety, and most likely is not getting hunger messages with his caloric needs being met. Recommended patient try more of a schedule, of mimicking 3 meals a day, along with his tube feedings. And to try and eat first. Patient continues to push hydration. Patient has not had any weight loss. 3. COPD. Patient continues to use nebulizer 1-2 times a day, he smokes marijuana on a regular basis. Denies smoking tobacco at this point in time. Reviewed again his high risk for pneumonia. 4. Anxiety. Patient continues to be anxious regarding addressing the seriousness of his illness, is looking forward to though a trip [place] the [place] with his . Does feel his current symptoms are well controlled. 5. Advanced care planning. Patient does not want to do advanced care planning documents, will continue to honor this and leave open the conversation particular there is any changes in his health or further concerns. Patient does understand the seriousness of his illness, and is hoping for the best and both increased quality of life as well as quantity and "his miracle". Time Spent: 40 minutes with greater than 50% of this done in counseling regarding pain and symptom management, opioid safety, nutritional counseling and coordination of care with oncology team.
== END 2018-12-15 10:21 | disposition home or self-care (01) ==
LOC: PC 10:20
PROVIDERS: ATTEND Nurse Practitioner Adult Health
DX: Z51.5 Encounter for palliative care (principal); G89.3 Neoplasm related pain (acute) (chronic); C09.9 Malignant neoplasm of tonsil, unspecified; C78.02 Secondary malignant neoplasm of left lung; C78.01 Secondary malignant neoplasm of right lung; C77.8 Secondary and unspecified malignant neoplasm of lymph nodes of multiple regions; C79.89 Secondary malignant neoplasm of other specified sites; R63.0 Anorexia; R68.81 Early satiety; R43.9 Unspecified disturbances of smell and taste; R53.83 Other fatigue; F41.9 Anxiety disorder, unspecified; F32.9 Major depressive disorder, single episode, unspecified; J44.9 Chronic obstructive pulmonary disease, unspecified; Z93.1 Gastrostomy status; Z79.899 Other long term (current) drug therapy; Z79.891 Long term (current) use of opiate analgesic; Z87.898 Personal history of other specified conditions
CPT/HCPCS: 99215

== ENCOUNTER 2019-01-12 10:37 | Outpatient (CLI) | payer MEDICARE, MEDICAID ==
--- NOTE | 2019-01-12 12:48 | CONSULTATION NOTE ---
Palliative Care Follow Up - Referral Referring Provider: Dr. Adair Yang Time of Visit: Referral setting: [facility] Referral Reason: Pain of neoplastic origin - Information Sources Records reviewed: Previous records reviewed History/Review of Systems obtained from: Patient Exam limitations: No limitations - History of Present Illness Update Brief HPI Update: This is a 68 year old gentleman with squamous cell carcinoma stage IV the left tonsil, with extensive mets to bilateral neck, bilateral lungs, right parat moses node/hilar adenopathy. He has had a good response to his immunotherapy, nivolumab, and presents today for treatment. He does present with 24 to 48 hours of acute nausea and vomiting, he does report he ran out of his oxycodone 3 days ago, was 160 mg total he was taking. He is on fentanyl 100 mcg patch as baseline pain medicine. He reports he felt poorly today, fell in the shower, had some slight chills, no fever. He reports about 3 or 4 days after his last treatment, he did have increased cough, was productive at that point in time, has been having some shortness of breath, and is feeling quite poorly. He has not been able to eat for over a week, he has been using his boost, and had 4 cartons of formula yesterday. He has not had anything today, reports he vomited all night long, and medication did not help with his nausea. Patient is at high risk for aspiration, has been treated multiple times, he does suctioned his oral secretions. He reports he uses his nebulizer at baseline about 2 times a day. His O2 sats are 98%, but his blood pressure slightly elevated at 140/74, and slightly tacky at 84 on examination. His breath sounds are diminished, no wheezing, crackles or rales. Patient despite feeling poorly does not want to go to the ED, it is unclear if he is having withdrawals, or developing pneumonia or other infection. We will go ahead and rule out pneumonia with chest x-ray. Patient has not had any labs today, to evaluate in the context of his symptoms, will go ahead and make arrangements for him to have 1 L of fluids while awaiting outcome of chest x-ray. Follow-up with oncology team, whether to continue on with the nivolumab, will put on hold until findings confirmed. Social History - Living Situation Living arrangement: At home Living Situation: With spouse/s.o. Support System: Patient lives at home with his spouse Lizet, they continued to struggle with both financial and psychosocial stressors. Patient is pain for support and his transportation today, was feeling poorly overall, and was not planning to come in but is adamant does not want go to the ED but will allow some work-up. Medications/Allergies - Medications Home Medications: Ambulatory Orders Medication Instructions Recorded Confirmed Trazodone HCl 100 mg GT QPM 02/28/18 01/12/19 Finasteride 5 mg GT DAILY 06/23/18 01/12/19 fentaNYL [Fentanyl 50mcg patch] 100 mcg TD Q3D 06/27/18 01/12/19 Albuterol Sulfate [Proair 1 - 2 puffs INH Q4HR PRN 07/24/18 01/12/19 Respiclick] Naloxone HCl [Narcan] 1 spray JESSICA PRN PRN 07/24/18 01/12/19 Nystatin 5 ml PO QID PRN 07/24/18 01/12/19 Ipratropium/Albuterol [Duoneb] 1 amp INH Q4HR PRN 08/04/18 01/12/19 Oxycodone HCl 20 mg GT Q3HR PRN MDD 160 mg 08/04/18 01/12/19 buPROPion HCl [Bupropion HCl] 75 mg GT BID 08/04/18 01/12/19 Metoprolol Succinate [Toprol Xl] 12.5 mg PO BID 09/25/18 01/12/19 Tamsulosin [Flomax] 0.4 mg PO BID #60 capsule 09/27/18 01/12/19 Doxazosin Mesylate 1 mg GT DAILY 09/29/18 01/12/19 - Allergies Allergies/Adverse Reactions: Allergies Allergy/AdvReac Type Severity Reaction Status Date / Time No Known Drug Allergies Allergy Verified 12/01/18 10:46 Review of Systems - Constitutional Constitutional: reports: Fatigue, Chills (last 24 hours), Malaise, Weakness, Weight loss. denies: Fever - Cardiovascular Cardiovascular: reports: Lightheadedness, Exertional dyspnea, Decr. exercise tolerance. denies: Chest pain - Respiratory Respiratory: reports: SOB at rest, SOB with exertion. denies: Pleuritic pain - Gastrointestinal Gastrointestinal: reports: Nausea, Vomiting (last 24-48 hours), Poor appetite, Early satiety - Genitourinary Genitourinary: reports: Frequency - Musculoskeletal Musculoskeletal: reports: Stiffness, Muscle weakness, Assistive devices (using cane;), Other (fall in shower this am) - Integumentary Integumentary: reports: Dryness - Neurological Neurological: reports: General weakness, Slurred speech (difficulty to talk) - Psychiatric Psychiatric: reports: Depression, Anxiety - Endocrine Endocrine: reports: Intolerance to cold - Hematologic/Lymphatic Hematologic/Lymphatic: reports: Recurrent infections (hx of aspiration pneumonia/UTIs with history of retention/sepsis) Physical Exam - Vital Signs Temperature: 36.8 C Pulse Rate: 84 Respiratory Rate: 18 O2 Saturation: 98 (ra @ rest) Blood Pressure: 140/74 - Physical Exam General Appearance: positive: Moderate distress, Anxious Eyes Bilateral: positive: Normal inspection Neck: positive: Other (fullness left side; not increased per patient perception) Cardiovascular: positive: Tachycardia Respiratory: positive: Diminished throughout. negative: Wheezes, Rales, Rhonchi Abdomen: positive: Soft, Tenderness Skin: positive: Pallor, Dryness Extremities: positive: No pedal edema Neurologic/Psychiatric: positive: Oriented x3, Slurred/abnml speech (mechanical), Depressed mood/affect, Flat affect Palliative Care - POLST Patient has POLST: No POLST Status: Full Code Pain: Pain worsening, Comment (Patient reports pain is localized in left neck and headache. Reports pain also bilateral hands; patient reports all over pain at 11/10. Patient is on fentanyl 100 mcg patch, he is on oxycodone 20 mg tabs he does maximize out intake is 8 tabs in 24 hours as he proceeds this is "what helps". Though he has titrated off his fentanyl before, and found his pain escalating. We had agreement he was not asked for his pain pills early, and he has been out for 3 days, suspect patient also having acute withdrawal.) Tiredness/Fatigue: Severe (7-10) Drowsiness/Sedation: Moderate (4-6) Nausea: Moderate (4-6), With vomiting Depression: Mild (1-3) Anxiety: Severe (7-10) Dyspnea: Mild (1-3) Anorexia: Moderate (4-6), Weight loss Sleep: Sleeps poorly Constipation: Yes, Opoid induced, Intermittent constipation Feelings of wellbeing/Perceived Quality of Life: Poor, Worsening Performance Status: Patient reports some functional decline over the last week and a half, more acutely over the last 2448 hrs. He is feeling quite shaky, came in with a 4 pronged cane. Reports lower extremity weakness, has been spending quite a bit of time in bed over this last weekend. Needing wheelchair to go to xray. - Palliative Care Discussion: Patient quite distressed, had promised not to return back to the hospital. Patient does present with a interesting complexity of symptoms, that could be related just to withdrawals versus infection. Patient tries to remain positive, is hopeful to stay on his schedule. He has been responding and is found this encouraging. He is due for restaging scans in the next month. Results - Lab Results Lab and Imaging Results: Chest x-ray actually came back negative, showed ongoing left lung nodules, but no pleural fluid collections or consolidation is identified. Impression and Recommendations - Palliative Care Impression: This is a 68-year-old gentleman who presents with acute nausea and vomiting x24 hours - 48 hours, has been without his oxycodone for 3 days, and has had weakness, some chills, and doing poorly over last week and a half. This is been more acute recently though. Patient does present with weight loss. He does have metastatic stage IV squamous cell carcinoma left tonsil and mets to the nodes and lungs, had been doing better with his response to tumor burden with the nivolumab. Palliative care working with oncology team to rule out any acute underlying etiology, awaiting final outcome for whether to receive treatment or not Recommendations/Counseling Done: 1. Pain of neoplastic origin. Patient currently on fentanyl 100 mcg patch, he is using his oxycodone 20 mg tabs, has been with out for 3 days. Has been using maximum at 160 mg / 24 hours. Patient does present with withdrawal symptoms, with nausea vomiting, chills, rhinitis and watery eyes. He also has some lower extremity weakness. Patient is at high risk still for infectious process pneumonia versus UTI. Patient will be given MS 2 mg now and can repeat in 1 hour for relief of pain and symptoms. 2. COPD. Patient continues to nebulizer 1-2 times a day, he is at high risk for pneumonia, has had some cough though this is settled down over the last couple days. He has not been eating orally, just drinking fluids. Chest x-ray ordered. 3. Anxiety. Patient continues to be quite anxious regarding the seriousness of his illness, and is very stressed at the thought of a rehospitalization. Addendum chest x-ray was negative, will consult with oncology PA, recommended UA as that would be the other likely source of infection for patient. He does have known BPH, urinary retention, and recurrent infections. Patient was feeling better after morphine, and fluid, did receive nivolumab. We will follow-up if need to treat UA tomorrow. Time Spent: 30 minutes with greater than 50% of this done in counseling and follow-up regarding acute symptoms, Rx provided for oxycodone and fentanyl as well as coordination of care with oncology team
== END 2019-01-12 10:38 | disposition home or self-care (01) ==
LOC: PC 10:37
PROVIDERS: ATTEND Nurse Practitioner Adult Health
DX: Z51.5 Encounter for palliative care (principal); G89.3 Neoplasm related pain (acute) (chronic); R11.2 Nausea with vomiting, unspecified; C09.9 Malignant neoplasm of tonsil, unspecified; C78.02 Secondary malignant neoplasm of left lung; C78.01 Secondary malignant neoplasm of right lung; C77.8 Secondary and unspecified malignant neoplasm of lymph nodes of multiple regions; J44.9 Chronic obstructive pulmonary disease, unspecified; F41.9 Anxiety disorder, unspecified; T40.2X6A Underdosing of other opioids, initial encounter; Z91.138 Patient's unintentional underdosing of medication regimen for other reason; Y92.009 Unspecified place in unspecified non-institutional (private) residence as the place of occurrence of the external cause; N40.1 Benign prostatic hyperplasia with lower urinary tract symptoms; R33.8 Other retention of urine; R68.83 Chills (without fever); R63.0 Anorexia; R53.1 Weakness; R53.83 Other fatigue; R53.81 Other malaise; R63.4 Abnormal weight loss; J31.0 Chronic rhinitis; Z91.81 History of falling; Z79.899 Other long term (current) drug therapy; Z87.440 Personal history of urinary (tract) infections; Z87.01 Personal history of pneumonia (recurrent)
CPT/HCPCS: 99214

== ENCOUNTER 2019-01-12 11:37 | Outpatient (CLI) | payer MEDICARE, MEDICAID ==
--- NOTE | 2019-01-12 12:32 | XRAY Report ---
Reason: DYSPHAGIA, UNSPECIFIED Procedure Date: 01/12/2019 Accession Number: [id number] / [id number] Procedure: XR - Chest 2 View X-Ray CPT Code: 68634 FULL RESULT: EXAM: CHEST RADIOGRAPHY EXAM DATE: 01/12/2019 12:02 PM. CLINICAL HISTORY: Dysphagia, unspecified. COMPARISON: CHEST 2 VIEW 11/18/2018 11:24 AM CHEST W/O 10/27/2018 12:10 PM. TECHNIQUE: 2 views. FINDINGS: Lungs/Pleura: Subtle subcentimeter nodules are suggested in the left mid to lower lung. The right lung appears clear. No pleural fluid collections. Mediastinum: Heart and mediastinal contours are unremarkable. Other: Groshong catheter right chest with distal catheter tip at the SVC. IMPRESSION: Suspected left lung nodules. Suggest consideration of follow-up CT for further evaluation. No pleural fluid collections or consolidations identified. RADIA
== END 2019-01-12 11:38 | disposition home or self-care (01) ==
LOC: DI 11:37
PROVIDERS: ATTEND Nurse Practitioner Adult Health
DX: R13.10 Dysphagia, unspecified (principal)
CPT/HCPCS: 71046

== ENCOUNTER 2019-02-09 10:13 | Outpatient (CLI) | payer MEDICARE, MEDICAID ==
--- NOTE | 2019-02-09 12:32 | CONSULTATION NOTE ---
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 He has had a very good response to the nivolumab for which he has been on since 08/2018. His last scan showed complete remission in the lung and major response in the neck, his dysphagia and odynophagia has improved to the point where he is able to take some oral feedings. His CT scan of the chest on 01/19 showed no definitive evidence of metastatic thoracic disease and his CT of the soft tissue of the neck showed the continued asymmetric thickening of the left oral pharyngeal mucosa/piloting tonsil but that it is decreased, as well as his mildly enlarged bilateral cervical lymph nodes have decreased in size as well. Patient has had some improvement with pain with this, though he continues on fentanyl 100 mcg patch, and oxycodone 20 mg tablets to not exceed 8 in 24 hours. He has been able to manage to stay within his allotted regimen. He reports he can tell when he takes less of the oxycodone, he has more body aches, continues with a sharp shooting pains up to his head, and pinpoint pains in the left tonsillar area.Patient does have a long history of substance/opioid abuse, does not want to titrate back any further, feels current regimen is keeping his pain adequately controlled. He does supplement at times with smoking marijuana. Patient does continue with complaints of anxiety, requested alprazolam, reviewed again safety concerns of mixing benzodiazepines with opioids, encourage distraction, follow-up with the medical palliative care social media director for counseling if needed, at this point in time given his history and concerns for overuse do not feel it is in his best interest. He is on bupropion, 75 mg twice daily he does not feel like this would be of help to titrate this up. Social History - Living Situation Living arrangement: At home Living Situation: With spouse/s.o., With family Support System: Patient lives at home with his , who continues with high anxiety, we did review the findings on the scans for him to be able to speak to her more reassuringly. His son also lives with him. He feels like he has adequate social support, though he does have financial stressors. Medications/Allergies - Medications Home Medications: Ambulatory Orders Medication Instructions Recorded Confirmed Trazodone HCl 100 mg GT QPM 02/28/18 02/09/19 Finasteride 5 mg GT DAILY 06/23/18 02/09/19 fentaNYL [Fentanyl 50mcg patch] 100 mcg TD Q3D 06/27/18 02/09/19 Albuterol Sulfate [Proair 1 - 2 puffs INH Q4HR PRN 07/24/18 02/09/19 Respiclick] Naloxone HCl [Narcan] 1 spray JESSICA PRN PRN 07/24/18 02/09/19 Nystatin 5 ml PO QID PRN 07/24/18 02/09/19 Ipratropium/Albuterol [Duoneb] 1 amp INH Q4HR PRN 08/04/18 02/09/19 Oxycodone HCl 20 mg GT Q3HR PRN MDD 160 mg 08/04/18 02/09/19 buPROPion HCl [Bupropion HCl] 75 mg GT BID 08/04/18 02/09/19 Metoprolol Succinate [Toprol Xl] 12.5 mg PO BID 09/25/18 02/09/19 Tamsulosin [Flomax] 0.4 mg PO BID #60 capsule 09/27/18 02/09/19 Doxazosin Mesylate 1 mg GT DAILY 09/29/18 02/09/19 - Allergies Allergies/Adverse Reactions: Allergies Allergy/AdvReac Type Severity Reaction Status Date / Time No Known Drug Allergies Allergy Verified 02/09/19 10:29 Review of Systems - Constitutional Constitutional: reports: Fatigue, Weakness, Weight stable (175). denies: Fever, Chills - Ears, Nose & Throat Ears, Nose & Throat: reports: Other (continues with intermittent oral suctioning to manage secretions but improved) - Cardiovascular Cardiovascular: reports: Decr. exercise tolerance. denies: Lightheadedness - Respiratory Respiratory: reports: Other (occasional choking). denies: Cough, SOB at rest - Gastrointestinal Gastrointestinal: reports: Constipation (intermittent), Nausea (intermittent), Vomiting (about once a week when forces himself to eat), Bloating, Early satiety, Good appetite (eating more regular food; using 2-4 cans feeding; needs to be reminded to push fluids) - Genitourinary Genitourinary: reports: Frequency. denies: Dysuria - Musculoskeletal Musculoskeletal: reports: Muscle weakness - Integumentary Integumentary: reports: Dryness - Neurological Neurological: reports: General weakness, Headache (intermittent), Memory problems (occasional STM), Abnormal gait - Psychiatric Psychiatric: reports: Depression (controlled), Anxiety (flucutates) - Hematologic/Lymphatic Hematologic/Lymphatic: reports: Anemia (11.4 hgb). denies: Recurrent infections (last infection 09/2018) - All Other Systems All Other Systems: reports: Reviewed and negative Physical Exam - Vital Signs Temperature: 36.5 C Pulse Rate: 82 Respiratory Rate: 18 O2 Saturation: 95 (ra @ rest) Blood Pressure: 144/70 - Physical Exam General Appearance: positive: Alert, Anxious (has ride waiting; had finished infusion early) Eyes Bilateral: positive: Normal inspection ENT: negative: Oral lesions (no s/s of candidiasis) Neck: positive: Trachea midline, Lymphadenopathy (L) (palpable hard nodes; nontendr) Cardiovascular: positive: Regular rate & rhythm Respiratory: positive: Diminished in bases. negative: Wheezes, Rales, Rhonchi Abdomen: positive: Soft, Nml bowel sounds Skin: positive: Pallor Extremities: positive: No pedal edema Neurologic/Psychiatric: positive: Oriented x3, Mood/affect nml, Slurred/abnml speech (mechanical; but improved today) Palliative Care - POLST Patient has POLST: No POLST Status: Full Code Pain: Pain unchanged, Location (see HPI) Tiredness/Fatigue: Moderate (4-6) Drowsiness/Sedation: Mild (1-3) Nausea: Mild (1-3) Anorexia: Mild (1-3) Dyspnea: Mild (1-3) Depression: Mild (1-3) Anxiety: Moderate (4-6) Feelings of wellbeing/Perceived Quality of Life: Good, Acceptable, Improved, Comment (very excited about results of tests) Sleep: Sleeps well Constipation: Yes, Opoid induced, Intermittent constipation Performance Status: Patient able to ambulate short distances, his gait is somewhat unbalanced but no further falls. Does report less activity tolerance has not been as active. With the cold weather he tends to be more sedentary. Has not been interested in pursing outpatient PT - Palliative Care Discussion: Patient remains quite pleased with his progress, had multiple questions still about what this scan showed. Did provide copies and reviewed findings in the positive light. Patient reports his remains quite anxious, is wanting to share the information with her. Denies any difficulty with depression, is looking forward to the holidays, reports pleased with the care he is received.Patient continues without advanced planning documents, does not want to visit anything "negative", but has said if needed to make decisions more urgently can reapproach on this. Results - Lab Results Lab results reviewed: Yes Impression and Recommendations - Palliative Care Impression: This is a 68-year-old gentleman who has metastatic stage IV squamous cell carcinoma of the left tonsil, with mets to the nodes and lungs. His latest scans show continued positive response to the nivolumab, patient's side effects appear to be mostly musculoskeletal overall ache, intermittent anorexia, and fatigue. Patient's pain currently controlled on his regimen, no changes made today.Palliative care to continue provide support and oversight for pain and symptom management and anticipatory guidance Recommendations/Counseling Done: 1. Pain of neoplastic origin. Patient currently on fentanyl 100 mcg patch, he is using his oxycodone 20 mg tablets 6 to 8 tabs a day, did manage to stay within his allotment this month with no further withdrawals. Counseling provided regarding recommending decreasing opioid load, patient reports feels he is in current balance okay, would like to continue with current dosing. Rx provided for fentanyl 100 mcg patch and oxycodone 20 mg tabs. 2. Anxiety. Patient does have underlying known general anxiety disorder, coun seling provided regarding the risks outweigh the benefits at this point in time for benzodiazepines. Patient currently content with his current bupropion dosing. Recommended use it palliative care social media director for discussion of any concerns. Patient is pleased with his most recent findings of his scans, these were reviewed again follow-up and sure of his understanding as he wants to deliver the news to his . 3. Dysphagia. Patient is eating more, does sometimes force the food and gets queasy with vomiting about 1 time a week. He denies any choking, his weight is remained stable, he is using 2 to 4 cans still of formula. Counseling provided regarding need for hydration, patient pleased regarding his quality of life and being able to eat again. 4. BPH. Reports no further symptoms of dysuria or frequency. Currently managed on his current regimen. 5. Advanced care planning. Patient continues to want to focus on the positive, positive reinforcement given regarding his current findings, as well as adherence to his opioid regimen. Patient denies any current worries or concerns, reports things are managed well at home. 6. Generalized weakness. Patient has declined follow-up at outpatient therapy, though I suspect this would be of benefit to him. Counseling provided regarding need to increase activity, patient is ambulatory, encouraged frequent short walks to build up endurance and continued manage his overall strength and wellbeing. Time Spent: 30 minutes with greater than 50% of this done in counseling regarding pain and symptom management, anticipatory guidance and disease instruction, progressive exercise recommendations.
== END 2019-02-09 10:14 | disposition home or self-care (01) ==
LOC: PC 10:13
PROVIDERS: ATTEND Nurse Practitioner Adult Health
DX: Z51.5 Encounter for palliative care (principal); G89.3 Neoplasm related pain (acute) (chronic); F41.9 Anxiety disorder, unspecified; K59.03 Drug induced constipation; T40.2X5D Adverse effect of other opioids, subsequent encounter; R13.10 Dysphagia, unspecified; R53.83 Other fatigue; N40.0 Benign prostatic hyperplasia without lower urinary tract symptoms; C09.9 Malignant neoplasm of tonsil, unspecified; C78.02 Secondary malignant neoplasm of left lung; C79.89 Secondary malignant neoplasm of other specified sites; C78.01 Secondary malignant neoplasm of right lung; C77.1 Secondary and unspecified malignant neoplasm of intrathoracic lymph nodes; Z79.899 Other long term (current) drug therapy; Z79.891 Long term (current) use of opiate analgesic
CPT/HCPCS: 99214

== ENCOUNTER 2019-03-09 08:49 | Outpatient (CLI) | payer MEDICARE, MEDICAID ==
--- NOTE | 2019-03-09 09:12 | CONSULTATION NOTE ---
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 He has had a remarkable response to his nivolumab, and his last scan showed remission in the lung and major response in the neck. His dysphagia and odynophagia have improved to the point able to eat regular food. Patient has had improvement with his pain, he continues on fentanyl 100 mcg patch, and oxycodone 20 mg tablets not to exceed 8 in 24 hours. Unfortunately was not able to stay in the allotted amount, and over the last several days has used 5 in 24 hours and now is totally out. His pain is less pinpoint in his tonsillar area, but more generalized achiness, flare in his joint pain, and is increased pain in his back. Patient presents with several days of increased nausea, vomiting with food intake, and now is fearful of eating and presents with dehydration and orthostatic blood pressures. He reports he feels like he has been "knocked on his butt". He is feeling quite dizzy, and much more weaker. Patient has had withdrawals in the past, unclear if this is part of the picture, or if he is developing another GI side effect. He has used some intermittent nausea medication, though is unable to tell me what that would be. He is somewhat vague about occurrence, has been mostly last few days, though noted it on and off since last chemotherapy. He is anxious to get out of the clinic today, and he is supposed to be shopping with his , though there is concerned with his weakness. Given his symptoms of orthostatic hypotension, increased dizziness, and decreased intake we will go ahead and order a liter of normal saline to address his side effects as well as new prescription for his oxycodone and fentanyl provided. Social History - Living Situation Living arrangement: At home Living Situation: With spouse/s.o., With family (son living with them for s upport) Support System: His is present for the visit, she remains quite anxious, and not wanting to engage much in discussion regarding patient's condition. She is feeling much better now that he is taking responsibility and she is not involved in his day-to-day health care. As though she is quite concerned with his dizziness, weakness, and developing nausea and vomiting over the last few days. Medications/Allergies - Medications Home Medications: Ambulatory Orders Medication Instructions Recorded Confirmed Trazodone HCl 100 mg GT QPM 02/28/18 03/09/19 Finasteride 5 mg GT DAILY 06/23/18 03/09/19 fentaNYL [Fentanyl 50mcg patch] 100 mcg TD Q3D 06/27/18 03/09/19 Albuterol Sulfate [Proair 1 - 2 puffs INH Q4HR PRN 07/24/18 03/09/19 Respiclick] Naloxone HCl [Narcan] 1 spray JESSICA PRN PRN 07/24/18 03/09/19 Nystatin 5 ml PO QID PRN 07/24/18 03/09/19 Ipratropium/Albuterol [Duoneb] 1 amp INH Q4HR PRN 08/04/18 03/09/19 Oxycodone HCl 20 mg GT Q3HR PRN MDD 160 mg 08/04/18 03/09/19 buPROPion HCL [Bupropion HCl] 75 mg GT BID 08/04/18 03/09/19 Metoprolol Succinate [Toprol Xl] 12.5 mg PO BID 09/25/18 03/09/19 Tamsulosin [Flomax] 0.4 mg PO BID #60 capsule 09/27/18 03/09/19 Doxazosin Mesylate 1 mg GT DAILY 09/29/18 03/09/19 - Allergies Allergies/Adverse Reactions: Allergies Allergy/AdvReac Type Severity Reaction Status Date / Time No Known Drug Allergies Allergy Verified 03/09/19 08:48 Review of Systems - Constitutional Constitutional: reports: Fatigue, Malaise, Weakness, Poor appetite. denies: Fever, Chills - Cardiovascular Cardiovascular: reports: Lightheadedness, Decr. exercise tolerance - Respiratory Respiratory: denies: Cough, SOB at rest - Gastrointestinal Gastrointestinal: reports: Constipation, Nausea (started 2 days ago;), Vomiting (with intake of food/formula 2-3 x a day; has used "nausea medicine" 1-2 x unclear if effective;), Early satiety (had been eating regular food; supplementing with formula). denies: Reflux/heartburn - Genitourinary Genitourinary: denies: Dysuria, Frequency - Musculoskeletal Musculoskeletal: reports: Stiffness, Muscle weakness - Integumentary Integumentary: reports: Dryness - Neurological Neurological: reports: General weakness, Dizziness (new last 24-48 hours with decreased intake; afraid of vomiting), Abnormal gait - Psychiatric Psychiatric: reports: Anxiety - Hematologic/Lymphatic Hematologic/Lymphatic: reports: Anemia (11.1) - All Other Systems All Other Systems: reports: Reviewed and negative Physical Exam - Vital Signs Respiratory Rate: 18 Blood Pressure: 111/62 (sitting p. 62; 88/53 p. 77 standing with dizzyness) - Physical Exam General Appearance: positive: Mild distress Eyes Bilateral: positive: Normal inspection ENT: positive: Other (some white patches back of throat). negative: No signs of dehydration, Pharyngeal erythema Neck: positive: No JVD, Trachea midline, Other (min. nodes to palpate; no tenderness or swelling/lymphadema) Cardiovascular: positive: Regular rate & rhythm Respiratory: positive: No respiratory distress, Diminished in bases. negative: Wheezes, Rales, Rhonchi Abdomen: positive: Non-tender, Soft, Abnml bowel sounds (diminished), Other (PEG tube site without s/s infection) Skin: positive: Pallor, Dryness Extremities: positive: No pedal edema Neurologic/Psychiatric: positive: Oriented x3 Palliative Care - POLST Patient has POLST: No POLST Status: Full Code Pain: Severity (1/10 with use of oxycodone; 7/10 when "wears off") Tiredness/Fatigue: Moderate (4-6) Drowsiness/Sedation: Moderate (4-6) Nausea: Moderate (4-6), With vomiting Anorexia: Moderate (4-6) (previous to last couple of days, has been feeling "hungery") Dyspnea: None Depression: None Anxiety: None Feelings of wellbeing/Perceived Quality of Life: Good, Acceptable, Worsening (just last few days) Sleep: Sleeps well Constipation: Yes, Opoid induced, Intermittent constipation Performance Status: Patient has had poor activity tolerance, and is quite sedentary, has been encouraged to be more active. At baseline though he is able to take care of his ADLs, though he does report he is much weaker over the last 2448 hrs., and unable to industrial roofer the shower. - Palliative Care Discussion: Patient is somewhat discouraged with his exacerbation of symptoms today, did discuss the possibility again of withdrawal symptoms, patient does not present with any acute signs or symptoms of infection. Will address his symptoms today, and see if stabilizes out with refill of his oxycodone. Patient is looking forward to the holidays, remains quite pleased with his progress, he continues without advanced care planning documents his does not want to discuss anything "negative." Results - Lab Results Lab results reviewed: Yes Impression and Recommendations - Palliative Care Impression: This is a 68-year-old gentleman who has metastatic stage IV squamous cell carcinoma of the left tonsil, with mets to the nodes and lungs. He has had ongoing positive response to nivolumab, patient side effects appear to be mostly musculoskeletal, intermittent anorexia, and persistent fatigue. Patient's pain currently controlled on his regimen, he has decreased his oxycodone significantly over the last few days, suspect this is playing into his nausea and vomiting. Palliative care to continue to fight support and oversight for pain and symptom management and anticipatory guidance. Recommendations/Counseling Done: 1. Intermittent nausea and vomiting. Does appear to be somewhat related to gastroparesis, and/or possible opioid withdrawal. We will go ahead and initiate metoclopramide 5 mg 1 hour prior to meals or feedings. Patient's been instr ucted to continue with at least 2 bottles of feeding daily, as he has had some weight loss. He does report taste changes, poor appetite, and has been using cannabis in attempt to mitigate his pain, appetite, and nausea. He was instructed to use his prochlorperazine as needed in addition if not effective. Patient verbalized understanding, written instructions provided. 2. Pain of neoplastic origin. Patient continues with fentanyl 100 mcg patch, he is using his oxycodone 20 mg tabs, this most recently 5 a day, often up to 8 a day. He has been counseled to stay within his allotment for with drawl management. Counseling provided again regarding decreasing opioid load as patient has had disease improvement, though he is having most likely side effects from his nivolumab musculoskeletal in nature. Rx was provided for both fentanyl and oxycodone 20 mg tabs. 3. Dysphagia. Patient is eating more denies any choking, or difficulty with swallowing. Again his most persistent symptom around this, is when he force feeds and ends up with vomiting. He reports this is increased more frequently over the last couple weeks, and more pronounced over the last few days. Patient was prescribed 1 L normal 4. BPH. Patient denies any further symptoms of dysuria or frequency. 5. Generalized weakness. Patient has had increase in lower extremity weakness, dizziness, and ability to attend his ADLs. This is been a more acute process over the last couple days. Counseling provided again regarding dehydration, management of nausea and vomiting, set goals again to encourage frequent short walks to build up endurance. 6. Advanced care planning. Patient continues to want to focus on the positive, he is doing quite well with his current treatment, denies any further desire to engage in advanced care planning process at this point. Time Spent: 85 minutes with greater than 50% of this done in counseling regarding pain and symptom management, management of GI nausea/vomiting, coordination of care with clinical team, anticipatory guidance.
== END 2019-03-09 08:50 | disposition home or self-care (01) ==
LOC: PC 08:49
PROVIDERS: ATTEND Nurse Practitioner Adult Health
DX: Z51.5 Encounter for palliative care (principal); G89.3 Neoplasm related pain (acute) (chronic); C09.9 Malignant neoplasm of tonsil, unspecified; C78.02 Secondary malignant neoplasm of left lung; C78.01 Secondary malignant neoplasm of right lung; C77.0 Secondary and unspecified malignant neoplasm of lymph nodes of head, face and neck; R13.10 Dysphagia, unspecified; R11.2 Nausea with vomiting, unspecified; R42 Dizziness and giddiness; I95.1 Orthostatic hypotension; R53.1 Weakness; N40.0 Benign prostatic hyperplasia without lower urinary tract symptoms; Z79.899 Other long term (current) drug therapy; Z79.891 Long term (current) use of opiate analgesic
CPT/HCPCS: 99215

== ENCOUNTER 2019-03-29 19:57 | Outpatient (CLI) | payer MEDICARE, MEDICAID | END 2019-03-29 19:58 | disposition critical access hospital (66) | LOC: EMS 19:57 | PROVIDERS: ATTEND Surgery | DX: R19.7 Diarrhea, unspecified (principal); R11.0 Nausea | CPT/HCPCS: A0425; A0427 ==

== ENCOUNTER 2019-03-29 20:21 | Emergency (ER) | payer MEDICARE, MEDICAID ==
--- NOTE | 2019-03-29 20:42 | ED Physician Documentation ---
PD HPI NVD - Stated complaint Stated Complaint: DIARRHEA - Chief complaint Chief Complaint: Abd Pain - History obtained from History obtained from: Patient, EMS - History of Present Illness Timing - onset: How many days ago (7) Timing - duration: Days (7) Timing - details: Gradual onset, Still present, Waxing and waning Associated symptoms: Loss of appetite. No: Fever, Abdominal pain, Melena, Weight loss Contributing factors: Other (He gets immunotherapy for his cancer. He has been getting this for 6 months without any GI side effects. He has had week of some diarrhea several times daily associated with some nausea and low appetite. He had some vomiting the past day or so. He denied any blood in his vomit nor his diarrhea. He states he had run out of his pain medicines a few days ago as well and typically takes up to 8 a day. His refills should be available the end of this coming week. He does get part of his fluid and nutrition via PEG tube but had started with oral intake the last few weeks as well.). No: Sick contact, Bad food, Recent antibiotics Similar symptoms before: Has not had sx before Recently seen: Clinic ([facility] [place] [facility] [place] (immunotherapy[place] Review of Systems Constitutional: denies: Fever, Chills, Myalgias Nose: denies: Rhinorrhea / runny nose, Congestion Throat: denies: Sore throat Respiratory: denies: Cough GI: reports: Nausea, Vomiting, Diarrhea. denies: Abdominal Pain, Constipation, Bloody / black stool : denies: Dysuria, Frequency Neurologic: reports: Generalized weakness. denies: Focal weakness, Numbness, Confused, Altered mental status PD PAST MEDICAL HISTORY - Past Medical History Cardiovascular: Hypertension, High cholesterol, Coronary artery disease, Atrial fibrillation, Murmur, Arrhythmia Respiratory: COPD, Emphysema, Pneumonia, Shortness of breath Neuro: Dementia, Headaches, Peripheral neuropathy, Tremors Endocrine/Autoimmune: None GI: GERD, Colon polyps, Hepatitis, Other : Benign prostate hypertrophy, Retention, Renal insuffiency, Nocturia HEENT: Chronic vision loss, Chronic sinusitis, Chronic hearing loss, Other Psych: Depression, Anxiety Musculoskeletal: Osteoarthritis, Fatigue Derm: None - Past Surgical History Past Surgical History: Yes General: Appendectomy, Colonoscopy, Other Ortho: Hip replacement Derm: Skin cancer surgery - Present Medications Home Medications: Ambulatory Orders Medication Instructions Recorded Confirmed Trazodone HCl 100 mg GT QPM 12/14/18 12/23/19 Finasteride 5 mg GT DAILY 06/23/18 03/09/19 fentaNYL [Fentanyl 50mcg patch] 100 mcg TD Q3D 06/27/18 03/09/19 Albuterol Sulfate [Proair 1 - 2 puffs INH Q4HR PRN 07/24/18 03/09/19 Respiclick] Naloxone HCl [Narcan] 1 spray JESSICA PRN PRN 07/24/18 03/09/19 Nystatin 5 ml PO QID PRN 07/24/18 03/09/19 Ipratropium/Albuterol [Duoneb] 1 amp INH Q4HR PRN 08/04/18 03/09/19 Oxycodone HCl 20 mg GT Q3HR PRN MDD 160 mg 08/04/18 03/09/19 buPROPion HCL [Bupropion HCl] 75 mg GT BID 08/04/18 03/09/19 Metoprolol Succinate [Toprol Xl] 12.5 mg PO BID 09/25/18 03/09/19 Tamsulosin [Flomax] 0.4 mg PO BID #60 capsule 09/27/18 03/09/19 Doxazosin Mesylate 1 mg GT DAILY 09/29/18 03/09/19 Diphenoxylate/Atropine [Lomotil] 1 each PO QID PRN #12 tablet 03/29/19 LORazepam [Ativan] DAILY PM 03/29/19 Metoclopramide [Reglan] PRN 03/29/19 Ondansetron Odt [Zofran] 4 mg TL Q6H PRN #10 tablet 03/29/19 Ondansetron [Ondansetron Odt] BID 03/29/19 Oxycodone HCl 20 mg PO Q4H PRN #20 tablet 03/29/19 Prochlorperazine [Compazine] PRN 03/29/19 - Allergies Allergies/Adverse Reactions: Allergies Allergy/AdvReac Type Severity Reaction Status Date / Time No Known Drug Allergies Allergy Verified 03/09/19 08:48 - Social History Does the pt smoke?: No Smoking Status: Never smoker Does the pt drink ETOH?: Yes Does the pt have substance abuse?: Yes - Immunizations Immunizations are current?: No Immunizations: TDAP >10years/unknown - POLST Patient has POLST: No POLST Status: Full Code PD ED PE NORMAL - Vitals Vital signs reviewed: Yes - General General: Alert and oriented X 3, No acute distress, Well developed/nourished - HEENT HEENT: Pharynx benign. No: Moist mucous membranes - Neck Neck: Supple, no meningeal sign, No adenopathy - Cardiac Cardiac: RRR, No murmur - Respiratory Respiratory: Clear bilaterally - Abdomen Abdomen: Normal bowel sounds, Soft, Non tender, Non distended, No organomegaly, Other (PEG tube noted without signs of infection at skin.) - Male Male : Deferred - Rectal Rectal: Deferred - Back Back: No CVA TTP - Derm Derm: Normal color, Warm and dry - Neuro Neuro: Alert and oriented X 3, No motor deficit, Normal speech Results - Vitals Vitals: Vital Signs - 24 hr 03/29/19 03/29/19 03/30/19 20:26 21:08 00:04 Temperature 37 C Heart Rate 66 63 63 Respiratory 16 16 Rate Blood Pressure 111/66 129/74 123/69 O2 Saturation 99 97 98 Oxygen O2 Source Room air - Labs Labs: Laboratory Tests 03/29/19 03/29/19 03/29/19 21:15 21:15 21:40 WBC 10.1 RBC 3.31 L Hgb 10.1 L Hct 31.7 L MCV 95.8 H MCH 30.5 MCHC 31.9 L RDW 13.4 Plt Count 413 MPV 9.5 Neut # (Auto) 8.2 H Lymph # (Auto) 1.1 L Shelby # (Auto) 0.7 Eos # (Auto) 0.1 Baso # (Auto) 0.0 Absolute Nucleated RBC 0.00 Nucleated RBC % 0.0 Sodium 134 L Potassium 4.0 Chloride 95 L Carbon Dioxide 29 Anion Gap 10.0 BUN 25 H Creatinine 1.3 H Estimated GFR (MDRD) 54 L Glucose 111 H Calcium 8.2 L Magnesium 1.6 L Total Bilirubin 0.5 AST 39 ALT 14 Alkaline Phosphatase 39 L Total Protein 6.1 L Albumin 2.7 L Globulin 3.4 Albumin/Globulin Ratio 0.8 L Lipase 30 Urine Color YELLOW Urine Clarity SL. CLOUDY Urine pH 8.0 H Ur Specific Bells 1.010 Urine Protein NEGATIVE Urine Glucose (UA) NEGATIVE Urine Ketones NEGATIVE Urine Occult Blood TRACE-LYSE Urine Nitrite NEGATIVE Urine Bilirubin NEGATIVE Urine Urobilinogen 0.2 (NORMAL) Ur Leukocyte Esterase LARGE H Urine RBC 0-5 Urine WBC >25 H Ur Squamous Epith Cells NONE SEEN Urine Bacteria Rare Ur Microscopic Review INDICATED Urine Culture Comments INDICATED PD MEDICAL DECISION MAKING - ED course Complexity details: considered differential (Gets immunomodulator chemotherapy and had not had vomiting and diarrhea with it previously. Presume another cause such as gastroenteritis or possibly bacterial enteritis. Could possibly have some inflammatory enteritis related to side effect of the cancer treatment. Would want to start with a stool culture/testing to evaluate for infectious causes. He did not need to go here so sent home with a stool collection kit. He was feeling much improved with IV fluids here consistent with dehydration.), d/w patient ED course: He states he was out of his pain medicines. He got a prescription in mid February per his any form so should not have run out just yet. Will prescribe a few days worth but he needs to take it up with Deanne Davis who is prescribing his pain medicines regarding refills. Departure - Departure Disposition: 01 Home, Self Care Clinical Impression: Dehydration, Nausea vomiting and diarrhea Condition: Stable Record reviewed to determine appropriate education?: Yes Instructions: ED Diet Vomiting Diarrhea Follow-Up: Deanne Davis ARNP [Provider Admit Priv/Credential] - Prescriptions: Diphenoxylate/Atropine [Lomotil] 1 each PO QID PRN #12 tablet PRN Reason: Diarrhea Ondansetron Odt [Zofran] 4 mg TL Q6H PRN #10 tablet PRN Reason: Nausea / Vomiting Oxycodone HCl 20 mg PO Q4H PRN #20 tablet PRN Reason: Pain Comments: Continue usual medications at home. I wrote a prescription for some of the pain pills that you said you are out of. Contact your prescriber for the pain medicine in the next couple of days to see about refills. Ondansatron if needed for nausea. Small frequent fluids. Continue your nutritional supplements by the PEG tube and you could increase the amount of it in the short-term if you are oral intake is less right now. Bring a sample of your diarrhea in a specimen container to your primary care or oncologist if the diarrhea persists so we can check to see if there is a bacterial infection. Lomotil if needed for diarrhea. Discharge Date/Time: 03/30/19 00:05
[2019-03-29] MEDS ORDERED: SODIUM CHLORIDE 0.9% 1,000 ML IV ONE ×2 (21:03→22:10)
[2019-03-29] MEDS ORDERED: ONDANSETRON 4 MG/2 ML VIAL IVP STA (21:03)
[2019-03-29] MEDS ORDERED: HYDROmorphone 1 MG/ML CARPUJECT IVP STA ×2 (21:03→23:39)
[2019-03-29] MEDS ORDERED: FAMOTIDINE 20 MG/2 ML VIAL IVP STA (21:04)
[2019-03-29 21:22] LABS: BASOPHILS % (AUTO) 0.4 %; EOSINOPHILS # (AUTO) 0.1 10^3/uL (0.0-0.7); EOSINOPHILS % (AUTO) 0.5 %; HGB - HEMOGLOBIN 10.1 g/dL (14.0-18.0); LYMPHOCYTES # (AUTO) 1.1 10^3/uL (1.5-3.5); LYMPHOCYTES % (AUTO) 10.5 %; MEAN CORPUSCULAR HEMOGLOBIN 30.5 pg (27.0-31.0); MEAN CORPUSCULAR HGB CONC 31.9 g/dL (32.0-36.0); MEAN CORPUSCULAR VOLUME 95.8 fL (80.0-94.0); MEAN PLATELET VOLUME 9.5 fL (7.4-11.4); MONOCYTES # (AUTO) 0.7 10^3/uL (0.0-1.0); MONOCYTES % (AUTO) 7.3 %; NEUTROPHILS # (AUTO) 8.2 10^3/uL (1.5-6.6); NEUTROPHILS % (AUTO) 80.7 %; PLT - PLATELET COUNT 413 10^3/uL (130-450); RED BLOOD COUNT 3.31 10^6/uL (4.70-6.10); RED CELL DISTRIBUTION WIDTH 13.4 % (12.0-15.0); WHITE BLOOD COUNT 10.1 x10^3/uL (4.8-10.8)
[2019-03-29 21:44] LABS: ALBUMIN 2.7 g/dL (3.2-5.5); ALBUMIN/GLOBULIN RATIO 0.8 (1.0-2.2); BILIRUBIN,TOTAL 0.5 mg/dL (0.2-1.0); CALCIUM 8.2 mg/dL (8.5-10.3); CREATININE 1.3 mg/dL (0.6-1.2); MAGNESIUM 1.6 mg/dL (1.7-2.8); TOTAL PROTEIN 6.1 g/dL (6.7-8.2)
[2019-03-29 21:55] LABS: BILIRUBIN,URINE NEGATIVE (NEGATIVE); GLUCOSE, URINE (UA) NEGATIVE (NEGATIVE); KETONES,URINE (UA) NEGATIVE (NEGATIVE); LEUKOCYTE ESTERASE, URINE LARGE (NEGATIVE); NITRITE,URINE NEGATIVE (NEGATIVE); OCCULT BLOOD,URINE TRACE-LYSE (NEGATIVE); PROTEIN,URINE NEGATIVE (NEGATIVE); UROBILINOGEN,URINE 0.2 (NORMAL) E.U./dL (NORMAL)
[2019-03-29] MEDS ORDERED: MAGNESIUM SULFATE 2 GRAM 2 GM/50 ML BAG IV ONE (22:10)
[2019-03-29 22:11] LABS: BACTERIA,URINE Rare /HPF (None Seen); CLARITY,URINE SL. CLOUDY (CLEAR); RBC,URINE 0-5 /HPF (0-5); SQUAMOUS EPITHELIAL CELL,UR NONE SEEN (<= Few)
[2019-03-29] MEDS ORDERED: oxyCODONE/ACET 5/325 Prepack 4 PO STA (23:40)
[2019-03-29] MEDS ORDERED: ONDANSETRON ODT 4 MG Prepack 2 TL PRN (23:40)
[2019-03-30 00:04] VITALS: BP 123/69
--- NOTE | 2019-03-31 11:17 | ED Physician Documentation ---
ED Addendum - Addendum Addendum: 03/31/19 11:16 Pharmacy called as the patient had gone through his 240 Tablets of oxycodone that was written less than 3 weeks ago. They were concerned about filling his oxycodone prescription from Dr. Garcia. I told him not to fill this. I spoke with Deanne Davis and she will follow-up with him regarding his pain. We will also start him on Keflex for UTI.
== END 2019-03-30 00:05 | disposition home or self-care (01) ==
LOC: EDSEX → EDUNIT# → ED 20:21
DX: E86.0 Dehydration (principal); R11.2 Nausea with vomiting, unspecified; R19.7 Diarrhea, unspecified; N39.0 Urinary tract infection, site not specified; C80.1 Malignant (primary) neoplasm, unspecified; I10 Essential (primary) hypertension; Z93.1 Gastrostomy status
CPT/HCPCS: 36415; 80053; 81001; 83690; 83735; 85025; 87086; 87181; 96361; 96365; 96375; 99284; J1170; 81003

== ENCOUNTER 2019-04-06 11:20 | Outpatient (CLI) | payer MEDICARE, MEDICAID ==
--- NOTE | 2019-04-06 16:45 | CONSULTATION NOTE ---
Palliative Care Follow Up - Referral Referring Provider: Dr. 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 He has had a response to his nivolumab, last scan showed remission and major response in his neck. Unfortunately he has continued to do poorly with intermittent nausea and vomiting, unable to tolerate his tube feedings, and has developed diarrhea. This is been going on now for most 4 weeks, he was seen in the ED over the weekend, and was diagnosed with a UTI with E. coli and started on Keflex. It is unclear how consistent patient has been with his antiemetics, but has had significant weight loss of 15 pounds since these episodes started over a month ago. He is just met with the oncologist, they have decided to put his nivolumab on hold. Patient was reassured that immunotherapy continues to work and support him. He has had a good response, but needs to build himself back up. He will be scheduled for weekly hydration, but encouraged to increase his intake, particularly is not eating to restart his tube feedings. Patient continues to struggle with staying adherent to his guidelines for his oxycodone 20 mg, he has been allotted 8/day, reports he uses 2 in the AM 2 in the PM and 2 at bedtime. We discussed this was not appropriate given his shrinkage in his tumor, he reports he has increasing pain and discomfort in his joints and muscles. Patient may need to be trialed on some steroids, and did discuss will be titrating down his oxycodone with his next visit. Can also increase his fentanyl if he is continued to have baseline or worsening pain. Patient does have a long history of substance abuse, discussed concerns regarding his most recent behaviors. He still has not located his remainder of his prescription of 50 pills. Social History - Living Situation Living arrangement: At home Living Situation: With spouse/s.o., With family Support System: Patient lives at home with his , who has severe and ongoing anxiety. She is not with him today. He reports his son is currently living at the house as well. He is quite anxious to get going as he has had to pay for transportation today. Medications/Allergies - Medications Home Medications: Ambulatory Orders Medication Instructions Recorded Confirmed Trazodone HCl 100 mg GT QPM 02/28/18 04/06/19 Finasteride 5 mg GT DAILY 06/23/18 04/06/19 fentaNYL [Fentanyl 50mcg patch] 100 mcg TD Q3D 06/27/18 04/06/19 Albuterol Sulfate [Proair 1 - 2 puffs INH Q4HR PRN 07/24/18 04/06/19 Respiclick] Naloxone HCl [Narcan] 1 spray JESSICA PRN PRN 07/24/18 04/06/19 Nystatin 5 ml PO QID PRN 07/24/18 04/06/19 Ipratropium/Albuterol [Duoneb] 1 amp INH Q4HR PRN 08/04/18 04/06/19 Oxycodone HCl 20 mg GT Q3HR PRN MDD 160 mg 08/04/18 04/06/19 buPROPion HCL [Bupropion HCl] 75 mg GT BID 08/04/18 04/06/19 Metoprolol Succinate [Toprol Xl] 12.5 mg PO BID 09/25/18 04/06/19 Tamsulosin [Flomax] 0.4 mg PO BID #60 capsule 09/27/18 04/06/19 Doxazosin Mesylate 1 mg GT DAILY 09/29/18 04/06/19 Diphenoxylate/Atropine [Lomotil] 1 each PO QID PRN #12 tablet 03/29/19 04/06/19 Metoclopramide [Reglan] 5 mg PO TID PRN 03/29/19 Ondansetron [Ondansetron Odt] 8 mg PO Q8HR PRN 03/29/19 04/06/19 Prochlorperazine [Compazine] 10 mg PO Q6HR PRN 03/29/19 04/06/19 Cephalexin [Keflex] 500 mg PO TID 04/06/19 04/06/19 Omeprazole 40 mg PO DAILY 04/06/19 04/06/19 - Allergies Allergies/Adverse Reactions: Allergies Allergy/AdvReac Type Severity Reaction Status Date / Time No Known Drug Allergies Allergy Verified 04/06/19 15:09 Review of Systems - Constitutional Constitutional: reports: Fatigue, Poor appetite, Weight loss (15 pounds over 5 weeks). denies: Fever - Eyes Eyes: reports: Vision loss - Ears, Nose & Throat Ears, Nose & Throat: reports: Hearing loss, Dry mouth - Cardiovascular Cardiovascular: reports: Lightheadedness, Decr. exercise tolerance - Respiratory Respiratory: reports: SOB with exertion. denies: SOB at rest - Gastrointestinal Gastrointestinal: reports: Abdominal pain, Diarrhea, Nausea, Reflux/heartburn, Bloating, Poor appetite, Early satiety. denies: Vomiting - Genitourinary Genitourinary: reports: Frequency - Musculoskeletal Musculoskeletal: reports: Muscle pain, Muscle aches, Stiffness, Muscle weakness, Joint pain - Integumentary Integumentary: reports: Dryness - Neurological Neurological: reports: General weakness - Psychiatric Psychiatric: reports: Depression, Anxiety - Hematologic/Lymphatic Hematologic/Lymphatic: reports: Recurrent infections (UTI treated with Kelflex-2 days left) - All Other Systems All Other Systems: reports: Reviewed and negative Physical Exam - Vital Signs Pulse Rate: 60 Respiratory Rate: 18 Blood Pressure: 115/68 - Physical Exam General Appearance: positive: Moderate distress, Anxious Eyes Bilateral: positive: Normal inspection ENT: negative: Oral lesions Cardiovascular: positive: Regular rate & rhythm Respiratory: positive: No respiratory distress, Diminished in bases Abdomen: positive: Other (concave; soft) Skin: positive: Pallor, Dryness Extremities: positive: No pedal edema Neurologic/Psychiatric: positive: Oriented x3, Weakness, Depressed mood/affect, Flat affect Palliative Care - POLST Patient has POLST: No POLST Status: Full Code Pain: Pain improved, Location (reports mostly joints/muscles/back headache improved; Continues on Fentanyl 100 mcg and oxycodone 20 mg 160 mg/day.) Tiredness/Fatigue: Severe (7-10) Drowsiness/Sedation: Moderate (4-6) Nausea: Moderate (4-6), With vomiting (improving; better last 2-3 days) Anorexia: Severe (7-10), Weight loss Dyspnea: Moderate (4-6) Depression: Moderate (4-6) Anxiety: Moderate (4-6) Feelings of wellbeing/Perceived Quality of Life: Fair, Worsening Sleep: Variable sleep pattern Constipation: No (currently dealing with diarrhea) Performance Status: Patient feeling weaker, with lower extremity weakness and weight loss has diminished endurance. He is able to ambulate short distances, but is having some lightheadedness. Patient reports is able to do his ADLs, though does find himself sleeping more. He reports he is doing less and less motivated to do for himself i.e. feedings. - Palliative Care Discussion: Patient is quite discouraged over his decline over this last month, has been afraid to eat, has been distressed with his fecal incontinence, and feels somewhat overwhelmed. He is discouraged as they have stopped his treatment at least for period, reviewed that treatment is still working even if not receiving. He has had a good response. Patient having trouble tracking as well, patient has been up to this point doing fairly well as far as managing his medications. He reports his gets quite anxious with any kind of decline or changes, and often does not share some of his symptoms until he gets in trouble. 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 He is currently going to be on a break from the nivolumab, as has presented with GI side effects including anorexia, intermittent nausea and vomiting, diarrhea, has had recurrent dehydration and most recently in the ED. Patient also has complaints of musculoskeletal pain and discomfort, joint pain, jaw and neck pain, and continues to maximize his use of oxycodone. Palliative care continues provide support for pain and symptom management and anticipatory guidance. Recommendations/Counseling Done: 1. Pain of neoplastic origin. Patient continues with his fentanyl 100 mcg patch, he has been inconsistent in his reporting of his oxycodone 20 mg tabs. Reports he has been using up to 8-9 a day, recently misplaced the end of his prescription per report, did experience some withdrawals related to this. This is made a complicated in the context of his evaluation in discerning whether he is having withdrawal symptoms and/or symptoms related to his immunotherapy. He did end up in the emergency room, needing hydration, and also was diagnosed with a UTI. Patient does report some improvement, but continues quite weak, with anorexia, weight loss, but nausea and diarrhea are resolving. Counseling provided regarding patient's response to immunotherapy, and need to titrate back oxycodone use, patient's has been on fentanyl, will consider in conversation with oncology, transition him either to a higher fentanyl, or changing breakthrough medication. Patient has been instructed to taper back his oxycodone use, will revisit at next clinic visit. 2. Weight loss. This is multifactorial in origin, patient has started to eat again, reports he had tolerated it yesterday. He has had about 15 pound weight loss over the last month, has been quite distressed with his intermittent diarrhea. Reviewed needs to restart his tube feedings, patient reports some of this is been due to his hesitancy again with diarrhea and incontinence of stool. Patient reports inconsistently his use of antiemetics and Imodium, requested he bring his medications in at his next clinic visit. 3. BPH. Patient now presents with recurrent UTI, patient continues with difficulty with intermittent retention. Patient is to be straight cathing with symptoms, presents with a E. coli infection. Patient with 2 more days of K eflex. 4. Generalized weakness. Patient does have increased lower extremity weakness, is more deconditioned, has intermittent lightheadedness and has been less active. Patient's gait is somewhat slow, patient denies any falls. Patient will be receiving fluids weekly until improves at baseline. Patient encouraged to engage more and be more active, and progress his ambulation slowly. 5. Advanced care planning. Patient is quite discouraged, particular with a hold of his nivolumab. We did discuss on the role of immunotherapy, it does continue to work and at this point in time is had a good response. Patient continues to be resistant to any further advanced care planning process, but is willing to revisit if worsens. Time Spent: 30 minutes with greater than 50% of this done in counseling regarding management of nausea and vomiting, titration of pain medications back, and anticipatory guidance.
== END 2019-04-06 11:21 | disposition home or self-care (01) ==
LOC: PC 11:20
PROVIDERS: ATTEND Nurse Practitioner Adult Health
DX: Z51.5 Encounter for palliative care (principal); G89.3 Neoplasm related pain (acute) (chronic); R53.1 Weakness; R11.2 Nausea with vomiting, unspecified; R63.4 Abnormal weight loss; R19.7 Diarrhea, unspecified; N40.1 Benign prostatic hyperplasia with lower urinary tract symptoms; R33.8 Other retention of urine; N39.0 Urinary tract infection, site not specified; B96.20 Unspecified Escherichia coli [E. coli] as the cause of diseases classified elsewhere; C09.9 Malignant neoplasm of tonsil, unspecified; C79.89 Secondary malignant neoplasm of other specified sites; Z79.899 Other long term (current) drug therapy; Z79.891 Long term (current) use of opiate analgesic; Z93.1 Gastrostomy status
CPT/HCPCS: 99214

== ENCOUNTER 2019-04-30 12:23 | Outpatient (CLI) | payer MEDICARE, MEDICAID ==
--- NOTE | 2019-04-30 14:47 | CONSULTATION NOTE ---
Palliative Care Follow Up - Referral Referring Provider: Dr. Adair Yang Time of Visit: [id number] Referral setting: [facility] [place] Referral Reason: Pain of neoplastic origin/Wt. Loss/Cont. 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 He has had a major response to the nivolumab, his last scan 01/2019 showed complete remission. Patient is currently holding nivolumab due to worsening renal function, GI side effects, anorexia and weight loss. Patient has been receiving weekly fluids, though continues with ongoing weight loss. March he was 78 to 80 kg, today he presents between 69 and 72. He is still having not watery diarrhea but loose frequent stools, the incontinence is i mproved and it slowed down but he is still having urgency and at least 2-3 bowel movements a day. He is afraid to eat, as it does cause dumping, he does have intermittent heartburn, stomach upset, has had low-grade nausea but no vomiting up to this point the last couple weeks. He appears quite pale, he has muscle wasting, he is much weaker and shaky. He is somewhat discouraged with his current turn of events. He has been doing a couple of cartons of feeding at bedtime, some oral intake but reports just few bites, patient denies trouble with choking but has early satiety, things cause nausea, and taste changes. On examination, he does have some oral candidiasis, he does have a PEG tube, though this was placed greater than 14 months ago per and is looking well worn and like it needs to be replaced. I suspect the tubing itself is deteriorating some and may be adding. Given patient's ongoing symptoms, consult with his oncologist Dr. CHARLEE HARRIS, will do a prednisone burst and taper, it response to most likely immunotherapy side effects. Had had a conversation with patient regarding his opioid use, and need to taper particular his oxycodone. Patient is quite fearful, as he has had severe withdrawals in the past, patient instructions are to decrease from his 8 tabs daily, to 7 tabs for 1 week, and decrease 1 tab weekly. He is quite resistant, but willing to give it a try, he is willing to do 1 tab per month. Patient's pain is actually more musculoskeletal, some residual headache pain still in the back of the neck and head, less pain in his left tonsillar area where it was so acute as the tumor has shrunk. Both patient and are quite anxious, with patient's weight loss, side effect profile, and trying to manage particularly his diarrhea and bowel incontinence at home. Reviewed medications and plan of care with patient and . Written instructions provided Social History - Living Situation Living arrangement: At home Living Situation: With spouse/s.o. Support System: Patient had been doing fairly well, as far as functional status until he has had more trouble with his GI side effects. Now he spends most of his time in bed, is quite sedentary, very weak with increased trouble and ability to manage his ADLs. I would put him at a PPS of 60%,. Medications/Allergies - Medications Home Medications: Ambulatory Orders Medication Instructions Recorded Confirmed Trazodone HCl 100 mg GT QPM 02/28/18 04/30/19 Finasteride 5 mg GT DAILY 06/23/18 04/30/19 fentaNYL [Fentanyl 50mcg patch] 100 mcg TD Q3D 06/27/18 04/30/19 Albuterol Sulfate [Proair 1 - 2 puffs INH Q4HR PRN 07/24/18 04/06/19 Respiclick] Naloxone HCl [Narcan] 1 spray JESSICA PRN PRN 07/24/18 04/30/19 Nystatin 5 ml PO QID PRN 07/24/18 04/30/19 Ipratropium/Albuterol [Duoneb] 1 amp INH Q4HR PRN 08/04/18 04/30/19 Oxycodone HCl 20 mg GT Q3HR PRN MDD 7 tabs 08/04/18 04/30/19 buPROPion HCL [Bupropion HCl] 75 mg GT BID 08/04/18 04/30/19 Metoprolol Succinate [Toprol Xl] 12.5 mg PO DAILY 09/25/18 04/30/19 Tamsulosin [Flomax] 0.4 mg PO BID #60 capsule 09/27/18 04/30/19 Doxazosin Mesylate 1 mg GT DAILY 09/29/18 04/30/19 Diphenoxylate/Atropine [Lomotil] 1 each PO QID PRN #12 tablet 03/29/19 04/30/19 Metoclopramide [Reglan] 5 mg PO TID PRN 03/29/19 04/30/19 Ondansetron [Ondansetron Odt] 8 mg PO Q8HR PRN 03/29/19 04/30/19 Prochlorperazine [Compazine] 10 mg PO Q6HR PRN 03/29/19 04/30/19 Omeprazole 40 mg PO DAILY 04/06/19 04/30/19 predniSONE [Prednisone] 40 mg PO DAILY MDD taper every 3 04/30/19 04/30/19 days down by 10 - Allergies Allergies/Adverse Reactions: Allergies Allergy/AdvReac Type Severity Reaction Status Date / Time No Known Drug Allergies Allergy Verified 04/06/19 15:09 Review of Systems - Constitutional Constitutional: reports: Fatigue, Malaise, Weakness, Poor appetite, Weight loss. denies: Fever, Chills - Eyes Eyes: reports: Vision loss - Ears, Nose & Throat Ears, Nose & Throat: reports: Hearing loss, Dry mouth - Cardiovascular Cardiovascular: reports: Lightheadedness, Exertional dyspnea, Decr. exercise tolerance - Respiratory Respiratory: reports: SOB at rest, SOB with exertion - Gastrointestinal Gastrointestinal: reports: Diarrhea (continues with loose stools at least twice a day; triggered by eating; incontinence has improved but has urgency. Using lomotil), Nausea, Reflux/heartburn, Poor appetite, Early satiety, Other (using TF only about 2 boxes day related to poor tolerance; weight loss continues). denies: Vomiting Physical Exam - Vital Signs Temperature: 37.1 C Pulse Rate: 60 Respiratory Rate: 18 Blood Pressure: 102/64 - Physical Exam General Appearance: positive: Alert, Mild distress, Anxious Eyes Bilateral: positive: Normal inspection, No scleral icterus ENT: positive: Other (oral candidiasis; thickened coating on tongue; some buccal lesions; taste changes;) Neck: positive: Trachea midline Cardiovascular: positive: Regular rate & rhythm Respiratory: positive: No respiratory distress Abdomen: positive: Soft, Tenderness Skin: positive: Pallor Extremities: positive: No pedal edema Neurologic/Psychiatric: positive: Oriented x3, Weakness, Depressed mood/affect Palliative Care - POLST Patient has POLST: No POLST Status: Full Code Pain: Location (see hpi), Severity (6/10) Tiredness/Fatigue: Severe (7-10) Drowsiness/Sedation: Moderate (4-6) Nausea: Severe (7-10) Anorexia: Severe (7-10), Weight loss Dyspnea: Moderate (4-6) Depression: Mild (1-3) Anxiety: Moderate (4-6) Feelings of wellbeing/Perceived Quality of Life: Fair, Acceptable, Worsening Sleep: Variable sleep pattern - Palliative Care Discussion: Patient worried about not treating his cancer, being on hold from the nivolumab. Reviewed patient has received nivolumab with good response, is not uncommon patients have to take a break because of side effects. Sometimes they are not able to restart, and still benefit from immunotherapy. Reviewed more concerned about the toxicities, patient's weight loss, and impact on his overall health at this point in time versus his cancer is more threatening. Counseling provided regarding need to focus on medication compliance, increasing his fluids and calories, and resuming and improving his functional status. 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 Unfortunately he presents with GI toxicities including anorexia, nausea, diarrhea, and resulting in recurrent dehydration, weight loss, and general functional decline. Patient continues with complaints of musculoskeletal pain and discomfort, joint pain, headache, jaw and neck pain. Palliative care providing support regarding pain and symptom management and anticipatory guidance. Recommendations/Counseling Done: 1. Weight loss. This is multifactorial in origin, patient is eating only small amounts, he was fearful of using tube feeding because causes more nausea. Patient does appear to be having more toxic effects most likely now related to his immunotherapy, his UTI has cleared. His diarrhea slowed down somewhat, but still remains loose, patient has lost at least another 10 pounds over the last month. Patient had been trialed he did get on medication list, Megace, unclear how consistent he was with use. Follow-up with Dr. Yang, Will go ahead and treat as immunotherapy side effect with prednisone, consulted for dose, instructed and prescription sent for prednisone 40 mg x 3 days, followed by 30 mg x 3 days followed by 20 mg 3 days followed by 10 mg 3 days followed by 5 mg. He will be seeing oncology or palliative care in the meantime, and can titrate accordingly. He has been instructed to hold the Megace at this point as the steroids will most likely be duplicative. Patient's met with dietitian, to help assist with encouragement of using tube feedings for support more frequently, as well as adequate fluid intake. Peg tube per , has not been replaced for greater than 14 months. It does look worse for wear, will facilitate with oncologist for replacement. Following up on dietitian recommendations, will have them add vitamin D level to labs. They have significant financial stressors, so [id number] supplements are expensive for them. 2. Diarrhea. Patient is inconsistent in using his antidiarrheals, I did reorder his Lomotil as he had received that from the ER. Patient has been less engaged and needing more assist with his medications, medication list printed out and reviewed with . 3. Acute on chronic pain. Patient currently on fentanyl 100 mcg patch, counseling initiated regarding oxycodone taper, prescription provided for decreased amount, with instructions to taper by one tab every week. Patient is quite fearful, has had some fairly severe withdrawal symptoms in the past when he is run out. Counseling provided regarding slow taper he should be able to tolerate, and goal with diminished tumor pain, to decrease opioid burden and load. 4. BPH. Patient did have a recurrent UTI, shared patient has not been clear planing catheter use, though he is using good technique and attributes this to his most recent UTI. They have reviewed their technique in care of his straight caths. 5. Generalized weakness. Patient continues have functional decline, this is multifactorial including muscle wasting and loss, patient spending a majority of time in bed. They deny any falls, the patient's gait is unsteady. Patient has been receiving fluids weekly. 6. Advanced care planning. Both he and his are quite anxious regarding the implications for his cancer, reassured and refocused on current goals which are to improve his fluid, weight, and functional status so he can continue with treatment. Time Spent: 30 minutes with greater than 50% of this done in counseling regarding pain and symptom management review of medications coordination of care with oncology team.
== END 2019-04-30 12:24 | disposition home or self-care (01) ==
LOC: PC 12:23
PROVIDERS: ATTEND Nurse Practitioner Adult Health
DX: Z51.5 Encounter for palliative care (principal); G89.3 Neoplasm related pain (acute) (chronic); B37.0 Candidal stomatitis; R63.4 Abnormal weight loss; R63.0 Anorexia; R68.81 Early satiety; R43.9 Unspecified disturbances of smell and taste; R11.0 Nausea; K52.1 Toxic gastroenteritis and colitis; T45.1X5A Adverse effect of antineoplastic and immunosuppressive drugs, initial encounter; N40.0 Benign prostatic hyperplasia without lower urinary tract symptoms; R53.1 Weakness; R06.02 Shortness of breath; F41.9 Anxiety disorder, unspecified; C79.89 Secondary malignant neoplasm of other specified sites; C02.9 Malignant neoplasm of tongue, unspecified; Z79.899 Other long term (current) drug therapy; Z79.891 Long term (current) use of opiate analgesic; Z93.1 Gastrostomy status; Z87.440 Personal history of urinary (tract) infections
CPT/HCPCS: 99214

== ENCOUNTER 2019-05-07 09:30 | Outpatient (CLI) | payer MEDICARE ==
--- NOTE | 2019-05-07 15:48 | CONSULTATION NOTE ---
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 He did receive palliative carbotaxol, from 02/2008 to 06/2018 with poor tolerance and progression of disease, with multiple hospitalizations. He has been on nivolumab immunotherapy since 08/2018, with remission on last scan 01/2019. Patient has had nivolumab on hold last two doses due to worsening renal function, and immunotherapy side effects attributed to anorexia and weight loss. Patient has had persistent diarrhea, diagnosed with E Coli UTI in March, after treated some improvement, but continued with recurrent loose stools, poor tolerance of TF, low grade nausea and anorexia. Patient seen on 04/30/2019, had not had any improvement with Megace, consult with oncology, treated with Prednisone 40 mg taper every 3 days, currently should be on 20 mg, cannot confirm as set up medications. Patient is feeling much better, reports he is eating everything, he does report his stools have improved, down to 1-2 a day, loose not watery. *Unclear but confirmed later, had been also scheduling Lomotil in his a.m. and p.m. meds. Did ask her to remove Lomotil, so can see results if need to slow down prednisone taper. Patient had just come from surgeons Dr. Cowan. They had removed the PEG tube with some difficulty, patient reports it adhered to "his insides", was exchanged for gastric tube with a balloon to ease further changes in the future. He does have some residual bleeding and pain at exit site, but does appear to be intact. Patient also presents with severe frequency, was up every 10 to 15 minutes during his entire infusion of fluids. He reports he has not been able to straight cath today, as he did not have any further K-Y jelly. Patient had been voiding on his own, but over the last several days, has needed to straight cath. Reports he is been getting residual of about a cup and a half. He does have the feeling of urgency, urine specimen collected and hazy in appearance. Patient last treated for UTI in March, with E. coli. Patient originally from hospitalization in January 2018 had been encouraged to follow-up with urology, given his oncology issues, had not follow through. He also has transportation issues. We did discuss in the context of this urology now comes to [place], he is willing for follow-up. He has been maintained from discharge plan from hospital early last 2018 for retention/sepsis/UTI on finasteride 5 mg, tamulosin 0.4 twice daily, and doxazosin 1 mg daily. Patient's pain residual still some vague localized pain in neck and left tonsillar area, currently controlled on fentanyl 100 mcg patch. Patient neck mass has resolved, have had several discussions regarding tapering down oxycodone, he has tapered down to 7 tabs of 20 mg, in 24 hours, he is instructed to taper down to 6. He is quite anxious about having withdrawals as he has had experiences in the past. Reviewed again he is on the fentanyl 100 mcg, and need to titrate back given his improved disease state. Patient does have written schedule to decrease 1 oxycodone pill in 24 hours every week, will continue to work with patient regarding this. Social History - Living Situation Living arrangement: At home Living Situation: With spouse/s.o. Support System: Patient's is been out of town for several days, she had left medications set up. Patient unclear of exactly what he has been taking, did follow-up by phone with Lizet, she reports she had scheduled Lomotil, and prednisone taper accordingly. Informed regarding new prescription for Cipro, she will picket labor union and initiate today. Medications/Allergies - Medications Home Medications: Ambulatory Orders Medication Instructions Recorded Confirmed Trazodone HCl 100 mg GT QPM 02/28/18 05/08/19 Finasteride 5 mg GT DAILY 06/23/18 05/08/19 fentaNYL [Fentanyl 50mcg patch] 100 mcg TD Q3D 06/27/18 05/08/19 Albuterol Sulfate [Proair 1 - 2 puffs INH Q4HR PRN 07/24/18 05/08/19 Respiclick] Naloxone HCl [Narcan] 1 spray JESSICA PRN PRN 07/24/18 05/08/19 Nystatin 5 ml PO QID PRN 07/24/18 05/08/19 Ipratropium/Albuterol [Duoneb] 1 amp INH Q4HR PRN 08/04/18 05/08/19 Oxycodone HCl 20 mg GT Q3HR PRN MDD 6 tabs 08/04/18 05/08/19 buPROPion HCL [Bupropion HCl] 75 mg GT BID 08/04/18 05/08/19 Metoprolol Succinate [Toprol Xl] 12.5 mg PO BID 09/25/18 05/08/19 Tamsulosin [Flomax] 0.4 mg PO BID #60 capsule 09/27/18 05/08/19 Doxazosin Mesylate 1 mg GT DAILY 09/29/18 05/08/19 Diphenoxylate/Atropine [Lomotil] 1 each PO QID PRN #12 tablet 03/29/19 05/08/19 Metoclopramide [Reglan] 5 mg PO TID PRN 03/29/19 05/08/19 Ondansetron [Ondansetron Odt] 8 mg PO Q8HR PRN 03/29/19 05/08/19 Prochlorperazine [Compazine] 10 mg PO Q6HR PRN 03/29/19 05/08/19 Omeprazole 40 mg PO DAILY 04/06/19 05/08/19 predniSONE [Prednisone] 20 mg PO DAILY MDD taper every 3 04/30/19 05/08/19 days down by 10 Ciprofloxacin HCl [Cipro] 500 mg PO BID 05/08/19 05/08/19 - Allergies Allergies/Adverse Reactions: Allergies Allergy/AdvReac Type Severity Reaction Status Date / Time No Known Drug Allergies Allergy Verified 04/06/19 15:09 Review of Systems - Constitutional Constitutional: reports: Fatigue (improved), Weakness, Weight loss (152). denies: Fever, Chills - Eyes Eyes: reports: Vision loss - Ears, Nose & Throat Ears, Nose & Throat: reports: Hoarseness, Dry mouth. denies: Mouth lesions - Cardiovascular Cardiovascular: reports: Decr. exercise tolerance - Respiratory Respiratory: reports: SOB at rest (intermittent), SOB with exertion. denies: Cough - Gastrointestinal Gastrointestinal: reports: Change in bowel habits (see HPI), Good appetite. denies: Nausea (improved), Vomiting, Reflux/heartburn - Genitourinary Genitourinary: reports: Frequency, Urgency, Other (increased urinary retention symptoms) - Musculoskeletal Musculoskeletal: reports: Back pain, Stiffness, Muscle weakness, Joint pain - Integumentary Integumentary: reports: Dryness - Neurological Neurological: reports: General weakness, Dizziness (orhtostatisis). denies: Headache (improved/resolved) - Psychiatric Psychiatric: reports: Anxiety. denies: Depression - Endocrine Endocrine: reports: Intolerance to cold - Hematologic/Lymphatic Hematologic/Lymphatic: reports: Anemia (10.1), Recurrent infections (utis) - All Other Systems All Other Systems: reports: Reviewed and negative Physical Exam - Vital Signs Pulse Rate: 56 (sitting 95 standing) Respiratory Rate: 18 Blood Pressure: 129/58 (sitting; 106/58 standing) - Physical Exam General Appearance: positive: Mild distress (just had PEG tube pulled) Eyes Bilateral: positive: Normal inspection ENT: positive: Other (coating on tongue/no patches of candidiasis) Cardiovascular: positive: Regular rate & rhythm Respiratory: positive: No respiratory distress, Diminished in bases. negative: Wheezes Abdomen: positive: Soft, Tenderness (at exit site). negative: Distended Skin: positive: Pallor, Dryness, Other (oozing at gastric tube site; cleansed and gauze applied) Extremities: positive: No pedal edema, Other (gait wide stanced/more difficulty getting sitting to standing;) Neurologic/Psychiatric: positive: Oriented x3, Mood/affect nml, Weakness, Slurred/abnml speech (mechanical) Palliative Care - POLST Patient has POLST: No POLST Status: Full Code Pain: Pain unchanged, Location (see hpi), Severity (rates 5/10) Tiredness/Fatigue: Moderate (4-6) Drowsiness/Sedation: Moderate (4-6) Nausea: Moderate (4-6) (but tolerating feeding now; taking 4 and eating) Anorexia: Severe (7-10) (coming back this week), Weight loss Dyspnea: Moderate (4-6) Depression: Mild (1-3) Anxiety: Moderate (4-6) Feelings of wellbeing/Perceived Quality of Life: Fair, Acceptable, Improved Sleep: Variable sleep pattern (diificulty with increased frequency) Constipation: No Performance Status: Patient has had a decline in his functional status, related to his diarrhea and fecal incontinence. Has been spending most of his time in bed. He reports he is slowly improving, getting up around the house more. He does appear deconditioned, shortness of breath with activity, and difficulty getting from sitting to standing. He does feel like this last week has brought some improvement, is able to manage his ADLs. His does oversee his medications. - Palliative Care Discussion: Patient is feeling better in the context is diarrhea is better he is eating better he feels more hungry feels like he is making progress. He is having difficult time this morning, though with the tube exchange, and now with presenting frequency and urinary retention symptoms. He remains quite anxious off of treatment, but reviewed needing time to get his body feeling better, and symptoms under control. 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 Related to presumed GI toxicities including anorexia, nausea, diarrhea, resulting in recurrent dehydration, weight loss, and general functional decline. Patient does present with improvement with bolus of prednisone, but today presents with symptoms of current retention and UTI. Palliative care providing support regarding pain and symptom management, coordination of care and anticipatory guidance. Recommendations/Counseling Done: 1. Weight loss. This is multifactorial in origin, patient has had good response to prednisone. His nausea is resolved, is using his tube feeding, has been able to titrate up to 2 to 3 boxes, feels like he can tolerate 4 at this point in time. He is eating regularly. He did have his PEG tube replaced with a gastric tube, patient reports it "was adhered", this may also improved. 2. Diarrhea. Patient currently has had Lomotil scheduled twice daily, requested take it out of [employer] so we can see his response. Patient may benefit from prolonged or extended prednisone dosing, he does see oncology on Saturday will defer. 3. Acute on chronic pain. Patient currently on fentanyl 100 mcg patch, patient has been instructed in taper, has been on 7 tabs, as instructed decrease down to 6, continues with fearfulness regarding withdrawal symptoms. Counseled again regarding slow taper should be able to tolerate, goals diminished opioid burden, with improved tumor pain. Patient though does have residual musculoskeletal aches in joints, can be attributed to immunotherapy or exacerbated osteoarthritis. 4. BPH. Patient now has had second UTI, concern regarding patient's technique for straight cath, has had to resume straight cathing. Patient ran out of [employer], had not today straight cath. Unfortunately was up every 15 minutes to attempt to void. Urine specimen is hazy, did come back positive. We will go ahead and treat for Cipro 500 mg twice daily x7 days. Referral to urology was excepted, recommended patient follow through. 5. Generalized weakness. Patient has had ongoing functional decline, does feel better this week. Still has some dizziness and orthostatic hypotension. Does feel like he is eating better, with improved energy though still quite sedentary. Patient's been instructed to activity, and progressive ambulation. Patient has been receiving fluids weekly, will continue to monitor regarding if needed. 6. Advanced care planning. Patient remains quite anxious regarding his cancer, and medical issues. Patient's goals are to "beat this thing" and live as long as possible, patient quite resistant to any conversation for end-of-life planning as he finds anything negative produces high anxiety and distressing. Patient has agreed if a turn of events, can revisit at this point in time counseling for depression and anxiety provided in the context of supportive care Time Spent: 30 minutes with greater than 50% of this done in counseling regarding management of UTI, evaluation response of prednisone, pain and symptom management, coordination of care and anticipatory guidance
== END 2019-05-07 09:31 | disposition home or self-care (01) ==
LOC: PC 09:30
PROVIDERS: ATTEND Nurse Practitioner Adult Health
DX: Z51.5 Encounter for palliative care (principal); G89.3 Neoplasm related pain (acute) (chronic); R63.4 Abnormal weight loss; R19.7 Diarrhea, unspecified; N39.0 Urinary tract infection, site not specified; N40.1 Benign prostatic hyperplasia with lower urinary tract symptoms; F41.9 Anxiety disorder, unspecified; R33.8 Other retention of urine; R53.1 Weakness; C02.9 Malignant neoplasm of tongue, unspecified; C79.89 Secondary malignant neoplasm of other specified sites; Z79.899 Other long term (current) drug therapy; Z79.891 Long term (current) use of opiate analgesic; Z93.1 Gastrostomy status
CPT/HCPCS: 99214

== ENCOUNTER 2019-05-09 12:56 | Inpatient (IN) | payer MEDICARE, MEDICAID ==
[2019-05-09] MEDS ORDERED: diltiaZEM INJ 5 MG/ML VIAL IVP STA (14:14)
--- NOTE | 2019-05-09 14:17 | ED Physician Documentation ---
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 He has come to the emergency department now with weakness and difficulty in standing associated with some shortness of breath. He does not have much in way of abdominal pain he does think that the contents of his stomach are leaking out of the stoma where the G-tube goes in. He has a remote history of afib and he does not recall any details of this. He does not know the words congestive heart failure. He has been treated for UTI this past week with cipro and urine has been sensitive. Review of Systems Constitutional: reports: Fatigue. denies: Fever Eyes: denies: Decreased vision Ears: denies: Loss of hearing, Ear pain Throat: denies: Sore throat Cardiac: denies: Chest pain / pressure Respiratory: reports: Dyspnea. denies: Cough GI: reports: Diarrhea. denies: Nausea, Vomiting : denies: Dysuria, Frequency PD PAST MEDICAL HISTORY - Past Medical History Past Medical History: Yes Cardiovascular: Hypertension, High cholesterol, Coronary artery disease, Atrial fibrillation, Murmur, Arrhythmia Respiratory: COPD, Emphysema, Pneumonia, Shortness of breath Neuro: Dementia, Headaches, Peripheral neuropathy, Tremors Endocrine/Autoimmune: None GI: GERD, Colon polyps, Hepatitis, Other : Benign prostate hypertrophy, Retention, Renal insuffiency, Nocturia HEENT: Chronic vision loss, Chronic sinusitis, Chronic hearing loss, Other Psych: Depression, Anxiety Musculoskeletal: Osteoarthritis, Fatigue Derm: None - Past Surgical History Past Surgical History: Yes General: Appendectomy, Colonoscopy, Other Ortho: Hip replacement Derm: Skin cancer surgery - Present Medications Home Medications: Ambulatory Orders Medication Instructions Recorded Confirmed Trazodone HCl 100 mg GT QPM 02/28/18 05/08/19 Finasteride 5 mg GT DAILY 06/23/18 05/08/19 fentaNYL [Fentanyl 50mcg patch] 100 mcg TD Q3D 06/27/18 05/08/19 Albuterol Sulfate [Proair 1 - 2 puffs INH Q4HR PRN 07/24/18 05/08/19 Respiclick] Naloxone HCl [Narcan] 1 spray JESSICA PRN PRN 07/24/18 05/08/19 Nystatin 5 ml PO QID PRN 07/24/18 05/08/19 Ipratropium/Albuterol [Duoneb] 1 amp INH Q4HR PRN 08/04/18 05/08/19 Oxycodone HCl 20 mg GT Q3HR PRN MDD 6 tabs 08/04/18 05/08/19 buPROPion HCL [Bupropion HCl] 75 mg GT BID 08/04/18 05/08/19 Metoprolol Succinate [Toprol Xl] 12.5 mg PO BID 09/25/18 05/08/19 Tamsulosin [Flomax] 0.4 mg PO BID #60 capsule 09/27/18 05/08/19 Doxazosin Mesylate 1 mg GT DAILY 09/29/18 05/08/19 Diphenoxylate/Atropine [Lomotil] 1 each PO QID PRN #12 tablet 03/29/19 05/08/19 Metoclopramide [Reglan] 5 mg PO TID PRN 03/29/19 05/08/19 Ondansetron [Ondansetron Odt] 8 mg PO Q8HR PRN 03/29/19 05/08/19 Prochlorperazine [Compazine] 10 mg PO Q6HR PRN 03/29/19 05/08/19 Omeprazole 40 mg PO DAILY 04/06/19 05/08/19 predniSONE [Prednisone] 20 mg PO DAILY MDD taper every 3 04/30/19 05/08/19 days down by 10 Ciprofloxacin HCl [Cipro] 500 mg PO BID 05/08/19 05/08/19 - Allergies Allergies/Adverse Reactions: Allergies Allergy/AdvReac Type Severity Reaction Status Date / Time No Known Drug Allergies Allergy Verified 05/09/19 13:09 - Social History Does the pt smoke?: No Smoking Status: Never smoker Does the pt drink ETOH?: Yes Does the pt have substance abuse?: Yes - Immunizations Immunizations are current?: No Immunizations: TDAP >10years/unknown - POLST Patient has POLST: No POLST Status: Full Code PD ED PE NORMAL - Vitals Vital signs reviewed: Yes (tachy and hypotensive ) - General General: Alert and oriented X 3, No acute distress, Well developed/nourished - HEENT HEENT: Atraumatic, PERRL, EOMI - Neck Neck: Supple, no meningeal sign, No bony TTP - Cardiac Cardiac: No murmur, Other (irregularly irregular ) - Respiratory Respiratory: No respiratory distress, Clear bilaterally - Abdomen Abdomen: Normal bowel sounds, Soft, Non tender, Non distended, No organomegaly, Other (There is a G-tube in place that is non-tender and without signs of inflamation at the insertion site. 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, No motor deficit, No sensory deficit, Normal speech Eye Opening: Spontaneous Motor: Obeys Commands Verbal: Oriented GCS Score: 15 - Psych Psych: Normal mood, Normal affect Results - Vitals Vitals: Vital Signs - 24 hr 05/09/19 05/09/19 05/09/19 13:09 13:50 14:20 Temperature 36.7 C Heart Rate 135 H 137 H 135 H Respiratory 17 18 14 Rate Blood Pressure 70/36 L 81/65 L 89/68 L O2 Saturation 93 96 99 05/09/19 05/09/19 05/09/19 14:30 15:00 15:30 Temperature Heart Rate 96 105 H 92 Respiratory 15 22 17 Rate Blood Pressure 92/63 116/67 79/49 L O2 Saturation 98 97 92 05/09/19 05/09/19 05/09/19 16:00 16:29 16:30 Temperature Heart Rate 90 105 H 109 H Respiratory 14 12 16 Rate Blood Pressure 86/58 L 89/64 L 85/68 L O2 Saturation 94 100 100 05/09/19 05/09/19 05/09/19 17:00 17:30 18:00 Temperature Heart Rate 97 99 70 Respiratory 12 14 12 Rate Blood Pressure 74/56 L 94/63 87/42 L O2 Saturation 99 95 96 Oxygen O2 Source Nasal cannula - EKG (time done) 1425 Rate: Rate (enter#) (123) Rhythm: Atrial flutter Intervals: Prolonged QT QRS: Low voltage Compare to prior EKG: Changed from prior EKG (SPT 09-26-2018 the rate has increased and the rhythm has changed to aflutter. ) Computer interpretation: Agree with computer - Labs Labs: Laboratory Tests 05/09/19 05/09/19 05/09/19 13:37 13:42 13:42 WBC 13.4 H RBC 3.60 L Hgb 11.1 L Hct 34.1 L MCV 94.7 H MCH 30.8 MCHC 32.6 RDW 17.1 H Plt Count 362 MPV 11.1 Neut # (Auto) 12.1 H Lymph # (Auto) 0.4 L [place] # (Auto) 0.6 Eos # (Auto) 0.2 Baso # (Auto) 0.0 Absolute Nucleated RBC 0.00 Band Neuts % (Manual) Not Reportable Abnorm Lymph % (Manual) Not Reportable Nucleated RBC % 0.0 Neutrophils # (Manual) Not Reportable Lymphocytes # (Manual) Not Reportable Monocytes # (Manual) Not Reportable Eosinophils # (Manual) Not Reportable Basophils # (Manual) Not Reportable Differential Comment MANUAL=AUTO DIFF Platelet Estimate NORMAL (130-450,000) Platelet Morphology NORMAL APPEARANCE RBC Morph Micro Appear 1+ HYPOCHROMASIA Sodium 128 L Potassium 3.6 Chloride 94 L Carbon Dioxide 21 Anion Gap 13.0 BUN 53 H Creatinine 2.1 H Estimated GFR (MDRD) 31 L Glucose 165 H Lactic Acid 2.2 Calcium 8.3 L Total Bilirubin 0.5 AST 34 ALT 27 Alkaline Phosphatase 40 L Troponin I High Sens B-Natriuretic Peptide Total Protein 7.1 Albumin 3.1 L Globulin 4.0 Albumin/Globulin Ratio 0.8 L Lipase 23 Urine Color Urine Clarity Urine pH Ur Specific [place] Urine Protein Urine Glucose (UA) Urine Ketones Urine Occult Blood Urine Nitrite Urine Bilirubin Urine Urobilinogen Ur Leukocyte Esterase Urine RBC Urine WBC Urine WBC Clumps Ur Squamous Epith Cells Urine Bacteria Ur Microscopic Review Urine Culture Comments 05/09/19 05/09/19 05/09/19 13:42 13:42 17:10 WBC RBC Hgb Hct MCV MCH MCHC RDW Plt Count MPV Neut # (Auto) Lymph # (Auto) [place] # (Auto) Eos # (Auto) Baso # (Auto) Absolute Nucleated RBC Band Neuts % (Manual) Abnorm Lymph % (Manual) Nucleated RBC % Neutrophils # (Manual) Lymphocytes # (Manual) Monocytes # (Manual) Eosinophils # (Manual) Basophils # (Manual) Differential Comment Platelet Estimate Platelet Morphology RBC Morph Micro Appear Sodium Potassium Chloride Carbon Dioxide Anion Gap BUN Creatinine Estimated GFR (MDRD) Glucose Lactic Acid Calcium Total Bilirubin AST ALT Alkaline Phosphatase Troponin I High Sens 27.9 H* 19.7 B-Natriuretic Peptide 367 H Total Protein Albumin Globulin Albumin/Globulin Ratio Lipase Urine Color Urine Clarity Urine pH Ur Specific [place] Urine Protein Urine Glucose (UA) Urine Ketones Urine Occult Blood Urine Nitrite Urine Bilirubin Urine Urobilinogen Ur Leukocyte Esterase Urine RBC Urine WBC Urine WBC Clumps Ur Squamous Epith Cells Urine Bacteria Ur Microscopic Review Urine Culture Comments 05/09/19 17:40 WBC RBC Hgb Hct MCV MCH MCHC RDW Plt Count MPV Neut # (Auto) Lymph # (Auto) [place] # (Auto) Eos # (Auto) Baso # (Auto) Absolute Nucleated RBC Band Neuts % (Manual) Abnorm Lymph % (Manual) Nucleated RBC % Neutrophils # (Manual) Lymphocytes # (Manual) Monocytes # (Manual) Eosinophils # (Manual) Basophils # (Manual) Differential Comment Platelet Estimate Platelet Morphology RBC Morph Micro Appear Sodium Potassium Chloride Carbon Dioxide Anion Gap BUN Creatinine Estimated GFR (MDRD) Glucose Lactic Acid Calcium Total Bilirubin AST ALT Alkaline Phosphatase Troponin I High Sens B-Natriuretic Peptide Total Protein Albumin Globulin Albumin/Globulin Ratio Lipase Urine Color LT. YELLOW Urine Clarity HAZY Urine pH 5.0 Ur Specific [place] 1.010 Urine Protein NEGATIVE Urine Glucose (UA) NEGATIVE Urine Ketones NEGATIVE Urine Occult Blood MODERATE H Urine Nitrite NEGATIVE Urine Bilirubin NEGATIVE Urine Urobilinogen 0.2 (NORMAL) Ur Leukocyte Esterase SMALL H Urine RBC 6-10 H Urine WBC 11-25 H Urine WBC Clumps PRESENT Ur Squamous Epith Cells RARE Squamous Urine Bacteria None Seen Ur Microscopic Review INDICATED Urine Culture Comments INDICATED - Rads (name of study) chest Radiology: Prelim report reviewed (Impression: New bandlike opacity seen at the right mid lung, could represent atelectasis, infiltrate or overlap. Malignancy is not excluded. Follow-up imaging is recommended to ensure resolution.), EMP read indepedently, See rad report Procedures - IVC sono (time) 1414 Bedside IVC sono: IVC measures (cm) (2.62), IVC collapsed c insp (cm) (2.62), High CVP, Fluid overload PD MEDICAL DECISION MAKING - ED course Complexity details: reviewed old records, reviewed results, re-evaluated patient, considered differential, d/w patient, d/w family ED course: 69-year-old male with a history of squamous cell carcinoma of the tonsil is undergoing treatment and today he comes to the emergency department feeling weak and short of breath and is found to be in atrial fibrillation with a rapid ventricular response and congestive heart failure. He is administered some diltiazem which brings his heart rate down nicely and he is also administered some furosemide. We considered cardioversion of the patient when he arrived and elected not to perform this as we did find some evidence that he has had atrial fibrillation previously and he has been in it for some time. His pressure barely held for us to be able to a administered diltiazem this did help bring his heart rate down. We then had to again administer Lasix with the patient's pressure being low. We did have the knowledge of elevated central venous pressure and the patient tolerated this and his pressure eventually came up. Urine looks like it is still infected. Departure - Departure Disposition: 66 [facility] DC/Xfer Clinical Impression: Atrial fibrillation with RVR CHF (congestive heart failure) Qualifiers: Heart failure type: unspecified Heart failure chronicity: acute on chronic Qualified Code(s): I50.9 - Heart failure, unspecified Urinary tract infection Qualifiers: Urinary tract infection type: acute cystitis Hematuria presence: with hematuria Qualified Code(s): N30.01 - Acute cystitis with hematuria
[2019-05-09 14:31] LABS: BASOPHILS % (AUTO) 0.3 %; EOSINOPHILS # (AUTO) 0.2 10^3/uL (0.0-0.7); EOSINOPHILS % (AUTO) 1.2 %; HGB - HEMOGLOBIN 11.1 g/dL (14.0-18.0); LYMPHOCYTES # (AUTO) 0.4 10^3/uL (1.5-3.5); LYMPHOCYTES % (AUTO) 2.9 %; MEAN CORPUSCULAR HEMOGLOBIN 30.8 pg (27.0-31.0); MEAN CORPUSCULAR HGB CONC 32.6 g/dL (32.0-36.0); MEAN CORPUSCULAR VOLUME 94.7 fL (80.0-94.0); MEAN PLATELET VOLUME 11.1 fL (7.4-11.4); MONOCYTES # (AUTO) 0.6 10^3/uL (0.0-1.0); MONOCYTES % (AUTO) 4.4 %; NEUTROPHILS # (AUTO) 12.1 10^3/uL (1.5-6.6); NEUTROPHILS % (AUTO) 90.2 %; PLT - PLATELET COUNT 362 10^3/uL (130-450); RED CELL DISTRIBUTION WIDTH 17.1 % (12.0-15.0); WHITE BLOOD COUNT 13.4 x10^3/uL (4.8-10.8)
[2019-05-09 14:49] LABS: ALBUMIN 3.1 g/dL (3.2-5.5); ALBUMIN/GLOBULIN RATIO 0.8 (1.0-2.2); BILIRUBIN,TOTAL 0.5 mg/dL (0.2-1.0); CALCIUM 8.3 mg/dL (8.5-10.3); CREATININE 2.1 mg/dL (0.6-1.2); TOTAL PROTEIN 7.1 g/dL (6.7-8.2)
[2019-05-09 15:08] LABS: DIFFERENTIAL COMMENT MANUAL=AUTO DIFF; PLATELET ESTIMATE, MANUAL NORMAL (130-450,000) (NORMAL); PLATELET MORPHOLOGY NORMAL APPEARANCE (NORMAL); RBC MORPHOLOGY (MULTIPLE) 1+ HYPOCHROMASIA (NORMAL)
[2019-05-09] MEDS ORDERED: FUROSEMIDE 40 MG/4 ML VIAL IVP STA (15:42)
--- NOTE | 2019-05-09 16:15 | XRAY Report ---
Reason: chest pain Procedure Date: 05/09/2019 Accession Number: [id number] / [id number] Procedure: XR - Chest 1 View X-Ray CPT Code: 74730 Final Report FULL RESULT: EXAM: CHEST RADIOGRAPHY EXAM DATE: 05/09/2019 04:02 PM. CLINICAL HISTORY: Chest pain. COMPARISON: CHEST 2 VIEW 01/12/2019 11:40 AM CHEST W/O 01/19/2019 12:17 PM. TECHNIQUE: 1 view. FINDINGS: Lungs/Pleura: NEW BANDLIKE OPACITY SEEN AT THE RIGHT MIDLUNG. NO PLEURAL EFFUSION OR PNEUMOTHORAX. Mediastinum: Within exam limitations, the cardiomediastinal contour is normal. Other: RIGHT PORT-A-CATH CENTRAL LINE AGAIN NOTED. IMPRESSION: NEW BANDLIKE OPACITY SEEN AT THE RIGHT MIDLUNG, COULD REPRESENT ATELECTASIS, INFILTRATE OR OVERLAP. MALIGNANCY IS NOT EXCLUDED. FOLLOW-UP IMAGING IS RECOMMENDED TO ENSURE RESOLUTION. [facility]
[2019-05-09 17:43] LABS: BILIRUBIN,URINE NEGATIVE (NEGATIVE); GLUCOSE, URINE (UA) NEGATIVE (NEGATIVE); KETONES,URINE (UA) NEGATIVE (NEGATIVE); LEUKOCYTE ESTERASE, URINE SMALL (NEGATIVE); NITRITE,URINE NEGATIVE (NEGATIVE); OCCULT BLOOD,URINE MODERATE (NEGATIVE); PROTEIN,URINE NEGATIVE (NEGATIVE); UROBILINOGEN,URINE 0.2 (NORMAL) E.U./dL (NORMAL)
[2019-05-09 17:54] LABS: BACTERIA,URINE None Seen /HPF (None Seen); CLARITY,URINE HAZY (CLEAR); SQUAMOUS EPITHELIAL CELL,UR RARE Squamous (<= Few); WBC CLUMPS,URINE PRESENT
[2019-05-09] MEDS ORDERED: ACETAMINOPHEN 325 MG TABLET PO PRN (18:16)
[2019-05-09] MEDS ORDERED: ONDANSETRON 4 MG/2 ML VIAL IVP PRN (18:16)
[2019-05-09] MEDS ORDERED: oxyCODONE 5 MG TABLET PO PRN (18:16)
[2019-05-09] MEDS ORDERED: LACTATED RINGERS 2,109.21 ML IV STA (18:48)
--- NOTE | 2019-05-09 18:57 | HISTORY & PHYSICAL EXAMINATION ---
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 He states his PEG tube was changed on and that it took about 20 minutes to complete the whole process and that it was so uncomfortable for him that he almost passed out. He states that since then, he notes his PEG tube has been leaking at the site of the insertion. He states that he has felt generally weak over the past couple of days as well. He reports he has been having diarrhea although this is improved today. He had been going so frequently that he began to wear a diaper. He reports no blood in his stool. He states that he was recently diagnosed with a urinary tract infection and was started on ciprofloxacin a couple of days ago. Reports no dysuria or hematuria. He states he normally self catheterizes. He had a Mcbride catheter placed here in the emergency department. He reports that he has had no fevers or chills. He denies any chest pain or dyspnea. He did not note that his heart rate had been elevated. He denies any orthopnea or lower extremity edema. Reports that his cancer is currently in remission. He is not on Opdivo due to side effects which are believed to be renal insufficiency as well as GI upset and diarrhea. He states that he responded quite well to the immunotherapy and the mass in his neck had decreased in size tremendously. He is not able to take some oral food by mouth. He still uses his PEG tube for most of his nutrition and uses a bottle a couple of times a day when he feels he needs it. In the emergency department, he was found to be afebrile with temperature of 36.7 C. He was tachycardic with a heart rate of 135 and he was found to be in atrial flutter. He was hypotensive the blood pressure of 70/36. He was not t achypneic and saturating well on room air. His labs revealed a white count of 13.4 with a left shift. His sodium was decreased at 128. BUN was elevated at 53 and his creatinine at 2.1. Lactic acid was 2.2. Initial troponin was 27.9 but repeat was 19.7. His BNP was elevated at 367. His EKG showed atrial flutter without evidence of ischemia. His urinalysis did reveal pyuria with small leukocyte esterase. It was felt in the emergency department, that he had congestive heart failure and he was given diltiazem 20mg IV for his elevated heart rate and he was administered a dose of Lasix 40 mg IV. His heart rate did improve into the 70s with the diltiazem. His blood pressure remained low with systolics in the 70s and 80s. Given these findings, medicine was consulted for admission. History - Past Medical History Cardiovascular: reports: Hypertension, High cholesterol, Coronary artery disease, Atrial fibrillation, Murmur, Arrhythmia Respiratory: reports: COPD, Emphysema, Pneumonia, Shortness of breath Neuro: reports: Dementia, Headaches, Peripheral neuropathy, Tremors Endocrine/Autoimmune: reports: None GI: reports: GERD, Colon polyps, Hepatitis, Other : reports: Benign prostate hypertrophy, Retention, Renal insuffiency, Nocturia HEENT: reports: Chronic vision loss, Chronic sinusitis, Chronic hearing loss, Other Psych: reports: Depression, Anxiety Musculoskeletal: reports: Osteoarthritis, Fatigue Derm: reports: None MRSA Hx?: No - Past Surgical History General: reports: Appendectomy, Colonoscopy, Other Ortho: reports: Hip replacement Derm: reports: Skin cancer surgery - Family & Social History Family History: Mother: Alive and Well, Father: Family History Comment/Other: Reports that his father had a stroke otherwise he cannot recall any other family history Living arrangement: At home Living Situation: With family Social History Notes: He lives at home with his family. Quit smoking about 1 year ago but he did smoke for quite a few years about a half a pack a day. - POLST Patient has POLST: No POLST Status: Full Code Meds/Allgy - Home Medications Home Medications: Ambulatory Orders Medication Instructions Recorded Confirmed Trazodone HCl 100 mg GT QPM 02/28/18 05/08/19 Finasteride 5 mg GT DAILY 06/23/18 05/08/19 fentaNYL [Fentanyl 50mcg patch] 100 mcg TD Q3D 06/27/18 05/08/19 Albuterol Sulfate [Proair 1 - 2 puffs INH Q4HR PRN 07/24/18 05/08/19 Respiclick] Naloxone HCl [Narcan] 1 spray JESSICA PRN PRN 07/24/18 05/08/19 Nystatin 5 ml PO QID PRN 07/24/18 05/08/19 Ipratropium/Albuterol [Duoneb] 1 amp INH Q4HR PRN 08/04/18 05/08/19 Oxycodone HCl 20 mg GT Q3HR PRN MDD 6 tabs 08/04/18 05/08/19 buPROPion HCL [Bupropion HCl] 75 mg GT BID 08/04/18 05/08/19 Metoprolol Succinate [Toprol Xl] 12.5 mg PO BID 09/25/18 05/08/19 Tamsulosin [Flomax] 0.4 mg PO BID #60 capsule 09/27/18 05/08/19 Doxazosin Mesylate 1 mg GT DAILY 09/29/18 05/08/19 Diphenoxylate/Atropine [Lomotil] 1 each PO QID PRN #12 tablet 03/29/19 05/08/19 Metoclopramide [Reglan] 5 mg PO TID PRN 03/29/19 05/08/19 Ondansetron [Ondansetron Odt] 8 mg PO Q8HR PRN 03/29/19 05/08/19 Prochlorperazine [Compazine] 10 mg PO Q6HR PRN 03/29/19 05/08/19 Omeprazole 40 mg PO DAILY 04/06/19 05/08/19 predniSONE [Prednisone] 20 mg PO DAILY MDD taper every 3 04/30/19 05/08/19 days down by 10 Ciprofloxacin HCl [Cipro] 500 mg PO BID 05/08/19 05/08/19 - Allergies Allergies/Adverse Reactions: Allergies Allergy/AdvReac Type Severity Reaction Status Date / Time No Known Drug Allergies Allergy Verified 05/09/19 13:09 Review of Systems - Constitutional Constitutional: reports: Fatigue, Weakness. denies: Fever, Chills, Malaise, Poor appetite - Ears, Nose & Throat Ears, Nose & Throat: reports: Sore throat - Cardiovascular Cariovascular: denies: Chest pain, Exertional dyspnea, Decr. exercise tolerance - Respiratory Respiratory: reports: Cough. denies: SOB at rest, SOB with exertion - Gastrointestinal Gastrointestinal: reports: Diarrhea, Change in bowel habits. denies: Abdominal pain, Bloody stools, Nausea, Vomiting - Genitourinary Genitourinary: denies: Dysuria, Frequency, Urgency - Musculoskeletal Musculoskeletal: denies: Muscle pain - Integumentary Integumentary: denies: Rash - Neurological Neurological: reports: General weakness. denies: Focal weakness - Hematologic/Lymphatic Hematologic/Lymphatic: denies: Bleeding tendencies - All Other Systems All Other Systems: reports: Reviewed and negative Prior Level of Functionality: Ports that he is independent with his ADLs and that he ambulates on his own without any devices. Exam - Vital Signs Reviewed Vital Signs: Yes Vital Signs: Vital Signs x48h Temp Pulse Resp BP Pulse Ox 05/09/19 18:40 73 18 99/67 94 05/09/19 18:00 70 12 87/42 L 96 05/09/19 17:30 99 14 94/63 95 05/09/19 17:00 97 12 74/56 L 99 05/09/19 16:30 109 H 16 85/68 L 100 05/09/19 16:29 105 H 12 89/64 L 100 05/09/19 16:00 90 14 86/58 L 94 05/09/19 15:30 92 17 79/49 L 92 05/09/19 15:00 105 H 22 116/67 97 05/09/19 14:30 96 15 92/63 98 05/09/19 14:20 135 H 14 89/68 L 99 05/09/19 13:50 137 H 18 81/65 L 96 05/09/19 13:09 36.7 C 135 H 17 70/36 L 93 - Physical Exam General Appearance: positive: No acute distress, Alert Eyes Bilateral: positive: Normal inspection, Conjunctivae nml ENT: positive: ENT inspection nml, Dry mucous membranes Neck: positive: Lymphadenopathy (L) Respiratory: positive: No respiratory distress, Other (Diminished breath sounds.). negative: Wheezes, Rales Cardiovascular: positive: No murmur, Irregularly irregular. negative: Tachycardia, Bradycardia, Systolic murmur, Diastolic murmur Abdomen: positive: Non-tender, No distention, Other (PEG tube is in place. Incision site appears clean and dry without any erythema. No obvious leaking at this time). negative: Tenderness, Guarding, Rebound Skin: positive: No rash, Warm, Dry Extremities: positive: Full ROM, No pedal edema Neurologic/Psychiatric: positive: Oriented x3, Motor nml. negative: Disoriented to person, Disoriented to place, Disoriented to time Sepsis Event Note (H) - Evaluation Current Stage of Sepsis: Sepsis Possible source of Sepsis: positive: Unknown - Sepsis Criteria Sepsis Criteria: Recorded Heart Rate greater than 90 bpm, WBC count greater than 12,000 or less than 4000, SBP less than 90 mmHg Conclusion/Plan - Problem List (1) Hypotension Conclusion/Plan: He is hypotensive with systolic in the 70s. Suspect this may be secondary to sepsis given his elevated white count and tachycardia. He did receive 40 mg of Lasix IV in the emergency department. At this time we will give him 30 cc/kg of lactated Ringer's and start him on maintenance fluid with lactated Ringer's. Will administer vancomycin and cefepime IV empirically for possible sepsis. Will obtain an echocardiogram to evaluate his LV function although I doubt that this is cardiogenic shock at the moment. (2) SIRS (systemic inflammatory response syndrome) Conclusion/Plan: He meets sirs criteria given the hypotension and elevated white count. The concern is for sepsis and a possible source may be his urinary tract infection or the diarrhea that he has been having. Chest x-ray does show possible infiltrate in the right lower lobe although he does not have symptoms of pneumonia and it is not impressive on imaging. We will start him on empiric treatment with vancomycin and cefepime IV. Blood cultures have been drawn and are pending. Will check his stool for possible C. difficile. We will monitor his white count. (3) Atrial flutter with rapid ventricular response Conclusion/Plan: Presented with atrial flutter with heart rates in the 120s. He is now rate controlled with heart rate in the 60s after receiving Cardizem IV. His troponin was initially mildly elevated in the 20s but this is now within normal limits. Given he is hypotensive, will hold off on resuming his home metoprolol. We will consider digoxin IV x1 if he becomes tachycardic once again or we may potentially use amiodarone IV. Monitor on telemetry. (4) Urinary tract infection Conclusion/Plan: He was being treated for urinary tract traction on an outpatient basis with ciprofloxacin which his urine culture did grow E. coli and this is sensitive to it. He does self catheterize at home and he currently has a Mcbride catheter in place. We will place him on cefepime IV given his hypotension and leukocytosis. Qualifiers: Urinary tract infection type: acute cystitis (5) Acute kidney injury superimposed on CKD Conclusion/Plan: Creatinine is mildly elevated at 2.1 compared to baseline of 1.5-1.7. Suspect this is prerenal injury given he appears hypovolemic on exam. We will continue him on IV fluids and monitor his renal function and urine output. (6) Leaking PEG tube Conclusion/Plan: Ports his PEG tube has been leaking after was replaced this past but there is no evidence of this on exam the site appears clean. We will restart him on tube feeds and monitor. There is concern for leaking, we will consult general surgery. (7) Diarrhea Conclusion/Plan: Reports worsening diarrhea over the past week although review of his medical records reveal that this is been an ongoing issue for which she is taking Lomotil. Given his current presentation, we will check a C. difficile to rule out infection. If this is negative, suspect his diarrhea may be secondary to his immunotherapy that he had been receiving or possibly his tube feeds. (8) Squamous cell carcinoma of left tonsil Conclusion/Plan: He has history of stage IV squamous of carcinoma left tonsil with metastatic disease. He responded well to Opdivo and is now in remission. Currently no longer receiving immunotherapy due to side effects. He will follow-up with Dr. Yang on outpatient basis. Will resume his home fentanyl patch and oxycodone as needed for pain control. (9) BPH (benign prostatic hyperplasia) Conclusion/Plan: He is on Flomax and finasteride at home which we will resume once he improves from a hemodynamic standpoint. - Lab Results Lab results reviewed: Yes Fish Bones: 05/09/19 13:42 05/09/19 13:42 - Diagnostic Imaging Results Diagnostic Imaging Results: positive: Final report reviewed - EKG Results EKG Interpreted Independently: Yes EKG Findings: His EKG showed atrial flutter with a heart rate of 123. There is no obvious signs of ischemia. Core Measures - Anticipated LOS I expect patient to be DC'd or transferred within 96 hours.: Yes - Issues Hospital Issues and Management Plan: 69-year-old male with history of stage IV squamous cell cancer of the left tonsil presents with a PEG tube leakage and found to be hypotensive and in atrial flutter with rapid regular response. Concern is for sepsis. Will start on broad-spectrum antibiotics and IV hydration. Initial source may be urine or C. difficile as he is having diarrhea. - DVT/VTE - Prophylaxis VTE/DVT Device ordered at admit?: Yes VTE/DVT Prophylaxis med ordered at admit?: Yes
[2019-05-09] MEDS ORDERED: LACTATED RINGERS 1,000 ML IV SCH (19:00)
[2019-05-09] MEDS ORDERED: VANCOMYCIN PER PHARMACY 100 GM in SODIUM CHLORIDE 0.9% 250 ML IV SCH (19:00)
[2019-05-09] MEDS: CEFEPIME 2 GM in SODIUM CHLORIDE 0.9% MINIBAG 100 ML IV SCH ×2 (19:35→21:08)
[2019-05-09] MEDS ORDERED: VANCOMYCIN INJ 1.25 GM in SODIUM CHLORIDE 0.9% 250 ML IV SCH (20:00)
[2019-05-09] MEDS: oxyCODONE 5 MG TABLET PO PRN (20:12)
[2019-05-09] MEDS: HEPARIN 5,000 UNIT/ML VIAL SUBQ SCH (21:59)
[2019-05-09] MEDS: traZODone 50 MG TABLET PEG SCH (22:00)
[2019-05-10] MEDS: oxyCODONE 5 MG TABLET PO PRN ×3 (04:40→13:36)
[2019-05-10] MEDS: SODIUM CHLORIDE FLUSH 0.9% 10 ML SYRINGE IVP SCH ×3 (04:42→17:27)
[2019-05-10 05:15] LABS: BASOPHILS % (AUTO) 0.1 %; EOSINOPHILS % (AUTO) 0.3 %; HGB - HEMOGLOBIN 8.5 g/dL (14.0-18.0); LYMPHOCYTES # (AUTO) 0.5 10^3/uL (1.5-3.5); LYMPHOCYTES % (AUTO) 4.5 %; MEAN CORPUSCULAR HGB CONC 33.1 g/dL (32.0-36.0); MEAN CORPUSCULAR VOLUME 93.8 fL (80.0-94.0); MEAN PLATELET VOLUME 11.2 fL (7.4-11.4); MONOCYTES # (AUTO) 0.6 10^3/uL (0.0-1.0); MONOCYTES % (AUTO) 6.3 %; NEUTROPHILS # (AUTO) 8.7 10^3/uL (1.5-6.6); NEUTROPHILS % (AUTO) 88.2 %; PLT - PLATELET COUNT 296 10^3/uL (130-450); RED BLOOD COUNT 2.74 10^6/uL (4.70-6.10); WHITE BLOOD COUNT 9.9 x10^3/uL (4.8-10.8)
[2019-05-10 05:27] LABS: CALCIUM 7.7 mg/dL (8.5-10.3); MAGNESIUM 1.9 mg/dL (1.7-2.8); PHOSPHORUS 4.5 mg/dL (2.5-4.6)
[2019-05-10] MEDS ORDERED: POTASSIUM CHLORIDE 20 MEQ/15 ML UDC PO ONE (07:25)
[2019-05-10] MEDS ORDERED: SODIUM CHLORIDE 0.9% 1,000 ML IV SCH (08:00)
[2019-05-10] MEDS: CEFEPIME 2 GM in SODIUM CHLORIDE 0.9% MINIBAG 100 ML IV SCH (08:51)
[2019-05-10] MEDS: HEPARIN 5,000 UNIT/ML VIAL SUBQ SCH ×2 (10:13→20:50)
--- NOTE | 2019-05-10 10:51 | PROVIDER PROGRESS NOTE ---
Subjective - Prog Note Date Prog Note Date: 05/10/19 - Subjective Subjective: Reports feeling well. He is happy his blood pressure has improved. He would like his oxycodone increased to 40 mg 3 times daily that he has been taking at home rather than 20 mg every 4 hours. He was able to ambulate in the hallways today and felt well. Denies any chest pain or dyspnea. He is still concerned about the fact that his PEG tube was leaking. Current Medications - Current Medications Current Medications: Active Medications Acetaminophen (Tylenol) 650 mg PO Q4HR PRN PRN Reason: Pain 1 to 4 Diphenoxylate HCl/Atropine (Lomotil) 1 tab PO QID PRN PRN Reason: Diarrhea Fentanyl (Duragesic) 1 patch TOP Q3D [facility] Last Admin: 05/10/19 11:13 Dose: 1 patch Heparin Sodium (Porcine) () 5,000 unit SUBQ BID [facility] Last Admin: 05/10/19 10:13 Dose: 5,000 unit Sodium Chloride (Normal Saline 0.9%) 1,000 mls @ 83.333 mls/hr IV .Q12H [facility] Last Infusion: 05/10/19 13:20 Dose: 83 mls/hr Ceftriaxone Sodium 1 gm/ (Sodium Chloride) 100 mls @ 200 mls/hr IV QPM [facility] Metoprolol Tartrate (Lopressor) 12.5 mg PEG BID [facility] Last Admin: 05/10/19 14:26 Dose: 12.5 mg Oxycodone HCl (Roxicodone) 60 mg PO DAILY [facility] Oxycodone HCl (Roxicodone) 40 mg PO Q12H PRN PRN Reason: Pain 5 to 7 Sodium Chloride (Normal Saline Flush 0.9%) 10 ml IVP 0100,0900,1700 [facility] Last Admin: 05/10/19 09:35 Dose: 10 ml Sodium Chloride (Normal Saline Flush 0.9%) 10 ml IVP PRN PRN PRN Reason: NEEDED PER PROVIDER ORDERS Tamsulosin HCl (Flomax) 0.4 mg PEG BID [facility] Trazodone HCl (Desyrel) 300 mg PEG QPM [facility] Last Admin: 05/09/19 22:00 Dose: 200 mg Trazodone HCl 200 mg PO QPM 02/28/18 Finasteride 5 mg PO DAILY 06/23/18 fentaNYL [Fentanyl 50mcg patch] 100 mcg TD Q3D 06/27/18 Albuterol Sulfate [Proair Respiclick] 1 - 2 puffs INH Q4HR PRN 07/24/18 Naloxone HCl [Narcan] 1 spray JESSICA PRN PRN 07/24/18 Nystatin 5 ml PO QID PRN 07/24/18 Ipratropium/Albuterol [Duoneb] 1 amp INH Q4HR PRN 08/04/18 Oxycodone HCl 20 mg PO Q4HR PRN MDD 6 tabs 08/04/18 buPROPion HCL [Bupropion HCl] 75 mg PO BID 08/04/18 Metoprolol Succinate [Toprol Xl] 12.5 mg PO BID 09/25/18 Doxazosin Mesylate 1 mg PO DAILY 09/29/18 Ondansetron [Ondansetron Odt] 4 mg PO Q6H PRN 03/29/19 Prochlorperazine [Compazine] 10 mg PO Q6HR PRN 03/29/19 Omeprazole 40 mg PO DAILY 04/06/19 Saccharomyces Boulardii [Florastor] 250 mg PO BID 05/10/19 Objective - Vital Signs/Intake & Output Reviewed Vital Signs: Yes Vital Signs: Vital Signs x48h Temp Pulse Resp BP Pulse Ox 05/10/19 10:00 36.8 C 76 16 126/88 H 96 05/10/19 09:00 73 12 109/61 98 05/10/19 08:00 65 14 95/56 L 98 05/10/19 07:00 63 11 L 101/48 L 95 05/10/19 06:00 76 11 L 97/48 L 97 05/10/19 05:00 36.7 C 72 12 92/47 L 95 05/10/19 04:00 68 10 L 96/52 L 95 05/10/19 03:00 68 10 L 89/52 L 99 Intake & Output: Intake & Output 05/07/19 05/08/19 05/09/19 05/10/19 23:59 23:59 23:59 23:59 Intake Total 710 2048.333 Output Total 695 1860 Balance 15 188.333 - Objective General Appearance: positive: No acute distress, Alert Eyes Bilateral: positive: Normal inspection, Conjunctivae nml ENT: positive: ENT inspection nml Neck: positive: Nml inspection, Lymphadenopathy (L) Respiratory: positive: No respiratory distress, Other (Diminished breath sounds.). negative: Wheezes, Rales, Rhonchi Cardiovascular: positive: Regular rate & rhythm, Extrasystoles. negative: Tachycardia, Bradycardia, Systolic murmur Abdomen: positive: Non-tender, No distention, Other (PEG tube in place. Area appears dry without erythema.) Skin: positive: No rash, Warm, Dry Extremities: positive: Full ROM, No pedal edema Neurologic/Psychiatric: positive: Oriented x3. negative: Disoriented to person, Disoriented to place, Disoriented to time - Lab Results Fish Bones: 05/10/19 04:45 05/10/19 04:45 Other Labs: Lab Results x24hrs 05/10/19 05/10/19 05/10/19 Range/Units 04:45 04:45 04:45 WBC (4.8-10.8) x10^3/uL RBC (4.70-6.10) 10^6/uL Hgb (14.0-18.0) g/dL Hct (42.0-52.0) % MCV (80.0-94.0) fL MCH (27.0-31.0) pg MCHC (32.0-36.0) g/dL RDW (12.0-15.0) % Plt Count (130-450) 10^3/uL MPV (7.4-11.4) fL Neut # (Auto) (1.5-6.6) 10^3/uL Lymph # (Auto) (1.5-3.5) 10^3/uL [place] # (Auto) (0.0-1.0) 10^3/uL Eos # (Auto) (0.0-0.7) 10^3/uL Baso # (Auto) (0.0-0.1) 10^3/uL Absolute Nucleated RBC x10^3/uL Band Neuts % (Manual) Abnorm Lymph % (Manual) Nucleated RBC % /100WBC Neutrophils # (Manual) Lymphocytes # (Manual) Monocytes # (Manual) Eosinophils # (Manual) Basophils # (Manual) Differential Comment Platelet Estimate (NORMAL) Platelet Morphology (NORMAL) RBC Morph Micro Appear (NORMAL) Sodium 136 (135-145) mmol/L Potassium 3.4 L (3.5-5.0) mmol/L Chloride 102 (101-111) mmol/L Carbon Dioxide 24 (21-32) mmol/L Anion Gap 10.0 (6-13) BUN 47 H (6-20) mg/dL Creatinine 2.0 H (0.6-1.2) mg/dL Estimated GFR (MDRD) 33 L (>89) Glucose 143 H (70-100) mg/dL POC Whole Bld Glucose (70 - 100) mg/dL Lactic Acid (0.5-2.2) mmol/L Calcium 7.7 L (8.5-10.3) mg/dL Phosphorus 4.5 (2.5-4.6) mg/dL Magnesium 1.9 (1.7-2.8) mg/dL Total Bilirubin (0.2-1.0) mg/dL AST (10-42) IU/L ALT (10-60) IU/L Alkaline Phosphatase (42-121) IU/L Troponin I High Sens (2.3-19.7) ng/L B-Natriuretic Peptide 222 H (5-100) pg/mL Total Protein (6.7-8.2) g/dL Albumin 2.3 L (3.2-5.5) g/dL Globulin (2.1-4.2) g/dL Albumin/Globulin Ratio (1.0-2.2) Lipase (22-51) U/L Urine Color Urine Clarity (CLEAR) Urine pH (5.0-7.5) PH Ur Specific [place] (1.002-1.030) Urine Protein (NEGATIVE) mg/dL Urine Glucose (UA) (NEGATIVE) mg/dL Urine Ketones (NEGATIVE) mg/dL Urine Occult Blood (NEGATIVE) Urine Nitrite (NEGATIVE) Urine Bilirubin (NEGATIVE) Urine Urobilinogen (NORMAL) E.U./dL Ur Leukocyte Esterase (NEGATIVE) Urine RBC (0-5) /HPF Urine WBC (0-3) /HPF Urine WBC Clumps Ur Squamous Epith Cells (<= Few) Urine Bacteria (None Seen) /HPF Ur Microscopic Review Urine Culture Comments Nasal Screen MRSA (PCR) (NEGATIVE) 05/10/19 05/10/19 05/09/19 Range/Units 04:45 00:56 19:20 WBC 9.9 (4.8-10.8) x10^3/uL RBC 2.74 L (4.70-6.10) 10^6/uL Hgb 8.5 L (14.0-18.0) g/dL Hct 25.7 L (42.0-52.0) % MCV 93.8 (80.0-94.0) fL MCH 31.0 (27.0-31.0) pg MCHC 33.1 (32.0-36.0) g/dL RDW 17.0 H (12.0-15.0) % Plt Count 296 (130-450) 10^3/uL MPV 11.2 (7.4-11.4) fL Neut # (Auto) 8.7 H (1.5-6.6) 10^3/uL Lymph # (Auto) 0.5 L (1.5-3.5) 10^3/uL [place] # (Auto) 0.6 (0.0-1.0) 10^3/uL Eos # (Auto) 0.0 (0.0-0.7) 10^3/uL Baso # (Auto) 0.0 (0.0-0.1) 10^3/uL Absolute Nucleated RBC 0.00 x10^3/uL Band Neuts % (Manual) Abnorm Lymph % (Manual) Nucleated RBC % 0.0 /100WBC Neutrophils # (Manual) Lymphocytes # (Manual) Monocytes # (Manual) Eosinophils # (Manual) Basophils # (Manual) Differential Comment Platelet Estimate (NORMAL) Platelet Morphology (NORMAL) RBC Morph Micro Appear (NORMAL) Sodium (135-145) mmol/L Potassium (3.5-5.0) mmol/L Chloride (101-111) mmol/L Carbon Dioxide (21-32) mmol/L Anion Gap (6-13) BUN (6-20) mg/dL Creatinine (0.6-1.2) mg/dL Estimated GFR (MDRD) (>89) Glucose (70-100) mg/dL POC Whole Bld Glucose 135 H (70 - 100) mg/dL Lactic Acid (0.5-2.2) mmol/L Calcium (8.5-10.3) mg/dL Phosphorus (2.5-4.6) mg/dL Magnesium (1.7-2.8) mg/dL Total Bilirubin (0.2-1.0) mg/dL AST (10-42) IU/L ALT (10-60) IU/L Alkaline Phosphatase (42-121) IU/L Troponin I High Sens (2.3-19.7) ng/L B-Natriuretic Peptide (5-100) pg/mL Total Protein (6.7-8.2) g/dL Albumin (3.2-5.5) g/dL Globulin (2.1-4.2) g/dL Albumin/Globulin Ratio (1.0-2.2) Lipase (22-51) U/L Urine Color Urine Clarity (CLEAR) Urine pH (5.0-7.5) PH Ur Specific [place] (1.002-1.030) Urine Protein (NEGATIVE) mg/dL Urine Glucose (UA) (NEGATIVE) mg/dL Urine Ketones (NEGATIVE) mg/dL Urine Occult Blood (NEGATIVE) Urine Nitrite (NEGATIVE) Urine Bilirubin (NEGATIVE) Urine Urobilinogen (NORMAL) E.U./dL Ur Leukocyte Esterase (NEGATIVE) Urine RBC (0-5) /HPF Urine WBC (0-3) /HPF Urine WBC Clumps Ur Squamous Epith Cells (<= Few) Urine Bacteria (None Seen) /HPF Ur Microscopic Review Urine Culture Comments Nasal Screen MRSA (PCR) NEGATIVE (NEGATIVE) 05/09/19 05/09/19 05/09/19 Range/Units 18:30 17:40 17:10 WBC (4.8-10.8) x10^3/uL RBC (4.70-6.10) 10^6/uL Hgb (14.0-18.0) g/dL Hct (42.0-52.0) % MCV (80.0-94.0) fL MCH (27.0-31.0) pg MCHC (32.0-36.0) g/dL RDW (12.0-15.0) % Plt Count (130-450) 10^3/uL MPV (7.4-11.4) fL Neut # (Auto) (1.5-6.6) 10^3/uL Lymph # (Auto) (1.5-3.5) 10^3/uL [place] # (Auto) (0.0-1.0) 10^3/uL Eos # (Auto) (0.0-0.7) 10^3/uL Baso # (Auto) (0.0-0.1) 10^3/uL Absolute Nucleated RBC x10^3/uL Band Neuts % (Manual) Abnorm Lymph % (Manual) Nucleated RBC % /100WBC Neutrophils # (Manual) Lymphocytes # (Manual) Monocytes # (Manual) Eosinophils # (Manual) Basophils # (Manual) Differential Comment Platelet Estimate (NORMAL) Platelet Morphology (NORMAL) RBC Morph Micro Appear (NORMAL) Sodium (135-145) mmol/L Potassium (3.5-5.0) mmol/L Chloride (101-111) mmol/L Carbon Dioxide (21-32) mmol/L Anion Gap (6-13) BUN (6-20) mg/dL Creatinine (0.6-1.2) mg/dL Estimated GFR (MDRD) (>89) Glucose (70-100) mg/dL POC Whole Bld Glucose (70 - 100) mg/dL Lactic Acid 1.2 (0.5-2.2) mmol/L Calcium (8.5-10.3) mg/dL Phosphorus (2.5-4.6) mg/dL Magnesium (1.7-2.8) mg/dL Total Bilirubin (0.2-1.0) mg/dL AST (10-42) IU/L ALT (10-60) IU/L Alkaline Phosphatase (42-121) IU/L Troponin I High Sens 19.7 (2.3-19.7) ng/L B-Natriuretic Peptide (5-100) pg/mL Total Protein (6.7-8.2) g/dL Albumin (3.2-5.5) g/dL Globulin (2.1-4.2) g/dL Albumin/Globulin Ratio (1.0-2.2) Lipase (22-51) U/L Urine Color LT. YELLOW Urine Clarity HAZY (CLEAR) Urine pH 5.0 (5.0-7.5) PH Ur Specific [place] 1.010 (1.002-1.030) Urine Protein NEGATIVE (NEGATIVE) mg/dL Urine Glucose (UA) NEGATIVE (NEGATIVE) mg/dL Urine Ketones NEGATIVE (NEGATIVE) mg/dL Urine Occult Blood MODERATE H (NEGATIVE) Urine Nitrite NEGATIVE (NEGATIVE) Urine Bilirubin NEGATIVE (NEGATIVE) Urine Urobilinogen 0.2 (NORMAL) (NORMAL) E.U./dL Ur Leukocyte Esterase SMALL H (NEGATIVE) Urine RBC 6-10 H (0-5) /HPF Urine WBC 11-25 H (0-3) /HPF Urine WBC Clumps PRESENT Ur Squamous Epith Cells RARE Squamous (<= Few) Urine Bacteria None Seen (None Seen) /HPF Ur Microscopic Review INDICATED Urine Culture Comments INDICATED Nasal Screen MRSA (PCR) (NEGATIVE) 05/09/19 05/09/19 05/09/19 Range/Units 13:42 13:42 13:42 WBC (4.8-10.8) x10^3/uL RBC (4.70-6.10) 10^6/uL Hgb (14.0-18.0) g/dL Hct (42.0-52.0) % MCV (80.0-94.0) fL MCH (27.0-31.0) pg MCHC (32.0-36.0) g/dL RDW (12.0-15.0) % Plt Count (130-450) 10^3/uL MPV (7.4-11.4) fL Neut # (Auto) (1.5-6.6) 10^3/uL Lymph # (Auto) (1.5-3.5) 10^3/uL [place] # (Auto) (0.0-1.0) 10^3/uL Eos # (Auto) (0.0-0.7) 10^3/uL Baso # (Auto) (0.0-0.1) 10^3/uL Absolute Nucleated RBC x10^3/uL Band Neuts % (Manual) Abnorm Lymph % (Manual) Nucleated RBC % /100WBC Neutrophils # (Manual) Lymphocytes # (Manual) Monocytes # (Manual) Eosinophils # (Manual) Basophils # (Manual) Differential Comment Platelet Estimate (NORMAL) Platelet Morphology (NORMAL) RBC Morph Micro Appear (NORMAL) Sodium 128 L (135-145) mmol/L Potassium 3.6 (3.5-5.0) mmol/L Chloride 94 L (101-111) mmol/L Carbon Dioxide 21 (21-32) mmol/L Anion Gap 13.0 (6-13) BUN 53 H (6-20) mg/dL Creatinine 2.1 H (0.6-1.2) mg/dL Estimated GFR (MDRD) 31 L (>89) Glucose 165 H (70-100) mg/dL POC Whole Bld Glucose (70 - 100) mg/dL Lactic Acid (0.5-2.2) mmol/L Calcium 8.3 L (8.5-10.3) mg/dL Phosphorus (2.5-4.6) mg/dL Magnesium (1.7-2.8) mg/dL Total Bilirubin 0.5 (0.2-1.0) mg/dL AST 34 (10-42) IU/L ALT 27 (10-60) IU/L Alkaline Phosphatase 40 L (42-121) IU/L Troponin I High Sens 27.9 H* (2.3-19.7) ng/L B-Natriuretic Peptide 367 H (5-100) pg/mL Total Protein 7.1 (6.7-8.2) g/dL Albumin 3.1 L (3.2-5.5) g/dL Globulin 4.0 (2.1-4.2) g/dL Albumin/Globulin Ratio 0.8 L (1.0-2.2) Lipase 23 (22-51) U/L Urine Color Urine Clarity (CLEAR) Urine pH (5.0-7.5) PH Ur Specific [place] (1.002-1.030) Urine Protein (NEGATIVE) mg/dL Urine Glucose (UA) (NEGATIVE) mg/dL Urine Ketones (NEGATIVE) mg/dL Urine Occult Blood (NEGATIVE) Urine Nitrite (NEGATIVE) Urine Bilirubin (NEGATIVE) Urine Urobilinogen (NORMAL) E.U./dL Ur Leukocyte Esterase (NEGATIVE) Urine RBC (0-5) /HPF Urine WBC (0-3) /HPF Urine WBC Clumps Ur Squamous Epith Cells (<= Few) Urine Bacteria (None Seen) /HPF Ur Microscopic Review Urine Culture Comments Nasal Screen MRSA (PCR) (NEGATIVE) 05/09/19 05/09/19 Range/Units 13:42 13:37 WBC 13.4 H (4.8-10.8) x10^3/uL RBC 3.60 L (4.70-6.10) 10^6/uL Hgb 11.1 L (14.0-18.0) g/dL Hct 34.1 L (42.0-52.0) % MCV 94.7 H (80.0-94.0) fL MCH 30.8 (27.0-31.0) pg MCHC 32.6 (32.0-36.0) g/dL RDW 17.1 H (12.0-15.0) % Plt Count 362 (130-450) 10^3/uL MPV 11.1 (7.4-11.4) fL Neut # (Auto) 12.1 H (1.5-6.6) 10^3/uL Lymph # (Auto) 0.4 L (1.5-3.5) 10^3/uL [place] # (Auto) 0.6 (0.0-1.0) 10^3/uL Eos # (Auto) 0.2 (0.0-0.7) 10^3/uL Baso # (Auto) 0.0 (0.0-0.1) 10^3/uL Absolute Nucleated RBC 0.00 x10^3/uL Band Neuts % (Manual) Not Reportable Abnorm Lymph % (Manual) Not Reportable Nucleated RBC % 0.0 /100WBC Neutrophils # (Manual) Not Reportable Lymphocytes # (Manual) Not Reportable Monocytes # (Manual) Not Reportable Eosinophils # (Manual) Not Reportable Basophils # (Manual) Not Reportable Differential Comment MANUAL=AUTO DIFF Platelet Estimate NORMAL (130-450,000) (NORMAL) Platelet Morphology NORMAL APPEARANCE (NORMAL) RBC Morph Micro Appear 1+ HYPOCHROMASIA (NORMAL) Sodium (135-145) mmol/L Potassium (3.5-5.0) mmol/L Chloride (101-111) mmol/L Carbon Dioxide (21-32) mmol/L Anion Gap (6-13) BUN (6-20) mg/dL Creatinine (0.6-1.2) mg/dL Estimated GFR (MDRD) (>89) Glucose (70-100) mg/dL POC Whole Bld Glucose (70 - 100) mg/dL Lactic Acid 2.2 (0.5-2.2) mmol/L Calcium (8.5-10.3) mg/dL Phosphorus (2.5-4.6) mg/dL Magnesium (1.7-2.8) mg/dL Total Bilirubin (0.2-1.0) mg/dL AST (10-42) IU/L ALT (10-60) IU/L Alkaline Phosphatase (42-121) IU/L Troponin I High Sens (2.3-19.7) ng/L B-Natriuretic Peptide (5-100) pg/mL Total Protein (6.7-8.2) g/dL Albumin (3.2-5.5) g/dL Globulin (2.1-4.2) g/dL Albumin/Globulin Ratio (1.0-2.2) Lipase (22-51) U/L Urine Color Urine Clarity (CLEAR) Urine pH (5.0-7.5) PH Ur Specific [place] (1.002-1.030) Urine Protein (NEGATIVE) mg/dL Urine Glucose (UA) (NEGATIVE) mg/dL Urine Ketones (NEGATIVE) mg/dL Urine Occult Blood (NEGATIVE) Urine Nitrite (NEGATIVE) Urine Bilirubin (NEGATIVE) Urine Urobilinogen (NORMAL) E.U./dL Ur Leukocyte Esterase (NEGATIVE) Urine RBC (0-5) /HPF Urine WBC (0-3) /HPF Urine WBC Clumps Ur Squamous Epith Cells (<= Few) Urine Bacteria (None Seen) /HPF Ur Microscopic Review Urine Culture Comments Nasal Screen MRSA (PCR) (NEGATIVE) ABX Reporting Has patient been on IV antibiotics over the past 48 hours?: Yes Sepsis Event Note (H) - Evaluation Current Stage of Sepsis: Resolved Possible source of Sepsis: positive: Unknown - Sepsis Criteria Sepsis Criteria: Recorded Heart Rate greater than 90 bpm, WBC count greater than 12,000 or less than 4000, SBP less than 90 mmHg Assessment/Plan - Problem List (1) Hypotension Impression: Blood pressure has improved after he received IV hydration. His systolic symptoms improved to greater than 100. He did not have a history of hypertension and review of medical records revealed his blood pressure appears at baseline now. The cause of his hypotension is unclear but suspect he was just hypovolemic. There was concern for sepsis initially but his white count was likely due to hemoconcentration and his lactic acid has been normal. There are no obvious signs of infection except for the urinary tract infection he was being treated for and this is a pansensitive E. coli. We will continue him on IV fluids for the time being but will de-escalate his IV antibiotics to ceftriaxone IV. We will follow-up his blood cultures to make sure he is not bacteremic. Transfer out of the ICU to [facility]. (2) SIRS (systemic inflammatory response syndrome) Impression: Initial concern was for sepsis given his urinary tract infection. As mentioned above, this appears to not be the case at the moment. We will de-escalate his IV antibiotics ceftriaxone. We will follow-up his blood cultures to make sure he is not bacteremic. (3) Atrial flutter with rapid ventricular response Impression: He is rate controlled and is now in sinus rhythm with PVCs. Echocardiogram showed a preserved ejection fraction. We will resume his home metoprolol. (4) Urinary tract infection Impression: He was being treated with ciprofloxacin on an outpatient basis and received cefepime yesterday. We will de-escalate to ceftriaxone as he is clinically improving and the E. coli is pansensitive. Qualifiers: Urinary tract infection type: acute cystitis (5) Acute kidney injury superimposed on CKD Impression: Creatinine has improved today to 2.0 from 2.1 yesterday. This may potentially be his new baseline as there was concern on outpatient basis as renal function has been steadily declining and this may have been due to his immunotherapy. We will keep him on IV fluids for another day and monitor his renal function and urine output (6) Leaking PEG tube Impression: We will restart him on tube feeds today and monitor for leaking. If there is concern for leaking, we will consult general surgery. (7) Diarrhea Impression: C. difficile is negative. Suspect is likely secondary to his tube feeds. We will resume his home Lomotil. 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 We have resumed his home oxycodone dosing. He will continue follow-up with oncology on an outpatient basis. (9) BPH (benign prostatic hyperplasia) Impression: We will resume his home medications.
[2019-05-10] MEDS ORDERED: fentaNYL 100 MCG PATCH TOP SCH (11:00)
[2019-05-10] MEDS ORDERED: DIPHENOX/ATROPINE 2.5/0.025 MG TABLET PO PRN (11:45)
[2019-05-10] MEDS: METOPROLOL TARTRATE 25 MG TABLET PEG SCH ×2 (14:26→20:54)
[2019-05-10] MEDS ORDERED: oxyCODONE 5 MG TABLET PO ONE (15:00)
--- NOTE | 2019-05-10 16:17 | PHARMACY PROGRESS NOTE ---
- Best Possible Medication History Admit Date and Time: 05/09/191815 Processed by: Pharmacy Medication History completed: Yes Patient Interview: Completed Secondary Source(s): Pharmacy records, Insurance records As the person ultimately responsible for medication therapy, providers are able to order a medication from an existing home medication list in [facility] via the "Reconcile Routine" prior to Confirmation of that medication by operator command support systems. Such practice is discouraged except when the physician, in their clinical judgment, deems that a medical need exists for a medication without regard to previous use.
[2019-05-10] MEDS: predniSONE 20 MG TABLET PO SCH (18:17)
[2019-05-10] MEDS ORDERED: VANCOMYCIN INJ 1 GM in SODIUM CHLORIDE 0.9% 250 ML IV SCH (20:00)
[2019-05-10] MEDS: traZODone 50 MG TABLET PEG SCH (20:54)
[2019-05-10] MEDS: TAMSULOSIN 0.4 MG CAPSULE PEG SCH (20:58)
[2019-05-10] MEDS ORDERED: traZODone 50 MG TABLET PEG SCH (21:00)
[2019-05-10] MEDS ORDERED: cefTRIAXone 1 GM in SODIUM CHLORIDE 0.9% MINIBAG 100 ML IV SCH (21:00)
[2019-05-10] MEDS ORDERED: oxyCODONE 5 MG TABLET PO PRN (21:00)
[2019-05-10] MEDS: SODIUM CHLORIDE FLUSH 0.9% 10 ML SYRINGE IVP PRN (21:50)
[2019-05-10] MEDS: NYSTATIN 500000 UNITS/5 ML UDC PO SCH (22:02)
[2019-05-11] MEDS: SODIUM CHLORIDE FLUSH 0.9% 10 ML SYRINGE IVP SCH ×2 (00:11→12:03)
[2019-05-11] MEDS: SODIUM CHLORIDE FLUSH 0.9% 10 ML SYRINGE IVP PRN (04:50)
[2019-05-11 05:29] LABS: BASOPHILS % (AUTO) 0.1 %; EOSINOPHILS % (AUTO) 0.5 %; HGB - HEMOGLOBIN 8.4 g/dL (14.0-18.0); LYMPHOCYTES # (AUTO) 0.4 10^3/uL (1.5-3.5); MEAN CORPUSCULAR HEMOGLOBIN 29.8 pg (27.0-31.0); MEAN CORPUSCULAR HGB CONC 31.7 g/dL (32.0-36.0); MEAN PLATELET VOLUME 10.7 fL (7.4-11.4); MONOCYTES # (AUTO) 0.6 10^3/uL (0.0-1.0); MONOCYTES % (AUTO) 7.2 %; NEUTROPHILS # (AUTO) 7.1 10^3/uL (1.5-6.6); NEUTROPHILS % (AUTO) 86.7 %; PLT - PLATELET COUNT 291 10^3/uL (130-450); RED BLOOD COUNT 2.82 10^6/uL (4.70-6.10); RED CELL DISTRIBUTION WIDTH 17.2 % (12.0-15.0); WHITE BLOOD COUNT 8.2 x10^3/uL (4.8-10.8)
[2019-05-11 05:44] LABS: CREATININE 1.7 mg/dL (0.6-1.2); MAGNESIUM 1.8 mg/dL (1.7-2.8); PHOSPHORUS 2.4 mg/dL (2.5-4.6)
--- NOTE | 2019-05-11 08:23 | DISCHARGE SUMMARY ---
"Discharge Summary Admit Date: 05/09/19 Discharge Date: 05/11/19 Discharging Provider: Baron Zafar Primary Care Provider: Deanne Davis Code Status: Attempt Resuscitation Condition at Discharge: Good Discharge Disposition: 01 Home, Self Care - DIAGNOSES Admission Diagnoses: Hypotension SIRS Atrial flutter with rapid ventricular response Urinary tract infection Acute kidney injury superimposed on CKD Leaking PEG tube Diarrhea Squamous cell carcinoma of left tonsil BPH Discharge Diagnoses with Status of Each Condition: Hypotension - resolved. This responded well to IV fluids. It does not appear that he is septic. His home metoprolol has been resumed and his blood pressure has been stable. Atrial flutter - resolved. This is paroxysmal in nature. He is now in a sinus rhythm with PACs and PVCs. We have resumed his home metoprolol. Urinary tract infection - stable. He does not appear to have been septic from this infection. Repeat urine cultures are negative. Place him on Ciprofloxacin for 4 more days to complete 7 days of therapy for E. coli UTI. CKD stage III- stable. Renal function is back to baseline with a creatinine of 1.7. His acute kidney injury resolved with IV fluids. Neck soft tissue mass - stable. This is a new finding this admission and is located over the left trapezius. Likely a lipoma. He preferred to go home soon and did not want to stay for an ultrasound to be obtained. This can be followed up on an outpatient basis. Anemia of chronic disease - stable. His hemoglobin did decrease to 8.5 from 11.1 on admission. Suspect is likely dilutional given amount of IV fluids he received. No evidence of bleeding. His iron studies last month were not suggestive of iron deficiency. This can continue to be monitored on an outpatient basis. Leaking PEG tube - resolved. General surgery was consulted and manipulated the PEG tube. He continue to follow-up with surgery on outpatient basis if there are any further issues. Diarrhea - stable. Differential was negative. This is likely chronic from his tube feeds and possible side effect from his Opdivo in the past. We will contin ue Lomotil. Squamous cell carcinoma of left tonsil - stable. He will continue outpatient follow-up with Dr. Yang. He will call the [facility] clinic to reschedule his appointment for next week. Continue with oxycodone for pain control. BPH - stable. Will continue Flomax and finasteride. Urinary retention - stable. He was self catheterizing prior to admission. We discussed whether to discharge him with a Mcbride catheter or continue self- catheterization. He has agreed to keeping the Mcbride catheter in place. He has already been referred to urology on an outpatient basis. 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 He states his PEG tube was changed on and that it took about 20 minutes to complete the whole process and that it was so uncomfortable for him that he almost passed out. He states that since then, he notes his PEG tube has been leaking at the site of the insertion. He states that he has felt generally weak over the past couple of days as well. He reports he has been having diarrhea although this is improved today. He had been going so frequently that he began to wear a diaper. He reports no blood in his stool. He states that he was recently diagnosed with a urinary tract infection and was started on ciprofloxacin a couple of days ago. Reports no dysuria or hematuria. He states he normally self catheterizes. He had a Mcbride catheter placed here in the emergency department. He reports that he has had no fevers or chills. He denies any chest pain or dyspnea. He did not note that his heart rate had been elevated. He denies any orthopnea or lower extremity edema. Reports that his cancer is currently in remission. He is not on Opdivo due to side effects which are believed to be renal insufficiency as well as GI upset and diarrhea. He states that he responded quite well to the immunotherapy and the mass in his neck had decreased in size tremendously. He is not able to take some oral food by mouth. He still uses his PEG tube for most of his nutrition and uses a bottle a couple of times a day when he feels he needs it. In the emergency department, he was found to be afebrile with temperature of 36.7 C. He was tachycardic with a heart rate of 135 and he was found to be in atrial flutter. He was hypotensive the blood pressure of 70/36. He was not tachypneic and saturating well on room air. His labs revealed a white count of 13.4 with a left shift. His sodium was decreased at 128. BUN was elevated at 53 and his creatinine at 2.1. Lactic acid was 2.2. Initial troponin was 27.9 but repeat was 19.7. His BNP was elevated at 367. His EKG showed atrial flutter without evidence of ischemia. His urinalysis did reveal pyuria with small leukocyte esterase. It was felt in the emergency department, that he had congestive heart failure and he was given diltiazem 20mg IV for his elevated heart rate and he was administered a dose of Lasix 40 mg IV. His heart rate did improve into the 70s with the diltiazem. His blood pressure remained low with systolics in the 70s and 80s. Given these findings, medicine was consulted for admission. - CONSULTS | PROCEDURES Consultations: General Surgery - HOSPITAL COURSE Hospital Course: Was admitted to the intensive care unit for hypotension and concern for sepsis secondary to urinary tract infection. He was treated with IV fluids with improvement in his blood pressure. He never required vasopressors. He was initially treated with vancomycin and cefepime IV but this was de-escalate to ceftriaxone IV on hospital day 2 given his improvement and that his prior urinary cultures grew pansensitive E. coli. His blood pressure remained stable for 24 hours without IV hydration. His renal function improved back to his baseline with a creatinine of 1.7. With regards to his heart rate, this improved after he received diltiazem in the emergency department. He was resumed on his home metoprolol and his heart rate has remained stable in the 60s in a sinus rhythm with PVCs and PACs. General surgery was consulted for his PEG tube as it was leaking. The external flange was secured more tightly against the abdominal wall to reduce the leakage. - ALLERGIES Allergies/Adverse Reactions: Allergies Allergy/AdvReac Type Severity Reaction Status Date / Time No Known Drug Allergies Allergy Verified 05/09/19 13:09 - MEDICATIONS Home Medications: Ambulatory Orders Medication Instructions Recorded Confirmed Trazodone HCl 200 mg PO QPM 02/28/18 05/10/19 Finasteride 5 mg PO DAILY 06/23/18 05/10/19 fentaNYL [Fentanyl 50mcg patch] 100 mcg TD Q3D 06/27/18 05/10/19 Albuterol Sulfate [Proair 1 - 2 puffs INH Q4HR PRN 07/24/18 05/10/19 Respiclick] Naloxone HCl [Narcan] 1 spray JESSICA PRN PRN 07/24/18 05/10/19 Nystatin 5 ml PO QID PRN 07/24/18 05/10/19 Ipratropium/Albuterol [Duoneb] 1 amp INH Q4HR PRN 08/04/18 05/10/19 Oxycodone HCl 20 mg PO Q4HR PRN MDD 6 tabs 08/04/18 05/10/19 buPROPion HCL [Bupropion HCl] 75 mg PO BID 08/04/18 05/10/19 Metoprolol Succinate [Toprol Xl] 12.5 mg PO BID 09/25/18 05/10/19 Tamsulosin [Flomax] 0.4 mg PO BID #60 capsule 09/27/18 05/10/19 Doxazosin Mesylate 1 mg PO DAILY 09/29/18 05/10/19 Diphenoxylate/Atropine [Lomotil] 1 each PO QID PRN #12 tablet 03/29/19 05/10/19 Ondansetron [Ondansetron Odt] 4 mg PO Q6H PRN 03/29/19 05/10/19 Prochlorperazine [Compazine] 10 mg PO Q6HR PRN 03/29/19 05/10/19 Omeprazole 40 mg PO DAILY 04/06/19 05/10/19 Saccharomyces Boulardii [Florastor] 250 mg PO BID 05/10/19 05/10/19 Ciprofloxacin HCl 500 mg PO BID 4 Days #16 tablet 05/11/19 predniSONE [Deltasone] 20 mg PO DAILYWM #14 tablet 05/11/19 - PHYSICAL EXAM AT DISCHARGE General Appearance: positive: No acute distress, Alert Eyes Bilateral: positive: Normal inspection ENT: positive: ENT inspection nml Neck: positive: Lymphadenopathy (L), Other (There is a 4 cm mobile soft tissue mass medial to the left trapezius muscle. Nontender with no erythema.) Respiratory: positive: No respiratory distress. negative: Wheezes, Rales, Rhonchi Cardiovascular: positive: Regular rate & rhythm, No murmur, Extrasystoles. negative: Systolic murmur, Diastolic murmur Abdomen: positive: Non-tender, No distention, Other (PEG tube in place.). negative: Tenderness Skin: positive: No rash, Warm, Dry Extremities: positive: Full ROM, No pedal edema Neurologic/Psychiatric: positive: Oriented x3. negative: Disoriented to person, Disoriented to place, Disoriented to time - LABS Result Diagrams: 05/11/19 04:55 05/11/19 04:55 - DIAGNOSTIC IMAGING Diagnostic Imaging Results: Final report reviewed - SEPSIS Current Stage of Sepsis: Ruled out Possible source of Sepsis: Unknown Sepsis Criteria: Recorded Heart Rate greater than 90 bpm, WBC count greater than 12,000 or less than 4000, SBP less than 90 mmHg - TIME SPENT Time Spent in Discharge (Minutes): 35"
--- NOTE | 2019-05-11 08:23 | Discharge Plan ---
Discharge Plan Problem Reviewed?: Yes Disposition: Home, Self Care Condition: Good Prescriptions: Ciprofloxacin HCl 500 mg PO BID 4 Days #16 tablet predniSONE [Deltasone] 20 mg PO DAILYWM #14 tablet Activity Restrictions: Activity as Tolerated Shower Restrictions: No Driving Restrictions: No Health Concerns: You were seen in the hospital her blood pressure was low and you had an elevated heart rate due to atrial flutter which is an arrhythmia. The initial was concern was that you may have had a severe infection. We placed you on IV antibiotics for the urinary tract infection you were previously being treated for. Your blood pressure improved with fluids and it has been stable. You are now stable for discharge to continue your home medications and to take the new prescription of antibiotics as prescribed. The general surgeon saw you while you are in the hospital for the leaking PEG tube. They adjusted how tight the tube is in the feel that this has fixed the problem. If there are any issues in the future, please contact the surgeon who replaced the PEG tube and they can see you in clinic. These keep the Mcbride catheter in place until you follow-up with the urologist that you have been referred to. Please follow-up with your primary care provider and they can order an ultrasound of your neck to evaluate the mass that we suspect is likely a benign fat mass. Plan of Treatment: Please take Ciprofloxacin twice daily for 4 more days. Take prednisone 20 mg daily until he follow-up with Dr. Yang next week. Assessment: Patient expressed understanding of the treatment plan. Additional Instructions or Follow Up instructions: Please call the [facility] clinic to schedule an appointment with your oncologist for next week. No Smoking: If you smoke, Please STOP! Call for help. Follow-up with: Deanne Davis ARNP [Primary Care Provider] -
[2019-05-11] MEDS: TAMSULOSIN 0.4 MG CAPSULE PEG SCH (08:58)
[2019-05-11] MEDS: METOPROLOL TARTRATE 25 MG TABLET PEG SCH (08:58)
[2019-05-11] MEDS: predniSONE 20 MG TABLET PO SCH (08:58)
[2019-05-11] MEDS ORDERED: oxyCODONE 30 MG TABLET PO SCH (09:00)
[2019-05-11 09:02] VITALS: BP 124/71
[2019-05-11] MEDS: HEPARIN 5,000 UNIT/ML VIAL SUBQ SCH (09:14)
--- NOTE | 2019-05-11 10:57 | PROVIDER PROGRESS NOTE ---
Assessment/Plan - Problem List (1) Leaking PEG tube Assessment/Plan: Leakage from tube due to recent tube change; removal of old tube dilated the tract. Plan: external flange secured more tightly against abdominal wall, pulling internal balloon against internal opening to reduce leakage; instructed pt in how to adjust this prn. Reassured pt that sx should subside with this technique. RTO prn. - Current Meds Current Meds: Current Medications Generic Name Dose Route Start Last Admin Trade Name Freq PRN Reason Stop Dose Admin Fentanyl 1 patch 05/10/19 11:00 05/10/19 11:13 Duragesic TOP 1 patch Q3D CANDY Administration Heparin Sodium (Beef Lung) 30 - 50 unit 05/10/19 21:48 05/11/19 04:51 IVP 50 unit PRN PRN Administration Port Protocol (<24 hours) Heparin Sodium (Porcine) 5,000 unit 05/09/19 21:00 05/11/19 09:14 SUBQ 5,000 unit BID CANDY Administration Ceftriaxone Sodium 1 gm/ 100 mls @ 200 mls/hr 05/10/19 21:00 05/10/19 21:38 Sodium Chloride IV Infused QPM CANDY Infusion Metoprolol Tartrate 12.5 mg 05/10/19 14:00 05/11/19 08:58 Lopressor PEG 12.5 mg BID CANDY Administration Nystatin 5 ml 05/10/19 22:00 05/10/19 22:02 Mycostatin PO 5 ml QID CANDY Administration Oxycodone HCl 60 mg 05/11/19 09:00 05/11/19 08:58 Roxicodone PO 60 mg DAILY CANDY Administration Oxycodone HCl 40 mg 05/10/19 21:00 05/10/19 21:18 Roxicodone PO 40 mg Q12H PRN Administration Pain 5 to 7 Prednisone 20 mg 05/10/19 18:00 05/11/19 08:58 Deltasone PO 20 mg DAILYWM CANDY Administration Sodium Chloride 10 ml 05/10/19 01:00 05/11/19 00:11 Normal Saline Flush 0.9% IVP Not Given 0100,0900,1700 CANDY Sodium Chloride 10 ml 05/09/19 18:16 05/11/19 04:50 Normal Saline Flush 0.9% IVP 30 ml PRN PRN Administration NEEDED PER PROVIDER ORDERS Tamsulosin HCl 0.4 mg 05/10/19 21:00 05/11/19 08:58 Flomax PEG 0.4 mg BID CANDY Administration Trazodone HCl 300 mg 05/09/19 21:24 05/10/19 20:54 Desyrel PEG 300 mg QPM CANDY Administration - Lab Result Lab results reviewed: Yes Fish Bone Diagrams: 05/11/19 04:55 05/11/19 04:55 - Additional Planning Condition/Complexity: Stable Plan Discussed with:: Patient Time Spent: 15-30 minutes Subjective - Subjective Patient Reports: Other (c/o leakage from around G tube since tube replaced 4 days ago. Pt had 20 Fr BRITANY tube replaced with 22 FR BRITANY balloon tipped replacement G tube.) Objective Vital Signs: Vital Signs - 24 hr 05/10/19 05/10/19 05/10/19 11:00 14:33 17:00 Temperature 37.0 C Heart Rate [ 71 74 84 Monitoring electrodes] Respiratory 12 10 L 15 Rate Blood Pressure Blood Pressure 128/104 H 107/84 H 103/64 [Right Brachial artery] O2 Saturation 99 95 05/10/19 05/10/19 05/11/19 20:54 21:00 00:10 Temperature 36.7 C Heart Rate [ 68 64 Monitoring electrodes] Respiratory 14 11 L Rate Blood Pressure 118/66 Blood Pressure 118/66 115/61 [Right Brachial artery] O2 Saturation 95 94 05/11/19 05/11/19 05/11/19 05:00 08:58 09:00 Temperature 36.7 C 36.9 C Heart Rate [ 55 L 65 Monitoring electrodes] Respiratory 10 L 13 Rate Blood Pressure 124/71 Blood Pressure 120/68 124/71 [Right Brachial artery] O2 Saturation 99 97 Oxygen O2 Source Room air I&O (Last 24 Hrs): Intake and Output Totals x24h 05/09/19 05/10/19 05/11/19 23:59 23:59 23:59 Intake Total 710 7613.010 1120 Output Total 695 2385 1700 Balance 15 5228.010 -580 General: Alert, Oriented x3, Cooperative Abdomen: Soft, No tenderness, No hepatospenomegaly, No masses, Other (watery drainage noted around G tube site; external flange at 4 cm; adjusted to 3 cm with reduction in leakage; instructed pt in how to adjust flange prn.) - Results Results: Laboratory Results WBC 8.2 x10^3/uL (4.8-10.8) 05/11/19 04:55 RBC 2.82 10^6/uL (4.70-6.10) L 05/11/19 04:55 Hgb 8.4 g/dL (14.0-18.0) L 05/11/19 04:55 Hct 26.5 % (42.0-52.0) L 05/11/19 04:55 MCV 94.0 fL (80.0-94.0) 05/11/19 04:55 MCH 29.8 pg (27.0-31.0) 05/11/19 04:55 MCHC 31.7 g/dL (32.0-36.0) L 05/11/19 04:55 RDW 17.2 % (12.0-15.0) H 05/11/19 04:55 Plt Count 291 10^3/uL (130-450) 05/11/19 04:55 MPV 10.7 fL (7.4-11.4) 05/11/19 04:55 Neut # (Auto) 7.1 10^3/uL (1.5-6.6) H 05/11/19 04:55 Lymph # (Auto) 0.4 10^3/uL (1.5-3.5) L 05/11/19 04:55 [place] # (Auto) 0.6 10^3/uL (0.0-1.0) 05/11/19 04:55 Eos # (Auto) 0.0 10^3/uL (0.0-0.7) 05/11/19 04:55 Baso # (Auto) 0.0 10^3/uL (0.0-0.1) 05/11/19 04:55 Absolute Nucleated RBC 0.00 x10^3/uL 05/11/19 04:55 Band Neuts % (Manual) Not Reportable 05/09/19 13:42 Abnorm Lymph % (Manual) Not Reportable 05/09/19 13:42 Nucleated RBC % 0.0 /100WBC 05/11/19 04:55 Neutrophils # (Manual) Not Reportable 05/09/19 13:42 Lymphocytes # (Manual) Not Reportable 05/09/19 13:42 Monocytes # (Manual) Not Reportable 05/09/19 13:42 Eosinophils # (Manual) Not Reportable 05/09/19 13:42 Basophils # (Manual) Not Reportable 05/09/19 13:42 Differential Comment MANUAL=AUTO DIFF 05/09/19 13:42 Platelet Estimate NORMAL (130-450,000) (NORMAL) 05/09/19 13:42 Platelet Morphology NORMAL APPEARANCE (NORMAL) 05/09/19 13:42 RBC Morph Micro Appear 1+ HYPOCHROMASIA (NORMAL) 05/09/19 13:42 Sodium 138 mmol/L (135-145) 05/11/19 04:55 Potassium 4.2 mmol/L (3.5-5.0) 05/11/19 04:55 Chloride 106 mmol/L (101-111) 05/11/19 04:55 Carbon Dioxide 25 mmol/L (21-32) 05/11/19 04:55 Anion Gap 7.0 (6-13) 05/11/19 04:55 BUN 37 mg/dL (6-20) H 05/11/19 04:55 Creatinine 1.7 mg/dL (0.6-1.2) H 05/11/19 04:55 Estimated GFR (MDRD) 40 (>89) L 05/11/19 04:55 Glucose 140 mg/dL (70-100) H 05/11/19 04:55 POC Whole Bld Glucose 152 mg/dL (70 - 100) H 05/10/19 12:21 Lactic Acid 1.2 mmol/L (0.5-2.2) 05/09/19 18:30 Calcium 8.0 mg/dL (8.5-10.3) L 05/11/19 04:55 Phosphorus 2.4 mg/dL (2.5-4.6) L 05/11/19 04:55 Magnesium 1.8 mg/dL (1.7-2.8) 05/11/19 04:55 Total Bilirubin 0.5 mg/dL (0.2-1.0) 05/09/19 13:42 AST 34 IU/L (10-42) 05/09/19 13:42 ALT 27 IU/L (10-60) 05/09/19 13:42 Alkaline Phosphatase 40 IU/L (42-121) L 05/09/19 13:42 Troponin I High Sens 19.7 ng/L (2.3-19.7) 05/09/19 17:10 B-Natriuretic Peptide 222 pg/mL (5-100) H 05/10/19 04:45 Total Protein 7.1 g/dL (6.7-8.2) 05/09/19 13:42 Albumin 2.3 g/dL (3.2-5.5) L 05/10/19 04:45 Globulin 4.0 g/dL (2.1-4.2) 05/09/19 13:42 Albumin/Globulin Ratio 0.8 (1.0-2.2) L 05/09/19 13:42 Lipase 23 U/L (22-51) 05/09/19 13:42 Urine Color LT. YELLOW 05/09/19 17:40 Urine Clarity HAZY (CLEAR) 05/09/19 17:40 Urine pH 5.0 PH (5.0-7.5) 05/09/19 17:40 Ur Specific [place] 1.010 (1.002-1.030) 05/09/19 17:40 Urine Protein NEGATIVE mg/dL (NEGATIVE) 05/09/19 17:40 Urine Glucose (UA) NEGATIVE mg/dL (NEGATIVE) 05/09/19 17:40 Urine Ketones NEGATIVE mg/dL (NEGATIVE) 05/09/19 17:40 Urine Occult Blood MODERATE (NEGATIVE) H 05/09/19 17:40 Urine Nitrite NEGATIVE (NEGATIVE) 05/09/19 17:40 Urine Bilirubin NEGATIVE (NEGATIVE) 05/09/19 17:40 Urine Urobilinogen 0.2 (NORMAL) E.U./dL (NORMAL) 05/09/19 17:40 Ur Leukocyte Esterase SMALL (NEGATIVE) H 05/09/19 17:40 Urine RBC 6-10 /HPF (0-5) H 05/09/19 17:40 Urine WBC 11-25 /HPF (0-3) H 05/09/19 17:40 Urine WBC Clumps PRESENT 05/09/19 17:40 Ur Squamous Epith Cells RARE Squamous (<= Few) 05/09/19 17:40 Urine Bacteria None Seen /HPF (None Seen) 05/09/19 17:40 Ur Microscopic Review INDICATED 05/09/19 17:40 Urine Culture Comments INDICATED 05/09/19 17:40 Nasal Screen MRSA (PCR) NEGATIVE (NEGATIVE) 05/09/19 19:20 - Procedures Procedures: Procedures HIP BEARING SURFACE, [id number] (10/30/12) INSERTION OF FEEDING DEVICE INTO STOMACH, PERC APPROACH (02/28/18) PACKED CELL TRANSFUSION (10/30/12) TOTAL HIP REPLACEMENT (10/30/12) Sepsis Event Note (H) - Evaluation Current Stage of Sepsis: Resolved Possible source of Sepsis: positive: Unknown - Sepsis Criteria Sepsis Criteria: Recorded Heart Rate greater than 90 bpm, WBC count greater than 12,000 or less than 4000, SBP less than 90 mmHg
[2019-05-11] MEDS: NYSTATIN 500000 UNITS/5 ML UDC PO SCH (11:16)
== END 2019-05-11 12:11 | disposition home or self-care (01) | DRG 315 ==
LOC: ED 12:56 → ICU 18:16
PROVIDERS: ADMIT Internal Medicine; ATTEND Internal Medicine
PROC: 0DW6XUZ Revision of Feeding Device in Stomach, External Approach (ICD-10-PCS; principal; 2019-05-11)
DX: I48.91 Unspecified atrial fibrillation (principal); I95.9 Hypotension, unspecified; I11.0 Hypertensive heart disease with heart failure; I50.9 Heart failure, unspecified; I48.92 Unspecified atrial flutter; N30.01 Acute cystitis with hematuria; N17.9 Acute kidney failure, unspecified; K94.23 Gastrostomy malfunction; K52.1 Toxic gastroenteritis and colitis; N30.00 Acute cystitis without hematuria; C09.9 Malignant neoplasm of tonsil, unspecified; Z93.1 Gastrostomy status; T50.995S Adverse effect of other drugs, medicaments and biological substances, sequela; N18.3 Chronic kidney disease, stage 3 (moderate); I49.1 Atrial premature depolarization; I49.3 Ventricular premature depolarization; B96.20 Unspecified Escherichia coli [E. coli] as the cause of diseases classified elsewhere; R22.1 Localized swelling, mass and lump, neck; D63.8 Anemia in other chronic diseases classified elsewhere; Y83.3 Surgical operation with formation of external stoma as the cause of abnormal reaction of the patient, or of later complication, without mention of misadventure at the time of the procedure; Y92.009 Unspecified place in unspecified non-institutional (private) residence as the place of occurrence of the external cause; N40.1 Benign prostatic hyperplasia with lower urinary tract symptoms; R33.8 Other retention of urine; R35.1 Nocturia; R13.10 Dysphagia, unspecified; E78.00 Pure hypercholesterolemia, unspecified; I25.10 Atherosclerotic heart disease of native coronary artery without angina pectoris; J43.9 Emphysema, unspecified; F03.90 Unspecified dementia, unspecified severity, without behavioral disturbance, psychotic disturbance, mood disturbance, and anxiety; K21.9 Gastro-esophageal reflux disease without esophagitis; F32.9 Major depressive disorder, single episode, unspecified; F41.9 Anxiety disorder, unspecified; Z79.899 Other long term (current) drug therapy; Z85.818 Personal history of malignant neoplasm of other sites of lip, oral cavity, and pharynx; Z79.891 Long term (current) use of opiate analgesic; Z87.891 Personal history of nicotine dependence; Z87.01 Personal history of pneumonia (recurrent)
CPT/HCPCS: 36415; 71045; 80048; 80053; 81001; 82040; 83605; 83690; 83735; 83880; 84100; 84484; 85025; 87040; 87086; 87150; 93005; 93306; 96374; 96375; 99283; 99285; A9270; J3370; J7120; J7512; 81003; 82272

== ENCOUNTER 2019-06-22 13:00 | Outpatient (CLI) | payer MEDICARE, MEDICAID ==
--- NOTE | 2019-06-22 16:32 | PROVIDER PROGRESS NOTE ---
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 He had been on nivolumab immunotherapy, with remission on his last scan 01/2019. Patient has had his nivolumab on hold, and has thus far been doing okay. He has had significant intermittent difficulties with his urinary retention, and continues despite follow-up with urology. He was to have a cystoscopy, but this is gotten put on hold, encouraged him to reschedule as soon as possible. He reports he had been doing straight cath, had had some bright red bleeding with tach, last week this is since resolved. He denies any pain, dysuria, or fever or chills. He is at high risk for recurrent uro-sepsis and UTI. Patient continues with poor appetite, denies any diarrhea, continues when he eats not to feel well. Denies any cramping with it, he is drinking his tube feeding 3 to 4 boxes a day, as well as a boost daily. He usually eats about 1 full meal daily. He reports his weight has remained stable though without weight gain at 150. Patient continues with persistent pain, does have residual musculoskeletal effects, some discomfort in his neck area. He is on currently fentanyl 100 mcg patch, trying to wean him off his oxycodone, though he continues to use this I suspect more out of habit, he is to be limiting it to 6 tabs daily but ran out early. He notes no early refills at this point in time. Patient is quite anxious, and stressed as he has gotten an eviction notice, he has lived in the same place, for over 12 years. He reports electricity is bad, landlord does not want to fix it and is getting care down the building. He found this out about 2 or 3 days ago. At this point in time his just ignoring it. Review of Systems - Constitutional Constitutional: reports: Fatigue, Weakness, Poor appetite, Weight stable (150). denies: Fever, Chills - Eyes Eyes: reports: Vision loss - Ears, Nose & Throat Ears, Nose & Throat: reports: Nasal congestion, Dry mouth. denies: Mouth lesions - Cardiovascular Cardiovascular: denies: Edema - Respiratory Respiratory: reports: SOB with exertion. denies: Cough, SOB at rest - Gastrointestinal Gastrointestinal: reports: Abdominal pain (intermittent), Nausea, Poor appetite, Early satiety. denies: Constipation - Genitourinary Genitourinary: reports: Other (reports urinating well these last few days; though had hematuria -sounds like from trauma last week; reports cleared at this time) - Musculoskeletal Musculoskeletal: reports: Muscle pain, Back pain, Muscle aches, Stiffness, Limited range of motion, Muscle weakness, Joint pain - Integumentary Integumentary: reports: Dryness - Neurological Neurological: reports: General weakness, Memory problems - Psychiatric Psychiatric: reports: Depression, Anxiety - Hematologic/Lymphatic Hematologic/Lymphatic: reports: Recurrent infections (UTI) - All Other Systems All Other Systems: reports: Reviewed and negative Medications/Allergies - Medications Home Medications: Ambulatory Orders Medication Instructions Recorded Confirmed Trazodone HCl 200 mg PO QPM 02/28/18 06/22/19 Finasteride 5 mg PO DAILY 06/23/18 06/22/19 fentaNYL [Fentanyl 50mcg patch] 100 mcg TD Q3D 06/27/18 06/22/19 Albuterol Sulfate [Proair 1 - 2 puffs INH Q4HR PRN 07/24/18 06/22/19 Respiclick] Naloxone HCl [Narcan] 1 spray JESSICA PRN PRN 07/24/18 06/22/19 Nystatin 5 ml PO QID PRN 07/24/18 06/22/19 Ipratropium/Albuterol [Duoneb] 1 amp INH Q4HR PRN 08/04/18 06/22/19 Oxycodone HCl 20 mg PO Q4HR PRN MDD 6 tabs 08/04/18 06/22/19 buPROPion HCL [Bupropion HCl] 75 mg PO BID 08/04/18 06/22/19 Metoprolol Succinate [Toprol Xl] 12.5 mg PO BID 09/25/18 06/22/19 Tamsulosin [Flomax] 0.4 mg PO BID #60 capsule 09/27/18 06/22/19 Doxazosin Mesylate 1 mg PO DAILY 09/29/18 06/22/19 Diphenoxylate/Atropine [Lomotil] 1 each PO QID PRN #12 tablet 03/29/19 06/22/19 Ondansetron [Ondansetron Odt] 4 mg PO Q6H PRN 03/29/19 06/22/19 Prochlorperazine [Compazine] 10 mg PO Q6HR PRN 03/29/19 06/22/19 Omeprazole 40 mg PO DAILY 04/06/19 06/22/19 Saccharomyces Boulardii [Florastor] 250 mg PO BID 05/10/19 06/22/19 predniSONE [Deltasone] 10 mg PO DAILYWM 05/18/19 06/22/19 - Allergies Allergies/Adverse Reactions: Allergies Allergy/AdvReac Type Severity Reaction Status Date / Time No Known Drug Allergies Allergy Verified 05/18/19 10:23 Palliative Care - POLST Patient has POLST: No POLST Status: Full Code Pain: Pain unchanged, Location (see hpi) Tiredness/Fatigue: Moderate (4-6) Drowsiness/Sedation: Mild (1-3) Nausea: Mild (1-3) Anorexia: Moderate (4-6) Dyspnea: Moderate (4-6) Depression: Moderate (4-6) Anxiety: Severe (7-10) Feelings of wellbeing/Perceived Quality of Life: Fair, Acceptable, No change Sleep: Sleep improved, Variable sleep pattern Constipation: Yes, Opoid induced, Managed Performance Status: Patient has been more sedentary with stay at home order. Tends to spend more time in bed, is able to manage his own ADLs. Is feeling weaker overall. - Palliative Care Discussion: Patient continues with high anxiety, particularly regarding the coronas virus outbreak. He now has escalating concerns with recent eviction notice. He is quite isolated, though does have family support. Patient continues without any advanced care planning documents, though has in the past agreed to revisit this if hospitalized again. He is worried about his cancer coming out of remission, and does have a pending appointment as well as an ultrasound. 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 Currently on hold from nivolumab related to toxicities. He is currently on prednisone 10 mg, is still having some GI discomfort, but no diarrhea. Patient at high risk for rehospitalization regarding urinary retention and history of UTIs. Palliative care providing support regarding pain and symptom management, coordination of care and anticipatory guidance. Recommendations/Counseling Done: 1. Pain of neoplastic origin. Patient currently on fentanyl 100 mcg Patch, has been tapered down to 6-7 tabs of oxycodone 20 mg. He does have trouble staying within allotted amount, and did run out 2 to 3 days earlier. He reports this is because his anxiety increases his pain. Patient has been counseled regarding goal to diminish opioid burden, with improved tumor pain. Patient does have residual musculoskeletal aches and joint discomfort, refills provided. . 2. BPH. Patient has seen Dr. Tena at [facility]. They did remove the catheter, and had to resume straight cathing. He does report some significant bleeding last week, though has cleared at this point. He feels he is voiding okay at this time, and is not straight cathing. We did discuss his high risk for re current UTI/sepsis. Patient to be scheduled to have cystoscopy, encouraged to reschedule as soon as possible. Patient feels he does know signs and symptoms to access urgent care appropriately. 3. Generalized weakness. Patient has ongoing functional decline, still remains quite sedentary. Particularly with home isolation. Counseling encouraging increasing activity, short walks he does have a property he could walk on outside. 4. Anxiety. This is multifactorial, and exacerbated by recent eviction notice. Will have palliative care social work faculty member follow-up, though unclear what options might be. Patient at this point in time, appears to be compartmentalizing, and try not to focus on it as he is already anxious regarding the COVID19 outbreak. 5. Weight loss. This is multifactorial in origin, patient currently on 10 mg of prednisone. He reports his weight is remaining stable at 150, is trying to increase his calories, has not resulted in weight gain at this point. Counseling provided regarding other strategies to increase calories and encouragement to continue with tube feedings. Time Spent: 47285 CPT code Telehealth Visit - TeleMedicine Visit Referring Provider: Melba YBARRA Visit Type:: TeleHealth Phone Call Patient agrees and consents to this telehealth visit type: Yes Time spent:: 35 minutes Video type:: phne call Location of provider:: Office Location of patient:: Home Provider Statement: I spent 100% on the TeleHealth Phone Call with the patient with greater than 50% spent counseling the patient and coordination of care.
== END 2019-06-22 13:01 | disposition home or self-care (01) ==
LOC: PC 13:00
PROVIDERS: ATTEND Nurse Practitioner Adult Health
DX: Z51.5 Encounter for palliative care (principal); G89.3 Neoplasm related pain (acute) (chronic); F41.9 Anxiety disorder, unspecified; N40.1 Benign prostatic hyperplasia with lower urinary tract symptoms; R33.8 Other retention of urine; R53.1 Weakness; R63.4 Abnormal weight loss; K59.03 Drug induced constipation; T40.2X5D Adverse effect of other opioids, subsequent encounter; C09.9 Malignant neoplasm of tonsil, unspecified; C78.00 Secondary malignant neoplasm of unspecified lung; C79.89 Secondary malignant neoplasm of other specified sites; Z79.899 Other long term (current) drug therapy; Z79.891 Long term (current) use of opiate analgesic; Z79.52 Long term (current) use of systemic steroids; Z59.8 Other problems related to housing and economic circumstances

== ENCOUNTER 2019-08-17 10:25 | Outpatient (CLI) | payer MEDICARE, MEDICAID ==
--- NOTE | 2019-08-17 12:03 | CONSULTATION NOTE ---
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 He had been on nivolumab immunotherapy, with remission on scan 01/2019. Patient did have scans today, his nivolumab is currently on hold, he had side effects included musculoskeletal, as well as GI with anorexia, diarrhea, and weight loss. Patient does continue with persistent pain, most of this is with residual musculoskeletal effects, some residual pain in his neck area. He is currently on fentanyl 100 mcg patch, continues to use oxycodone 20 mg about 6 tabs daily, he is willing to decrease his fentanyl to 75 mcg, will do this in 2 weeks after results from scan are available. Patient continues with high anxiety, he is worried about pending scans, has very high anxiety. Patient is also struggling with recent eviction notice, they are getting ready to move, though this continues to be more towards the summer. Patient also uses cannabis, he smokes 2-3 "bowls a day". Patient has long-term had substance dependence issues. Patient has been eating quite well, he has gained weight last time I saw him was 150, today is 157. His PEG tube, though does show leaking, and irritation. He would very much like to have it removed. Given it looks like it may be causing more harm than good, would recommend if his scans still show disease in remission. He is also complaining of tenderness at his Port-A-Cath site, it is reddened, but was used this morning for his scans. Social History - Living Situation Living arrangement: At home Living Situation: With spouse/s.o. Support System: Patient lives at home with his Lizet, who has high anxiety and depressive disorder as well. She reports her doing fairly well overall, getting preparation done for a pending move. He does not have a plan currently. Medications/Allergies - Medications Home Medications: Ambulatory Orders Medication Instructions Recorded Confirmed Trazodone HCl 200 mg PO QPM 02/28/18 08/17/19 Finasteride 5 mg PO DAILY 06/23/18 08/17/19 fentaNYL [Fentanyl 50mcg patch] 100 mcg TD Q3D MDD plan taper 06/27/18 08/17/19 Albuterol Sulfate [Proair 1 - 2 puffs INH Q4HR PRN 07/24/18 08/17/19 Respiclick] Naloxone HCl [Narcan] 1 spray JESSICA PRN PRN 07/24/18 08/17/19 Nystatin 5 ml PO QID PRN 07/24/18 08/17/19 Ipratropium/Albuterol [Duoneb] 1 amp INH Q4HR PRN 08/04/18 08/17/19 Oxycodone HCl 20 mg PO Q4HR PRN MDD 6 tabs 08/04/18 08/17/19 buPROPion HCL [Bupropion HCl] 75 mg PO BID 08/04/18 08/17/19 Metoprolol Succinate [Toprol Xl] 12.5 mg PO BID 09/25/18 08/17/19 Tamsulosin [Flomax] 0.4 mg PO BID #60 capsule 09/27/18 08/17/19 Doxazosin Mesylate 1 mg PO DAILY 09/29/18 08/17/19 Diphenoxylate/Atropine [Lomotil] 1 each PO QID PRN #12 tablet 03/29/19 08/17/19 Ondansetron [Ondansetron Odt] 4 mg PO Q6H PRN 03/29/19 08/17/19 Prochlorperazine [Compazine] 10 mg PO Q6HR PRN 03/29/19 08/17/19 Omeprazole 40 mg PO DAILY 04/06/19 08/17/19 Saccharomyces Boulardii [Florastor] 250 mg PO BID 05/10/19 08/17/19 predniSONE [Deltasone] 10 mg PO .Q2 DAYS 05/18/19 08/17/19 - Allergies Allergies/Adverse Reactions: Allergies Allergy/AdvReac Type Severity Reaction Status Date / Time No Known Drug Allergies Allergy Verified 06/29/19 14:04 Review of Systems - Constitutional Constitutional: reports: Fatigue (improved), Weight stable (157.9). denies: Fever, Chills - Eyes Eyes: reports: Vision loss - Ears, Nose & Throat Ears, Nose & Throat: reports: Hearing loss, Hearing aids. denies: Mouth lesions - Cardiovascular Cardiovascular: reports: Decr. exercise tolerance (improved). denies: Edema - Respiratory Respiratory: reports: Cough (intermittent/nonproductive), SOB with exertion. denies: Wheezing, SOB at rest - Gastrointestinal Gastrointestinal: reports: Good appetite (eating two full large meals daily and snacks; adding calories), Other (pain at exit site of PEG tube; wants it out/leaks). denies: Diarrhea (loose stools 1-2 x in am; no further incontinence at this time), Reflux/heartburn - Genitourinary Genitourinary: reports: Frequency. denies: Dysuria - Musculoskeletal Musculoskeletal: reports: Stiffness, Muscle weakness, Joint pain (right thumb joint; second finger about 5 days attributed to "ra" did not go to PCP) - Integumentary Integumentary: reports: Dryness - Neurological Neurological: reports: General weakness, Abnormal gait - Psychiatric Psychiatric: reports: Depression (improved), Anxiety (awaiting results of test) - Hematologic/Lymphatic Hematologic/Lymphatic: reports: Anemia (10.9) - All Other Systems All Other Systems: reports: Reviewed and negative Physical Exam - Vital Signs Pulse Rate: 51 (irregular) Respiratory Rate: 18 Blood Pressure: 142/68 - Physical Exam General Appearance: positive: Alert, Anxious Eyes Bilateral: positive: Normal inspection ENT: positive: Other (surgical changes; small less than 0.25 cm lesion white on back right pharyngeal area; mouth without candidiasis;) Neck: positive: Trachea midline, Lymphadenopathy (L) (2 cm unfixed firm node left side of neck; firm fixed node (?) left submandibular area; none on right), Stiff neck Cardiovascular: positive: Irregularly irregular Respiratory: positive: No respiratory distress, Diminished in bases. negative: Wheezes Abdomen: positive: Soft, Tenderness (around exit site of PEG tube; wants removed), Other (right inguinal hernia; worsens with cough and lifting; can be reduced) Skin: positive: Pallor, Dryness, Other (reddened area over portacath; reports tenderness today;) Extremities: positive: No pedal edema Neurologic/Psychiatric: positive: Oriented x3, Mood/affect nml, Slurred/abnml speech (mechanical) Palliative Care - POLST Patient has POLST: No POLST Status: Full Code Pain: Pain worsening (at PEG exit site/portacath at site), Pain improved (generalized pain in point tenderness at cancer site; patient with overall generalized residual joint and musculoskeletal pain as SE immunotherapy; recent exacerbation right thumb joint (on prednisone taper) headaches/radiating pain cont. to improve) Tiredness/Fatigue: Moderate (4-6) Drowsiness/Sedation: None Nausea: None Anorexia: None Dyspnea: Moderate (4-6) Depression: Mild (1-3) Anxiety: Moderate (4-6) Feelings of wellbeing/Perceived Quality of Life: Good, Acceptable, Improved Sleep: Sleeps well, Variable sleep pattern (with nocturia) Constipation: No Performance Status: Patient does seem more steady on his feet, he still has a shuffled gait. He reports he is doing more and more active, though does have to take frequent rest periods. He is able to manage his own ADLs. - Palliative Care Discussion: Patient's anxiety does exacerbate when he is due for scans, he is very anxious about progressive disease and very much worried about "not beating this thing". Patient reports overall he is doing fairly well, is pleased he is eating and able to tolerate this, is pleased that his incontinence has resolved. He reports his mood is good at this point in time. Impression and Recommendations - Palliative Care Impression: This is a 69-year-old gentleman with stage IV left tonsillar cancer since 08/2017. He is currently on active surveillance, has had immune O related toxicity. He is doing somewhat better, though has residual musculoskeletal symptoms, his GI symptoms are improving. Patient is seen palliative care for ongoing pain and symptom management as well as anticipatory guidance. Recommendations/Counseling Done: 1.Pain of neoplastic origin. Patient currently on fentanyl 100 mcg patch, he is willing to taper down to 75 mcg. We just refilled his current prescription, agreed with do this in 2 weeks pending outcome of scans. Counseling is been provided multiple times regarding his oxycodone 20 mg tabs, he does understand will receive no further early refills and needs to stay within the allotted amount of 6 tabs/24 hours or we will continue to taper down further. He verbalizes understanding. Patient did demonstrate a flare in his right thumb joint, did not follow-up with his PCP as instructed. He has been on a prednisone taper, will continue to watch any other signs or symptoms of musculoskeletal side effects. 2. Right inguinal hernia. Patient is describing right inguinal hernia, is able to self reduce. Did discuss if worsens, or increased pain or discomfort would need to see surgeon. He will be seen surgeon for removal of tube, can follow-up with questions at that point in time. 3. PEG tube removal. Patient currently eating 2 full meals a day, able to eat and drink denies any trouble with swallowing. Patient does of course remain high risk for recurrent disease. The tube does appear to be causing significant skin irritation and leakage. May be of benefit to have removed. Will update oncology to make referral depending on outcome of scans/appointment. 4. BPH. Patient said no further infections. Patient does know the signs and symptoms to access urgent care appropriately. 5. Anxiety. This is multifactorial and exacerbated by current social circumstances as well as pending outcome of scans. 6. Weight loss. This is multifactorial in origin, he is currently on prednisone 10 mg every other day. He has had weight gain, is increasing his calories, and currently is not using his tube feedings. 7. Advanced care planning. Patient continues to be resistant and quite fearful of any end-of-life discussions, though I do feel currently we have good rapport, and can readdress this at the point has recurrent disease or significant decisions need to be made. Time Spent: 30 minutes with greater than 50% of this done in counseling regarding pain and symptom management, opioid use and plan for taper, as well as anticipatory guidance.
== END 2019-08-17 10:26 | disposition home or self-care (01) ==
LOC: PC 10:25
PROVIDERS: ATTEND Nurse Practitioner Adult Health
DX: Z51.5 Encounter for palliative care (principal); G89.3 Neoplasm related pain (acute) (chronic); F41.9 Anxiety disorder, unspecified; K94.23 Gastrostomy malfunction; N40.1 Benign prostatic hyperplasia with lower urinary tract symptoms; R35.0 Frequency of micturition; K40.90 Unilateral inguinal hernia, without obstruction or gangrene, not specified as recurrent; R63.4 Abnormal weight loss; C02.9 Malignant neoplasm of tongue, unspecified; C78.00 Secondary malignant neoplasm of unspecified lung; C79.89 Secondary malignant neoplasm of other specified sites; Z79.899 Other long term (current) drug therapy; Z79.891 Long term (current) use of opiate analgesic; Z79.52 Long term (current) use of systemic steroids; Z95.828 Presence of other vascular implants and grafts
CPT/HCPCS: 99214

== ENCOUNTER 2019-08-22 18:46 | Emergency (ER) | payer MEDICARE, MEDICAID ==
--- NOTE | 2019-08-22 18:55 | ED Physician Documentation ---
History of Present Illness - Stated complaint Stated Complaint: FEEDING TUBE CAME OUT - History obtained from History obtained from: Patient (69-year-old gentleman with history of head and neck cancer has a G-tube that he has not used in about 2-1/2 months. It came out just prior to arrival, but that said he does not really want it anymore and has been taking all of his nutrition orally.) Review of Systems Constitutional: reports: Reviewed and negative Cardiac: reports: Reviewed and negative Respiratory: reports: Reviewed and negative PD PAST MEDICAL HISTORY - Past Medical History Cardiovascular: Hypertension, High cholesterol, Coronary artery disease, Atrial fibrillation, Murmur, Arrhythmia Respiratory: COPD, Emphysema, Pneumonia, Shortness of breath Neuro: Dementia, Headaches, Peripheral neuropathy, Tremors Endocrine/Autoimmune: None GI: GERD, Colon polyps, Hepatitis, Other : Benign prostate hypertrophy, Retention, Renal insuffiency, Nocturia HEENT: Chronic vision loss, Chronic sinusitis, Chronic hearing loss, Other Psych: Depression, Anxiety Musculoskeletal: Osteoarthritis, Fatigue Derm: None - Past Surgical History Past Surgical History: Yes General: Appendectomy, Colonoscopy, Other Ortho: Hip replacement Derm: Skin cancer surgery - Present Medications Home Medications: Ambulatory Orders Medication Instructions Recorded Confirmed Trazodone HCl 200 mg PO QPM 02/28/18 08/17/19 Finasteride 5 mg PO DAILY 06/23/18 08/17/19 fentaNYL [Fentanyl 50mcg patch] 100 mcg TD Q3D MDD plan taper 06/27/18 08/17/19 Albuterol Sulfate [Proair 1 - 2 puffs INH Q4HR PRN 07/24/18 08/17/19 Respiclick] Naloxone HCl [Narcan] 1 spray JESSICA PRN PRN 07/24/18 08/17/19 Nystatin 5 ml PO QID PRN 07/24/18 08/17/19 Ipratropium/Albuterol [Duoneb] 1 amp INH Q4HR PRN 08/04/18 08/17/19 Oxycodone HCl 20 mg PO Q4HR PRN MDD 6 tabs 08/04/18 08/17/19 buPROPion HCL [Bupropion HCl] 75 mg PO BID 08/04/18 08/17/19 Metoprolol Succinate [Toprol Xl] 12.5 mg PO BID 09/25/18 08/17/19 Tamsulosin [Flomax] 0.4 mg PO BID #60 capsule 09/27/18 08/17/19 Doxazosin Mesylate 1 mg PO DAILY 09/29/18 08/17/19 Diphenoxylate/Atropine [Lomotil] 1 each PO QID PRN #12 tablet 03/29/19 08/17/19 Ondansetron [Ondansetron Odt] 4 mg PO Q6H PRN 03/29/19 08/17/19 Prochlorperazine [Compazine] 10 mg PO Q6HR PRN 03/29/19 08/17/19 Omeprazole 40 mg PO DAILY 04/06/19 08/17/19 Saccharomyces Boulardii [Florastor] 250 mg PO BID 05/10/19 08/17/19 predniSONE [Deltasone] 10 mg PO .Q2 DAYS 05/18/19 08/17/19 Clotrimazole/Betamethasone Crm 2 gm TOP BID #3 tube 08/22/19 [Lotrisone Cream] - Allergies Allergies/Adverse Reactions: Allergies Allergy/AdvReac Type Severity Reaction Status Date / Time No Known Drug Allergies Allergy Verified 06/29/19 14:04 - Social History Does the pt smoke?: No Smoking Status: Current some day smoker Does the pt drink ETOH?: Yes Does the pt have substance abuse?: Yes - Immunizations Immunizations are current?: No Immunizations: TDAP >10years/unknown - POLST Patient has POLST: No POLST Status: Full Code PD ED PE NORMAL - Vitals Vital signs reviewed: Yes - General General: Alert and oriented X 3, No acute distress - Abdomen Abdomen: Soft, Non tender, Other (Open G-tube site in the left upper quadrant) - Derm Derm: Other (He has nonspecific rash on the chest that looks most consistent with a fungal rash.) - Neuro Neuro: Alert and oriented X 3, Normal speech Results - Vitals Vitals: Vital Signs - 24 hr 08/22/19 18:52 Temperature 36.7 C Heart Rate 62 Respiratory 18 Rate Blood Pressure 139/63 H O2 Saturation 98 Oxygen O2 Source Room air PD MEDICAL DECISION MAKING - ED course ED course: 69 yo male history of head and neck cancer presents having had his G-tube fall out. It was replaced easily at bedside, which I did because although the patient wanted it out permanently I was not able to consult with the surgeon immediately and I did not want the hole to close. He was quite surprised by how painless the procedure was with the balloon down. Subsequently I was able to get a hold of the surgeon who said that as long as the patient wanted it out it could just be safely removed and he could just keep it covered with gauze and it should close up in a day or 2. Departure - Departure Disposition: 01 Home, Self Care Clinical Impression: Leaking PEG tube Condition: Good Record reviewed to determine appropriate education?: Yes Prescriptions: Clotrimazole/Betamethasone Crm [Lotrisone Cream] 2 gm TOP BID #3 tube Comments: Keep the opening covered with gauze for a day or 2, it should close up. Return for new or worsening symptoms. Follow-up with your oncologist as scheduled.
[2019-08-22 18:57] VITALS: BP 139/63
== END 2019-08-22 19:20 | disposition home or self-care (01) ==
LOC: ED 18:46
DX: Z43.1 Encounter for attention to gastrostomy (principal); R21 Rash and other nonspecific skin eruption; I10 Essential (primary) hypertension; Z85.89 Personal history of malignant neoplasm of other organs and systems
CPT/HCPCS: 99281; 99282

== ENCOUNTER 2019-08-31 12:37 | Outpatient (CLI) | payer MEDICARE, MEDICAID ==
--- NOTE | 2019-08-31 17:55 | CONSULTATION NOTE ---
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 At time he presented with extensive mets to the neck, lung, peritracheal nodes, and received chemotherapy with progression. He was on nivolumab from , and did fairly well until he experienced immune O side effects including musculoskeletal discomfort, anorexia, diarrhea, and persistent weight loss. Patient received news, from CT scan done on , neck adenopathy has slightly increased, as well as a new right adrenal mass on right side 5 cm. He is feeling somewhat overwhelmed and very much disappointed, he very much wants to "cure" his disease. He was really quite pleased with his remission. Patient continues with weight loss, despite what he feels like is more than adequate appetite and intake. He has not had any diarrhea, he does have good fluid intake, there was concern regarding this as his renal function is worsening. He has not had progressive pain, we have been actually working on titrating back his pain meds, but at this point in time does not want to pursue any further changes given his anxiety today. Patient did have his feeding tube fall out on 08/21, originally been a PEG tube and changed out to a G-tube on 05/07. This is been a fairly traumatic experience for him, including increased pain. When they did the replacement, had continued to leak. He has been mostly taking oral intake and very little through the tube. He was told it would close on its own, it has continued to leak and create some caustic skin irritation around the exit site of about 2 cm. Unclear if this is irritation from gastric contents, or beginning of a cellulitis. Does not appear is going to heal, and most likely needs a stitch, did reach out to surgery, had no appointments today, they did feel it could be managed by PCP so appointment made for later in the afternoon. Other presenting symptom this morning was urinary retention, reports he was having increased dribbling, did cath himself for it looks like about 8-900 mils of urine. He denies any dysuria, patient has had recurrent UTIs. We did discuss in the context of his urinary function, can cause back up i.e. hydronephrosis. Social History - Living Situation Living arrangement: At home Living Situation: With spouse/s.o. Support System: Patient lives at home with his Lizet, who has significant anxiety regarding patient's cancer diagnosis. She gets quite anxious and this is escalated some of that. They do have friends and family, in fact has a new baby granddaughter which they saw this weekend. Unfortunately they have been affected, the place they are living in for fifteen years is going to be torn down. He does understand he needs to move, but has not really been able to take the next step. They are packing and clearing things. He is trying to take all of this in stride. They do have significant financial stressors. Medications/Allergies - Medications Home Medications: Ambulatory Orders Medication Instructions Recorded Confirmed Trazodone HCl 200 mg PO QPM 02/28/18 08/31/19 Finasteride 5 mg PO DAILY 06/23/18 08/31/19 fentaNYL [Fentanyl 50mcg patch] 100 mcg TD Q3D 06/27/18 08/31/19 Albuterol Sulfate [Proair 1 - 2 puffs INH Q4HR PRN 07/24/18 08/31/19 Respiclick] Naloxone HCl [Narcan] 1 spray JESSICA PRN PRN 07/24/18 08/31/19 Nystatin 5 ml PO QID PRN 07/24/18 08/31/19 Ipratropium/Albuterol [Duoneb] 1 amp INH Q4HR PRN 08/04/18 08/31/19 Oxycodone HCl 20 mg PO Q4HR PRN MDD 6 tabs 08/04/18 08/31/19 buPROPion HCL [Bupropion HCl] 75 mg PO BID 08/04/18 08/31/19 Metoprolol Succinate [Toprol Xl] 12.5 mg PO BID 09/25/18 08/31/19 Tamsulosin [Flomax] 0.4 mg PO BID #60 capsule 09/27/18 08/31/19 Doxazosin Mesylate 1 mg PO DAILY 09/29/18 08/31/19 Diphenoxylate/Atropine [Lomotil] 1 each PO QID PRN #12 tablet 03/29/19 08/31/19 Ondansetron [Ondansetron Odt] 4 mg PO Q6H PRN 03/29/19 08/31/19 Prochlorperazine [Compazine] 10 mg PO Q6HR PRN 03/29/19 08/31/19 Omeprazole 40 mg PO DAILY 04/06/19 08/31/19 Saccharomyces Boulardii [Florastor] 250 mg PO BID 05/10/19 08/31/19 predniSONE [Deltasone] 5 mg PO DAILY 05/18/19 08/31/19 - Allergies Allergies/Adverse Reactions: Allergies Allergy/AdvReac Type Severity Reaction Status Date / Time No Known Drug Allergies Allergy Verified 08/24/19 09:28 Review of Systems - Constitutional Constitutional: reports: Fatigue, Weight stable. denies: Fever, Chills - Ears, Nose & Throat Ears, Nose & Throat: reports: Dry mouth. denies: Sore throat, Mouth lesions - Cardiovascular Cardiovascular: reports: Decr. exercise tolerance. denies: Chest pain, Edema - Respiratory Respiratory: reports: Cough (smokers cough/brown tinged sputum), SOB with exertion. denies: Wheezing, SOB at rest - Gastrointestinal Gastrointestinal: reports: Early satiety. denies: Abdominal pain, Constipation, Diarrhea, Nausea, Reflux/heartburn - Genitourinary Genitourinary: reports: Other (retention;). denies: Dysuria, Hematuria - Musculoskeletal Musculoskeletal: reports: Muscle pain, Muscle aches, Stiffness, Muscle weakness, Joint pain - Integumentary Integumentary: reports: Dryness, Other (G tube exit site painful/leaking) - Neurological Neurological: reports: General weakness, Slurred speech (mechanical). denies: Headache - Psychiatric Psychiatric: reports: Depression, Anxiety - Endocrine Endocrine: reports: Intolerance to cold. denies: Hypothyroidism - Hematologic/Lymphatic Hematologic/Lymphatic: reports: Recurrent infections (hx UTIs) - All Other Systems All Other Systems: reports: Reviewed and negative Physical Exam - Vital Signs Temperature: 97.6 C Pulse Rate: 57 Respiratory Rate: 18 Blood Pressure: 118/66 - Physical Exam General Appearance: positive: Alert, Mild distress, Anxious Eyes Bilateral: positive: Normal inspection ENT: positive: No signs of dehydration, Other (no s/s candidiasis) Neck: positive: Trachea midline, Lymphadenopathy (R), Lymphadenopathy (L), Other (tenderness at ear with pressure) Cardiovascular: positive: Regular rate & rhythm Respiratory: positive: No respiratory distress, Diminished throughout Abdomen: positive: Soft, Nml bowel sounds, Tenderness Skin: positive: Wound (exit site bright red) Extremities: positive: No pedal edema Neurologic/Psychiatric: positive: Oriented x3, Depressed mood/affect Palliative Care - POLST Patient has POLST: No POLST Status: Full Code Pain: Pain unchanged (on fentanyl 100 mcg/ oxycodone 20 mg up to 6 tabs/24 hours) Tiredness/Fatigue: Moderate (4-6) Drowsiness/Sedation: Mild (1-3) Nausea: None Anorexia: Moderate (4-6) Dyspnea: Mild (1-3) Depression: Moderate (4-6) Anxiety: Severe (7-10) Feelings of wellbeing/Perceived Quality of Life: Fair, Acceptable, Worsening (with new news) Sleep: Sleeps well Constipation: Yes, Opoid induced, Managed Performance Status: Patient with some activity intolerance, does pace his activity through the day. Does admit to intermittent fatigue. Is able to manage his own ADLs, does no longer drive - Palliative Care Discussion: Met with patient and , patient reports he is just now recovering. Reports he was stunned, anxious and just pissed off. Hoping to "cure" his disease again, they have restarted him back on the nivolumab. Encouragement given to reframe this, in the context he does understand he has serious disease, but to look at more at managing his disease. He continues to want to stay positive, but presents with appropriate concerns and anxiety. We did spend some time talking about things that bring him dean, including his beautiful little granddaughter, they showed me the [place] pictures of their visit this last weekend. Results - Lab Results Lab results reviewed: Yes Impression and Recommendations - Palliative Care Impression: This is a 69-year-old gentleman with stage IV left tonsillar cancer, since 08/2017. He now presents with recurrent disease, with right adrenal mass as well as neck lymphadenopathy. He presents with increased anxiety and distress regarding needing to restart treatment, presents with altered skin integrity and concern for G-tube leakage, as well as exacerbation of his urinary retention today. Palliative care continue to provide support regarding multiple issues for coordination of care and focusing on quality of life Recommendations/Counseling Done: 1.Pain of neoplastic origin. Plan is been to titrate him down on his fentanyl, he is feeling quite vulnerable and overwhelmed. He likes his pain regimen where it is right now, given his increased distress and recurrent disease will leave as is and consider taper in the future. Pain remains fairly consistent in the context of mostly musculoskeletal pain levels, will be interesting to see if exacerbates with the resumption of his nivolumab. His headaches are resolved, as well as his neck discomfort currently controlled. 2. G-tube exit site. Patient to see primary care later, to get a "stitch". Surgeon unable to work him in today, but felt PCP could manage. It is leaking a significant amount, and causing increased irritation and concern for cellulitis at exit site. 3. BPH. Patient presented with significant retentive symptoms this morning, did catheter over 800 mils, has been instructed to check frequently PVR, if patient continued to have greater than 300 mils, is to schedule straight caths again 3-4 times a day. Counseling provided regarding impact on renal function if not properly managing. 5. Anxiety. This is been exacerbated by his recurrent disease news, has multiple complex issues going on around finances and needing to move, is feeling somewhat overwhelmed. Counseling provided to normalize his current feelings, and trying to reframe managing his disease versus "curing", and psychosocial support provided. 6. Weight loss. This is multifactorial in origin, he is staying fairly stable from last visit, but is somewhat perplexed that she is giving him significant calories. Patient does present with muscle wasting, and concern for progressive symptoms of disease/side effects of immunotherapy. 7. Advanced care planning. Patient continues to be quite fearful around any end-of-life discussions, this is been exacerbated with his news of recurrent disease. Continue to provide support and rapport, patient is willing to share concerns. Is aware at some point will need to have further discussion around end-of-life planning, but wants to "stay positive" so this topic is often off limits. We will continue to explore as patient's anxiety and goals allow Time Spent: 45 minutes with greater than 50% spent in counseling and coordination of care, regarding pain and symptom management and anticipatory guidance
== END 2019-08-31 12:38 | disposition home or self-care (01) ==
LOC: PC 12:37
PROVIDERS: ATTEND Nurse Practitioner Adult Health
DX: Z51.5 Encounter for palliative care (principal); G89.3 Neoplasm related pain (acute) (chronic); K94.23 Gastrostomy malfunction; R63.4 Abnormal weight loss; N40.1 Benign prostatic hyperplasia with lower urinary tract symptoms; R33.8 Other retention of urine; F41.9 Anxiety disorder, unspecified; R53.83 Other fatigue; K59.03 Drug induced constipation; T40.2X5D Adverse effect of other opioids, subsequent encounter; C09.9 Malignant neoplasm of tonsil, unspecified; C78.00 Secondary malignant neoplasm of unspecified lung; C77.1 Secondary and unspecified malignant neoplasm of intrathoracic lymph nodes; Z79.899 Other long term (current) drug therapy; Z79.891 Long term (current) use of opiate analgesic; Z79.52 Long term (current) use of systemic steroids; Z59.9 Problem related to housing and economic circumstances, unspecified
CPT/HCPCS: 99215

== ENCOUNTER 2019-09-10 17:15 | Emergency (ER) | payer MEDICARE, MEDICAID ==
[2019-09-10 17:31] VITALS: BP 101/54
--- NOTE | 2019-09-10 17:56 | ED Physician Documentation ---
History of Present Illness - Stated complaint Stated Complaint: FEEDING TUBE SITE COMPLICATION - Chief complaint Chief Complaint: General - History obtained from History obtained from: Patient - Additonal information Additional information: Pt returns to the emergency dept, complaining that his feeding tube has been out for 3 weeks, and leakage of gastric contents is bothering him. Pt is able to ta ke oral PO. He has already seen his surgeon, who says that the hole will close on its own. Pt states it is taking a long time, and that after he talked to his surgeon today, he was given an appt for next week. Pt states his told him to come here and see if he could see the surgeon emergently to have the hole closed. No other complaints at this time. Review of Systems Ten Systems: 10 systems reviewed and negative Constitutional: reports: Reviewed and negative Eyes: reports: Reviewed and negative Ears: reports: Reviewed and negative Nose: reports: Reviewed and negative Throat: reports: Reviewed and negative Cardiac: reports: Reviewed and negative Respiratory: reports: Reviewed and negative GI: reports: Reviewed and negative : reports: Reviewed and negative Skin: reports: Reviewed and negative Musculoskeletal: reports: Reviewed and negative Neurologic: reports: Reviewed and negative Psychiatric: reports: Reviewed and negative Endocrine: reports: Reviewed and negative Immunocompromised: reports: Reviewed and negative PD PAST MEDICAL HISTORY - Past Medical History Cardiovascular: Hypertension, High cholesterol, Coronary artery disease, Atrial fibrillation, Murmur, Arrhythmia Respiratory: COPD, Emphysema, Pneumonia, Shortness of breath Neuro: Dementia, Headaches, Peripheral neuropathy, Tremors Endocrine/Autoimmune: None GI: GERD, Colon polyps, Hepatitis, Other : Benign prostate hypertrophy, Retention, Renal insuffiency, Nocturia HEENT: Chronic vision loss, Chronic sinusitis, Chronic hearing loss, Other Psych: Depression, Anxiety Musculoskeletal: Osteoarthritis, Fatigue Derm: None - Past Surgical History Past Surgical History: Yes General: Appendectomy, Colonoscopy, Other Ortho: Hip replacement Derm: Skin cancer surgery - Present Medications Home Medications: Ambulatory Orders Medication Instructions Recorded Confirmed Trazodone HCl 200 mg PO QPM 02/28/18 08/31/19 Finasteride 5 mg PO DAILY 06/23/18 08/31/19 fentaNYL [Fentanyl 50mcg patch] 100 mcg TD Q3D 06/27/18 08/31/19 Albuterol Sulfate [Proair 1 - 2 puffs INH Q4HR PRN 07/24/18 08/31/19 Respiclick] Naloxone HCl [Narcan] 1 spray JESSICA PRN PRN 07/24/18 08/31/19 Nystatin 5 ml PO QID PRN 07/24/18 08/31/19 Ipratropium/Albuterol [Duoneb] 1 amp INH Q4HR PRN 08/04/18 08/31/19 Oxycodone HCl 20 mg PO Q4HR PRN MDD 6 tabs 08/04/18 08/31/19 buPROPion HCL [Bupropion HCl] 75 mg PO BID 08/04/18 08/31/19 Metoprolol Succinate [Toprol Xl] 12.5 mg PO BID 09/25/18 08/31/19 Tamsulosin [Flomax] 0.4 mg PO BID #60 capsule 09/27/18 08/31/19 Doxazosin Mesylate 1 mg PO DAILY 09/29/18 08/31/19 Diphenoxylate/Atropine [Lomotil] 1 each PO QID PRN #12 tablet 03/29/19 08/31/19 Ondansetron [Ondansetron Odt] 4 mg PO Q6H PRN 03/29/19 08/31/19 Prochlorperazine [Compazine] 10 mg PO Q6HR PRN 03/29/19 08/31/19 Omeprazole 40 mg PO DAILY 04/06/19 08/31/19 Saccharomyces Boulardii [Florastor] 250 mg PO BID 05/10/19 08/31/19 predniSONE [Deltasone] 5 mg PO DAILY 05/18/19 08/31/19 - Allergies Allergies/Adverse Reactions: Allergies Allergy/AdvReac Type Severity Reaction Status Date / Time No Known Drug Allergies Allergy Verified 09/10/19 17:28 - Social History Does the pt smoke?: No Smoking Status: Current some day smoker Does the pt drink ETOH?: Yes Does the pt have substance abuse?: Yes - Immunizations Immunizations are current?: No Immunizations: TDAP >10years/unknown - POLST Patient has POLST: No POLST Status: Full Code PD ED PE NORMAL - Vitals Vital signs reviewed: Yes - General General: Alert and oriented X 3, No acute distress - HEENT HEENT: PERRL - Neck Neck: Supple, no meningeal sign - Cardiac Cardiac: RRR, No murmur - Respiratory Respiratory: Clear bilaterally - Abdomen Abdomen: Soft, Non tender, Non distended, Other (Tiny ostomy site with mild leakage of gastric contents. Surrounding skin is inflamed, but does not appear cellulitic. No induration or fluctuance.) - Derm Derm: Warm and dry - Extremities Extremities: No deformity - Neuro Neuro: Alert and oriented X 3 - Psych Psych: Normal mood, Normal affect Results - Vitals Vitals: Oxygen O2 Source Room air PD MEDICAL DECISION MAKING - ED course Complexity details: considered differential, d/w patient ED course: I have discussed with the pt that there is nothing the ED can do to fix this problem, and it is in the hands of the surgeons, but there is no indication to consult surgery emergently. We have placed a barrier dressing to try to minimize skin irritation. We have discussed the usual indications for return. Departure - Departure Disposition: 01 Home, Self Care Clinical Impression: Complication of ostomy Condition: Stable Comments: There is nothing further that can be done for the ostomy site in the emergency department tonight. You will need to follow-up with the surgeons to determine whether this should continue to be allowed to heal on its own, or whether it should be reopened and stitched back together. This is not something that can be done in the emergency department, and you will need to see your surgeon for this. Discharge Date/Time: 09/10/19 18:45
[2019-09-10] MEDS ORDERED: HYDROcod/ACETAM 5/325 MG TABLET PO STA (18:29)
== END 2019-09-10 18:45 | disposition home or self-care (01) ==
LOC: ED 17:15
DX: K94.29 Other complications of gastrostomy (principal); Y83.3 Surgical operation with formation of external stoma as the cause of abnormal reaction of the patient, or of later complication, without mention of misadventure at the time of the procedure; I10 Essential (primary) hypertension
CPT/HCPCS: 99282; 99283; A9270

== ENCOUNTER 2019-09-21 10:48 | Outpatient (CLI) | payer MEDICARE, MEDICAID ==
--- NOTE | 2019-09-21 19:00 | CONSULTATION NOTE ---
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 At time of presentation had extensive mets to neck, lung, peritracheal nodes, received chemotherapy with progression. He was then treated on nivolumab , but did experience Immunotherapy side effects including musculoskeletal discomfort, anorexia, diarrhea, and persistent weight loss. Patient had been off treatment and doing fairly well, but most recent CT scan showed increased neck adenopathy, and a new right adrenal mass on right side about 5 cm. He has restarted his nivolumab, he is wanting "remission" again. He has high anxiety regarding this. He has had worsening renal function, is receiving weekly IV fluids. He has increased his weight to 161, reports he is hydrating well, and did have a renal ultrasound today, that did not show any further concern for hydronephrosis. Patient has had intermit tent retention in the past, reports he has done much better, and had a post void residual with the ultrasound of 39 mL. Patient's other persistent problem, has been his issues with his G-tube, had fa llen out on 08/21. His continue to be open tract, and draining. He did see the surgeon last week, with an occlusive dressing put on, reports it lasted about 2 and half days, has continued to have trouble securing, but reports drainage is finally decreasing (gastric contents) and may be making progress. He does understand the alternative to having it repaired, would be a significant surgery. At this point in time he has no follow-up appointment scheduled with Dr. Hewitt, but will contact if continues to be problematic. He does report the skin around exit site is improving, it had been red and hot and irritated. Patient's pain has been well controlled on his fentanyl 100 mcg patch, he continues to use oxycodone for breakthrough pain, but is staying within the allotted amount. He does have diffuse overall generalized musculoskeletal pain, his headache pain is controlled/resolved, and neck pain minimal at this point in time. We had started a titration down, patient is quite anxious, will continue to evaluate as feels current pain regimen "glitches". Other symptoms continue to be is with his right inguinal hernia, which he has had about 2 years. He can reduce it, but does flare up with intermittent discomfort. He does have intermittent flares of his RA, with swelling in his joints particularly in his feet. He is also dealing with anxiety, exacerbated by his current living situation, he is needing to move in the next couple months. His would like to move closer to family on the "other side". Social History - Living Situation Living arrangement: At home Living Situation: With spouse/s.o. Support System: Patient lives at home with his Lizet, Lizet gets very anxious also, this is been very difficult with his relapse. They do have supportive family, thus her reason to wanting to move closer for more assistance. They do have significant amount of financial stressors, as well as this most recent crisis with the eviction. Medications/Allergies - Medications Home Medications: Ambulatory Orders Medication Instructions Recorded Confirmed Trazodone HCl 200 mg PO QPM 02/28/18 08/31/19 Finasteride 5 mg PO DAILY 06/23/18 08/31/19 fentaNYL [Fentanyl 50mcg patch] 100 mcg TD Q3D 06/27/18 08/31/19 Albuterol Sulfate [Proair 1 - 2 puffs INH Q4HR PRN 07/24/18 08/31/19 Respiclick] Naloxone HCl [Narcan] 1 spray JESSICA PRN PRN 07/24/18 08/31/19 Nystatin 5 ml PO QID PRN 07/24/18 08/31/19 Ipratropium/Albuterol [Duoneb] 1 amp INH Q4HR PRN 08/04/18 08/31/19 Oxycodone HCl 20 mg PO Q4HR PRN MDD 6 tabs 08/04/18 08/31/19 buPROPion HCL [Bupropion HCl] 75 mg PO BID 08/04/18 08/31/19 Metoprolol Succinate [Toprol Xl] 12.5 mg PO BID 09/25/18 08/31/19 Tamsulosin [Flomax] 0.4 mg PO BID #60 capsule 09/27/18 08/31/19 Doxazosin Mesylate 1 mg PO DAILY 09/29/18 08/31/19 Diphenoxylate/Atropine [Lomotil] 1 each PO QID PRN #12 tablet 03/29/19 08/31/19 Ondansetron [Ondansetron Odt] 4 mg PO Q6H PRN 03/29/19 08/31/19 Prochlorperazine [Compazine] 10 mg PO Q6HR PRN 03/29/19 08/31/19 Omeprazole 40 mg PO DAILY 04/06/19 08/31/19 Saccharomyces Boulardii [Florastor] 250 mg PO BID 05/10/19 08/31/19 predniSONE [Deltasone] 5 mg PO DAILY 05/18/19 08/31/19 - Allergies Allergies/Adverse Reactions: Allergies Allergy/AdvReac Type Severity Reaction Status Date / Time No Known Drug Allergies Allergy Verified 09/10/19 17:28 Review of Systems - Constitutional Constitutional: reports: Fatigue, Weight gain (161). denies: Fever, Chills - Ears, Nose & Throat Ears, Nose & Throat: reports: Hearing loss - Cardiovascular Cardiovascular: reports: Decr. exercise tolerance. denies: Edema, Lightheadedness - Respiratory Respiratory: reports: SOB with exertion. denies: Cough, SOB at rest - Gastrointestinal Gastrointestinal: reports: Good appetite. denies: Constipation, Diarrhea, Nausea, Reflux/heartburn - Genitourinary Genitourinary: reports: Frequency. denies: Dysuria - Musculoskeletal Musculoskeletal: reports: Back pain, Muscle aches, Stiffness, Muscle weakness - Integumentary Integumentary: reports: Dryness. denies: Rash - Neurological Neurological: reports: General weakness, Slurred speech (mechanical) - Psychiatric Psychiatric: reports: Depression, Anxiety - Hematologic/Lymphatic Hematologic/Lymphatic: denies: Recurrent infections - All Other Systems All Other Systems: reports: Reviewed and negative Physical Exam - Vital Signs Temperature: 36.6 C Pulse Rate: 63 Respiratory Rate: 18 Blood Pressure: 131/56 - Physical Exam General Appearance: positive: Alert, Mild distress, Anxious Eyes Bilateral: positive: Normal inspection ENT: positive: Hearing loss. negative: Mouth lesions Neck: positive: Trachea midline, Lymphadenopathy (L) (mobile 2 cm lymph node/none tender to palpation) Cardiovascular: positive: Regular rate & rhythm Respiratory: positive: No respiratory distress Abdomen: positive: Soft Skin: positive: Wound (dressing intact) Extremities: positive: No pedal edema Neurologic/Psychiatric: positive: Oriented x3, Mood/affect nml Palliative Care - POLST Patient has POLST: No POLST Status: Full Code Pain: Pain unchanged, Location (see HPI) Tiredness/Fatigue: Mild (1-3) Drowsiness/Sedation: Mild (1-3) Nausea: Mild (1-3) (if eats too much) Anorexia: Mild (1-3) Dyspnea: Mild (1-3) Depression: Mild (1-3) Anxiety: Mild (1-3) (patient aware will not get benzodiazipines/has been problematic in past; have offered [employer] for counseling and support;) Feelings of wellbeing/Perceived Quality of Life: Good, Acceptable Sleep: Sleeps well Constipation: Yes, Opoid induced, Managed Performance Status: Patient is ambulatory, is able to manage his own ADLs. He does have poor activity tolerance, and is quite sedentary in his patterns. - Palliative Care Discussion: Patient is quite tearful today, when talking about the recurrence of his disease. He is hoping for another remission, patient has always framed his treatment as "cure". We did discuss in the context of stage IV disease, that at this point in time we are looking at managing his disease. Reviewed patient has done well with his immunotherapy, he does get very anxious, he was with high tumor and symptom burden at the peak of his disease, with multiple hospitalizations so somewhat in the context of his experience now some PTSD. He very much likes it here on [facility], has friends and support, but may acquiesce to Lizet, to be closer to family. He continues to try and stay posi tive, though is able to acknowledge the seriousness of his illness. He is hoping if he lasts long enough, there will be continued more treatments available to him. Acknowledged the need for hope, and will continue to support patient in this context, but in agreement may need to process some of these things that are causing him more anxiety regarding his disease reoccurrence and sequela. Impression and Recommendations - Palliative Care Impression: This is a 69-year-old gentleman with stage IV left tonsillar cancer, since 09/04 17. He now presents with recurrent disease with right adrenal mass, as well as neck lymphadenopathy. He has restarted on his nivolumab, and is getting weekly hydration. Patient has longstanding chronic pain as a sequela of his cancer as well as RA, high anxiety, and mild depression. Palliative care following patient for quality of life issues and anticipatory guidance. Recommendations/Counseling Done: 1. Pain of neoplastic origin. Patient satisfied with his current regimen, at this point in time no changes are made. Patient with high anxiety regarding recurrent disease, has had some exacerbation of musculoskeletal symptoms, he did have this is a side effect of his immunotherapy previously, he does have underlying RA. Currently his neck discomfort is controlled, only intermittent headaches. I will continue current regimen with plan to taper in the future if tolerated. 2.G-tube exit site. Patient has consulted with surgeon, at this point the hope visit will heal on its own, as it would be complicated surgery. There has been improvement over the last few days, though still leaking at site, erythema around exit site has improved by report. Patient will continue to monitor. 3. BPH. Patient has had intermittent retentive symptoms, concerned this may be adding to hydronephrosis with his worsening renal function. Patient did get a renal ultrasound today, without any signs or symptoms of hydronephrosis, but did show findings suggested of significant retentive symptoms in the past. He feels he is currently voiding without problems, and feels he is more aware and able to manage this better. At this point time we will hold off on further urology referral, as he does get overwhelmed with multiple appointments. 4. Anxiety. This is been exacerbated with his recurrent disease, has multiple complex issues going on around finances and needing to move, continues to feel somewhat overwhelmed but feels he is managing. Have offered medical palliative care social service liaison, she will reach out to family. 5. Weight loss. This is multifactorial origin, he has gained some weight, reports he is eating fish and chips daily. We will continue to monitor for progressive symptoms of disease/side effects of immunotherapy. He does not have access now to feeding tube, so this will be more important for no further weight loss. 6. Advanced care planning. Patient continues to be quite tearful regarding his recurrent disease, continues to hope for the best. Counseling provided in assistance to reframe managing stage IV disease, for seeing cure. He remains hopeful they will be something in the future. Likes to "stay positive" but was willing to explore's some of his feelings regarding this today. Time Spent: 45 minutes with greater than 50% of this done in counseling regarding anxiety, pain and symptom management, and coordination of care with oncology team.
== END 2019-09-21 10:49 | disposition home or self-care (01) ==
LOC: PC 10:48
PROVIDERS: ATTEND Nurse Practitioner Adult Health
DX: Z51.5 Encounter for palliative care (principal); G89.3 Neoplasm related pain (acute) (chronic); F41.9 Anxiety disorder, unspecified; K59.03 Drug induced constipation; T40.2X5D Adverse effect of other opioids, subsequent encounter; N40.1 Benign prostatic hyperplasia with lower urinary tract symptoms; R33.8 Other retention of urine; R06.09 Other forms of dyspnea; K40.90 Unilateral inguinal hernia, without obstruction or gangrene, not specified as recurrent; K94.29 Other complications of gastrostomy; R53.1 Weakness; C02.4 Malignant neoplasm of lingual tonsil; C78.00 Secondary malignant neoplasm of unspecified lung; C77.1 Secondary and unspecified malignant neoplasm of intrathoracic lymph nodes; C79.89 Secondary malignant neoplasm of other specified sites; Z79.899 Other long term (current) drug therapy; Z79.891 Long term (current) use of opiate analgesic; Z59.8 Other problems related to housing and economic circumstances
CPT/HCPCS: 99215

== ENCOUNTER 2019-09-21 13:02 | Outpatient (CLI) | payer MEDICARE, MEDICAID ==
--- NOTE | 2019-09-21 14:29 | Ultrasound Report ---
PROCEDURE: Retroperitoneal INDICATIONS: Urinary retention, right adrenal mass TECHNIQUE: Real-time scanning was performed of the retroperitoneal organs, with image documentation. COMPARISON: Correlation made to CT scan 08/17/2019 FINDINGS: Kidneys: Kidneys are normal in size. Right kidney measures 11.0 cm long; left kidney measures 11.5 cm long. Right renal cortical thickness is 1.5 cm; left renal cortical thickness is 1.6 cm. No thuan d masses, hydronephrosis, or nephrolithiasis. A few small medullary cysts are present in each kidney , the largest on the right measuring 10 mm and the largest in the left measuring 16 mm. Adrenal glands:: A solid mass above the right kidney in the adrenal bed measures 5.4 x 3.9 X 5.6 cm. No appreciable internal vascularity. Left adrenal gland was not visible/imaged. Urinary bladder: Filled urinary bladder has a volume of 147 cc. The wall demonstrates heavy trabecula tion. No polypoid thickening or focal bladder wall mass. There is no bladder debris. Bilateral ureter al jets were visible. The prostate gland was not visible. Post void bladder residual is 39.4 cc. IMPRESSION: 1. No evidence of obstructive uropathy. 2. Heavily trabeculated urinary bladder suggests prior bladder outlet obstruction. 3. Moderate volume postvoid residual of 39 cc. 4. Solid right adrenal mass. 5. Renal cysts. No visible renal mass. Reviewed by: Lu Goncalves MD on 09/21/2019 2:28 PM PDT Approved by: Lu Goncalves MD on 09/21/2019 2:28 PM PDT Station ID: [id number]
== END 2019-09-21 13:03 | disposition home or self-care (01) ==
LOC: DI 13:02
PROVIDERS: ATTEND Internal Medicine Hematology & Oncology
DX: R33.9 Retention of urine, unspecified (principal); N28.1 Cyst of kidney, acquired; N28.89 Other specified disorders of kidney and ureter; N32.89 Other specified disorders of bladder
CPT/HCPCS: 76770

== ENCOUNTER 2019-10-05 08:51 | Outpatient (CLI) | payer MEDICARE, MEDICAID ==
--- NOTE | 2019-10-05 16:07 | CONSULTATION NOTE ---
Palliative Care Follow Up - Referral Referring Provider: Melba YBARRA Time of Visit: [id number] Referral setting: [facility] [place] Referral Reason: Pain of neoplastic origin/Tongue Ca/Weight loss - Information Sources Records reviewed: RN notes reviewed, Previous records reviewed History/Review of Systems obtained from: Patient Exam limitations: No limitations - History of Present Illness Update Brief HPI Update: This is a 69-year-old gentleman with 4 left tonsillar cancer, originally diagnosed in 08/2017. At time of presentation had extensive mets to the neck, lung, peritracheal nodes, and received chemotherapy with progression. He was then treated on nivolumab , but did experience worsening Immunothe rapy side effects including musculoskeletal discomfort, anorexia, diarrhea, and persistent weight loss. Patient has been off treatment and in remission, but with most recent CT scan 60 1 showed increased neck adenopathy, new right adrenal mass on the right side about 5 cm, and was restarted and nivolumab. He had been received having worsening renal function, his renal ultrasound turned out negative, he has been receiving weekly IV fluids, though does not appear at this point in time to feel like he needs this. He is drinking large amounts of fluids, and is trying to work on keeping his weight up. Patient's most persistent problem has been his issues with his G-tube, it continues to leak at exit site, though this is somewhat improved but continues to not be resolved. Continues with drainage of gastric contents, unfortunately this means he just lays flat, and is continued to lose both function as well as become more deconditioned with his bed rest related to this. There may be a s mall amount of improvement, but certainly is not closed yet. He is hoping to avoid this is it would be a significant surgery and given his frail status would come with a significant amount of risk. Patient's other presenting symptom today is shortness of breath, he rates this at a 6 out of 10. He was quite breathless coming in, his last hemoglobin was 10.8. He denies any cough, no fever or chills. His breath sounds are diminished throughout. He reports he has experienced this for the last 2 or 3 days, does feel like it is improving not worsening. Declined recommended chest x-ray today. Patient's pain has been controlled on fentanyl 100 mcg patch, he continues to use his oxycodone, about 7 tabs in 24 hours. He has needed intermittent indomethacin for flares with his RA. He is trying to avoid this knowing that this is not good for his kidneys. He has so had increased neck and headache pain, which is how his original pain escalated prior with his extensive disease. He denies increased trouble with swallowing, though his nodes on that left side middle the neck and more subclavicular, are enlarged. He has lost 7 pounds since I last saw him on 09/20. He has restarted the Megace with the hope to increase his appetite. He is quite overwhelmed with his current social situation, and needing to move as he has been evicted. His would like to live on the other side closer to family so has more support, and this has been very stressful as far as trying to find something affordable. His past medical history includes BPH with hydronephrosis, right inguinal hernia, intermittent flares of his RA, anxiety disorder, and depression. Social History - Living Situation Living arrangement: At home Living Situation: With spouse/s.o. Support System: Patient lives at home with his spouse, Lizet. They are getting ready to move, I do not have a place at this point in time to relocate, they may need to live with family. They are moving to the "other side". They do both have social and financial stressors, as well as both deal with significant levels of anxiety. Medications/Allergies - Medications Home Medications: Ambulatory Orders Medication Instructions Recorded Confirmed Trazodone HCl 200 mg PO QPM 02/28/18 10/05/19 Finasteride 5 mg PO DAILY 06/23/18 10/05/19 fentaNYL [Fentanyl 50mcg patch] 100 mcg TD Q3D 06/27/18 10/05/19 Albuterol Sulfate [Proair 1 - 2 puffs INH Q4HR PRN 07/24/18 10/05/19 Respiclick] Naloxone HCl [Narcan] 1 spray JESSICA PRN PRN 07/24/18 10/05/19 Nystatin 5 ml PO QID PRN 07/24/18 10/05/19 Ipratropium/Albuterol [Duoneb] 1 amp INH Q4HR PRN 08/04/18 10/05/19 Oxycodone HCl 20 mg PO Q4HR PRN MDD 7 tabs 08/04/18 10/05/19 buPROPion HCL [Bupropion HCl] 75 mg PO BID 08/04/18 10/05/19 Metoprolol Succinate [Toprol Xl] 12.5 mg PO BID 09/25/18 10/05/19 Tamsulosin [Flomax] 0.4 mg PO BID #60 capsule 09/27/18 10/05/19 Doxazosin Mesylate 1 mg PO DAILY 09/29/18 10/05/19 Diphenoxylate/Atropine [Lomotil] 1 each PO QID PRN #12 tablet 03/29/19 10/05/19 Ondansetron [Ondansetron Odt] 4 mg PO Q6H PRN 03/29/19 10/05/19 Prochlorperazine [Compazine] 10 mg PO Q6HR PRN 03/29/19 10/05/19 Omeprazole 40 mg PO DAILY 04/06/19 10/05/19 Saccharomyces Boulardii [Florastor] 250 mg PO BID 05/10/19 10/05/19 Indomethacin 25 mg PO TID PRN 10/05/19 10/05/19 Megestrol Acetate [Megace Es] 5 ml PO DAILY 10/05/19 10/05/19 - Allergies Allergies/Adverse Reactions: Allergies Allergy/AdvReac Type Severity Reaction Status Date / Time No Known Drug Allergies Allergy Verified 09/28/19 09:45 Review of Systems - Constitutional Constitutional: reports: Fatigue, Weakness, Poor appetite, Weight loss (154 down 161 7/6). denies: Fever, Chills - Eyes Eyes: reports: Vision loss - Ears, Nose & Throat Ears, Nose & Throat: reports: Hearing loss, Dry mouth - Cardiovascular Cardiovascular: reports: Lightheadedness, Decr. exercise tolerance - Respiratory Respiratory: reports: SOB at rest, SOB with exertion - Gastrointestinal Gastrointestinal: reports: Poor appetite, Early satiety, Other (difficult with gastric leaking when eats). denies: Diarrhea, Nausea - Genitourinary Genitourinary: reports: Other (retention) - Musculoskeletal Musculoskeletal: reports: Muscle aches, Stiffness, Muscle weakness, Joint pain, Assistive devices (quad cane) - Integumentary Integumentary: reports: Dryness, Other ( G tube exit site less red but still irritated). denies: Rash - Neurological Neurological: reports: General weakness, Slurred speech (mechanical) - Psychiatric Psychiatric: reports: Depression, Anxiety (worsening with trying to find new home) - Hematologic/Lymphatic Hematologic/Lymphatic: reports: Anemia, Recurrent infections (recent treatment for cellulitis at exit site) - All Other Systems All Other Systems: reports: Reviewed and negative Physical Exam - Vital Signs Temperature: 97.3 C Pulse Rate: 44 Respiratory Rate: 18 O2 Saturation: 99 (ra @ rest) Blood Pressure: 115/58 - Physical Exam General Appearance: positive: Alert, Anxious Eyes Bilateral: positive: Normal inspection ENT: positive: Hearing loss. negative: Mouth lesions Neck: positive: Trachea midline, Lymphadenopathy (L) (two palpable nodes) Cardiovascular: positive: Irregularly irregular, Bradycardia Respiratory: positive: Diminished throughout. negative: Wheezes, Rales, Rhonchi Abdomen: positive: Soft, Nml bowel sounds Skin: positive: Pallor, Dryness, Other (G tube exit site with gastric contents leaking; dark brown/skin irritated;) Extremities: positive: No pedal edema Neurologic/Psychiatric: positive: Oriented x3, Mood/affect nml, Weakness, Flat affect Palliative Care - POLST Patient has POLST: No POLST Status: Full Code Pain: Pain worsening, Location (increase headache/back of neck pain), Severity (3/10) Tiredness/Fatigue: Moderate (4-6) Drowsiness/Sedation: Mild (1-3) Nausea: Mild (1-3) Anorexia: Moderate (4-6) (feels improved; started back up Megace last couple of days), Weight loss Dyspnea: Moderate (4-6) Depression: Mild (1-3) Anxiety: Mild (1-3) Feelings of wellbeing/Perceived Quality of Life: Good, Acceptable, No change Sleep: Variable sleep pattern (uses Trazodone 200 mg at bedtime) Constipation: Yes, Opoid induced, Managed (used Miralax times one) Performance Status: Patient's decline in functional status is multifactorial, patient has been laying flat on his back, afraid his G-tube site would be leaking. Trying to manage drainage, which continues to be problematic. He has had lost weight, does have muscle wasting upper and lower extremity noted, as well as temporal. He is now using a quad cane, both for weakness and intermittent dizziness. He attributes it to his more sedentary status. He is able to manage his ADLs, but does see himself as declining. He is hoping for G tract to close, so can increase his activity again. It also discourages him from eating and drinking. - Palliative Care Discussion: Patient is feeling somewhat overwhelmed, is wanting to get back to "remission". He has another appointment on 10/25 for his nivolumab, and then after that scans. He is hoping to continue over here at the [facility] clinic, did discuss can transition care to [place], can still see his regular oncologist. Patient is with significant financial stressors, it is difficult for him to come up on a weekly basis, discussed possibility of skipping next week, as he is trying to find home as well. He does feel like he can push the fluids adequately. Patient remains quite anxious, worried about his who has anxiety as well, trying to go along with things as do not make it harder on her. Results - Lab Results Lab results reviewed: Yes Impression and Recommendations - Palliative Care Impression: This is a 69-year-old gentleman with stage IV left tonsillar cancer since 08/2017, he does have recurrent disease with right adrenal mass, as well as worsening neck lymphadenopathy, and now presents with worsening pain. He is restarted on his nivolumab, presents with high anxiety, with multiple financial and social stressors. Palliative care following for patient's quality of life issues and anticipatory guidance as allowed. Recommendations/Counseling Done: 1. Pain of neoplastic origin. Unclear what patient is done with his medications, does not appear he picked up his 100 fentanyl patches, for September, reordered. He has been using up what he has left, patient had on his arm, instructed if possible to put on upper chest and back area for better absorption. He is having increased neck and headache pain, is still satisfied with current regimen, but does appear to have more symptoms related to his cancer. 2. G-tube exit site. Patient does have only small improvement, continue to leak and cause significant distress. Cellulitis does appear resolved, erythema around exit site has improved. Area cleansed and occlusive tight pressure dressing applied after examination. Patient often has to change it several times a day, but does feel like it is slowly improving. 3. BPH. Patient continues have intermittent retentive symptoms, is going to check residual tonight. He did get his renal ultrasound without any confirmation of hydronephrosis. He feels he is currently voiding, the is wo rried about future issues, have recommended follow-up with urology, he would like to continue to hold for now. 4. Anxiety. This is been exacerbated with his recurrent disease, he has multiple complex issues going on around finances and moving. At this point in time he has declined support from the medical palliative care vp digital marketing social media and crm, and he is planning to continue with the match. We did discuss though transitioning care to follow [place], and would transition to their palliative care provider as well. 5. Weight loss. This is multifactorial, he has started back on his Megace last few days, does feel like this is been of help. Encouraged to continue to try at least for a week, counseling provided regarding strategies for small frequent sips, feedings, related to gastric leakage. 6. Dyspnea. Patient does have known anemia, lungs diminished throughout, no cough. He is coming off prednisone taper, patient did feel better with oxygen, though his sats at rest were 99%. Patient declined chest x-ray, may need to have further evaluation, patient counseled on signs and symptoms to contact PCP or clinic. 7. Advanced care planning. Patient continues to be quite anxious regarding recurrent disease, continues to hope for the best. He likes to stay "positive", but does have lots of anxiety and feels easily overwhelmed by his cancer diagnosis. Time Spent: 45 minutes with greater than 50% of this done in counseling regarding symptom management, reordered medications, reviewed and support for patient's current stressors, and anticipatory guidance.
== END 2019-10-05 08:52 | disposition home or self-care (01) ==
LOC: PC 08:51
PROVIDERS: ATTEND Nurse Practitioner Adult Health
DX: Z51.5 Encounter for palliative care (principal); G89.3 Neoplasm related pain (acute) (chronic); M54.2 Cervicalgia; R51 Headache; C09.9 Malignant neoplasm of tonsil, unspecified; C01 Malignant neoplasm of base of tongue; C77.1 Secondary and unspecified malignant neoplasm of intrathoracic lymph nodes; C79.89 Secondary malignant neoplasm of other specified sites; C78.00 Secondary malignant neoplasm of unspecified lung; F41.9 Anxiety disorder, unspecified; F32.9 Major depressive disorder, single episode, unspecified; K94.23 Gastrostomy malfunction; R63.4 Abnormal weight loss; R06.00 Dyspnea, unspecified; N40.1 Benign prostatic hyperplasia with lower urinary tract symptoms; R33.8 Other retention of urine; K59.03 Drug induced constipation; T40.605A Adverse effect of unspecified narcotics, initial encounter; M06.9 Rheumatoid arthritis, unspecified; R13.10 Dysphagia, unspecified; Z59.8 Other problems related to housing and economic circumstances; Z74.09 Other reduced mobility; Z79.891 Long term (current) use of opiate analgesic; Z79.51 Long term (current) use of inhaled steroids; Z79.899 Other long term (current) drug therapy; H54.7 Unspecified visual loss; H91.90 Unspecified hearing loss, unspecified ear
CPT/HCPCS: 99215

== ENCOUNTER 2019-11-02 10:12 | Outpatient (CLI) | payer MEDICARE, MEDICAID ==
--- NOTE | 2019-11-02 16:07 | CONSULTATION NOTE ---
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 Patient was on palliative carbo/Taxol, with progression and significant side effects. He was on nivolumab immunotherapy with complete response, unfortunately with GI side effects of weight loss, anorexia, and musculoskeletal discomfort. Patient was on surveillance, with new right adrenal met 08/17/2019 and restarted on nivolumab, did have a CT scan chest/neck for concerns of pneumonitis, did show increased bilateral neck lymphadenopathy and slight increase in his right adrenal mass. Is hoping for another response, though does present with increased GI side effects again today. Patient's biggest quality of life issue continues to be his leaking G-tube site. He recently had a PEG tube, that was removed and replaced with a G-tube. Patient had been having leaking since then, it finally fell out, and hope was to have close as he was eating and drinking. Unfortunately this has not happened, continues to leak large amounts of gastric contents, fluids, and undigested food. He has taken to just laying in bed, as he has to deal with drainage. The skin still slightly pink but not excoriated like it was before. He is getting quite distance distressed with this, he is also continued with weight loss, is down to 148, he has been losing about 2 to 3 pounds a week. He does feel he is having increased trouble with anorexia again, has been feeling somewhat dizzy, and perceives himself is getting deconditioned as he has been quite sedentary and attempts to control the gastric leakage. Patient reports had fall, and felt like he had "broken some ribs", during this time used increase oxycodone, reports that this is resolving. He did run out early, he has been allotted 7 a day. He is on fentanyl 100 mcg patch, we have looked at decreasing this several times over, but gets really anxious with any kind of change. He is also getting ready to move, as he lost his lease on his house where he been for 15+ years. His has severe anxiety, and this is increased their distress for both of them, though there is son is willing to have him live with them but it is on the other side. At this point in time he is continuing to look at keeping his appointments on [facility], but he is looking at also getting a referral for radiation and is expecting that to start in the next couple weeks. Patient's past medical history includes BPH, urinary retention, RA, anxiety disorder, and depression. Social History - Living Situation Living arrangement: At home Living Situation: With spouse/s.o. Support System: Patient lives currently at home, they have been packing up their home and putting things in storage unit. The plan is to live with her son Alcides, then they will look for a place they can afford. Rather than try and look and move at the same time. Patient has son outside of [place] in their marriage, they have had 3 kids together. Couple of their eyes over the course her granddaughter, they are looking forward to seeing her more often. Most likely will be good that they are closer to family. Patient reports cutting down to smoking only 1 to 2 cigarettes a day. He no longer is drinking, has not for several weeks. Does use cannabis, smoking, a couple times a day. Medications/Allergies - Medications Home Medications: Ambulatory Orders Medication Instructions Recorded Confirmed Trazodone HCl 200 mg PO QPM 02/28/18 11/02/19 Finasteride 5 mg PO DAILY 06/23/18 11/02/19 fentaNYL [Fentanyl 50mcg patch] 100 mcg TD Q3D 06/27/18 11/02/19 Albuterol Sulfate [Proair 1 - 2 puffs INH Q4HR PRN 07/24/18 11/02/19 Respiclick] Naloxone HCl [Narcan] 1 spray JESSICA PRN PRN 07/24/18 11/02/19 Nystatin 5 ml PO QID PRN 07/24/18 11/02/19 Ipratropium/Albuterol [Duoneb] 1 amp INH Q4HR PRN 08/04/18 11/02/19 Oxycodone HCl 20 mg PO Q4HR PRN MDD 7 tabs 05/20/19 08/17/20 buPROPion HCL [Bupropion HCl] 75 mg PO BID 08/04/18 11/02/19 Metoprolol Succinate [Toprol Xl] 12.5 mg PO BID 09/25/18 11/02/19 Tamsulosin [Flomax] 0.4 mg PO BID #60 capsule 09/27/18 11/02/19 Doxazosin Mesylate 1 mg PO DAILY 09/29/18 11/02/19 Diphenoxylate/Atropine [Lomotil] 1 each PO QID PRN #12 tablet 03/29/19 11/02/19 Ondansetron [Ondansetron Odt] 4 mg PO Q6H PRN 03/29/19 11/02/19 Prochlorperazine [Compazine] 10 mg PO Q6HR PRN 03/29/19 11/02/19 Omeprazole 40 mg PO DAILY 04/06/19 11/02/19 Indomethacin 25 mg PO TID PRN 10/05/19 11/02/19 Megestrol Acetate [Megace Es] 5 ml PO DAILY 10/05/19 11/02/19 - Allergies Allergies/Adverse Reactions: Allergies Allergy/AdvReac Type Severity Reaction Status Date / Time No Known Drug Allergies Allergy Verified 09/28/19 09:45 Review of Systems - Constitutional Constitutional: reports: Fatigue, Weakness, Poor appetite, Weight loss (148). denies: Fever - Eyes Eyes: reports: Vision loss - Ears, Nose & Throat Ears, Nose & Throat: reports: Hearing loss, Hearing aids, Dry mouth - Cardiovascular Cardiovascular: reports: Lightheadedness, Exertional dyspnea, Decr. exercise tolerance. denies: Palpitations, Chest pain - Respiratory Respiratory: reports: Cough, SOB at rest (occasionally;improved with rib pain resolving), SOB with exertion - Gastrointestinal Gastrointestinal: reports: Poor appetite, Early satiety. denies: Constipation, Diarrhea, Nausea - Genitourinary Genitourinary: reports: Frequency, Other (has not needed to cath) - Musculoskeletal Musculoskeletal: reports: Muscle aches, Stiffness, Muscle weakness, Joint pain, Assistive devices (using cane) - Integumentary Integumentary: reports: Dryness - Neurological Neurological: reports: General weakness, Dizziness - Psychiatric Psychiatric: reports: Depression, Anxiety - All Other Systems All Other Systems: reports: Reviewed and negative Physical Exam - Vital Signs Temperature: 37 C Pulse Rate: 52 (after 1/2 liter 55) Respiratory Rate: 16 Blood Pressure: 78/40 (after 1/3 hydration 102/58) - Physical Exam General Appearance: positive: Alert, Anxious, Cachetic Eyes Bilateral: positive: Normal inspection ENT: negative: Pharyngeal erythema Neck: positive: Trachea midline, Lymphadenopathy (L) (two palpable nodes) Cardiovascular: positive: Irregularly irregular, Bradycardia Respiratory: positive: Diminished throughout. negative: Wheezes, Rales, Rhonchi Abdomen: positive: Soft, Nml bowel sounds, Other (open gastrostomy hole; redness but no excoriation as before) Skin: positive: Pallor, Dryness, Other (G tube exit site with gastric contents leaking; dark brown/skin irritated;) Extremities: positive: No pedal edema Neurologic/Psychiatric: positive: Oriented x3, Mood/affect nml, Weakness, Slurred/abnml speech (mechanical), Flat affect Palliative Care - POLST Patient has POLST: No POLST Status: Full Code Pain: Pain improved (had acute pain of "fractured ribs" but improved; On fentanyl 100 mcg patch, with oxycodone 20 mg tabs not to exceed 7 tabs daily.) Tiredness/Fatigue: Moderate (4-6) Drowsiness/Sedation: Mild (1-3) Nausea: None, Moderate (4-6) Anorexia: Moderate (4-6) Dyspnea: Moderate (4-6) Depression: Mild (1-3) Anxiety: Mild (1-3) Feelings of wellbeing/Perceived Quality of Life: Fair, Acceptable Sleep: Sleeps well Constipation: Yes, Opoid induced, Managed Performance Status: Patient is independent in his ADLs, he is quite weak today. He reports he overdid yesterday, they had been traveling mostly time after he has been quite sedentary for several weeks laying flat on his back. I would put him at a PPS of 60% - Palliative Care Discussion: Patient is quite tearful today, is appreciating his son is going to let them move him. Reports his is quite anxious, trying to keep her "calm". He does feel somewhat responsible as far as his worsening disease state, he reports with COVID-19 he has been "falling behind". We discussed in the context of his disease that he is doing what he can do as far as taking treatment, following up with appointments, because some of this is not within our control. Answered his questions again regarding radiation, immunotherapy, and possible transition to [place] for care. He is somewhat reluctant, for change. Can refer to see if palliative care available over in [place] clinic. Results - Lab Results Lab results reviewed: Yes Impression and Recommendations - Palliative Care Impression: This is a 69-year-old gentleman with stage IV left tonsillar cancer, with recurrent disease after complete response. He has restarted on nivolumab, now presenting with anorexia, weight loss, and declining functional status. Patient's huge quality of life issue is his continued leaking from his G-tube site, is due to see surgery tomorrow though options are most likely limited given his frailty. Palliative care continue to follow quality of life issues and anticipatory guidance as allowed. Recommendations/Counseling Done: 1. Pain of neoplastic origin. Patient currently on fentanyl 100 mcg patch, we did discuss about titrating lower, as pain is not worsening. Patient does not want to make any changes at this point in time, continues to use his oxycodone to maximum 7 per 24 hours and came up short with increased rib pain this month. Patient continues with musculoskeletal worsening joint pain, has not had any recent RA flares. He is currently satisfied with current regimen, will continue to monitor. 2. G-tube exit site. Patient is due to see Dr. Reza tomorrow. Patient is having more weight loss, functional decline, and difficulty with hydration and concern regarding this is adding to this. Call to surgeon, regarding patient's current experience and concerns with current situation. 3. BPH. Patient reports no further retentive symptoms, is voiding without difficulty. Has stopped the doxazosin, Still continued on the finasteride and tamsulosin. Patient feels like he is currently stable, does not know to check and signs and symptoms of infection to monitor. 4. Weight loss. This is multifactorial, does not feel the Megace which he restarted has helped. He is challenged with losing significant monitor fluid and food through his G-tube site, continues to try and eat and push fluids. He is getting weekly hydration. 5. Dyspnea. Patient reports this his continue to be problematic, did better on his prednisone, wonder if there is an underlying component of COPD to this. Patient does have diminished breath sounds, but no inspiratory or expiratory crackles/wheezes, rhonchi. 6. Anxiety. This is been exacerbated with his recurrent disease, multiple complex issues around finances and moving. Counseling provided regarding patient's multiple questions around disease, treatment, and possible transition plan. 7. Advanced care planning. Patient continues to be quite anxious regarding being positive around his disease, continues to hope for the best and prior long prognosis. He does see himself though is doing poorly and is concerned. Time Spent: 5 minutes with greater than 50 of this done in counseling regarding pain and symptom management, treatment and disease trajectory, anticipatory guidance and psychosocial support. Coordination of care with oncology/surgical team.
== END 2019-11-02 10:13 | disposition home or self-care (01) ==
LOC: PC 10:12
PROVIDERS: ATTEND Nurse Practitioner Adult Health
DX: Z51.5 Encounter for palliative care (principal); G89.3 Neoplasm related pain (acute) (chronic); K94.29 Other complications of gastrostomy; R07.81 Pleurodynia; R63.0 Anorexia; R63.4 Abnormal weight loss; R53.1 Weakness; R06.00 Dyspnea, unspecified; F41.9 Anxiety disorder, unspecified; F17.210 Nicotine dependence, cigarettes, uncomplicated; N40.0 Benign prostatic hyperplasia without lower urinary tract symptoms; K59.03 Drug induced constipation; T40.2X5A Adverse effect of other opioids, initial encounter; C09.9 Malignant neoplasm of tonsil, unspecified; C78.02 Secondary malignant neoplasm of left lung; C78.01 Secondary malignant neoplasm of right lung; C79.71 Secondary malignant neoplasm of right adrenal gland; C79.89 Secondary malignant neoplasm of other specified sites; Z79.899 Other long term (current) drug therapy; Z79.891 Long term (current) use of opiate analgesic; Z91.81 History of falling; Z59.8 Other problems related to housing and economic circumstances; Z63.79 Other stressful life events affecting family and household
CPT/HCPCS: 99215

== ENCOUNTER 2019-11-05 11:18 | Outpatient (CLI) | payer MEDICARE, MEDICAID | END 2019-11-05 11:19 | disposition home or self-care (01) | LOC: LAB 11:18 | PROVIDERS: ATTEND Surgery | DX: Z01.812 Encounter for preprocedural laboratory examination (principal); Z20.828 Contact with and (suspected) exposure to other viral communicable diseases; K31.6 Fistula of stomach and duodenum ==

== ENCOUNTER 2019-11-09 09:58 | Day surgery (SDC) | payer MEDICARE, MEDICAID ==
[2019-11-09] MEDS ORDERED: LACTATED RINGERS 1,000 ML IV ONE ×2 (10:04→14:40)
--- NOTE | 2019-11-09 11:40 | ANESTHESIA ---
Pre-Anesthesia VS, & Labs - Diagnosis gastrocutaneous fistula - Procedure Button gastrostomy feeding tube with EGD Vital Signs: Temp Pulse Resp BP Pulse Ox 37. C 83 20 27/96 H 0 L 11/09/19 10:13 11/09/19 10:13 11/09/19 10:13 11/09/19 10:13 11/09/19 10:13 Height 6 ft 2 in Weight (kg) 64.9 kg Body Mass Index 20.2 - NPO >8 hours - Lab Results Lab results reviewed: Yes Home Medications and Allergies Home Medications: Ambulatory Orders Tamsulosin [Flomax] 0.4 mg PO DAILY 11/05/19 Trazodone HCl 300 mg PO QPM 02/28/18 Finasteride 5 mg PO DAILY 06/23/18 fentaNYL [Fentanyl 50mcg patch] 100 mcg TD Q3D 06/27/18 Albuterol Sulfate [Proair Respiclick] 1 - 2 puffs INH Q4HR PRN 07/24/18 Naloxone HCl [Narcan] 1 spray JESSICA PRN PRN 07/24/18 Nystatin 5 ml PO QID PRN 07/24/18 Ipratropium/Albuterol [Duoneb] 1 amp INH Q4HR PRN 08/04/18 Oxycodone HCl 20 mg PO Q4HR PRN MDD 7 tabs 08/04/18 buPROPion HCL [Bupropion HCl] 75 mg PO BID 08/04/18 Metoprolol Succinate [Toprol Xl] 12.5 mg PO BID 09/25/18 Indomethacin 50 mg PO TID PRN 10/05/19 Tamsulosin [Flomax] 0.4 mg PO DAILY 11/05/19 Allergies/Adverse Reactions: Allergies Allergy/AdvReac Type Severity Reaction Status Date / Time No Known Drug Allergies Allergy Verified 09/28/19 09:45 Anes History & Medical History - Anesthetic History Anesthesia Complications: reports: No previous complications Family history of Anesthesia Complications: Denies Family history of Malignant Hyperthermia: Denies - Medical History Cardiovascular: reports: Hypertension, High cholesterol, Coronary artery diseas e, Atrial fibrillation, Murmur, Arrhythmia Pulmonary: reports: COPD, Emphysema, Pneumonia, Shortness of breath Gastrointestinal: reports: GERD, Colon polyps, Hepatitis, Other Urinary: reports: Benign prostate hypertrophy, Retention, Renal insuffiency, Nocturia Neuro: reports: Dementia, Headaches, Peripheral neuropathy, Tremors Musculoskeletal: reports: Osteoarthritis, Fatigue Endocrine/Autoimmune: reports: None Blood Disorders: reports: None Skin: reports: None Smoking Status: Never smoker Psychosocial: reports: Cannabis - Surgical History General: Appendectomy, Colonoscopy, Other Orthopedic: Hip replacement Dermatologic: Skin cancer surgery Results - EKG Results EKG Comparison: Reviewed EKG (a. fib) - Echo Results Echo Results: Report reviewed (EF 60-65%, no major valvular abnormalities) Plan Anesthesia Type: MAC Consent for Procedure(s) Verified and Reviewed: Yes Code Status: Attempt Resuscitation ASA classification: 3-Severe systemic disease Is this case an emergency?: No
[2019-11-09] MEDS ORDERED: HYDROmorphone 0.5 MG/0.5 ML SYRINGE IVP PRN (12:31)
[2019-11-09] MEDS ORDERED: ONDANSETRON 4 MG/2 ML VIAL IVP PRN ×2 (12:31→14:52)
[2019-11-09] MEDS ORDERED: METOCLOPRAMIDE 10 MG/2 ML VIAL IVP PRN (12:31)
[2019-11-09] MEDS ORDERED: fentaNYL 100 MCG/2 ML VIAL IVP PRN (12:31)
[2019-11-09] MEDS ORDERED: ATROPINE ABBOJECT 1 MG/10 ML SYRINGE IVP PRN (12:31)
[2019-11-09] MEDS ORDERED: ePHEDrine 50 MG/ML VIAL IVP PRN (12:31)
[2019-11-09] MEDS ORDERED: MORPHINE 2 MG/ML CARPUJECT IVP PRN (12:31)
[2019-11-09] MEDS ORDERED: NALOXONE 0.4 MG/ML VIAL IVP PRN (12:31)
[2019-11-09] MEDS ORDERED: LACTATED RINGERS 1,000 ML IV SCH ×2 (13:00→15:00)
[2019-11-09] MEDS ORDERED: MIDAZOLAM 2 MG/2 ML VIAL IVP ONE (14:19)
[2019-11-09] MEDS ORDERED: PROPOFOL 200 MG/20 ML VIAL IVP ONE (14:19)
[2019-11-09] MEDS ORDERED: LIDOCAINE 1%-EPI 1:100000 30 ML MDV SUBQ ONE (14:30)
[2019-11-09] MEDS ORDERED: LIDOCAINE 1%-EPI 1:100000 20 ML MDV ONE (14:34)
[2019-11-09] MEDS ORDERED: IOTHALAMATE MEGLUMINE 50 ML VIAL ONE (14:41)
[2019-11-09] MEDS ORDERED: oxyCODONE 5 MG TABLET PO PRN (14:52)
--- NOTE | 2019-11-09 15:00 | ANESTHESIA POST OP EVALUATION ---
Anesthesia Post Eval - Post Anesthesia Eval Vitals: Last Vital Signs Temp 37. C 11/09/19 10:13 Pulse 83 11/09/19 10:13 Resp 20 11/09/19 10:13 BP 27/96 H 11/09/19 10:13 Pulse Ox 0 L 11/09/19 10:13 CV Function Including HR & BP: positive: Stable Pain Control: positive: Satisfactory Nausea & Vomiting: positive: Negative Mental Status: positive: Baseline Respiratory Status: Airway Patent Hydration Status: Satisfactory Anesthesia Complications: positive: None
--- NOTE | 2019-11-09 15:39 | XRAY Report ---
PROCEDURE: Abdomen 1 View X-Ray INDICATIONS: PEG replacement TECHNIQUE: 1 view of the abdomen were acquired. COMPARISON: FINDINGS: Surgical changes and devices: Left total hip arthroplasty partially visualized.. Bowel: No pneumoperitoneum. The bowel gas pattern is normal. Soft tissues: No masses; visualized solid organ contours appear normal in size. No suspicious abdom inal calcifications. Mild to moderate colonic obstipation. Bones: No suspicious bony abnormalities. Convex rightward scoliosis is present at the thoracolumbar spine, centered at L2. IMPRESSION: Prior left total hip arthroplasty, mild to moderate colonic obstipation over the abdomen and pelvis. Mild to moderate convex rightward scoliosis centered at L2 level of the lumbosacral spin e. Reviewed by: Kane Stack MD on 11/09/2019 3:38 PM PDT Approved by: Kane Stack MD on 11/09/2019 3:38 PM PDT Station ID: [id number]
[2019-11-09 15:41] VITALS: BP 123/61
--- NOTE | 2019-11-16 21:04 | OPERATIVE REPORT ---
Operative Report - General Planned Procedure: Dilatation of gastrocutaneous fistula and placement of Sb button gastrostomy tube. Pre-Op Diagnosis: Gastrocutaneous fistula Procedure Performed: Dilatation of gastrocutaneous fistula and placement of Sb button gastrostomy tube. Post Op Diagnosis: Gastrocutaneous fistula - Procedure Note Primary Surgeon: Juaquin Anesthesia Provider: MOHAMUD Louie Anesthesia Technique: MAC Estimated Blood Loss (mL): 1 Indications: Gastrocutaneous fistula Findings: 3 mm fistula with a well developed and epithelialized tract Complications: None apparent - Other Other Information/Narrative: Informed consent, the patient is brought to the operating room and placed in the supine position on the operating table. Following successful induction of sedation with monitored anesthesia care, appropriate padding of all bony prominences, and placement of appropriate monitors, the abdomen was prepped and draped in the standard surgical fashion. A timeout was held per scope protocol. All elements of the surgical safety checklist were followed before, during, and after the procedure. We began the procedure by Infiltrating 1% lidocaine with epinephrine, approximately 4 mL, around the existing fistula tract.I then probed the tract with a hemostat to determine its size and direction. I noted that it was just large enough to admit the tips of the hemostat but not nearly large enough to admit a 12 Bengali 1.2 cm BRITANY roche gastrostomy tube.Using a guidewire and a hemostat, the tract was gently dilated until it was just large enough to snugly admit the gastrostomy button.The button was lubricated with water water-soluble lubricant and deployed into the tight defect. The balloon was inflated with 6 mL of water. It was dressed appropriately.All sponge, needle, and instrument counts were correct at the conclusion of the case. Patient was allowed to recover from anesthesia and taken to the postanesthesia care unit in good condition.
== END 2019-11-09 09:59 | disposition home or self-care (01) ==
LOC: SDS 09:58
PROVIDERS: ATTEND Surgery
DX: K31.6 Fistula of stomach and duodenum (principal); C10.9 Malignant neoplasm of oropharynx, unspecified; I10 Essential (primary) hypertension; I48.91 Unspecified atrial fibrillation; J44.9 Chronic obstructive pulmonary disease, unspecified
CPT/HCPCS: 43762; 74018; J7120; Q9961

== ENCOUNTER 2019-11-24 14:17 | Outpatient (CLI) | payer MEDICARE, MEDICAID ==
--- NOTE | 2019-11-24 16:37 | CONSULTATION NOTE ---
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 He is currently on nivolumab for progression of disease, 07/2019. He had previously been off since 03/2019 for complete remission. He does have a known adrenal mass, which she is to have stereotactic radiation, starting tomorrow. He is quite anxious, he has had this simulation and found it quite claustrophobic and distressing. He is asking to help him tolerate the treatments. Patient still has significant high symptom burden, and concerned regarding toxicities, as he is having a flare of significance in his hands wrists and elbows, he did have a flare of his RA with his last round. This is so been much more persistent and debilitating. He is on fentanyl 100 mcg patch, has been on this long-term, continues to use a maximum of his oxycodone 20 mg between 6 and 8 tabs in 24 hours, he has been using the indomethacin for his hand and wrist pain, though has been counseled to minimize this secondary to his kidney issues. Patient did see Dr. Chanel, had a Toy put in, at the old PEG tube site tract. He reports there is still some oozing, but minimal compared to "gushing". He has been able to eat and drink, has regained some weight, he has restarted the Megace which has helped his appetite as well. He does have extreme anxiety related to his current living situation, their current living with his son. They live in [place], are trying to find affordable housing, and thus for has had not much luck. Patient has long history of intermittent urinary retention, he had thought he was developing it again, had cath 2 times this last week, without very much residual. He is pushing fluids, and drinking frequently, denies dysuria just frequency. His other complaints include dizziness, ongoing persistent anxiety, this fluctuates with his current situation. He has been coming to the [place] weekly, to get hydration, at this point continues to plan to follow-up at the [facility]. Patient's past medical history includes BPH, urinary retention, RA, anxiety disorder, depression, history of alcohol abuse no longer using, tobacco use 2 cigarettes a day. Social History - Living Situation Living arrangement: Other (son's home) Living Situation: With spouse/s.o., With family Support System: Patient remains quite worried about his , they are living with her son in [place], are trying to find a place he can afford but this is been difficult. They have moved out of their home on [address], has been difficult unpacking all their belongings and figuring out how to prioritize. Lizet does have high anxiety, patient has 1 son outside of [place] in their marriage, they have 3 kids together. Medications/Allergies - Medications Home Medications: Ambulatory Orders Medication Instructions Recorded Confirmed Trazodone HCl 300 mg PO QPM 02/28/18 11/24/19 Finasteride 5 mg PO DAILY 06/23/18 11/24/19 fentaNYL [Fentanyl 50mcg patch] 100 mcg TD Q3D 06/27/18 11/24/19 Albuterol Sulfate [Proair 1 - 2 puffs INH Q4HR PRN 07/24/18 11/24/19 Respiclick] Naloxone HCl [Narcan] 1 spray JESSICA PRN PRN 07/24/18 11/24/19 Nystatin 5 ml PO QID PRN 07/24/18 11/24/19 Ipratropium/Albuterol [Duoneb] 1 amp INH Q4HR PRN 08/04/18 11/24/19 Oxycodone HCl 20 mg PO Q4HR PRN MDD 7 tabs 08/04/18 11/24/19 buPROPion HCL [Bupropion HCl] 75 mg PO BID 08/04/18 11/24/19 Metoprolol Succinate [Toprol Xl] 12.5 mg PO BID 09/25/18 11/24/19 Indomethacin 50 mg PO TID PRN 10/05/19 11/24/19 Tamsulosin [Flomax] 0.4 mg PO DAILY 11/05/19 11/24/19 Megestrol Acetate 400 mg PO DAILY 11/24/19 11/24/19 diazePAM [Valium] 5 mg PO ONCE PRN MDD DO NOT REFILL 11/24/19 11/24/19 - Allergies Allergies/Adverse Reactions: Allergies Allergy/AdvReac Type Severity Reaction Status Date / Time No Known Drug Allergies Allergy Verified 11/16/19 11:45 Review of Systems - Constitutional Constitutional: reports: Fatigue, Poor appetite (improved with Megace), Weight gain (146 up to 152). denies: Fever, Chills - Ears, Nose & Throat Ears, Nose & Throat: reports: Hearing loss, Nasal congestion, Dentures, Dry mouth - Cardiovascular Cardiovascular: reports: Lightheadedness, Decr. exercise tolerance. denies: Chest pain, Edema - Respiratory Respiratory: reports: Cough, SOB with exertion. denies: Sputum production, Wheezing, Hemoptysis, SOB at rest - Gastrointestinal Gastrointestinal: reports: Poor appetite (doing better), Other ("danielito" button; so no longer loosing food/fluid through exit site). denies: Constipation, Nausea, Reflux/heartburn - Genitourinary Genitourinary: reports: Frequency, Other (had cathed two times this last week without much residual). denies: Dysuria, Hematuria - Musculoskeletal Musculoskeletal: reports: Muscle pain, Muscle aches, Stiffness, Limited range of motion (hands), Muscle weakness, Joint pain (hands/wrists/elbows; using indocin 1 x a day but has worsened over last few weeks), Assistive devices (cane) - Integumentary Integumentary: reports: Dryness - Neurological Neurological: reports: General weakness, Dizziness - Psychiatric Psychiatric: reports: Depression, Anxiety - Hematologic/Lymphatic Hematologic/Lymphatic: reports: Anemia (10.6) - All Other Systems All Other Systems: reports: Reviewed and negative Physical Exam - Vital Signs Temperature: 36.4 C Pulse Rate: 49 Respiratory Rate: 18 Blood Pressure: 95/52 - Physical Exam General Appearance: positive: Alert, Anxious, Cachetic Eyes Bilateral: positive: Normal inspection ENT: positive: No signs of dehydration Neck: positive: Trachea midline, Lymphadenopathy (L) (two palpable nodes) Cardiovascular: positive: Irregularly irregular, Bradycardia Respiratory: positive: No respiratory distress Abdomen: positive: Soft, Other (small danielito button; oozing small amount gastric drainage; mild redness/tenderness; much improved) Skin: positive: Pallor, Dryness, Other Extremities: positive: No pedal edema, Joint swelling (hands/wrists) Neurologic/Psychiatric: positive: Oriented x3, Mood/affect nml, Weakness, Slurred/abnml speech (mechanical), Flat affect Palliative Care - POLST Patient has POLST: No POLST Status: Full Code Pain: Pain worsening, Location (see hPI/ rates 4/`0) Tiredness/Fatigue: Mild (1-3) Drowsiness/Sedation: Mild (1-3) Nausea: None Anorexia: Moderate (4-6) Dyspnea: Moderate (4-6) Depression: Mild (1-3) Anxiety: Mild (1-3) Feelings of wellbeing/Perceived Quality of Life: Fair, Acceptable, Improved Sleep: Sleeps well Performance Status: Patient does have intermittent activity intolerance, is impacted by dizziness. Does walk with a cane at times, is able to do his own ADLs. Is challenged by needing transportation, does not currently drive. - Palliative Care Discussion: Patient is having significant anxieties over multiple stressors, including most recently pending radiation treatment, has to lay still feels very claustrophobic. He has high anxiety about finding another place to live, and their financial stressors. He is trying to figure out how best to manage his care, have encouraged him to consider moving over to [place] as far as support services. He does not want to make any changes for at least another couple months, he continues to struggle with his multiple health issues, and is hoping again for a good outcome or remission.Patient does understand the seriousness of his illness, but does not feel that is helpful to acknowledge it or plan for end of life. Results - Lab Results Lab results reviewed: Yes Impression and Recommendations - Palliative Care Impression: This is a 69-year-old gentleman with stage IV left tonsillar cancer, with recurrent disease after complete response, including new right adrenal mass. He is pending stereotactic radiation therapy tomorrow, with significant high anxiety. Patient has restarted on nivolumab, now presenting with persistent anorexia, flare of his RA and joint pain in his hands wrists and elbows, intermittent dizziness, and continues to be challenged with complex psychosocial stressors. Palliative care continue to follow for quality of life issues, pain and symptom management, and anticipatory guidance as allowed Recommendations/Counseling Done: 1. Of neoplastic origin. Patient currently on fentanyl 100 mcg patch, we have been looking at titrating down, though now patient reports exacerbation of musculoskeletal pain, particularly in hands wrists and elbows. Suspect it is related to his restarting the nivolumab, he continues to use his oxycodone 20 mg tabs to maximum 7 per 24 hours, and often comes up short, patient reports his hands have been persistently painful now for almost 2 to 3 weeks. We will go ahead and add Voltaren gel, counseling provided how best to use, and see if this improves using something topical. 2. G-tube exit site. Patient did get procedure done, with Toy button in place, still oozing some, showed patient IV split pad, to manage secretions. Encouraged to keep clean and is much improved. It has added to his ability to e at and drink. 3. BPH. Patient reports did have some retentive symptoms, he did check for retention, without any concern for residual. Reminded patient regarding signs and symptoms, he is having some frequency but no dysuria or urgency. 4. Loss. This is multifactorial, now he does feel the Megace is helping, he has restarted. He has had improved intake with resolution of the fistula. He is doing Ensure Plus 2 times a day, plus eating as much as he can tolerate. He is drinking large amounts of fluid, and continues to get weekly hydration. Anxiety. This is been exacerbated with his recurrent disease, multiple social complex issues around finances and moving. Also with pending radiation treatments. Patient has been counseled given his past misuse of benzodiazepines, will provide Valium 5 mg tabs 10 only to be used for his radiation treatments, patient verbalized understanding. 7. Advanced care planning. Patient continues to be quite anxious about his disease, his complex social situation, and any kind of change. Have recommended he transition his care to [place] to better be able to decrease travel costs and stressors, he would like to at least finish through the end of the year. Time Spent: 60 minutes with greater than 50% of this done in counseling regarding pain and symptom management, complex psychosocial situation, and anticipatory guidance.
== END 2019-11-24 14:18 | disposition home or self-care (01) ==
LOC: PC 14:17
PROVIDERS: ATTEND Nurse Practitioner Adult Health
DX: Z51.5 Encounter for palliative care (principal); C09.9 Malignant neoplasm of tonsil, unspecified; G89.3 Neoplasm related pain (acute) (chronic); N40.1 Benign prostatic hyperplasia with lower urinary tract symptoms; R33.8 Other retention of urine; R63.4 Abnormal weight loss; F41.9 Anxiety disorder, unspecified; M06.9 Rheumatoid arthritis, unspecified; F10.11 Alcohol abuse, in remission; F17.200 Nicotine dependence, unspecified, uncomplicated; Z93.1 Gastrostomy status; Z79.899 Other long term (current) drug therapy
CPT/HCPCS: 99215

== ENCOUNTER 2019-12-21 12:36 | Outpatient (CLI) | payer MEDICARE, MEDICAID ==
--- NOTE | 2019-12-21 16:58 | CONSULTATION NOTE ---
Palliative Care Follow Up - Referral Referring Provider: Dr. Adair Yang Time of Visit: [phone] Referral setting: [facility] [place] Referral Reason: Pain of neoplastic origin/Anxiety/Stage IV Left tonsillar cancer - Information Sources Records reviewed: Previous records reviewed History/Review of Systems obtained from: Patient Exam limitations: No limitations - History of Present Illness Update Brief HPI Update: This is a 69-year-old gentleman with stage IV squamous cell carcinoma the left tonsil, since 08/2017. He is currently on nivolumab resumed on 08/2019 for right adrenal progression. He did have his stereotactic radiation, 3 treatments completed. He was able to tolerate treatments, had supplied him with small num von of Valium. He had gotten quite claustrophobic and anxiety D. Patient continues with high symptom burden, concern regarding toxicity is having significant flare in his hands, wrists and elbows, regarding his musculoskeletal/RA issues. He does have still have some residual stiffness, mostly the pain and discomfort is in his right hand, it is responding to intermittent topical Voltaren. He is on fentanyl 100 mcg patch for throat discomfort and pain that radiates from the back of his head up into his head. He has been managed long-term so far on that, he also uses a maximum his oxycodone 20 mg between 6 and 8 tabs in 24 hours, and has been on this long-term with good control. He does understand he is not to receive early refills. Patient did have a Toy put in at the PEG exit site, still has some irritation, but much less drainage. Has been able to eat and drink better. He is quite distressed without his weight gain. He is using the Megace with he feels like good results, but still weighed in today at about 150, he reports his weight last week was 157. He is eating and drinking on a regular basis, he has cut down his smoking to less than 2 a day, including decreasing his marijuana use. Reports he has had less respiratory/dyspnea and cough. He had thought he was having some retention, had catheterized himself yesterday, as he is having more trouble peeing, but did not have hardly any residual. Patient is transitioning, had finally gotten out of their rental, they have been there for 35 years. They had a significant amount of belongings, he was hoping to simplify, his wanted to keep everything so they got a storage unit. At this point in time the plan is to stay with the son, he has not been able to find transitional housing that they can afford. He is looking to move his care to [place], as it is more expensive for him as he depends on paying privately for transportation here. He is quite anxious though about any kind of change, and feels very comfortable here, but knows he would do better and it be more efficient to have his appointments in [place]. Past patient history includes BPH, urinary retention, RA, anxiety disorder, depression, history of alcohol abuse no longer drinking, tobacco use 2 cigarettes a day. Social History - Living Situation Living arrangement: Other Living Situation: With family Support System: Patient and patient's Lizet currently living with her son over in [place]. He reports is adjusting, she has severe anxiety disorder as well, and gets very distressed particularly with any thoughts of patient's pending decline. They have not been able to locate affordable housing, continue to work with this, though is somewhat overwhelming for patient to follow through. He does have fluctuating levels of energy to be able to problem solve. Medications/Allergies - Medications Home Medications: Ambulatory Orders Medication Instructions Recorded Confirmed Trazodone HCl 300 mg PO QPM 02/28/18 12/21/19 Finasteride 5 mg PO DAILY 06/23/18 12/21/19 fentaNYL [Fentanyl 50mcg patch] 100 mcg TD Q3D 06/27/18 12/21/19 Albuterol Sulfate [Proair 1 - 2 puffs INH Q4HR PRN 07/24/18 12/21/19 Respiclick] Naloxone HCl [Narcan] 1 spray JESSICA PRN PRN 07/24/18 12/21/19 Nystatin 5 ml PO QID PRN 07/24/18 12/21/19 Ipratropium/Albuterol [Duoneb] 1 amp INH Q4HR PRN 08/04/18 12/21/19 Oxycodone HCl 20 mg PO Q4HR PRN MDD 7 tabs 08/04/18 12/21/19 buPROPion HCL [Bupropion HCl] 75 mg PO BID 08/04/18 12/21/19 Metoprolol Succinate [Toprol Xl] 12.5 mg PO BID 09/25/18 12/21/19 Indomethacin 50 mg PO TID PRN 10/05/19 12/21/19 Tamsulosin [Flomax] 0.4 mg PO DAILY 11/05/19 12/21/19 Megestrol Acetate 400 mg PO DAILY 11/24/19 12/21/19 diazePAM [Valium] 5 mg PO ONCE PRN MDD DO NOT REFILL 11/24/19 12/21/19 - Allergies Allergies/Adverse Reactions: Allergies Allergy/AdvReac Type Severity Reaction Status Date / Time No Known Drug Allergies Allergy Verified 12/21/19 12:43 Review of Systems - Constitutional Constitutional: reports: Fatigue, Weight stable (150). denies: Fever, Chills - Eyes Eyes: reports: Vision loss - Ears, Nose & Throat Ears, Nose & Throat: reports: Hearing loss, Hearing aids, Dry mouth. denies: Nasal congestion - Cardiovascular Cardiovascular: reports: Exertional dyspnea, Decr. exercise tolerance. denies: Chest pain, Edema - Respiratory Respiratory: reports: Cough (less), SOB with exertion. denies: Wheezing (uses neb 1x day), Hemoptysis, SOB at rest - Gastrointestinal Gastrointestinal: reports: Constipation (intermittent), Other (increased trouble at times with swallowing; c/o sore throat). denies: Nausea - Genitourinary Genitourinary: reports: Frequency, Urgency, Other (occasional retention) - Musculoskeletal Musculoskeletal: reports: Stiffness, Limited range of motion, Muscle weakness, Joint pain (right thumb/hand) - Integumentary Integumentary: reports: Dryness, Other (PEG exit site with mild irritation) - Neurological Neurological: reports: General weakness - Psychiatric Psychiatric: reports: Depression, Anxiety - Hematologic/Lymphatic Hematologic/Lymphatic: reports: Anemia (9.3) - All Other Systems All Other Systems: reports: Reviewed and negative Physical Exam - Vital Signs Temperature: 37.2 C Pulse Rate: 75 Respiratory Rate: 16 Blood Pressure: 89/55 - Physical Exam General Appearance: positive: Alert, Anxious, Cachetic Eyes Bilateral: positive: Normal inspection ENT: negative: Pharyngeal erythema Neck: positive: Trachea midline, Lymphadenopathy (L) (two palpable nodes) Cardiovascular: positive: Irregularly irregular, Bradycardia Respiratory: positive: No respiratory distress, Diminished throughout. negative: Wheezes, Rales, Rhonchi Abdomen: positive: Soft, Other (small danielito button; oozing small amount gastric drainage; mild redness/tenderness;) Skin: positive: Pallor, Dryness Extremities: positive: No pedal edema, Joint swelling (right hand) Neurologic/Psychiatric: positive: Oriented x3, Mood/affect nml, Weakness, Slurred/abnml speech (mechanical), Flat affect Palliative Care - POLST Patient has POLST: No POLST Status: Full Code Pain: Pain improved, Location (joints with topical volatren intermittently), Severity (3/10) Tiredness/Fatigue: Moderate (4-6) Drowsiness/Sedation: None Nausea: None Anorexia: Moderate (4-6) Dyspnea: Moderate (4-6) Depression: Moderate (4-6) Anxiety: Moderate (4-6) Feelings of wellbeing/Perceived Quality of Life: Fair, Acceptable, No change Sleep: Sleeps poorly (had run out of trazadone; reorodered; in transition between pharmacies) Constipation: Yes, Opoid induced, Intermittent constipation Performance Status: Patient still fluctuates as far as strength and endurance, is able to manage his own ADLs, but is fairly sedentary overall. - Palliative Care Discussion: Patient remains with fairly high level of anxiety with transition plan, transitioning to new clinic, his sons, worried about his cancer, his continued difficulty gaining weight. Patient continues to struggle with his multiple health issues again is hoping for a good outcome and or remission. Patient does understand the seriousness of his illness, but does not feel it is helpful to be anything but positive or to plan for end-of-life. This is also influenced fairly significantly by his who has significant anxiety regarding his pending decline in the future. They have done no advance care planning by choice. Results - Lab Results Lab results reviewed: Yes Impression and Recommendations - Palliative Care Impression: This is a 69-year-old gentleman with stage IV tonsillar cancer, with recurrent disease after complete response, now has new right adrenal mass. He has completed stereotactic radiation, is on monthly nivolumab, continues with persistent anorexia, musculoskeletal side effects, and continues to be challenged with complex psychosocial stressors. Palliative care continue to follow for quality of life issues, pain and symptom management, and anticipatory guidance as allowed. Recommendations/Counseling Done: 1. Pain of neoplastic origin. Patient currently on fentanyl 100 mcg patch, had been looking at titrating down, though now patient reports persistent exacerbation of his musculoskeletal pain, suspect it is related to his restarting nivolumab. He did try intermittent Voltaren gel with some improvement, is starting to have increased soreness and discomfort in throat and neck. 2. G-tube exit site. Patient has a Toy button, still loses some, did find him some cloth recyclable patches to use, wrote out instructions so he could order from [facility]. Reviewed need to keep the area clean and dry, as those are gastric secretions. Verbalized understanding. 3. BPH. Patient did have some retentive symptoms yesterday, he did we check without any concern for residual. Patient denies any signs or symptoms of infection. Patient is having increased trouble with worsening kidney function. 4. Weight loss. This is multifactorial, he is continues the Megace as he does feel like it helps. Counseling provided regarding realistic goals around weight. Instructed current goal is no further weight loss, reminded it takes 3500 extra calories to gain a pound, and we would not expect at this point in t des for him to gain more than 3 to 5 pounds in a month. This did decrease his anxiety, he will continue to work on pushing food and fluids. He is taking 2 Ensure a day. 5. Anxiety. This is been exacerbated with his recurrent disease, is multiple complex social issues around finances moving and his partner. Patient has been counseled given his misuse of benzodiazepines in the past, was given only 10 tabs to be used for radiation, reports he is currently coping somewhat better. 6. Tobacco abuse. Patient down to 2 cigarettes a day, wanting NicoDerm patch, reports is very difficult because both his and son smoke. He feels like this would be of help, he did borrow his 's and found it helped with cravings. Suspect is not covered by his insurance, but did order at [facility] in [place]. 7. Advanced care planning. Patient continues to struggle with anxiety of his recurrent disease, always wants to stay "positive", and trying to find a balance as far as reassurance for his to, who gets very anxious if patient is doing poorly. Continue to support patient as best he allows, in realistic planning and anticipatory guidance. Patient is quite anxious to transition to palliative care in [place], will continue to meet every 6 to 8 weeks, until patient comfortable with looking at further transition. Time Spent: 60 minutes with greater than 50% of this done in counseling regarding symptom management, anxiety, and anticipatory guidance.
== END 2019-12-21 12:37 | disposition home or self-care (01) ==
LOC: PC 12:36
PROVIDERS: ATTEND Nurse Practitioner Adult Health
DX: Z51.5 Encounter for palliative care (principal); G89.3 Neoplasm related pain (acute) (chronic); F41.9 Anxiety disorder, unspecified; N40.1 Benign prostatic hyperplasia with lower urinary tract symptoms; R35.0 Frequency of micturition; R39.15 Urgency of urination; R63.4 Abnormal weight loss; M06.9 Rheumatoid arthritis, unspecified; F17.210 Nicotine dependence, cigarettes, uncomplicated; Z79.899 Other long term (current) drug therapy; Z79.891 Long term (current) use of opiate analgesic; Z92.3 Personal history of irradiation; Z93.1 Gastrostomy status; Z59.9 Problem related to housing and economic circumstances, unspecified
CPT/HCPCS: 99215